=== PATIENT | female | born 1935 | race Caucasian/White ===

== ENCOUNTER 2019-03-25 10:42 | Inpatient (IN) | payer MEDICARE, SELFPAY ==
[2019-03-25] VITALS (10 sets, daily range): BP systolic 81–114; BP diastolic 44–63; PULSE 49–79; RESP 16–19; TEMP 36.4–36.8; O2SAT 96–99; BMI 31.6
--- NOTE | ~2019-03-25 | XR_ITS ---
EXAMINATION: XR chest 2V DATE: 03/25/2019 12:58 INDICATION: Weakness TECHNIQUE: AP and lateral views of the chest are obtained. COMPARISON: 01/12/2019 FINDINGS: There are lucencies of the upper lung zones, right greater than left. The lungs are free of acute opacities. There is no pleural effusion or pneumothorax. Median sternotomy wires and mediastin al surgical clips are seen, likely from prior coronary artery bypass grafting. A moderate-sized slidi ng hiatal hernia is noted. There is mild thoracic spondylosis. IMPRESSION: 1. No acute cardiopulmonary abnormality. Reviewed, dictated and finalized at location A. RV[employer]OR [employer]
--- NOTE | ~2019-03-25 | US_ITS ---
EXAMINATION: US renal BI EXAM DATE: 03/27/2019 11:06 INDICATION: Chronic kidney disease, acute kidney insufficiency. TECHNIQUE: Multiple grayscale and Doppler images of the kidneys were obtained (by a technologist who performed the scan) and subsequently reviewed. There is no prior study for comparison. FINDINGS: There is right greater than left renal cortical thinning. Right kidney: There is normal contour and echogenicity. It measures 8.6 x 4.8 x 4.8 centimeters. Th ere are no focal renal lesions identified. There is no hydronephrosis. Left kidney: There is normal contour and echogenicity. It measures 9.7 x 4.4 x 4.8 centimeters. Jasmine ral small cysts measuring up to 1.3 cm. There is no hydronephrosis. Bladder unremarkable. IMPRESSION: 1. Renal cortical thinning. 2. No hydronephrosis. Reviewed, dictated and finalized at location A. [employer]
--- NOTE | 2019-03-25 12:07 | ED.WEAKNESS ---
HPI - Weakness General Chief complaint: Weakness Stated complaint: dizzy Time Seen by Provider: 03/25/19 12:01 Source: patient and family Mode of arrival: ambulatory Limitations: no limitations History of Present Illness HPI Narrative: The pt is an 83 y/o female who presents to the ED c/o generalized weakness onset two weeks ago. Pt states that she usually experiences this weakness whenever she has a UTI, and notes that she does not have burning urination or frequency with these episodes or currently. She notes that she usually presents to this ED when she has a UTI, and was inpatient for approximately five days around [facility] of last year due to this. Pt's family states that the pt went to her PCP, Maria G Casiano NP, on 03/10/19. Pt states that she was prescribed an antibiotic, but is unsure as to when she finished this treatment. Pt reports nausea, chronic back pain, and chronic ABD pain. Pt states that she last experienced this ABD pain this morning, but is resolved at this time. She denies vomiting, diarrhea, CP, and SOB. Pt notes that she takes Aspirin once per day and diabetes medication. She states that her sugars were high today at around 330. Pt notes that she lives with her daughter. Complaint: generalized weakness Onset (ago): week(s) (2) Duration: constant Location: generalized Severity: similar to previous episodes Context: recent illness (Diagnosed with UTI) Associated symptoms: other (Nausea, back pain (Chronic), ABD pain (Chronic, last experienced this this morning and is currently resolved)) Related Data Home Medications Medication Instructions Recorded Confirmed Spiriva with HandiHaler 1 cap INHALATION DAILY 01/12/19 03/25/19 Tresiba FlexTouch U-200 42 unit SUBCUT HS 01/12/19 03/25/19 aspirin [Aspir-81] 81 mg PO DAILY 01/12/19 03/25/19 furosemide 20 mg PO DAILY 01/12/19 03/25/19 isosorbide mononitrate 90 mg PO DAILY 01/12/19 03/25/19 levothyroxine 75 mcg PO DAILY 01/12/19 03/25/19 lisinopril 5 mg PO DAILY 01/12/19 03/25/19 metoprolol succinate [Toprol XL] 100 mg PO DAILY 01/12/19 03/25/19 nitroglycerin [Nitrostat] 0.4 mg SUBLINGUAL Q5MIN PRN 01/12/19 03/25/19 rosuvastatin 20 mg PO DAILY 01/12/19 03/25/19 Allergies Allergy/AdvReac Type Severity Reaction Status Date / Time No Known Allergies Allergy Verified 03/25/19 11:25 Review of Systems Review of Systems: All systems reviewed & are unremarkable except as noted in HPI and below Cardiovascular: Cardiovascular: Denies chest pain Respiratory: Respiratory: Denies dyspnea Gastrointestinal: Gastrointestinal: Reports abdominal pain (Chronic, last experienced this morning and is currently resolved), Denies diarrhea, Reports nausea and Denies vomiting Genitourinary: Genitourinary: Denies nocturia and Denies other (Burning urination) Musculoskeletal: Musculoskeletal: Reports back pain (Chronic ) Neurologic: Reports weakness (Generalized) [facility] Past Medical History Medical History (Updated 03/26/19 @ 00:40 by Kristi Cook MD) Acute on chronic renal failure Acute PN (pyelonephritis) Anemia Anemia due to stage 4 chronic kidney disease Bronchitis CAD (coronary artery disease) Cataracts, bilateral Chronic back pain Complicated UTI (urinary tract infection) COPD (chronic obstructive pulmonary disease) DVT (deep venous thrombosis) Femur fracture, right GERD (gastroesophageal reflux disease) GI bleed Heart attack History of angina History of blood transfusion HTN (hypertension) Hyperlipidemia Hypothyroid Meniere disease Osteopenia Peripheral neuropathy Peripheral vascular disease of lower extremity Pneumonia Rectal polyp Renal disease Seizures During [place] Type II diabetes mellitus UTI (urinary tract infection) Surgical History Surgical History (Updated 03/25/19 @ 16:39 by Michael Mcpherson MD) History of appendectomy History of cardiac catheterization History of cataract removal with insertion of prosthetic lens History of c
--- NOTE | 2019-03-25 12:24 | ECG_ITS ---
Measurements Intervals [place] Rate: 71 P: 26 RI: 163 QRS: 15 QRSD: 93 T: 54 QT: 376 QTc: 411 Interpretive Statements SINUS RHYTHM WITH MARKED SINUS ARRHYTHMIA EARLY PRECORDIAL R/S TRANSITION INFERIOR INFARCT, AGE INDETERMINATE BORDERLINE ST ABNORMALITY- LATERAL LEADS ABNORMAL ECG Electronically Signed On 03-25-2019 13:56:11 NOZZLE TENDER by Sathya Cohen D.O.
--- NOTE | 2019-03-25 12:52 | PC.NURSE ---
per Paola Haile unsuccessfully attempte lab draw x2 RN notified
[2019-03-25 13:01] LABS: Add Urine Microscopic? YES; Amorphous Sediment Urine Few; Appearance Urine Cloudy (Clear); Bacteria Urine Trace /hpf; Bilirubin Urine Negative (Negative); Blood Urine 1+ (Negative); Color Urine Yellow (Yellow); Glucose Urine UA 1+ mg/dL (Negative); Ketones Urine Negative (Negative); Leukocyte Esterase Ur 3+ LEU/UL (Negative); Mucus Urine Few /lpf; Nitrate Urine Negative (Negative); Protein Urine 2+ mg/dL (Negative); RBC Urine 21-50 /hpf (0-2); Specific Grav Ur 1.016 (1.001-1.035); Squamous Epithelial Cell Urine Many /hpf (Few); Transitional Epi Cells Urine Occasional /hpf (None Seen); WBC Clumps Urine Present /HPF; WBC Urine >75 /hpf
[2019-03-25] MEDS: LACTATED RINGERS 1,000 ML 999 ML IV CONT ×2 (13:34→15:55)
--- NOTE | 2019-03-25 13:55 | PC.NURSE ---
pt has been stuck multiple times labs where sent down and were un-received. lab was called and they are coming to draw labs on the pt.
[2019-03-25 14:23] LABS: Basophils Absolute Auto 0.1 K/mm3 (0.0-0.1); Basophils Percent Auto 0.4 % (0.2-1.2); Eosinophils Absolute Auto 0.1 K/mm3 (0-0.3); Eosinophils Percent Auto 0.5 % (0-4.4); Hematocrit 37.6 % (37.0-47.0); Immature Granulocyte Absolute 0.09 K/mm3 (0.00-0.031); Immature Granulocyte Percent A 0.6 % (0-0.5); Lymphocytes Absolute Auto 2.37 K/mm3 (0.9-3.2); Mean Corpuscular HGB Conc 31.9 g/dl (32-36); Mean Corpuscular Hemoglobin 30.5 pg (26-34); Mean Corpuscular Volume 95.7 fl (80-100); Mean Platelet Volume 11.1 fl (7.4-10.4); Monocytes Absolute Auto 0.7 K/mm3 (0.1-0.6); Monocytes Percent Auto 5.3 % (2.6-8.5); Neutrophils Absolute Auto 10.7 K/mm3 (1.3-6.7); Neutrophils Percent Auto 76.2 % (45.5-73.1); Platelet Count Result 270 k/mm3 (150-375); Red Blood Count 3.93 M/mm3 (4.2-5.4); Red Cell Distribution Width 12.8 % (11.5-14.5)
--- NOTE | 2019-03-25 14:24 | PC.NURSE ---
VASCULAR NURSE CAME TO ED TO DRAW LABS. NOTIFIED LAB ABOUT LABS CANCELLED THEM TO COME UP AND DRAW LABS.
[2019-03-25 14:49] LABS: Alanine Aminotransferase 14 U/L (4-35); Albumin Level 3.4 g/dL (3.5-5.1); Alkaline Phosphatase 75 U/L (38-126); Aspartate Amino Transferase 18 U/L (14-36); Bilirubin,Total 0.5 mg/dL (0.2-1.3); Blood Urea Nitrogen 57 mg/dL (7-17); Calcium 8.8 mg/dL (8.4-10.2); Carbon Dioxide 27 mmol/L (22-30); Chloride 93 mmol/L (98-107); Estimated CRCL calculation 14 ml/min; Estimated Glomerular Filt Rate 17; Glucose 263 mg/dL (65-105); Potassium 4.5 mmol/L (3.4-5.0); Sodium 132 mmol/L (137-145)
[2019-03-25 14:55] LABS: Glucose Point of Care 226 (65-105)
--- NOTE | 2019-03-25 15:49 | PM.IMHP ---
H&P: HPI History of Present Illness Chief complaint: Acute renal failure/UTI Narrative: Anuradha Spaulding is a 83 year old female until about 2 months ago. At that time she was admitted for possible urinary tract infection. Culture grew group B strep. She was hospitalized and treated with ceftriaxone followed by amoxicillin as an outpatient. However she continued to feel weak and dizzy. Which she would get up from walks to feel very lightheaded since she is going to pass. She never completely passed out. She was always able to sit down on the floor or get back to a chair or her bed. Her dizziness was associated with nausea. She vomited a couple of times. She has chronic urinary frequency without change. No dysuria hematuria. No change in her chronic low back. No bleeding. No fevers or chills. Some night sweats per. Chronic. No focal weakness numbness or change in special senses. No diplopia. No dysarthria. She occasionally has slight difficulty with swallowing but no choking. Although she has a history of coronary artery disease and coronary artery bypass grafting she has not had any recent dyspnea on exertion palpitations chest pain or pressure. Her feet do turn purple after she has been up for a while. Her big toes tend to swell after she has been up for a while. No other issues with edema. She has not experienced hypoglycemia. Only new addition to her medication was Trulicity about 1 month ago. Appetite has been fairly good and weight fairly stable. Review of Systems Review of Systems: All systems reviewed & are unremarkable except as noted in HPI and below PMFSH Past Medical History Medical History (Updated 03/25/19 @ 16:59 by Michael Mcpherson MD) Acute on chronic renal failure Acute PN (pyelonephritis) Anemia Anemia due to stage 4 chronic kidney disease Bronchitis CAD (coronary artery disease) Cataracts, bilateral Chronic back pain Complicated UTI (urinary tract infection) COPD (chronic obstructive pulmonary disease) DVT (deep venous thrombosis) Femur fracture, right GERD (gastroesophageal reflux disease) GI bleed Heart attack History of angina History of blood transfusion HTN (hypertension) Hyperlipidemia Hypothyroid Meniere disease Osteopenia Peripheral neuropathy Peripheral vascular disease of lower extremity Pneumonia Rectal polyp Renal disease Seizures During [place] Type II diabetes mellitus UTI (urinary tract infection) Surgical History Surgical History (Updated 03/25/19 @ 16:39 by Michael Mcpherson MD) History of appendectomy History of cardiac catheterization History of cataract removal with insertion of prosthetic lens History of cholecystectomy History of hysterectomy History of total right hip arthroplasty Hx of blepharoplasty Hx of CABG Family History Family History Father Hypertension Pneumonia Smoking Mother Diabetes mellitus Family history of glaucoma Cancer Hypotension Cerebrovascular accident Sibling Diabetes mellitus Heart disease Sibling Diabetes mellitus Heart disease Sibling Diabetes mellitus Heart disease Sibling Diabetes mellitus Heart disease Sibling Suicide and self-inflicted injury Sibling Accidental , public place Social History Social History Smoking status: Never smoker Second hand tobacco smoke exposure: Yes Alcohol intake: never Substance use: never Gender identity (if verbalized by the patient): Female Spiritual care concerns: No Agree to blood products: Yes Meds Home Medications and Allergies Home Medications Medication Instructions Recorded Confirmed Type Spiriva with HandiHaler 1 cap INHALATION DAILY 01/12/19 01/12/19 History Tresiba FlexTouch U-200 42 unit SUBCUT HS 01/12/19 01/12/19 History aspirin [Aspir-81] 81 mg PO DAILY 01/12/19 01/12/19 History furosemide 40 mg PO DAILY
[2019-03-25] MEDS: LACTATED RINGERS 1,000 ML 125 ML IV CONT (16:45)
--- NOTE | 2019-03-25 17:00 | PC.NURSE ---
pt arrived to floor at 1645. pt oriented to room, reviewed packet.
[2019-03-25 17:40] LABS: Glucose Point of Care 263 (65-105)
[2019-03-25 21:27] LABS: Creatinine Urine 17.1 mg/dL
[2019-03-25 21:39] LABS: Sodium Urine Random 96 meq/L
[2019-03-25 22:02] LABS: Glucose Point of Care 349 (65-105)
[2019-03-25] MEDS: INSULIN ASPART (*BKC) 100 UNITS/ML SUB-Q (23:38)
[2019-03-26 02:39] LABS: Glucose Point of Care 281 (65-105)
[2019-03-26] MEDS: LACTATED RINGERS 1,000 ML 125 ML IV CONT ×2 (04:26→17:08)
[2019-03-26] MEDS: LEVOTHYROXINE SODIUM 75 MCG TABLET PO (05:54)
[2019-03-26 06:00] VITALS: BP 142/52; PULSE 72; RESP 18; TEMP 36.2; O2SAT 99
[2019-03-26 06:26] LABS: Basophils Absolute Auto 0.1 K/mm3 (0.0-0.1); Basophils Percent Auto 0.5 % (0.2-1.2); Eosinophils Absolute Auto 0.2 K/mm3 (0-0.3); Eosinophils Percent Auto 1.8 % (0-4.4); Hematocrit 36.6 % (37.0-47.0); Hemoglobin 11.7 g/dL (12.0-15.0); Immature Granulocyte Absolute 0.03 K/mm3 (0.00-0.031); Immature Granulocyte Percent A 0.3 % (0-0.5); Lymphocytes Absolute Auto 3.51 K/mm3 (0.9-3.2); Lymphocytes Percent Auto 37.2 % (18.3-44.2); Mean Corpuscular Hemoglobin 30.5 pg (26-34); Mean Corpuscular Volume 95.3 fl (80-100); Mean Platelet Volume 10.9 fl (7.4-10.4); Monocytes Absolute Auto 0.7 K/mm3 (0.1-0.6); Monocytes Percent Auto 7.8 % (2.6-8.5); Neutrophils Absolute Auto 4.9 K/mm3 (1.3-6.7); Neutrophils Percent Auto 52.4 % (45.5-73.1); Platelet Count Result 236 k/mm3 (150-375); Red Blood Count 3.84 M/mm3 (4.2-5.4); White Blood Count 9.4 K/mm3 (4.5-10.0)
[2019-03-26 06:43] LABS: Alanine Aminotransferase 13 U/L (4-35); Albumin Level 3.5 g/dL (3.5-5.1); Alkaline Phosphatase 79 U/L (38-126); Aspartate Amino Transferase 19 U/L (14-36); Bilirubin,Total 0.5 mg/dL (0.2-1.3); Blood Urea Nitrogen 49 mg/dL (7-17); Calcium 8.7 mg/dL (8.4-10.2); Carbon Dioxide 25 mmol/L (22-30); Chloride 94 mmol/L (98-107); Estimated CRCL calculation 16 ml/min; Estimated Glomerular Filt Rate 18; Glucose 331 mg/dL (65-105); Magnesium 1.9 mg/dL (1.6-2.3); Phosphorus 4.4 mg/dL (2.5-4.5); Potassium 4.6 mmol/L (3.4-5.0); Sodium 133 mmol/L (137-145)
[2019-03-26] MEDS: INSULIN ASPART (*BKC) 100 UNITS/ML SUB-Q ×3 (06:55→17:10)
[2019-03-26 07:03] LABS: Glucose Point of Care 295 (65-105)
[2019-03-26 07:32] LABS: Hemoglobin A1C 12.3 % (<5.7)
[2019-03-26] MEDS: ASPIRIN 81 MG ENTERIC TABLET PO (08:59)
[2019-03-26 09:55] VITALS: PULSE 64
[2019-03-26] MEDS: METOPROLOL SUCCINATE EXT REL 50 MG TABCR PO (09:55)
[2019-03-26] MEDS: FAMOTIDINE 20 MG TABLET PO ×2 (09:55→20:50)
[2019-03-26 11:31] LABS: Glucose Point of Care 395 (65-105)
--- NOTE | 2019-03-26 14:01 | PM.CNCAR ---
Assessment and Plan Assessment and plan (1) Orthostatic hypotension: Code(s): I95.1 - Orthostatic hypotension Status: Acute Assessment and Plan: Worsened by her underlying urinary tract infection. She also has peripheral neuropathy and likely autonomic dysfunction also which will obviously contribute to her orthostasis. At this point, I recommend discontinuing her furosemide completely. She has a normal ejection fraction and is presenting with acute on chronic renal failure as well as orthostasis. Would also hold her lisinopril for now given her acute on chronic renal failure. Agree with IV fluids but I am going to reduce that down to 100 cc an hour. Support stockings to lower extremities and treatment of her urinary tract infection. If she continues to have issues with orthostasis despite these measures, could initiate midodrine. Given her significant coronary disease however I believes she should stay on isosorbide and metoprolol.. Therefore will restart isosorbide mononitrate but at a lower dose at 60 mg p.o. daily (2) Dizziness: Code(s): R42 - Dizziness and giddiness Status: Acute Assessment and Plan: Related to 1. Above (3) Acute on chronic renal failure: Qualifiers: Acute renal failure type: unspecified Chronic kidney disease stage: unspecified stage Qualified Code(s): N17.9 - Acute kidney failure, unspecified; N18.9 - Chronic kidney disease, unspecified Code(s): N17.9 - Acute kidney failure, unspecified; N18.9 - Chronic kidney disease, unspecified Status: Acute Assessment and Plan: Holding furosemide and lisinopril. Receiving IV fluids (4) CAD (coronary artery disease): Qualifiers: Coronary Disease-Associated Artery/Lesion type: bypass graft [place] vs. transplanted heart: [place] heart Associated angina: without angina Qualified Code(s): I25.810 - Atherosclerosis of coronary artery bypass graft(s) without angina pectoris Code(s): I25.10 - Atherosclerotic heart disease of [place] coronary artery without angina pectoris Status: Acute Assessment and Plan: As detailed above. Continue aspirin, isosorbide, statin and metoprolol. (5) Recurrent UTI: Code(s): N39.0 - Urinary tract infection, site not specified Status: Acute Assessment and Plan: On antibiotics (6) Aortic stenosis: Code(s): I35.0 - Nonrheumatic aortic (valve) stenosis Status: Acute Assessment and Plan: Moderate with a valve area 1.1 centimeters squared about a year ago Will repeat 2D echocardiogram with Doppler now. Certainly her dizziness upon standing and orthostasis is going to be symptomatically worsened by aortic stenosis History of Present Illness History of Present Illness Consult date/time: 03/26/19 14:01 Requesting physician: Michael Mcpherson MD Consult reason: Other (Dizziness, orthostatic hypotension) Reason For Visit: Acute renal failure/UTI Narrative: Date of service 03/26/2019: History: Patient is an 83-year-old female patient of Dr. Boo with history of left main coronary disease and underwent bypass grafting in 2002. Patient had inferolateral defect any catheterization was performed in 2015. At that time she had diffuse small multivessel coronary disease with a long LAD stenosis severe ostial and mid circumflex stenosis not amenable to PCI. December 2016 angiography was also performed showing that the circumflex had completely occluded. Attempts were made unsuccessfully to open the vessel. She also has moderate aortic stenosis. She did have a Lexiscan in April 2018 at [facility] with ischemia and infarction noted correlated to her known anatomy. She saw Dr. Boo December of 2018 at that point no specific changes were made to her cardiac regimen. She has been dealing with frequent UTIs recently. Consultation was requested for market orthostasis. She was admitted because of severe weakness irma
[2019-03-26 14:33] VITALS: BP 101/52; PULSE 61; RESP 20; TEMP 36.4; O2SAT 99
[2019-03-26 16:00] VITALS: BP 124/71
--- NOTE | 2019-03-26 16:04 | P.PNIM_ITS ---
Progress Note: A&P Assessment and Plan (1) Dizziness: Code(s): R42 - Dizziness and giddiness Status: Acute Assessment and Plan: * Orthostatic hypotension confirmed * 03/26/19 Medication adjusted with reduced dose of metoprolol and isosorbide and discontinuing lisinopril and furosemide * Elevate HOB * Trial of support stockings * Add low-dose midodrine if symptoms persist (2) Recurrent UTI: Code(s): N39.0 - Urinary tract infection, site not specified Status: Acute Assessment and Plan: * Abnormal urinalysis * Ceftriaxone empirically pending culture (3) Type II diabetes mellitus: Qualifiers: Diabetes mellitus ferry terminal supervisor insulin use: with ferry terminal supervisor use Diabetes mellitus complication status: with neurologic complications Diabetes mellitus complication detail: with polyneuropathy Qualified Code(s): E11.42 - Type 2 diabetes mellitus with diabetic polyneuropathy; Z79.4 - custodial (current) use of insulin Code(s): E11.9 - Type 2 diabetes mellitus without complications Status: Chronic Assessment and Plan: * A1c 12.3% * Continue basal insulin with sliding scale as needed * 03/26 added premeal insulin * 03/26 waffle boots and silvagel for left heel fissure (4) GERD (gastroesophageal reflux disease): Qualifiers: Esophagitis presence: esophagitis presence not specified Qualified Code(s): K21.9 - Gastro-esophageal reflux disease without esophagitis Code(s): K21.9 - Gastro-esophageal reflux disease without esophagitis Status: Chronic Assessment and Plan: * Acid suppression (5) Anemia due to stage 4 chronic kidney disease: Code(s): N18.4 - Chronic kidney disease, stage 4 (severe); D63.1 - Anemia in chronic kidney disease Status: Acute Assessment and Plan: * Relatively stable * Monitor (6) Hypothyroidism: Qualifiers: Hypothyroidism type: other Qualified Code(s): E03.8 - Other specified hypothyroidism Code(s): E03.9 - Hypothyroidism, unspecified Status: Chronic Assessment and Plan: * Continue home regimen (7) Acute on chronic renal failure: Qualifiers: Acute renal failure type: unspecified Chronic kidney disease stage: unspecified stage Qualified Code(s): N17.9 - Acute kidney failure, unspecified; N18.9 - Chronic kidney disease, unspecified Code(s): N17.9 - Acute kidney failure, unspecified; N18.9 - Chronic kidney disease, unspecified Status: Acute Assessment and Plan: * Possibly combination of medications including diuretic and MICHAEL-inhibitor plus volume depletion * Monitor renal parameters with judicious hydration (8) HTN (hypertension): Qualifiers: Hypertension type: essential hypertension Qualified Code(s): I10 - Essential (primary) hypertension Code(s): I10 - Essential (primary) hypertension Status: Chronic Assessment and Plan: * 03/26 held lisinopril and reduced metoprolol * Monitor pressure including orthostatics (9) Peripheral vascular disease of lower extremity: Code(s): I73.9 - Peripheral vascular disease, unspecified Status: Acute Assessment and Plan: * No history of claudication * High risk for diabetic foot infection. Advised patient and daughter at bedside. (10) Peripheral neuropathy: Qualifiers: Peripheral neuropathy type: polyneuropathy, unspecified Qualified Code(s): G62.9 - Polyneuropathy, unspecified Code(s): G62.9 - Polyneuropathy, unspecified
--- NOTE | 2019-03-26 16:04 | PM.IMPN ---
Progress Note: A&P Assessment and Plan (1) Dizziness: Code(s): R42 - Dizziness and giddiness Status: Acute Assessment and Plan: Orthostatic hypotension confirmed 03/26/19 Medication adjusted with reduced dose of metoprolol and isosorbide and discontinuing lisinopril and furosemide Elevate HOB Trial of support stockings Add low-dose midodrine if symptoms persist (2) Recurrent UTI: Code(s): N39.0 - Urinary tract infection, site not specified Status: Acute Assessment and Plan: Abnormal urinalysis Ceftriaxone empirically pending culture (3) Type II diabetes mellitus: Qualifiers: Diabetes mellitus tank terminal gauger insulin use: with tank terminal gauger use Diabetes mellitus complication status: with neurologic complications Diabetes mellitus complication detail: with polyneuropathy Qualified Code(s): E11.42 - Type 2 diabetes mellitus with diabetic polyneuropathy; Z79.4 - residential (current) use of insulin Code(s): E11.9 - Type 2 diabetes mellitus without complications Status: Chronic Assessment and Plan: A1c 12.3% Continue basal insulin with sliding scale as needed 03/26 added premeal insulin 03/26 waffle boots and silvagel for left heel fissure (4) GERD (gastroesophageal reflux disease): Qualifiers: Esophagitis presence: esophagitis presence not specified Qualified Code(s): K21.9 - Gastro-esophageal reflux disease without esophagitis Code(s): K21.9 - Gastro-esophageal reflux disease without esophagitis Status: Chronic Assessment and Plan: Acid suppression (5) Anemia due to stage 4 chronic kidney disease: Code(s): N18.4 - Chronic kidney disease, stage 4 (severe); D63.1 - Anemia in chronic kidney disease Status: Acute Assessment and Plan: Relatively stable Monitor (6) Hypothyroidism: Qualifiers: Hypothyroidism type: other Qualified Code(s): E03.8 - Other specified hypothyroidism Code(s): E03.9 - Hypothyroidism, unspecified Status: Chronic Assessment and Plan: Continue home regimen (7) Acute on chronic renal failure: Qualifiers: Acute renal failure type: unspecified Chronic kidney disease stage: unspecified stage Qualified Code(s): N17.9 - Acute kidney failure, unspecified; N18.9 - Chronic kidney disease, unspecified Code(s): N17.9 - Acute kidney failure, unspecified; N18.9 - Chronic kidney disease, unspecified Status: Acute Assessment and Plan: Possibly combination of medications including diuretic and MICHAEL-inhibitor plus volume depletion Monitor renal parameters with judicious hydration (8) HTN (hypertension): Qualifiers: Hypertension type: essential hypertension Qualified Code(s): I10 - Essential (primary) hypertension Code(s): I10 - Essential (primary) hypertension Status: Chronic Assessment and Plan: 03/26 held lisinopril and reduced metoprolol Monitor pressure including orthostatics (9) Peripheral vascular disease of lower extremity: Code(s): I73.9 - Peripheral vascular disease, unspecified Status: Acute Assessment and Plan: No history of claudication High risk for diabetic foot infection. Advised patient and daughter at bedside. (10) Peripheral neuropathy: Qualifiers: Peripheral neuropathy type: polyneuropathy, unspecified Qualified Code(s): G62.9 - Polyneuropathy, unspecified Code(s): G62.9 - Polyneuropathy, unspecified Status: Acute Assessment and Plan: Likely due to her diabetes May be contributing to orthostatic hypotension (11) CAD (coronary artery disease): Qualifiers: Coronary Disease-Associated Artery/Lesion type: bypass graft [place] vs. transplanted heart: [place] heart Associated angina: without angina Qualified Code(s): I25.810 - Atherosclerosis of coronary artery bypass graft(s) without angina pectoris
[2019-03-26 16:56] LABS: Glucose Point of Care 335 (65-105)
[2019-03-26 17:00] VITALS: BP 146/64; BP 99/51
[2019-03-26] MEDS: INSULIN ASPART (*BKC) 100 UNITS/ML 8 UNITS SUB-Q (17:09)
[2019-03-26] MEDS: SILVERGEL (ELTA) 45 ML 1 APPLIC TOPICAL (17:19)
[2019-03-26] MEDS: INSULIN GLARGINE (*BKC) 100 UNITS/ML 42 UNITS SUB-Q (20:50)
[2019-03-26 20:58] LABS: Glucose Point of Care 263 (65-105)
[2019-03-26 22:00] VITALS: BP 159/52; PULSE 57; RESP 20; TEMP 36.9; O2SAT 99
[2019-03-27] VITALS (8 sets, daily range): BP systolic 105–173; BP diastolic 55–69; PULSE 61–72; RESP 18–20; TEMP 36.7–37.2; O2SAT 96–97
--- NOTE | 2019-03-27 | ECHO_ITS ---
Patient Info Name: Anuradha Spaulding Age: 83 years : 1935 Gender: Female Ht: 63 in Wt: 177 lbs BSA: 1.92 m2 HR: 79 bpm BP: 156 / 69 mmHg Heart Rhythm: Sinus Rhythm Exam Date: 03/27/2019 8:06 AM Exam Location: [facility] Patient Status: Inpatient Admit Date: 03/25/2019 Staff Ordering Physician: Luis Gonzalez MD Blocking Machine Operator Second: Vanda Nam RDCS Attending Provider: Yolanda Pickett MD Referring Physician: Lisa CHILDRESS; Exam Type: CA echo dop color flow w con Study Info Complete two-dimensional, color flow and Doppler transthoracic echocardiogram is performed with contrast to opacify the left ventrical and to improve the deliniation of the left ventrical endocarial boarders. Contrast/Agitated Saline Contrast/Ag. Saline: Definity Amount: --- ml Summary 1. Left ventricular chamber dimension is normal. 2. Left ventricular systolic function is hyperdynamic, estimated at >70%. 3. There is moderately increased left ventricular wall thickness. 4. Left ventricular septal wall motion is normal. 5. The left ventricular diastolic function is grade I diastolic dysfunction. 6. Left atrial chamber dimension is moderately enlarged. 7. There is mild aortic valve stenosis with a peak velocity of 295.36 cm/s, mean gradient of 15 mmHg, and aortic valve area of 2.04 cm2. 8. There is moderate aortic valve calcification. 9. There is mild mitral valve regurgitation. 10. There is mild tricuspid valve regurgitation. 11. Mild pulmonary hypertension, estimated pulmonary arterial systolic pressure is 39 mmHg. 12. There is mild pulmonic regurgitation. Left Ventricle Left ventricular chamber dimension is normal. Left ventricular systolic function is hyperdynamic, estimated at >70%. There is moderately increased left ventricular wall thickness. Left ventricular septal wall motion is normal. The left ventricular diastolic function is grade I diastolic dysfunction. Right Ventricle Right ventricular chamber dimension is normal. Right ventricular systolic function is normal. Left Atria Left atrial chamber dimension is moderately enlarged. Right Atria Right atrial chamber dimension is normal. Atrial Septum Intact interatrial septum visualized by Doppler imaging. Aortic Valve The aortic valve is trileaflet. There is mild aortic valve stenosis with a peak velocity of 295.36 cm/s, mean gradient of 15 mmHg, and aortic valve area of 2.04 cm2. There is trace aortic valve regurgitation. There is moderate aortic valve calcification. Pulmonic Valve The pulmonic valve is normal. There is no pulmonic valve stenosis. There is mild pulmonic regurgitation. Mitral Valve The mitral valve has thickened leaflets and calcified annulus. There is no mitral valve stenosis. There is mild mitral valve regurgitation. Tricuspid Valve The tricuspid valve leaflets are normal. There is no significant tricuspid valve stenosis. There is mild tricuspid valve regurgitation. Mild pulmonary hypertension, estimated pulmonary arterial systolic pressure is 39 mmHg. Pericardium/Pleural The pericardium appears normal. There is no pericardial effusion. Aorta The aortic root size at the sinus of Valsalva is normal. Left Ventricular Outflow Tract Name Value Normal
[2019-03-27] MEDS: LACTATED RINGERS 1,000 ML 125 ML IV CONT (05:55)
[2019-03-27] MEDS: LEVOTHYROXINE SODIUM 75 MCG TABLET PO (05:55)
[2019-03-27 06:15] LABS: Hemoglobin 11.3 g/dL (12.0-15.0); Mean Corpuscular HGB Conc 32.3 g/dl (32-36); Mean Corpuscular Hemoglobin 30.5 pg (26-34); Mean Corpuscular Volume 94.3 fl (80-100); Mean Platelet Volume 10.9 fl (7.4-10.4); Platelet Count Result 222 k/mm3 (150-375); Red Blood Count 3.71 M/mm3 (4.2-5.4); Red Cell Distribution Width 12.5 % (11.5-14.5); White Blood Count 9.1 K/mm3 (4.5-10.0)
[2019-03-27 06:41] LABS: Blood Urea Nitrogen 41 mg/dL (7-17); Calcium 8.6 mg/dL (8.4-10.2); Carbon Dioxide 25 mmol/L (22-30); Chloride 99 mmol/L (98-107); Estimated CRCL calculation 18 ml/min; Estimated Glomerular Filt Rate 21; Glucose 325 mg/dL (65-105); Potassium 4.2 mmol/L (3.4-5.0); Sodium 133 mmol/L (137-145)
[2019-03-27 06:57] LABS: Glucose Point of Care 317 (65-105)
[2019-03-27] MEDS: INSULIN ASPART (*BKC) 100 UNITS/ML 8 UNITS SUB-Q (06:59)
[2019-03-27] MEDS: INSULIN ASPART (*BKC) 100 UNITS/ML SUB-Q ×2 (07:00→11:43)
[2019-03-27] MEDS: PERFLUTREN LIPID MICROSPHERES 1.5 ML VIAL DILUTED TO 10 ML TOTAL VOLUME (09:20)
[2019-03-27] MEDS: ASPIRIN 81 MG ENTERIC TABLET PO (10:09)
[2019-03-27] MEDS: METOPROLOL SUCCINATE EXT REL 50 MG TABCR PO (10:09)
[2019-03-27] MEDS: FAMOTIDINE 20 MG TABLET PO ×2 (10:10→21:25)
[2019-03-27] MEDS: ISOSORBIDE MONONITRATE 60 MG TAB.ER.24H PO (10:10)
--- NOTE | 2019-03-27 10:29 | PC.NURSE ---
Pt ate breakfast prior to 0700 and was given her sliding scale. The scheduled dose was not given with meal. Morning meds were late because pt was getting a renal ultrasound and unavailable. When I passed morning meds to her, she stated lunch would be there in less than an hour. Held the 0800 dose of scheduled insulin to be with meals.
[2019-03-27 11:29] LABS: Glucose Point of Care 219 (65-105)
[2019-03-27] MEDS: INSULIN ASPART (*BKC) 100 UNITS/ML 10 UNITS SUB-Q (11:44)
--- NOTE | 2019-03-27 11:55 | PM.PNCARD ---
Progress Note: A&P Assessment and Plan (1) Orthostatic hypotension: Code(s): I95.1 - Orthostatic hypotension Status: Acute Assessment and Plan: Worsened by her underlying urinary tract infection. She also has peripheral neuropathy and likely autonomic dysfunction also which will obviously contribute to her orthostasis. At this point, I recommend discontinuing her furosemide completely. She has a normal ejection fraction and is presenting with acute on chronic renal failure as well as orthostasis. Support stockings to lower extremities and treatment of her urinary tract infection. If she continues to have issues with orthostasis despite these measures, could initiate midodrine. I am going to stop her IV fluids at this point. I do not want to pressure into iatrogenic volume overload. Symptomatically she is much better and will likely need to allow some permissive hypertension at baseline to prevent her from having significant orthostatic hypotension upon standing. Will review echo (2) Dizziness: Code(s): R42 - Dizziness and giddiness Status: Acute Assessment and Plan: Related to 1. Above (3) Acute on chronic renal failure: Qualifiers: Acute renal failure type: unspecified Chronic kidney disease stage: unspecified stage Qualified Code(s): N17.9 - Acute kidney failure, unspecified; N18.9 - Chronic kidney disease, unspecified Code(s): N17.9 - Acute kidney failure, unspecified; N18.9 - Chronic kidney disease, unspecified Status: Acute Assessment and Plan: Holding furosemide and lisinopril. (4) CAD (coronary artery disease): Qualifiers: Coronary Disease-Associated Artery/Lesion type: bypass graft [place] vs. transplanted heart: [place] heart Associated angina: without angina Qualified Code(s): I25.810 - Atherosclerosis of coronary artery bypass graft(s) without angina pectoris Code(s): I25.10 - Atherosclerotic heart disease of [place] coronary artery without angina pectoris Status: Acute Assessment and Plan: As detailed above. Continue aspirin, isosorbide, statin and metoprolol. (5) Recurrent UTI: Code(s): N39.0 - Urinary tract infection, site not specified Status: Acute Assessment and Plan: On antibiotics (6) Aortic stenosis: Code(s): I35.0 - Nonrheumatic aortic (valve) stenosis Status: Acute Assessment and Plan: Moderate with a valve area 1.1 centimeters squared about a year ago Certainly her dizziness upon standing and orthostasis is going to be symptomatically worsened by aortic stenosis Subjective Date/time seen: 03/27/19 11:56 Interval history: Chief complaint: Dizziness, orthostasis Date of service 03/27/2019: She feels better today. No chest pain or shortness of breath. Dizziness has improved. Review of Systems Review of Systems: All systems reviewed & are unremarkable except as noted in HPI and below Constitutional: Constitutional: Denies headache(s) and Reports weakness Eyes: Eyes: Denies blurry vision ENT: Denies headache(s), Denies lip swelling, Denies epistaxis and Denies neck pain Cardiovascular: Cardiovascular: Denies chest pain and Reports dyspnea on exertion Respiratory: Respiratory: Denies hemoptysis, Reports dyspnea on exertion and Denies wheezing Gastrointestinal: Gastrointestinal: Denies abdominal pain Genitourinary: Genitourinary: Denies hematuria and Denies flank pain Musculoskeletal: Musculoskeletal: Denies back pain and Denies neck pain Integumentary/Breasts: Skin/Breast: Denies rash Neurologic: Denies confusion, Denies headache(s) and Reports weakness Psychiatric: Psychiatric: Denies anxiety and Denies confusion Endocrine: Endocrine: Denies flushing Hematologic/Lymphatic: Hematologic/Lymphatic: Denies easy bruising Allergic/Immunologic: Allergic/Immunologic: Denies lip swelling and Denies wheezing Exam Narrative: Exam Narrative
--- NOTE | 2019-03-27 12:35 | P.PNIM_ITS ---
Progress Note: A&P Assessment and Plan (1) Dizziness: Code(s): R42 - Dizziness and giddiness Status: Acute Assessment and Plan: * Orthostatic hypotension confirmed * 03/26/19 Medication adjusted with reduced dose of metoprolol and isosorbide and discontinuing lisinopril and furosemide * Elevate HOB * Trial of support stockings * 03/27 orthostatic bp improved 105/55 (2) Recurrent UTI: Code(s): N39.0 - Urinary tract infection, site not specified Status: Acute Assessment and Plan: * Abnormal urinalysis * Ceftriaxone day 3 for e coli UTI * Likely home 03/28 (3) Type II diabetes mellitus: Qualifiers: Diabetes mellitus exterminator termite insulin use: with intermediate use Diabetes mellitus complication status: with neurologic complications Diabetes mellitus complication detail: with polyneuropathy Qualified Code(s): E11.42 - Type 2 diabetes mellitus with diabetic polyneuropathy; Z79.4 - vermin exterminator (current) use of insulin Code(s): E11.9 - Type 2 diabetes mellitus without complications Status: Chronic Assessment and Plan: * A1c 12.3% * Continue basal insulin with sliding scale as needed * 03/26 added premeal insulin * 03/26 waffle boots and silvagel for left heel fissure * 03/27 Added premeal insulin (4) GERD (gastroesophageal reflux disease): Qualifiers: Esophagitis presence: esophagitis presence not specified Qualified Code(s): K21.9 - Gastro-esophageal reflux disease without esophagitis Code(s): K21.9 - Gastro-esophageal reflux disease without esophagitis Status: Chronic Assessment and Plan: * Acid suppression (5) Anemia due to stage 4 chronic kidney disease: Code(s): N18.4 - Chronic kidney disease, stage 4 (severe); D63.1 - Anemia in chronic kidney disease Status: Acute Assessment and Plan: * Relatively stable * Monitor (6) Hypothyroidism: Qualifiers: Hypothyroidism type: other Qualified Code(s): E03.8 - Other specified hypothyroidism Code(s): E03.9 - Hypothyroidism, unspecified Status: Chronic Assessment and Plan: * Continue home regimen (7) Acute on chronic renal failure: Qualifiers: Acute renal failure type: unspecified Chronic kidney disease stage: unspecified stage Qualified Code(s): N17.9 - Acute kidney failure, unspecified; N18.9 - Chronic kidney disease, unspecified Code(s): N17.9 - Acute kidney failure, unspecified; N18.9 - Chronic kidney disease, un specified Status: Acute Assessment and Plan: * Possibly combination of medications including diuretic and MICHAEL-inhibitor plus volume depletion * Monitor renal parameters with judicious hydration (8) HTN (hypertension): Qualifiers: Hypertension type: essential hypertension Qualified Code(s): I10 - Essential (primary) hypertension Code(s): I10 - Essential (primary) hypertension Status: Chronic Assessment and Plan: * 03/26 held lisinopril and reduced metoprolol * Monitor pressure including orthostatics (9) Peripheral vascular disease of lower extremity: Code(s): I73.9 - Peripheral vascular disease, unspecified Status: Acute Assessment and Plan: * No history of claudication * High risk for diabetic foot infection. Advised patient and daughter at bedside. (10) Peripheral neuropathy: Qualifiers: Peripheral neuropathy type: polyneuropathy, unspecified Qualified Code(s): G62.9 - Polyneuropathy, unspecified Code(s):
--- NOTE | 2019-03-27 12:35 | PM.IMPN ---
Progress Note: A&P Assessment and Plan (1) Dizziness: Code(s): R42 - Dizziness and giddiness Status: Acute Assessment and Plan: Orthostatic hypotension confirmed 03/26/19 Medication adjusted with reduced dose of metoprolol and isosorbide and discontinuing lisinopril and furosemide Elevate HOB Trial of support stockings 03/27 orthostatic bp improved 105/55 (2) Recurrent UTI: Code(s): N39.0 - Urinary tract infection, site not specified Status: Acute Assessment and Plan: Abnormal urinalysis Ceftriaxone day 3 for e coli UTI Likely home 03/28 (3) Type II diabetes mellitus: Qualifiers: Diabetes mellitus terminal computer operator insulin use: with chcf use Diabetes mellitus complication status: with neurologic complications Diabetes mellitus complication detail: with polyneuropathy Qualified Code(s): E11.42 - Type 2 diabetes mellitus with diabetic polyneuropathy; Z79.4 - detention (current) use of insulin Code(s): E11.9 - Type 2 diabetes mellitus without complications Status: Chronic Assessment and Plan: A1c 12.3% Continue basal insulin with sliding scale as needed 03/26 added premeal insulin 03/26 waffle boots and silvagel for left heel fissure 03/27 Added premeal insulin (4) GERD (gastroesophageal reflux disease): Qualifiers: Esophagitis presence: esophagitis presence not specified Qualified Code(s): K21.9 - Gastro-esophageal reflux disease without esophagitis Code(s): K21.9 - Gastro-esophageal reflux disease without esophagitis Status: Chronic Assessment and Plan: Acid suppression (5) Anemia due to stage 4 chronic kidney disease: Code(s): N18.4 - Chronic kidney disease, stage 4 (severe); D63.1 - Anemia in chronic kidney disease Status: Acute Assessment and Plan: Relatively stable Monitor (6) Hypothyroidism: Qualifiers: Hypothyroidism type: other Qualified Code(s): E03.8 - Other specified hypothyroidism Code(s): E03.9 - Hypothyroidism, unspecified Status: Chronic Assessment and Plan: Continue home regimen (7) Acute on chronic renal failure: Qualifiers: Acute renal failure type: unspecified Chronic kidney disease stage: unspecified stage Qualified Code(s): N17.9 - Acute kidney failure, unspecified; N18.9 - Chronic kidney disease, unspecified Code(s): N17.9 - Acute kidney failure, unspecified; N18.9 - Chronic kidney disease, unspecified Status: Acute Assessment and Plan: Possibly combination of medications including diuretic and MICHAEL-inhibitor plus volume depletion Monitor renal parameters with judicious hydration (8) HTN (hypertension): Qualifiers: Hypertension type: essential hypertension Qualified Code(s): I10 - Essential (primary) hypertension Code(s): I10 - Essential (primary) hypertension Status: Chronic Assessment and Plan: 03/26 held lisinopril and reduced metoprolol Monitor pressure including orthostatics (9) Peripheral vascular disease of lower extremity: Code(s): I73.9 - Peripheral vascular disease, unspecified Status: Acute Assessment and Plan: No history of claudication High risk for diabetic foot infection. Advised patient and daughter at bedside. (10) Peripheral neuropathy: Qualifiers: Peripheral neuropathy type: polyneuropathy, unspecified Qualified Code(s): G62.9 - Polyneuropathy, unspecified Code(s): G62.9 - Polyneuropathy, unspecified Status: Acute Assessment and Plan: Likely due to her diabetes May be contributing to orthostatic hypotension (11) CAD (coronary artery disease): Qualifiers: Coronary Disease-Associated Artery/Lesion type: bypass graft [place] vs. transplanted heart: [place] heart Associated angina: without angina Qualified Code(s): I25.810 - Atherosclerosis of coronary artery bypass gr
[2019-03-27 17:09] LABS: Glucose Point of Care 117 (65-105)
[2019-03-27] MEDS: INSULIN GLARGINE (*BKC) 100 UNITS/ML 30 UNITS SUB-Q (22:11)
[2019-03-27 22:17] LABS: Glucose Point of Care 257 (65-105)
[2019-03-28 06:00] VITALS: BP 146/56; PULSE 57; RESP 18; TEMP 37; O2SAT 100
[2019-03-28 06:22] LABS: Hemoglobin 11.3 g/dL (12.0-15.0); Mean Corpuscular HGB Conc 32.3 g/dl (32-36); Mean Corpuscular Hemoglobin 30.6 pg (26-34); Mean Corpuscular Volume 94.9 fl (80-100); Mean Platelet Volume 10.7 fl (7.4-10.4); Platelet Count Result 246 k/mm3 (150-375); Red Blood Count 3.69 M/mm3 (4.2-5.4); Red Cell Distribution Width 12.8 % (11.5-14.5); White Blood Count 8.5 K/mm3 (4.5-10.0)
[2019-03-28 06:43] LABS: Blood Urea Nitrogen 35 mg/dL (7-17); Calcium 8.4 mg/dL (8.4-10.2); Carbon Dioxide 27 mmol/L (22-30); Chloride 98 mmol/L (98-107); Estimated CRCL calculation 20 ml/min; Estimated Glomerular Filt Rate 24; Glucose 286 mg/dL (65-105); Potassium 4.2 mmol/L (3.4-5.0); Sodium 134 mmol/L (137-145)
[2019-03-28] MEDS: LEVOTHYROXINE SODIUM 75 MCG TABLET PO (07:07)
[2019-03-28] MEDS: INSULIN ASPART (*BKC) 100 UNITS/ML SUB-Q (07:27)
[2019-03-28 07:38] LABS: Glucose Point of Care 258 (65-105)
[2019-03-28 08:30] VITALS: BP 134/57; PULSE 66; RESP 18; TEMP 36.6
[2019-03-28 08:33] VITALS: BP 136/62; PULSE 71; RESP 20; O2SAT 98
[2019-03-28 08:35] VITALS: BP 128/55; PULSE 69; RESP 18; O2SAT 98
[2019-03-28 09:05] VITALS: BP 136/52; PULSE 65; RESP 16; O2SAT 99
[2019-03-28] MEDS: FAMOTIDINE 20 MG TABLET PO (09:06)
[2019-03-28] MEDS: METOPROLOL SUCCINATE EXT REL 50 MG TABCR PO (09:06)
[2019-03-28] MEDS: ASPIRIN 81 MG ENTERIC TABLET PO (09:06)
[2019-03-28] MEDS: ISOSORBIDE MONONITRATE 60 MG TAB.ER.24H PO (09:06)
--- NOTE | 2019-03-28 10:13 | P.DS_ITS ---
DS: Diagnosis Admitting Diagnosis Admitting Diagnosis: Dizziness and giddiness Discharge Diagnosis (1) Dizziness: Code(s): R42 - Dizziness and giddiness Status: Acute Assessment and Plan: * Orthostatic hypotension confirmed * 03/26/19 Medication adjusted with reduced dose of metoprolol and isosorbide and discontinuing lisinopril and furosemide * Elevate HOB * Trial of support stockings * 03/27 orthostatic bp improved 105/55 (2) Recurrent UTI: Code(s): N39.0 - Urinary tract infection, site not specified Status: Acute Assessment and Plan: * Abnormal urinalysis * Ceftriaxone day 3 for e coli UTI * Likely home 03/28 (3) Type II diabetes mellitus: Qualifiers: Diabetes mellitus termite helper insulin use: with longterm use Diabetes mellitus complication status: with neurologic complications Diabetes mellitus complication detail: with polyneuropathy Qualified Code(s): E11.42 - Type 2 diabetes mellitus with diabetic polyneuropathy; Z79.4 - intermodal owner operator truck driver (current) use of insulin Code(s): E11.9 - Type 2 diabetes mellitus without complications Status: Chronic Assessment and Plan: * A1c 12.3% * Continue basal insulin with sliding scale as needed * 03/26 added premeal insulin * 03/26 waffle boots and silvagel for left heel fissure * 03/27 Added premeal insulin * 03/27 PM insulin reduced due to BS in 100s. * 03/28 FBS 258, resume home regimen with closer attention to diet upon discharge (4) GERD (gastroesophageal reflux disease): Qualifiers: Esophagitis presence: esophagitis presence not specified Qualified Code(s): K21.9 - Gastro-esophageal reflux disease without esophagitis Code(s): K21.9 - Gastro-esophageal reflux disease without esophagitis Status: Chronic Assessment and Plan: * Acid suppression (5) Anemia due to stage 4 chronic kidney disease: Code(s): N18.4 - Chronic kidney disease, stage 4 (severe); D63.1 - Anemia in chronic kidney disease Status: Acute Assessment and Plan: * Relatively stable * Monitor (6) Hypothyroidism: Qualifiers: Hypothyroidism type: other Qualified Code(s): E03.8 - Other specified hypothyroidism Code(s): E03.9 - Hypothyroidism, unspecified Status: Chronic Assessment and Plan: * Continue home regimen (7) Acute on chronic renal failure: Qualifiers: Acute renal failure type: unspecified Chronic kidney disease stage: unspecified stage Qualified Code(s): N17.9 - Acute kidney failure, unspecified; N18.9 - Chronic kidney disease, unspecified Code(s): N17.9 - Acute kidney failure, unspecified; N18.9 - Chronic kidney disease, unspecified Status: Acute Assessment and Plan: * Possibly combination of medications including diuretic and MICHAEL-inhibitor plus volume depletion * Creatinine improved from 2.7 to 2.0 during her stay (8) HTN (hypertension): Qualifiers: Hypertension type: essential hypertension Qualified Code(s): I10 - Essential (primary) hypertension Code(s): I10 - Essential (primary) hypertension Status: Chronic Assessment and Plan: * 03/26 held lisinopril and reduced metoprolol * 03/28 standing bp 120s systolic (9) Peripheral vascular disease of lower extremity: Code(s): I73.9 - Peripheral vascular disease, unspecified Status: Acute Assessment and Plan: * No history of claudication * High risk for diabetic foot infection. * Advised patient and daughter at bedside
--- NOTE | 2019-03-28 10:13 | PM.DS ---
DS: Diagnosis Admitting Diagnosis Admitting Diagnosis: Dizziness and giddiness Discharge Diagnosis (1) Dizziness: Code(s): R42 - Dizziness and giddiness Status: Acute Assessment and Plan: Orthostatic hypotension confirmed 03/26/19 Medication adjusted with reduced dose of metoprolol and isosorbide and discontinuing lisinopril and furosemide Elevate HOB Trial of support stockings 03/27 orthostatic bp improved 105/55 (2) Recurrent UTI: Code(s): N39.0 - Urinary tract infection, site not specified Status: Acute Assessment and Plan: Abnormal urinalysis Ceftriaxone day 3 for e coli UTI Likely home 03/28 (3) Type II diabetes mellitus: Qualifiers: Diabetes mellitus intermediate insulin use: with intermediate use Diabetes mellitus complication status: with neurologic complications Diabetes mellitus complication detail: with polyneuropathy Qualified Code(s): E11.42 - Type 2 diabetes mellitus with diabetic polyneuropathy; Z79.4 - [facility] (current) use of insulin Code(s): E11.9 - Type 2 diabetes mellitus without complications Status: Chronic Assessment and Plan: A1c 12.3% Continue basal insulin with sliding scale as needed 03/26 added premeal insulin 03/26 waffle boots and silvagel for left heel fissure 03/27 Added premeal insulin 03/27 PM insulin reduced due to BS in 100s. 03/28 FBS 258, resume home regimen with closer attention to diet upon discharge (4) GERD (gastroesophageal reflux disease): Qualifiers: Esophagitis presence: esophagitis presence not specified Qualified Code(s): K21.9 - Gastro-esophageal reflux disease without esophagitis Code(s): K21.9 - Gastro-esophageal reflux disease without esophagitis Status: Chronic Assessment and Plan: Acid suppression (5) Anemia due to stage 4 chronic kidney disease: Code(s): N18.4 - Chronic kidney disease, stage 4 (severe); D63.1 - Anemia in chronic kidney disease Status: Acute Assessment and Plan: Relatively stable Monitor (6) Hypothyroidism: Qualifiers: Hypothyroidism type: other Qualified Code(s): E03.8 - Other specified hypothyroidism Code(s): E03.9 - Hypothyroidism, unspecified Status: Chronic Assessment and Plan: Continue home regimen (7) Acute on chronic renal failure: Qualifiers: Acute renal failure type: unspecified Chronic kidney disease stage: unspecified stage Qualified Code(s): N17.9 - Acute kidney failure, unspecified; N18.9 - Chronic kidney disease, unspecified Code(s): N17.9 - Acute kidney failure, unspecified; N18.9 - Chronic kidney disease, unspecified Status: Acute Assessment and Plan: Possibly combination of medications including diuretic and MICHAEL-inhibitor plus volume depletion Creatinine improved from 2.7 to 2.0 during her stay (8) HTN (hypertension): Qualifiers: Hypertension type: essential hypertension Qualified Code(s): I10 - Essential (primary) hypertension Code(s): I10 - Essential (primary) hypertension Status: Chronic Assessment and Plan: 03/26 held lisinopril and reduced metoprolol 03/28 standing bp 120s systolic (9) Peripheral vascular disease of lower extremity: Code(s): I73.9 - Peripheral vascular disease, unspecified Status: Acute Assessment and Plan: No history of claudication High risk for diabetic foot infection. Advised patient and daughter at bedside on day of admission. (10) Peripheral neuropathy: Qualifiers: Peripheral neuropathy type: polyneuropathy, unspecified Qualified Code(s): G62.9 - Polyneuropathy, unspecified Code(s): G62.9 - Polyneuropathy, unspecified Status: Acute Assessment and Plan: Likely due to her diabetes May be contributing to orthostatic hypotension (11) CAD (coronary artery disease): Qualifiers: Coronary
--- NOTE | 2019-03-28 11:08 | PCOTNOTE ---
Attempted to see patient, patient stated she is ready to leave and discharge. Patient not seen for OT.
--- NOTE | 2019-03-28 11:33 | PM.PNCARD ---
Progress Note: A&P Assessment and Plan (1) Orthostatic hypotension: Code(s): I95.1 - Orthostatic hypotension Status: Acute Assessment and Plan: Worsened by her underlying urinary tract infection. She also has peripheral neuropathy and likely autonomic dysfunction also which will obviously contribute to her orthostasis. Furosemide and lisinopril of been stopped. Metoprolol succinate has been decreased to 50 mg daily. Isosorbide mononitrate has been decreased to 60 mg daily. Blood pressure is much better. No dizziness today . (2) Dizziness: Code(s): R42 - Dizziness and giddiness Status: Acute Assessment and Plan: Denies Med changes as above (3) Acute on chronic renal failure: Qualifiers: Acute renal failure type: unspecified Chronic kidney disease stage: unspecified stage Qualified Code(s): N17.9 - Acute kidney failure, unspecified; N18.9 - Chronic kidney disease, unspecified Code(s): N17.9 - Acute kidney failure, unspecified; N18.9 - Chronic kidney disease, unspecified Status: Acute Assessment and Plan: Med changes as above. Improved (4) CAD (coronary artery disease): Qualifiers: Associated angina: without angina Coronary Disease-Associated Artery/Lesion type: bypass graft [place] vs. transplanted heart: [place] heart Qualified Code(s): I25.810 - Atherosclerosis of coronary artery bypass graft(s) without angina pectoris Code(s): I25.10 - Atherosclerotic heart disease of [place] coronary artery without angina pectoris Status: Acute Assessment and Plan: Denies chest discomfort. Continue aspirin and medications as above . (5) Recurrent UTI: Code(s): N39.0 - Urinary tract infection, site not specified Status: Acute Assessment and Plan: Antibiotics per hospitalist (6) Aortic stenosis: Code(s): I35.0 - Nonrheumatic aortic (valve) stenosis Status: Acute Assessment and Plan: Moderate with a valve area 1.1 centimeters squared about a year ago Echo 03/27/2019: Left ventricular chamber dimension is normal. Left ventricular systolic function is hyperdynamic, estimated at >70%. Moderately increased left ventricular wall thickness. Left ventricular septal wall motion is normal. Left ventricular diastolic function is grade I diastolic dysfunction. Left atrial chamber dimension is moderately enlarged. Mild aortic valve stenosis with a peak velocity of 295.36 cm/s, mean gradient of 15 mmHg, and aortic valve area of 2.04 cm2. Moderate aortic valve calcification. Mild mitral valve regurgitation. Mild tricuspid valve regurgitation. Mild pulmonary hypertension, estimated pulmonary arterial systolic pressure is 39 mmHg. Mild pulmonic regurgitation. Certainly her dizziness upon standing and orthostasis is going to be symptomatically worsened by aortic stenosis Additional Plan OK to discharge from cardiac standpoint See discharge instructions for follow-up Plan discussed with Dr. Boo 1145 03/28/2019 Time Spent With Patient Time with patient: less than 15 minutes Subjective Date/time seen: 03/28/19 11:33 Interval history: Follow-up for: Dizziness, orthostasis Date of service: 03/28/2019 Subjective: No chest discomfort. Shortness of breath with exertional activities at baseline. No lightheadedness or dizziness. No palpitations. Review of Systems Constitutional: Constitutional: Denies headache(s) and Reports weakness (Improved) Eyes: Eyes: Denies blurry vision ENT: Denies headache(s), Denies lip swelling, Denies epistaxis and Denies neck pain Cardiovascular: Cardiovascular: Denies chest pain and Reports dyspnea on exertion (At baseline) Respiratory: Respiratory: Denies hemoptysis, Reports dyspnea on exertion (At ba
== END 2019-03-28 12:10 | disposition home or self-care (01) | DRG 683 ==
LOC: ANHED 12:01 → ANH3MEDSUR 17:52
PROVIDERS: Family Medicine; Admitting Provider Internal Medicine; Emergency Provider General Practice; PCP Nurse Practitioner Adult Health; Visit Provider Internal Medicine
DX: N17.9 Acute kidney failure, unspecified (principal); N39.0 Urinary tract infection, site not specified; Z23 Encounter for immunization; I95.1 Orthostatic hypotension; R35.0 Frequency of micturition; I25.10 Atherosclerotic heart disease of native coronary artery without angina pectoris; Z95.1 Presence of aortocoronary bypass graft; N18.4 Chronic kidney disease, stage 4 (severe); D63.1 Anemia in chronic kidney disease; Z98.49 Cataract extraction status, unspecified eye; Z96.1 Presence of intraocular lens; E11.22 Type 2 diabetes mellitus with diabetic chronic kidney disease; I12.9 Hypertensive chronic kidney disease with stage 1 through stage 4 chronic kidney disease, or unspecified chronic kidney disease; G89.29 Other chronic pain; M54.9 Dorsalgia, unspecified; Z86.718 Personal history of other venous thrombosis and embolism; H81.09 Meniere's disease, unspecified ear; K21.9 Gastro-esophageal reflux disease without esophagitis; Z87.440 Personal history of urinary (tract) infections; I25.2 Old myocardial infarction; E11.51 Type 2 diabetes mellitus with diabetic peripheral angiopathy without gangrene; E11.43 Type 2 diabetes mellitus with diabetic autonomic (poly)neuropathy; M85.80 Other specified disorders of bone density and structure, unspecified site; I73.9 Peripheral vascular disease, unspecified; Z87.19 Personal history of other diseases of the digestive system; Z90.49 Acquired absence of other specified parts of digestive tract; Z96.641 Presence of right artificial hip joint; Z96.698 Presence of other orthopedic joint implants; Z79.82 Long term (current) use of aspirin; I35.0 Nonrheumatic aortic (valve) stenosis; E03.9 Hypothyroidism, unspecified; Z79.4 Long term (current) use of insulin; B96.20 Unspecified Escherichia coli [E. coli] as the cause of diseases classified elsewhere; Z91.11 Patient's noncompliance with dietary regimen
CPT/HCPCS: 36415; 71046; 76775; 80048; 80053; 81001; 82570; 83036; 83735; 84100; 84300; 84443; 85025; 85027; 87077; 87086; 87088; 87186; 93005; 94640; 96361; 96365; 97116; 97161; 97165; 97535; 99291; A9270; C8929; J0696; J1815; J7120; Q9957

== ENCOUNTER 2019-06-23 10:56 | Outpatient (CLI) | payer MEDICARE, SELFPAY ==
--- NOTE | ~2019-06-23 | MM_ITS ---
EXAMINATION: MM screening darby BI w mario HISTORY: Screening mammogram, family history of breast cancer in her daughter. TECHNIQUE: Craniocaudal and mediolateral oblique 3-D tomosynthesis images were obtained and synthetic 2-D images were generated. CAD analysis was submitted and interpreted. COMPARISON: 10/23/2017, 10/20/2016, 10/15/2015 BREAST PARENCHYMAL COMPOSITION: There are scattered areas of fibroglandular density. FINDINGS: Scattered benign-appearing calcifications are present. There is no evidence of suspicious m ass, calcification, or architectural distortion to suggest malignancy in either breast. There has bee n no suspicious interval change. IMPRESSION: 1. No mammographic evidence of malignancy. 2. Recommend routine screening mammography while the patient remains in good health. BI-RADS Category 2: Benign finding(s). Reviewed, dictated and finalized at location A. IMPRESSION: 1. No mammographic evidence of malignancy. 2. Recommend routine screening mammography while the patient remains in good he alth. BI-RADS Category 2: Benign finding(s).
== END 2019-06-23 10:57 | disposition home or self-care (01) ==
LOC: ANHIMG 11:07
PROVIDERS: PCP Nurse Practitioner Adult Health; Visit Provider Nurse Practitioner Adult Health
DX: Z12.31 Encounter for screening mammogram for malignant neoplasm of breast (principal)
CPT/HCPCS: 77063; 77067

== ENCOUNTER 2019-07-06 12:11 | Emergency (ER) | payer MEDICARE, SELFPAY ==
--- NOTE | ~2019-07-06 | CT_ITS ---
EXAMINATION: CT brain wo con DATE: 07/06/2019 13:15 INDICATION: Left-sided headache and blurry vision TECHNIQUE: Computed tomography (CT) of the head was performed without intravenous contrast. The dose- length product was 605.33 mGy-cm. The mA was adjusted according to patient size. Iterative reconstruc tion technique was employed. COMPARISON: CT dated 01/12/2019 FINDINGS: No acute intracranial hemorrhage, infarction, mass or mass effect. Brain parenchymal volume is normal for age. No ventriculomegaly or midline shift. Paranasal sinuses and mastoids are pneumati zed. No depressed skull fractures. IMPRESSION: 1. No acute intracranial abnormality. Reviewed, dictated and finalized at location A.
[2019-07-06 12:18] VITALS: BP 174/80; PULSE 71; RESP 18; TEMP 36.2; O2SAT 100
--- NOTE | 2019-07-06 12:25 | ECG_ITS ---
Measurements Intervals [place] Rate: 63 P: 44 NE: 163 QRS: 31 QRSD: 93 T: 52 QT: 408 QTc: 418 Interpretive Statements SINUS RHYTHM MINIMAL Q WAVES- INFERIOR LEADS BORDERLINE ST ABNORMALITY- HIGH LATERAL LEADS BASELINE ARTIFACT- V1 BORDERLINE ECG Electronically Signed On 07-07-2019 13:32:46 CDT by Sathya Cohen D.O.
[2019-07-06 13:00] VITALS: BP 135/57; PULSE 62; RESP 20; O2SAT 98
[2019-07-06 13:00] LABS: Glucose Point of Care 316 (65-105)
[2019-07-06 13:10] LABS: Basophils Absolute Auto 0.1 K/mm3 (0.0-0.1); Basophils Percent Auto 0.5 % (0.2-1.2); Eosinophils Absolute Auto 0.1 K/mm3 (0-0.3); Eosinophils Percent Auto 1.1 % (0-4.4); Hematocrit 43.9 % (37.0-47.0); Hemoglobin 13.9 g/dL (12.0-15.0); Immature Granulocyte Absolute 0.04 K/mm3 (0.00-0.031); Immature Granulocyte Percent A 0.4 % (0-0.5); Mean Corpuscular HGB Conc 31.7 g/dl (32-36); Mean Corpuscular Volume 94.8 fl (80-100); Mean Platelet Volume 10.6 fl (7.4-10.4); Monocytes Absolute Auto 0.8 K/mm3 (0.1-0.6); Monocytes Percent Auto 8.3 % (2.6-8.5); Neutrophils Absolute Auto 5.9 K/mm3 (1.3-6.7); Neutrophils Percent Auto 63.7 % (45.5-73.1); Platelet Count Result 311 k/mm3 (150-375); Red Blood Count 4.63 M/mm3 (4.2-5.4); Red Cell Distribution Width 12.7 % (11.5-14.5); White Blood Count 9.2 K/mm3 (4.5-10.0)
[2019-07-06 13:17] LABS: Prothrombin Time 12.9 Seconds (11.1-14.7)
[2019-07-06 13:18] LABS: Partial Thromboplastin Time 23.9 SECONDS (22.3-36.8)
[2019-07-06 13:21] LABS: Blood Urea Nitrogen 29 mg/dL (7-17); Calcium 9.5 mg/dL (8.4-10.2); Carbon Dioxide 29 mmol/L (22-30); Chloride 96 mmol/L (98-107); Estimated CRCL calculation 27 ml/min; Estimated Glomerular Filt Rate 33; Glucose 336 mg/dL (65-105); Potassium 4.2 mmol/L (3.4-5.0); Sodium 133 mmol/L (137-145)
[2019-07-06 13:32] LABS: Troponin I < 0.012 ng/mL (0.000-0.034)
--- NOTE | 2019-07-06 13:35 | ED.GENADULT ---
HPI - General Adult General Chief complaint: Neuro Symptoms/Deficit Stated complaint: funny feeling in head/shaky Time Seen by Provider: 07/06/19 12:29 Source: patient Mode of arrival: ambulatory Limitations: no limitations History of Present Illness HPI narrative: Patient presents with chief complaint of feeling shaky while at home at approximately 9 AM. Patient states she checked her blood sugar and it was 326 so she wondered if that was the cause. Patient states she feels a sensation to the left side of her head and went around to the back so she felt that she should be evaluated for stroke just to make sure. Patient states she did not have changes to her vision, headache, changes to her hearing hearing, decreased range of motion, difficulty with speech, gait, memory or any other neurological deficits. Patient states that she is currently on antibiotics for urinary tract infection and she has no recurrent urinary tract infections on and off since March. Patient states that her primary care is Maria G Casiano. She reports her blood sugars have been elevated more often recently due to her UTIs. She states she has also had some issues with taking some of her diabetic medications because of cost so she was told to let her PCP know as they have samples in office. Patient denies having any symptoms at this time. Patient reports having a heart attack a year ago. Patient denies having prior stroke. Related Data Home Medications Medication Instructions Recorded Confirmed Spiriva with HandiHaler 1 cap INHALATION DAILY 01/12/19 03/25/19 Tresiba FlexTouch U-200 42 unit SUBCUT HS 01/12/19 03/25/19 aspirin [Aspir-81] 81 mg PO DAILY 01/12/19 03/25/19 levothyroxine 75 mcg PO DAILY 01/12/19 03/25/19 rosuvastatin 20 mg PO DAILY 01/12/19 03/25/19 furosemide 40 mg PO DAILY PRN 07/06/19 insulin lispro [Humalog KwikPen unit SUBCUT TIDWM 07/06/19 Insulin] nitroglycerin 0.4 mg SUBLINGUAL Q5-10M PRN 07/06/19 Allergies Allergy/AdvReac Type Severity Reaction Status Date / Time No Known Allergies Allergy Verified 07/06/19 12:24 Review of Systems Review of Systems: Narrative: CONSTITUTIONAL: Denies fever, chills, or sweats. EYES: Denies visual changes, redness, or discharge. ENT: Denies rhinorrhea, congestion, sore throat, or otalgia. CARDIOVASCULAR: Denies chest pain, palpitations, or edema. RESPIRATORY: Denies cough or dyspnea. GASTROINTESTINAL: Denies abdominal pain, nausea, vomiting, or diarrhea. GENITOURINARY: Denies dysuria or hematuria. SKIN: Denies rash or itching. MUSCULOSKELETAL: Denies back pain, joint pain, or myalgia. NEUROLOGIC: Reports felt shaky denies headache, numbness, dizziness, or weakness. PSYCHIATRIC: Denies anxiety or depression. [facility] Past Medical History Medical History (Updated 07/06/19 @ 15:22 by Elaina Kaiser PA-C) Acute on chronic renal failure Acute PN (pyelonephritis) Anemia Anemia due to stage 4 chronic kidney disease Aortic stenosis Bronchitis CAD (coronary artery disease) Cataracts, bilateral Chronic back pain Complicated UTI (urinary tract infection) COPD (chronic obstructive pulmonary disease) DVT (deep venous thrombosis) Femur fracture, right GERD (gastroesophageal reflux disease) GI bleed Heart attack History of angina History of blood transfusion HTN (hypertension) Hyperlipidemia Hypothyroid Meniere disease Osteopenia Peripheral neuropathy Peripheral vascular disease of lower extremity Pneumonia Rectal polyp Renal disease Seizures During [place] Type II diabetes mellitus UTI (urinary tract infection) Surgical History Surgical History History of appendectomy History of cardiac catheterization History of cataract removal with insertion of prosthetic lens History of cholecystectomy History of hysterectomy History of total right hip arthroplasty Hx of blepharoplasty Hx of CABG Social History Social History (Reviewed 03/26/19
[2019-07-06] MEDS: INSULIN HUMAN REGULAR (*BKC) 100 UNITS/ML IV PUSH (13:58)
[2019-07-06 14:00] VITALS: BP 141/63; PULSE 62; RESP 20; O2SAT 100
[2019-07-06 14:44] LABS: Add Urine Microscopic? YES; Appearance Urine Cloudy (Clear); Bacteria Urine Trace /hpf; Bilirubin Urine Negative (Negative); Blood Urine Negative (Negative); Color Urine Yellow (Yellow); Glucose Urine UA 2+ mg/dL (Negative); Ketones Urine Negative (Negative); Leukocyte Esterase Ur 3+ LEU/UL (Negative); Mucus Urine Rare /lpf; Nitrate Urine Negative (Negative); Protein Urine 2+ mg/dL (Negative); Specific Grav Ur 1.015 (1.001-1.035); Squamous Epithelial Cell Urine Moderate /hpf (Few); WBC Urine 31-50 /hpf
[2019-07-06 15:00] VITALS: BP 122/60; PULSE 61; RESP 20; O2SAT 98
[2019-07-06 15:10] LABS: Glucose Point of Care 189 (65-105)
[2019-07-06 15:26] LABS: Glucose 164 mg/dL (65-105)
[2019-07-06] MEDS: WATER, STERILE FOR INJECTION 10 ML VIAL XX (15:51)
[2019-07-06] MEDS: cefTRIAXone 1 GM VIAL 0.5 GM IM (15:51)
== END 2019-07-06 15:55 | disposition home or self-care (01) ==
PROVIDERS: Physician Assistant; Emergency Provider Emergency Medicine; PCP Nurse Practitioner Adult Health
DX: N39.0 Urinary tract infection, site not specified (principal); E11.42 Type 2 diabetes mellitus with diabetic polyneuropathy; E11.51 Type 2 diabetes mellitus with diabetic peripheral angiopathy without gangrene; E11.22 Type 2 diabetes mellitus with diabetic chronic kidney disease; N18.4 Chronic kidney disease, stage 4 (severe); D63.1 Anemia in chronic kidney disease; I25.10 Atherosclerotic heart disease of native coronary artery without angina pectoris; J44.9 Chronic obstructive pulmonary disease, unspecified; K21.9 Gastro-esophageal reflux disease without esophagitis; E78.5 Hyperlipidemia, unspecified; I12.9 Hypertensive chronic kidney disease with stage 1 through stage 4 chronic kidney disease, or unspecified chronic kidney disease; I25.2 Old myocardial infarction; E03.9 Hypothyroidism, unspecified; M85.80 Other specified disorders of bone density and structure, unspecified site; Z86.718 Personal history of other venous thrombosis and embolism; Z79.4 Long term (current) use of insulin; Z79.82 Long term (current) use of aspirin
CPT/HCPCS: 36415; 70450; 80048; 81001; 82947; 82948; 84484; 85025; 85610; 85730; 87086; 87088; 93005; 96372; 96374; 99284; J0696; J1815

== ENCOUNTER 2019-12-26 09:37 | Emergency (ER) | payer MEDICARE, SELFPAY ==
[2019-12-26] VITALS (9 sets, daily range): BP systolic 144–186; BP diastolic 75–138; PULSE 67–77; RESP 12–19; TEMP 36.7; O2SAT 96–100
--- NOTE | ~2019-12-26 | CT_ITS ---
. EXAMINATION: CT shoulder RT wo con DATE: 12/26/2019 11:33 INDICATION: Right shoulder pain. TECHNIQUE: Computed tomography (CT) of the right shoulder was performed without intravenous contrast. Automated exposure control and iterative reconstruction technique were employed. The dose-length pro duct was 491.80 mGy-cm. COMPARISON: Right shoulder radiographs 12/26/2019 FINDINGS: There is a comminuted fracture of proximal right humerus including a nondisplaced fracture of the greater tuberosity. At the surgical neck, the distal fracture fragment demonstrates 1.9 cm imp action and 17 degrees varus angulation. There is mild osteoarthritis of glenohumeral joint and severe osteoarthritis of acromioclavicular joint. There is a moderate-sized glenohumeral joint effusion wit h loose bodies measuring up to 4 mm. There is mild fatty atrophy of supraspinatus muscle belly. IMPRESSION: 1. Comminuted two-part fracture of proximal right humerus. 2. Polyarticular osteoarthritis. 3. Moderate-sized glenohumeral joint effusion with loose bodies. Reviewed, dictated and finalized at location A.
--- NOTE | ~2019-12-26 | XR_ITS ---
XR shoulder RT min 2V DATE: 12/26/2019 10:49 INDICATION: Fall. Right shoulder pain, limited range of motion TECHNIQUE: 5 views COMPARISON: None FINDINGS: There is minimally displaced fracture of the greater tuberosity of the humerus and suspecte d nondisplaced surgical neck fracture. Consider CT evaluation for more definitive evaluation. There is normal alignment at the acromioclavicular and glenohumeral joints. Diffuse osteopenia. IMPRESSION: Greater tuberosity and possible cysts nondisplaced surgical neck fracture of humerus. Con deputy sheriff generalist CT for more definitive evaluation Reviewed, dictated and finalized at location A. IMPRESSION: Greater tuberosity and possible cysts nondisplaced surgical neck fr acture of humerus. Consider CT for more definitive evaluation
--- NOTE | 2019-12-26 09:47 | ECG_ITS ---
Measurements Intervals [place] Rate: 75 P: 46 [place]: 154 QRS: 35 QRSD: 95 T: 53 QT: 408 QTc: 456 Interpretive Statements SINUS RHYTHM WITH SINUS ARRHYTHMIA VENTRICULAR PREMATURE COMPLEX BORDERLINE ST ABNORMALITY- ANT/HIGH LAT LEADS BORDERLINE ECG Electronically Signed On 12-26-2019 9:54:32 CDT by Sathya Cohen D.O.
[2019-12-26 10:29] LABS: Basophils Percent Auto 0.3 % (0.2-1.2); Eosinophils Absolute Auto 0.1 K/mm3 (0-0.3); Eosinophils Percent Auto 0.8 % (0-4.4); Hematocrit 40.1 % (37.0-47.0); Immature Granulocyte Absolute 0.03 K/mm3 (0.00-0.031); Immature Granulocyte Percent A 0.3 % (0-0.5); Lymphocytes Absolute Auto 1.96 K/mm3 (0.9-3.2); Lymphocytes Percent Auto 18.4 % (18.3-44.2); Mean Corpuscular HGB Conc 32.4 g/dl (32-36); Mean Corpuscular Hemoglobin 31.4 pg (26-34); Mean Corpuscular Volume 96.9 fl (80-100); Mean Platelet Volume 10.1 fl (7.4-10.4); Monocytes Absolute Auto 0.7 K/mm3 (0.1-0.6); Monocytes Percent Auto 6.2 % (2.6-8.5); Neutrophils Absolute Auto 7.9 K/mm3 (1.3-6.7); Platelet Count Result 253 k/mm3 (150-375); Red Blood Count 4.14 M/mm3 (4.2-5.4); Red Cell Distribution Width 12.8 % (11.5-14.5); White Blood Count 10.6 K/mm3 (4.5-10.0)
[2019-12-26] MEDS: MORPHINE SULFATE (*CRX) 2 MG/ML INJ 1 MG IV PUSH (10:29)
[2019-12-26 10:41] LABS: Alanine Aminotransferase 15 U/L (4-35); Albumin Level 3.6 g/dL (3.5-5.1); Alkaline Phosphatase 90 U/L (38-126); Anion Gap 7 mmol/L (8-16); Aspartate Amino Transferase 20 U/L (14-36); Bilirubin,Total 0.4 mg/dL (0.2-1.3); Blood Urea Nitrogen 21 mg/dL (7-17); Calcium 8.7 mg/dL (8.4-10.2); Carbon Dioxide 31 mmol/L (22-30); Chloride 102 mmol/L (98-107); Estimated CRCL calculation 24 ml/min; Estimated Glomerular Filt Rate 31; Glucose 252 mg/dL (65-105); Potassium 4.2 mmol/L (3.4-5.0); Sodium 140 mmol/L (137-145)
[2019-12-26 10:52] LABS: Troponin I < 0.012 ng/mL (0.000-0.034)
[2019-12-26 11:09] LABS: Add Urine Microscopic? YES; Appearance Urine Cloudy (Clear); Bacteria Urine Trace /hpf; Bilirubin Urine Negative (Negative); Blood Urine Negative (Negative); Color Urine Yellow (Yellow); Glucose Urine UA 1+ mg/dL (Negative); Hyaline Casts Urine 20-29 /lpf; Ketones Urine Negative (Negative); Leukocyte Esterase Ur 2+ LEU/UL (Negative); Mucus Urine Rare /lpf; Nitrate Urine Negative (Negative); Protein Urine 1+ mg/dL (Negative); RBC Urine 0-2 /hpf (0-2); Specific Grav Ur 1.015 (1.001-1.035); Squamous Epithelial Cell Urine Occasional /hpf (Few); WBC Urine 31-50 /hpf
--- NOTE | 2019-12-26 11:35 | ED.GENADULT ---
HPI - General Adult General Chief complaint: Extremity Injury, Upper Stated complaint: fall with shoulder injury Time Seen by Provider: 12/26/19 09:41 Source: patient and family Mode of arrival: ambulatory Limitations: no limitations History of Present Illness HPI narrative: Patient presents with chief complaint of pain to her right shoulder that began today at approximately 8 AM after being dizzy and losing her footing falling and putting on her right arm to catch herself. Patient states that she has occasional dizziness that presents when she has a urinary tract infection. Patient states that her primary care Maria Gely Casiano put her on cefdinir daily to try to prevent her recurrent UTIs. She denies symptoms of UTI but states that normally dizziness is her only symptom. Patient reports pain to the right shoulder and reports that she is unable to abduct it due to discomfort. Patient denies prior shoulder fractures. She has seen Dr. Good renewal specialist for hip replacement. Patient denies any head impact, loss of consciousness, change in vision or hearing, headache, nausea, vomiting, diarrhea, changes in vision or hearing. Related Data Home Medications Medication Instructions Recorded Confirmed Spiriva with HandiHaler 1 cap INHALATION DAILY 01/12/19 03/25/19 Tresiba FlexTouch U-200 42 unit SUBCUT HS 01/12/19 03/25/19 aspirin [Aspir-81] 81 mg PO DAILY 01/12/19 03/25/19 levothyroxine 75 mcg PO DAILY 01/12/19 03/25/19 rosuvastatin 20 mg PO DAILY 01/12/19 03/25/19 furosemide 40 mg PO DAILY PRN 07/06/19 insulin lispro [Humalog KwikPen unit SUBCUT TIDWM 07/06/19 Insulin] nitroglycerin 0.4 mg SUBLINGUAL Q5-10M PRN 07/06/19 Allergies Allergy/AdvReac Type Severity Reaction Status Date / Time No Known Allergies Allergy Verified 07/06/19 12:24 Review of Systems Review of Systems: Narrative: CONSTITUTIONAL: Denies fever, chills, or sweats. EYES: Denies visual changes, redness, or discharge. ENT: Denies rhinorrhea, congestion, sore throat, or otalgia. CARDIOVASCULAR: Denies chest pain, palpitations, or edema. RESPIRATORY: Denies cough or dyspnea. GASTROINTESTINAL: Denies abdominal pain, nausea, vomiting, or diarrhea. GENITOURINARY: Denies dysuria or hematuria. SKIN: Denies rash or itching. MUSCULOSKELETAL: Reports dysuria with the right shoulder denies back pain, myalgia NEUROLOGIC: Reports episode of dizziness denies headache, numbness, or weakness. PSYCHIATRIC: Denies anxiety or depression. [facility] Past Medical History Medical History (Updated 12/26/19 @ 14:10 by Elaina Kaiser PA-C) Acute on chronic renal failure Acute PN (pyelonephritis) Anemia Anemia due to stage 4 chronic kidney disease Aortic stenosis Bronchitis CAD (coronary artery disease) Cataracts, bilateral Chronic back pain Complicated UTI (urinary tract infection) COPD (chronic obstructive pulmonary disease) DVT (deep venous thrombosis) Femur fracture, right GERD (gastroesophageal reflux disease) GI bleed Heart attack History of angina History of blood transfusion HTN (hypertension) Hyperlipidemia Hypothyroid Meniere disease Osteopenia Peripheral neuropathy Peripheral vascular disease of lower extremity Pneumonia Rectal polyp Renal disease Seizures During [place] Type II diabetes mellitus UTI (urinary tract infection) Surgical History Surgical History History of appendectomy History of cardiac catheterization History of cataract removal with insertion of prosthetic lens History of cholecystectomy History of hysterectomy History of total right hip arthroplasty Hx of blepharoplasty Hx of CABG Family History Family History Father Hypertension Pneumonia Smoking Mother Diabetes mellitus Family history of glaucoma Cancer Hypotension Cerebrovascular accident Sibling Diabetes mellitus Heart disease Sibling Diab
[2019-12-26] MEDS: MORPHINE SULFATE (*CRX) 2 MG/ML INJ (12:17)
[2019-12-26] MEDS: HYDROcodone/acetaminophen (*CRX) 5-325 MG TABLET 1 TAB PO (13:21)
== END 2019-12-26 15:36 | disposition home or self-care (01) ==
PROVIDERS: Physician Assistant; Emergency Provider Emergency Medicine; PCP Nurse Practitioner Adult Health
DX: S42.224A 2-part nondisplaced fracture of surgical neck of right humerus, initial encounter for closed fracture (principal); N39.0 Urinary tract infection, site not specified; E11.22 Type 2 diabetes mellitus with diabetic chronic kidney disease; I12.9 Hypertensive chronic kidney disease with stage 1 through stage 4 chronic kidney disease, or unspecified chronic kidney disease; N18.4 Chronic kidney disease, stage 4 (severe); D63.1 Anemia in chronic kidney disease; E11.51 Type 2 diabetes mellitus with diabetic peripheral angiopathy without gangrene; E11.42 Type 2 diabetes mellitus with diabetic polyneuropathy; I25.10 Atherosclerotic heart disease of native coronary artery without angina pectoris; J44.9 Chronic obstructive pulmonary disease, unspecified; M19.011 Primary osteoarthritis, right shoulder; Z79.4 Long term (current) use of insulin; Z98.42 Cataract extraction status, left eye; Z98.41 Cataract extraction status, right eye; Z96.1 Presence of intraocular lens; Z96.641 Presence of right artificial hip joint; Z95.1 Presence of aortocoronary bypass graft; Z86.718 Personal history of other venous thrombosis and embolism; K21.9 Gastro-esophageal reflux disease without esophagitis; E78.5 Hyperlipidemia, unspecified; E03.9 Hypothyroidism, unspecified; M85.80 Other specified disorders of bone density and structure, unspecified site; Z87.19 Personal history of other diseases of the digestive system; I49.3 Ventricular premature depolarization; R94.31 Abnormal electrocardiogram [ECG] [EKG]; W01.0XXA Fall on same level from slipping, tripping and stumbling without subsequent striking against object, initial encounter
CPT/HCPCS: 36415; 51701; 73030; 73200; 80053; 81001; 84484; 85025; 87086; 93005; 96374; 96376; 99284; A9270; J2270

== ENCOUNTER 2020-03-04 21:15 | Inpatient (IN) | payer MEDICARE, SELFPAY ==
--- NOTE | ~2020-03-04 | XR_ITS ---
EXAMINATION: XR abdomen NG/feed tube insert DATE: 03/05/2020 10:17 INDICATION: Nasogastric tube placement. TECHNIQUE: An upright view of the abdomen was obtained. COMPARISON: Abdomen single view at 12:38 AM, CT abdomen and pelvis 03/04/2020. FINDINGS: The lower abdomen is excluded. There is a moderate-sized hiatal hernia The nasogastric tube tip is in the stomach below the diaphragm. There are dilated loops of small bowel. The colon is deco mpressed. Surgical clips in the right upper quadrant are likely from cholecystectomy. Median sternot tresa wires and mediastinal surgical clips are seen, likely from prior coronary artery bypass grafting. IMPRESSION: 1. Nasogastric tube tip in the stomach below the diaphragm. 2. Moderate-sized hiatal hernia. 3. Small bowel obstruction. Reviewed, dictated and finalized at location A. INE LEAD BURNER
--- NOTE | ~2020-03-04 | XR_ITS ---
XR abdomen NG/feed tube insert 03/05/2020 00:44 Indication: NG tube insertion Procedure: Limited KUB Comparison: No prior studies for comparison. Findings: There is a moderate size hiatal hernia. NG tube in the distal esophagus above the diaphragm . Status post median sternotomy for CABG. There is a coronary artery stent. Visualized bowel gas is n onobstructive. Impression: 1: NG tube tip in the distal esophagus above the diaphragm. Moderate hiatal hernia. Reviewed, dictated and finalized at location A. OPERATIONS SUPERVISOR Impression: 1: NG tube tip in the distal esophagus above the diaphragm. Moderate hiatal her jaime.
--- NOTE | ~2020-03-04 | XR_ITS ---
XR abdomen obstructive series 03/06/2020 08:04 Indication: Small bowel obstruction Procedure: Supine and upright views of abdomen Comparison: 03/05/2020 Findings: Mildly dilated small bowel with relatively decompressed colon. Moderate colonic fecal loadi ng. NG tube in the stomach. There is a hiatal hernia. There are cholecystectomy clips. Impression: 1: Dilated small bowel, consistent with obstruction. Reviewed, dictated and finalized at location A. TANK MISSILEMAN Impression: 1: Dilated small bowel, consistent with obstruction.
--- NOTE | ~2020-03-04 | CT_ITS ---
EXAMINATION: CT abdomen pelvis w con DATE: 03/04/2020 22:32 INDICATION: Nausea and vomiting TECHNIQUE: Computed tomography (CT) of the abdomen and pelvis was performed with 100 cc Omnipaque 350 intravenous contrast. The dose-length product was 1066.79 mGy-cm. Automated exposure control and ite rative reconstruction technique were employed. COMPARISON: None. FINDINGS: Lung bases are unremarkable. No significant pleural or pericardial effusion. Moderate-large hiatal hernia. No possible mild distal esophageal thickening partially visualized. Heart size normal . Status post cholecystectomy with expected prominence of the bile ducts. Renal atrophy with multiple b ilateral renal cysts. The spleen, pancreas, adrenal glands are unremarkable. There is atherosclerosis without evidence for aneurysm. There are small bowel obstruction with transition point in the lower abdomen at the midline, series 3 image 108-120. Cannot exclude closed loop obstruction. No free air. There is a small amount of intra loop fluid in the left mid abdomen. No free air. No evidence for pneumatosis. IMPRESSION: 1. Small bowel obstruction with transition point lower midline. Cannot exclude closed loop obstructio n. No evidence for perforation or pneumatosis. 2: Moderate-large hiatal hernia with possible distal esophageal thickening. [facility] radiologist verbally discussed this case with clinician as per documentation in their report, which was faxed and scanned into PACS with this exam. Reviewed, dictated and finalized at location A. [employer] SUPERVISOR IMPRESSION: 1. Small bowel obstruction with transition point lower midline. Cannot exclude closed loop obstruction. No evidence for perforation or pneumatosis. 2: Moderate-large hiatal hernia with possible distal esophageal thickening. [facility] radiologist verbally discussed this case with clinician as per document ation in their report, which was faxed and scanned into PACS with this exam.
--- NOTE | 2020-03-04 21:40 | ECG_ITS ---
Measurements Intervals [place] Rate: 87 P: 104 [place]: 185 QRS: 38 QRSD: 95 T: 62 QT: 354 QTc: 427 Interpretive Statements SINUS RHYTHM WITH SINUS ARRHYTHMIA BORDERLINE ST ABNORMALITY- ANT/HIGH LAT LEADS BASELINE ARTIFACT- I, III, AVL, V2, V6 BORDERLINE ECG Electronically Signed On 03-05-2020 7:10:20 [employer] by Sathya Cohen D.O.
--- NOTE | 2020-03-04 21:40 | ED.GENADULT ---
HPI - General Adult General Chief complaint: Abdominal Pain Stated complaint: Abdominal pain, n/v Time Seen by Provider: 03/04/20 21:40 Source: patient and family Mode of arrival: ambulatory Limitations: no limitations History of Present Illness HPI narrative: 84 years old white female presents with diffuse abdominal pain and vomiting. Started 3 hours prior to arrival to the emergency room. Patient denies any fever, chills, chest pain, shortness of breath, sore throat, headache, exposure to anybody known having COVID-19. History of cholecystectomy, hysterectomy and appendectomy. Related Data Home Medications Medication Instructions Recorded Confirmed Spiriva with HandiHaler 1 cap INHALATION DAILY 01/12/19 03/25/19 Tresiba FlexTouch U-200 42 unit SUBCUT HS 01/12/19 03/25/19 aspirin [Aspir-81] 81 mg PO DAILY 01/12/19 03/25/19 levothyroxine 75 mcg PO DAILY 01/12/19 03/25/19 rosuvastatin 20 mg PO DAILY 01/12/19 03/25/19 furosemide 40 mg PO DAILY PRN 07/06/19 insulin lispro [Humalog KwikPen unit SUBCUT TIDWM 07/06/19 Insulin] nitroglycerin 0.4 mg SUBLINGUAL Q5-10M PRN 07/06/19 Allergies Allergy/AdvReac Type Severity Reaction Status Date / Time No Known Allergies Allergy Verified 03/04/20 21:54 Review of Systems Review of Systems: Narrative: CONSTITUTIONAL: Denies fever, chills, or sweats. EYES: Denies visual changes, redness, or discharge. ENT: Denies rhinorrhea, congestion, sore throat, or otalgia. CARDIOVASCULAR: Denies chest pain, palpitations, or edema. RESPIRATORY: Denies cough or dyspnea. GASTROINTESTINAL: Abdominal pain, nausea and vomiting GENITOURINARY: Denies dysuria or hematuria. SKIN: Denies rash or itching. MUSCULOSKELETAL: Denies back pain, joint pain, or myalgia. NEUROLOGIC: Denies headache, numbness, or weakness. PSYCHIATRIC: Denies anxiety or depression. [facility] Past Medical History Medical History Acute on chronic renal failure Acute PN (pyelonephritis) Anemia Anemia due to stage 4 chronic kidney disease Aortic stenosis Bronchitis CAD (coronary artery disease) Cataracts, bilateral Chronic back pain Complicated UTI (urinary tract infection) COPD (chronic obstructive pulmonary disease) DVT (deep venous thrombosis) Femur fracture, right GERD (gastroesophageal reflux disease) GI bleed Heart attack History of angina History of blood transfusion HTN (hypertension) Hyperlipidemia Hypothyroid Meniere disease Osteopenia Peripheral neuropathy Peripheral vascular disease of lower extremity Pneumonia Rectal polyp Renal disease Seizures During [place] Type II diabetes mellitus UTI (urinary tract infection) Surgical History Surgical History History of appendectomy History of cardiac catheterization History of cataract removal with insertion of prosthetic lens History of cholecystectomy History of hysterectomy History of total right hip arthroplasty Hx of blepharoplasty Hx of CABG Family History Family History Father Hypertension Pneumonia Smoking Mother Diabetes mellitus Family history of glaucoma Cancer Hypotension Cerebrovascular accident Sibling Diabetes mellitus Heart disease Sibling Diabetes mellitus Heart disease Sibling Diabetes mellitus Heart disease Sibling Diabetes mellitus Heart disease Sibling Suicide and self-inflicted injury Sibling Accidental , public place Social History Social History Smoking status: Never smoker Second hand tobacco smoke exposure: Yes Alcohol intake: former Substance use: never Gender identity (if verbalized by the patient): Female Spiritual care concerns: No Agree to blood products: Yes Exam Narrative: Exam Narrative: General appearance: Well-developed, well-nourished Skin: Normal color Head
[2020-03-04] MEDS: ONDANSETRON INJ 4 MG/2 ML VIAL IV PUSH (21:47)
[2020-03-04] MEDS: SODIUM CHLORIDE 0.9% IV 1,000 ML 999 ML IV CONT (21:48)
[2020-03-04 21:49] VITALS: BP 235/111; PULSE 74; RESP 16; TEMP 36.4; O2SAT 96; O2SAT 97
[2020-03-04 21:52] VITALS: BP 235/111; O2SAT 99
[2020-03-04 21:55] LABS: Basophils Percent Auto 0.3 % (0.2-1.2); Eosinophils Percent Auto 0.4 % (0-4.4); Hematocrit 42.4 % (37.0-47.0); Hemoglobin 13.7 g/dL (12.0-15.0); Immature Granulocyte Absolute 0.08 K/mm3 (0.00-0.031); Immature Granulocyte Percent A 0.7 % (0-0.5); Lymphocytes Absolute Auto 1.57 K/mm3 (0.9-3.2); Lymphocytes Percent Auto 13.8 % (18.3-44.2); Mean Corpuscular HGB Conc 32.3 g/dl (32-36); Mean Corpuscular Hemoglobin 31.5 pg (26-34); Mean Corpuscular Volume 97.5 fl (80-100); Mean Platelet Volume 9.8 fl (7.4-10.4); Monocytes Absolute Auto 0.6 K/mm3 (0.1-0.6); Monocytes Percent Auto 5.3 % (2.6-8.5); Neutrophils Absolute Auto 9.1 K/mm3 (1.3-6.7); Neutrophils Percent Auto 79.5 % (45.5-73.1); Platelet Count Result 345 k/mm3 (150-375); Red Blood Count 4.35 M/mm3 (4.2-5.4); Red Cell Distribution Width 12.7 % (11.5-14.5); White Blood Count 11.4 K/mm3 (4.5-10.0)
[2020-03-04 22:06] LABS: Lactic Acid Reflex 2.1 mmol/L (0.7-2.1)
[2020-03-04] MEDS: MORPHINE SULFATE (*CRX) 4 MG/ML INJ IV PUSH (22:07)
[2020-03-04 22:10] LABS: Anion Gap 8 mmol/L (8-16); Blood Urea Nitrogen 28 mg/dL (7-17); Carbon Dioxide 27 mmol/L (22-30); Chloride 100 mmol/L (98-107); Potassium 4.7 mmol/L (3.4-5.0); Sodium 135 mmol/L (137-145)
[2020-03-04 22:11] LABS: Alanine Aminotransferase 12 U/L (4-35); Albumin Level 3.9 g/dL (3.5-5.1); Alkaline Phosphatase 101 U/L (38-126); Aspartate Amino Transferase 16 U/L (14-36); Bilirubin,Total 0.4 mg/dL (0.2-1.3); Calcium 8.9 mg/dL (8.4-10.2); Estimated CRCL calculation 25 ml/min; Estimated Glomerular Filt Rate 33; Glucose 527 mg/dL (65-105); Lipase 145 U/L (23-300)
[2020-03-04 23:06] LABS: Alveolar/Arterial O2 Gradient 24.2 mmHg; Base Excess ABG -4.5 mEq/l (+/-2.0); Fractional Inspired Oxygen 21 %; HCO3 ABG 21.2 mEq/l (22.0-26.0); Oxygen Content ABG 17.1 %vol (16.0-22.0); Oxygen Saturation ABG 94.3 % (95.0-100.0); Oxyhemoglobin 93.3 % THb (90.0-100.0); PCO2 ABG 41.4 mmHg (35.0-45.0); PO2 FiO2 Ratio Arterial Blood 3.62 %; Site Drawn LEFT RADIAL; pH ABG 7.328 (7.350-7.450)
[2020-03-04 23:07] LABS: Device ROOM AIR; Modified Allen's Test Pass
[2020-03-04 23:19] LABS: Magnesium 1.7 mg/dL (1.6-2.3); Phosphorus 4.2 mg/dL (2.5-4.5)
[2020-03-04 23:44] LABS: Add Urine Microscopic? YES; Appearance Urine Clear (Clear); Bilirubin Urine Negative (Negative); Blood Urine Negative (Negative); Color Urine Straw (Yellow); Glucose Urine UA 3+ mg/dL (Negative); Ketones Urine Negative (Negative); Leukocyte Esterase Ur 1+ LEU/UL (Negative); Mucus Urine Rare /lpf; Nitrate Urine Negative (Negative); Protein Urine Negative (Negative); RBC Urine 0-2 /hpf (0-2); Specific Grav Ur 1.021 (1.001-1.035); Squamous Epithelial Cell Urine Rare /hpf (Few); Urobilinogen Urine Negative mg/dL (<2.0); WBC Urine 16-20 /hpf
[2020-03-04] MEDS: INSULIN HUMAN REGULAR (*BKC) 100 UNITS/ML 7 UNITS IV PUSH (23:46)
[2020-03-04] MEDS: SODIUM CHLORIDE 0.9% IV 1,000 ML 150 ML IV CONT (23:46)
[2020-03-04 23:49] LABS: Glucose Point of Care 437 (65-105)
[2020-03-04] MEDS: INSULIN HUMAN REGULAR (*BKC) 100 UNITS in SODIUM CHLORIDE 0.9% IV 99 ML 7.54 UNITS IV CONT (23:49)
[2020-03-04] MEDS: LIDOCAINE HCL 2% VISC SOLN 15 ML UDC (23:50)
[2020-03-04 23:51] LABS: Hemoglobin A1C 10.1 % (<5.7)
[2020-03-04 23:55] LABS: Beta-Hydroxybutyrate/Acetoacetate 0.12 mmol/L (0.02-0.27)
--- NOTE | 2020-03-04 23:55 | PC.NURSE ---
multiple attempts made at placing NG tube. 2nd nurse attempted with no success.
[2020-03-05] VITALS (21 sets, daily range): BP systolic 154–214; BP diastolic 65–86; PULSE 80–92; RESP 16–22; TEMP 35.8–37; O2SAT 95–98; BMI 30.9
[2020-03-05 00:52] LABS: Reflex Lactic Acid Yes or No Add Lactic
[2020-03-05 00:57] LABS: Glucose Point of Care 316 (65-105)
--- NOTE | 2020-03-05 02:14 | PC.NURSE ---
insulin drip stopped.
[2020-03-05 02:24] LABS: Glucose Point of Care 228 (65-105)
[2020-03-05] MEDS: SODIUM CHLORIDE 0.9% IV 1,000 ML 125 ML IV CONT (02:30)
[2020-03-05 02:51] LABS: Glucose Point of Care 211 (65-105)
--- NOTE | 2020-03-05 02:52 | PM.IMHP ---
H&P: HPI History of Present Illness Date/Time: 03/05/20 02:52 Chief Complaint: abd pain Narrative: This is an 84 year old Diabetic female who presented to the hospital with severe diffuse abdominal pain and 3 episodes of nonbloody green emesis. The patient's last bowel movement was 3 days ago. She started to have diffuse abdominal pain two days ago and her last meal was yesterday evening. She denies any fever, chills, chest pain, shortness of breath, headache, dysuria, hematuria, or rectal bleeding. She has no previous history of bowel obstructions. She denies any history of colonoscopy. She is known to have had cholecystectomy, hysterectomy, and appendectomy. The patient initially had hyperglycemia in the ER and was started on an insulin IV drip although she was not in acute DKA and has been downgraded to SSI coverage. ER provider has consulted general surgery. NO other complaints. Review of Systems Review of Systems: All systems reviewed & are unremarkable except as noted in HPI and below PMFSH Past Medical History Medical History Acute on chronic renal failure Acute PN (pyelonephritis) Anemia Anemia due to stage 4 chronic kidney disease Aortic stenosis Bronchitis CAD (coronary artery disease) Cataracts, bilateral Chronic back pain Complicated UTI (urinary tract infection) COPD (chronic obstructive pulmonary disease) DVT (deep venous thrombosis) Femur fracture, right GERD (gastroesophageal reflux disease) GI bleed Heart attack History of angina History of blood transfusion HTN (hypertension) Hyperlipidemia Hypothyroid Meniere disease Osteopenia Peripheral neuropathy Peripheral vascular disease of lower extremity RLE stent placement Pneumonia Rectal polyp Renal disease Seizures During ME Type II diabetes mellitus UTI (urinary tract infection) Surgical History Surgical History History of appendectomy during hysterectomy History of cardiac catheterization History of cataract removal with insertion of prosthetic lens History of cholecystectomy during hysterectomy History of hysterectomy Open JALYN-BSO with cholecystectomy and appendectomy History of total right hip arthroplasty Hx of blepharoplasty Hx of CABG Family History Family History Father Hypertension Pneumonia Smoking Mother Diabetes mellitus Family history of glaucoma Cancer Hypotension Cerebrovascular accident Sibling Diabetes mellitus Heart disease Sibling Diabetes mellitus Heart disease Sibling Diabetes mellitus Heart disease Sibling Diabetes mellitus Heart disease Sibling Suicide and self-inflicted injury Sibling Accidental , public place Social History Social History Social History: Lives at home with her daughter Shyla, who is also her healthcare power of photo cartographer. Smoking status: Never smoker Second hand tobacco smoke exposure: Yes Alcohol intake: former Substance use: never Living arrangements: with family Occupation/Education: retired Gender identity (if verbalized by the patient): Female Spiritual care concerns: No Agree to blood products: Yes Meds Home Medications and Allergies Home Medications Medication Instructions Recorded Confirmed Type Spiriva with HandiHaler 1 cap INHALATION DAILY 01/12/19 03/05/20 History Tresiba FlexTouch U-200 36 unit SUBCUT HS 01/12/19 03/05/20 History aspirin [Aspir-81] 81 mg PO DAILY 01/12/19 03/05/20 History levothyroxine 75 mcg PO DAILY 01/12/19 03/05/20 History furosemide 40 mg PO DAILY PRN 07/06/19 03/05/20 History insulin lispro [Humalog KwikPen 2 unit SUBCUT QACBREAK 07/06/19 03/05/20 History Insulin] nitroglycerin 0.4 mg SUBLINGUAL Q5-10M PRN 07/06/19 03/05/20 History insulin lispro [Humalog
[2020-03-05] MEDS: MORPHINE SULFATE (*CRX) 4 MG/ML INJ IV PUSH (03:04)
[2020-03-05] MEDS: ONDANSETRON INJ 4 MG/2 ML VIAL IV PUSH ×2 (03:04→08:13)
--- NOTE | 2020-03-05 03:13 | ADMGEN ---
AT 0230 This patient, Anuradha Spaulding, was admitted to [address] [place] [address] Room 332-02. Patient/family oriented to hospital policies and general routines including ID bracelet, bed and alarms, visiting hours, pain management, procedures, bathroom and other care routines, personal items, smoking policy, room service/diet, and visiting hours. Information on how to activate the Rapid Response Team has been discussed. Patient/Family are encouraged to report perceived risks to care and to ask questions if they do not understand what they are told or what they should do.
--- NOTE | 2020-03-05 03:13 | PC.NURSE ---
UNABLE TO VERIFY HOME MEDICATIONS WITH PT. SHE STATES SHE LEFT HER LIST AT HOME AND IS UNABLE TO RECALL THE NAMES AND DOSES. STATES WE CAN CALL HER DAUGHTER NOÉ IN THE MORNING TO GET HER MEDICATION LIST.
--- NOTE | 2020-03-05 03:15 | PC.NURSE ---
3780 DR ACUNA IN TO SEE PATIENT.
--- NOTE | 2020-03-05 03:15 | PC.NURSE ---
0255 FINGER STICK BLOOD SUGAR 211 MG/DL. DR ACUNA CALLED AND MADE AWARE OF BLOOD SUGAR RESULTS. NO NEW ORDERS RECEIVED.
[2020-03-05] MEDS: PROMETHAZINE HCL 25 MG/ML AMPUL IM (05:14)
[2020-03-05 06:22] LABS: Lactic Acid 1.8 mmol/L (0.7-2.1)
[2020-03-05] MEDS: SODIUM CHLORIDE 0.9% IV 1,000 ML 75 ML IV CONT ×2 (08:11→23:15)
[2020-03-05 08:15] LABS: Basophils Percent Auto 0.2 % (0.2-1.2); Hematocrit 45.3 % (37.0-47.0); Hemoglobin 14.5 g/dL (12.0-15.0); Immature Granulocyte Absolute 0.16 K/mm3 (0.00-0.031); Immature Granulocyte Percent A 0.8 % (0-0.5); Lymphocytes Absolute Auto 1.37 K/mm3 (0.9-3.2); Lymphocytes Percent Auto 7.3 % (18.3-44.2); Mean Corpuscular Hemoglobin 30.6 pg (26-34); Mean Corpuscular Volume 95.6 fl (80-100); Mean Platelet Volume 9.5 fl (7.4-10.4); Monocytes Absolute Auto 0.6 K/mm3 (0.1-0.6); Monocytes Percent Auto 3.2 % (2.6-8.5); Neutrophils Absolute Auto 16.7 K/mm3 (1.3-6.7); Neutrophils Percent Auto 88.5 % (45.5-73.1); Platelet Count Result 343 k/mm3 (150-375); Red Blood Count 4.74 M/mm3 (4.2-5.4); Red Cell Distribution Width 12.6 % (11.5-14.5); White Blood Count 18.9 K/mm3 (4.5-10.0)
[2020-03-05] MEDS: METOPROLOL TARTRATE INJ 5 MG/5 ML VIAL IV PUSH ×4 (08:16→23:16)
[2020-03-05 08:33] LABS: Alanine Aminotransferase 12 U/L (4-35); Albumin Level 3.8 g/dL (3.5-5.1); Alkaline Phosphatase 107 U/L (38-126); Anion Gap 9 mmol/L (8-16); Aspartate Amino Transferase 20 U/L (14-36); Bilirubin,Total 0.5 mg/dL (0.2-1.3); Blood Urea Nitrogen 25 mg/dL (7-17); Calcium 8.7 mg/dL (8.4-10.2); Carbon Dioxide 24 mmol/L (22-30); Chloride 106 mmol/L (98-107); Estimated CRCL calculation 32 ml/min; Estimated Glomerular Filt Rate 43; Glucose 265 mg/dL (65-105); Magnesium 1.5 mg/dL (1.6-2.3); Potassium 4.8 mmol/L (3.4-5.0); Sodium 139 mmol/L (137-145)
[2020-03-05 08:54] LABS: Glucose Point of Care 278 (65-105)
[2020-03-05] MEDS: PANTOPRAZOLE SODIUM IV 40 MG VIAL IV PUSH (08:57)
[2020-03-05] MEDS: LEVOTHYROXINE SODIUM INJ 100 MCG/5 ML VIAL 37.5 MCG IV PUSH (08:57)
--- NOTE | 2020-03-05 09:20 | PM.CNGS ---
Assessment and Plan Assessment and plan (1) Small bowel obstruction: Code(s): K56.609 - Unspecified intestinal obstruction, unspecified as to partial versus complete obstruction Status: Acute Assessment and Plan: CT scan reviewed and discussed with the patient in detail. There is evidence of a small bowel obstruction. Imaging does mention possibility of closed loop obstruction and patient continues to be very tender on exam. The patient is without an NG tube at this time, I have asked the nurse to attempt placing an NG this morning and to notify our service if they have difficulty again with placement. Will initially try to treat this conservatively with NG tube decompression, bowel rest, IV fluids, analgesics, and antiemetics. Although, if this is a closed loop obstruction, then she may require surgery. To note, the patient is a hgih risk surgical candidate due to multiple co-morbidities increasing her risks for surgery. Will await evaluation by Dr. Villatoro today. Thank you for allowing us to see the patient in consultation and we will continue to follow along with you. (2) Diabetes mellitus with hyperglycemia: Code(s): E11.65 - Type 2 diabetes mellitus with hyperglycemia Status: Acute Assessment and Plan: Glucose 527 on admission, was given insulin and is now down to 265 on this morning's labs. Hgb A1C 10.1. Management per Hospitalist. (3) CAD (coronary artery disease): Qualifiers: Associated angina: without angina Coronary Disease-Associated Artery/Lesion type: bypass graft [place] vs. transplanted heart: [place] heart Qualified Code(s): I25.810 - Atherosclerosis of coronary artery bypass graft(s) without angina pectoris Code(s): I25.10 - Atherosclerotic heart disease of [place] coronary artery without angina pectoris Status: Acute (4) Aortic stenosis: Code(s): I35.0 - Nonrheumatic aortic (valve) stenosis Status: Acute Assessment and Plan: Last echocardiogram noted is 03/27/19 showing mild aortic valve stenosis. EF > 70% with grade I diastolic dysfunction and mild pulmonary hypertension. Increases risks for surgery. (5) Chronic renal failure: Code(s): N18.9 - Chronic kidney disease, unspecified Status: Acute Assessment and Plan: Creatinine 1.5 on admission, which looks to be similar to her baseline creatinine from past labs (1.5-1.7). (6) COPD (chronic obstructive pulmonary disease): Qualifiers: COPD type: unspecified COPD Qualified Code(s): J44.9 - Chronic obstructive pulmonary disease, unspecified Code(s): J44.9 - Chronic obstructive pulmonary disease, unspecified Status: Chronic (7) HTN (hypertension): Qualifiers: Hypertension type: essential hypertension Qualified Code(s): I10 - Essential (primary) hypertension Code(s): I10 - Essential (primary) hypertension Status: Chronic (8) GERD (gastroesophageal reflux disease): Qualifiers: Esophagitis presence: esophagitis presence not specified Qualified Code(s): K21.9 - Gastro-esophageal reflux disease without esophagitis Code(s): K21.9 - Gastro-esophageal reflux disease without esophagitis Status: Chronic (9) Peripheral neuropathy: Qualifiers: Peripheral neuropathy type: polyneuropathy, unspecified Qualified Code(s): G62.9 - Polyneuropathy, unspecified Code(s): G62.9 - Polyneuropathy, unspecified Status: Acute Additional Plan I discussed the patient's case and plan of care with Dr. Villatoro. History of Present Illness Consult details Consult date: 03/05/20 Reason for consult: other (Small bowel obstruction) Requesting physician: Katy Mcginnis MD Narrative: This is an 84-year-old female with a history of multiple comorbidities not limited to diabetes mellitus type 2, coronary artery disease, hypertension, COPD, and aortic stenosis, who presented to the emergency department last
--- NOTE | 2020-03-05 11:30 | PC.NURSE ---
Spoke to daughter Shyla on phone, update given, informed we needed medication list for mother, states will call after work or have sister call.
[2020-03-05 12:36] LABS: Glucose Point of Care 254 (65-105)
--- NOTE | 2020-03-05 12:45 | PM.IMPN ---
Progress Note: A&P Assessment and Plan (1) Bowel obstruction: Qualifiers: Intestinal obstruction extent: unspecified extent Intestinal obstruction type: unspecified Qualified Code(s): K56.609 - Unspecified intestinal obstruction, unspecified as to partial versus complete obstruction Code(s): K56.609 - Unspecified intestinal obstruction, unspecified as to partial versus complete obstruction Status: Deleted Assessment and Plan: CT abd/pelvis demonstrates small bowel obstruction with transition point in the lower abdomen, midline, with inability to exclude closed loop obstruction. She has significant tenderness on exam. Lactic acid is normal. WBC is elevated today, likely reactive in the setting of SBO. General surgery is consulted and managing NG tube is in place, continue bowel rest Continue gentle IV fluids She is a high-risk surgical candidate given multiple comorbidities (2) Diabetes mellitus with hyperglycemia: Code(s): E11.65 - Type 2 diabetes mellitus with hyperglycemia Status: Acute Assessment and Plan: Poorly controlled with HbA1c 10.3 03/04/20. Blood sugar was markedly elevated on arrival at [facility] and she was started on insulin gtt in the ED. She was not in acute DKA so this was transitioned to SSI insulin coverage. Her daughter will be calling the RN with updated med list for dose of tresiba. Blood sugars have improved with most recent blood sugar 265. She did not receive her long-acting insulin overnight. Continue Q6H glucose monitoring while NPO, sliding scale insulin, and hypoglycemia protocol Will reduce tresiba since she is NPO Adjust treatment as needed (3) Hypothyroidism: Qualifiers: Hypothyroidism type: other Qualified Code(s): E03.8 - Other specified hypothyroidism Code(s): E03.9 - Hypothyroidism, unspecified Status: Chronic Assessment and Plan: Chronic. TSH is 1.6 03/26/19. Will repeat. Repeat TSH Continue levothyroxine IV in place of PO for now as she is NPO. Resume PO levothyroxine when clinically appropriate. (4) COPD (chronic obstructive pulmonary disease): Qualifiers: COPD type: unspecified COPD Qualified Code(s): J44.9 - Chronic obstructive pulmonary disease, unspecified Code(s): J44.9 - Chronic obstructive pulmonary disease, unspecified Status: Chronic Assessment and Plan: Chronic. Not in acute exacerbation. Will have bronchodilators available as needed Continue tiotropium (5) GERD (gastroesophageal reflux disease): Qualifiers: Esophagitis presence: esophagitis presence not specified Qualified Code(s): K21.9 - Gastro-esophageal reflux disease without esophagitis Code(s): K21.9 - Gastro-esophageal reflux disease without esophagitis Status: Chronic Assessment and Plan: Chronic. No acute issues. Will give pantoprazole while inpatient (6) HTN (hypertension): Qualifiers: Hypertension type: essential hypertension Qualified Code(s): I10 - Essential (primary) hypertension Code(s): I10 - Essential (primary) hypertension Status: Chronic Assessment and Plan: Chronic. BP elevated on arrival, likely secondary to pain. BP has improved. She is on PO metoprolol and furosemide prior which are held given NPO status in setting of SBO. Will schedule metoprolol IV Hydralazine will be available as needed Continue to monitor and adjust treatment as needed (7) Hiatal hernia: Code(s): K44.9 - Diaphragmatic hernia without obstruction or gangrene Status: Acute Assessment and Plan: Moderate to large, possible distal esophageal thickening. Initiate pantoprazole Continue PPI at discharge She will need to follow-up with GI outpatient for additional evaluation Continue anti-reflux measures (8) Aortic stenosis: Code(s): I35.0 - Nonrheumatic aortic (valve
[2020-03-05] MEDS: INSULIN ASPART (*BKC) 100 UNITS/ML SUB-Q (12:57)
[2020-03-05] MEDS: MAGNESIUM SULF 2 GM/WATER 50ML 2 GM/50 ML BAG IVPB (14:09)
[2020-03-05 17:49] LABS: Glucose Point of Care 195 (65-105)
[2020-03-05] MEDS: INSULIN GLARGINE (*BKC) 100 UNITS/ML 20 UNITS SUB-Q (20:57)
[2020-03-05 21:43] LABS: Glucose Point of Care 169 (65-105)
[2020-03-05 23:59] LABS: Glucose Point of Care 161 (65-105)
[2020-03-06] VITALS (18 sets, daily range): BP systolic 100–161; BP diastolic 51–63; PULSE 76–97; RESP 14–22; TEMP 36.6–37.7; O2SAT 90–100
[2020-03-06 04:11] LABS: Glucose Point of Care 141 (65-105)
[2020-03-06] MEDS: LEVOTHYROXINE SODIUM INJ 100 MCG/5 ML VIAL 37.5 MCG IV PUSH (06:37)
[2020-03-06] MEDS: METOPROLOL TARTRATE INJ 5 MG/5 ML VIAL IV PUSH ×4 (06:37→23:44)
[2020-03-06] MEDS: ONDANSETRON INJ 4 MG/2 ML VIAL IV PUSH (06:41)
[2020-03-06 06:46] LABS: Glucose Point of Care 102 (65-105)
[2020-03-06 07:06] LABS: Basophils Absolute Auto 0.1 K/mm3 (0.0-0.1); Basophils Percent Auto 0.3 % (0.2-1.2); Hematocrit 39.2 % (37.0-47.0); Hemoglobin 12.8 g/dL (12.0-15.0); Immature Granulocyte Absolute 0.15 K/mm3 (0.00-0.031); Immature Granulocyte Percent A 0.6 % (0-0.5); Lymphocytes Percent Auto 6.8 % (18.3-44.2); Mean Corpuscular HGB Conc 32.7 g/dl (32-36); Mean Corpuscular Hemoglobin 31.1 pg (26-34); Mean Corpuscular Volume 95.4 fl (80-100); Mean Platelet Volume 10.2 fl (7.4-10.4); Monocytes Absolute Auto 2.1 K/mm3 (0.1-0.6); Monocytes Percent Auto 8.5 % (2.6-8.5); Neutrophils Absolute Auto 20.9 K/mm3 (1.3-6.7); Neutrophils Percent Auto 83.8 % (45.5-73.1); Platelet Count Result 324 k/mm3 (150-375); Red Blood Count 4.11 M/mm3 (4.2-5.4); Red Cell Distribution Width 13.1 % (11.5-14.5); White Blood Count 24.9 K/mm3 (4.5-10.0)
[2020-03-06 07:18] LABS: Alanine Aminotransferase 17 U/L (4-35); Albumin Level 3.3 g/dL (3.5-5.1); Alkaline Phosphatase 78 U/L (38-126); Anion Gap 6 mmol/L (8-16); Aspartate Amino Transferase 23 U/L (14-36); Bilirubin,Total 1.1 mg/dL (0.2-1.3); Blood Urea Nitrogen 30 mg/dL (7-17); Calcium 8.9 mg/dL (8.4-10.2); Carbon Dioxide 27 mmol/L (22-30); Chloride 109 mmol/L (98-107); Estimated CRCL calculation 25 ml/min; Estimated Glomerular Filt Rate 33; Glucose 112 mg/dL (65-105); Magnesium 1.9 mg/dL (1.6-2.3); Sodium 142 mmol/L (137-145)
[2020-03-06 08:39] LABS: Glucose Point of Care 88 (65-105)
--- NOTE | 2020-03-06 09:36 | PM.PNGS ---
Progress Note: A&P Assessment and Plan (1) Small bowel obstruction: Code(s): K56.609 - Unspecified intestinal obstruction, unspecified as to partial versus complete obstruction Status: Acute Assessment and Plan: CT concerning for closed loop obstruction. X-ray this morning still shows dilated small bowel. On exam, patient is still very tender with peritoneal signs. WBC up to 24,000 and she has a low-grade fever this morning. I discussed again this morning with the patient that she is showing signs of bowel ischemia and we would recommend emergent surgery. The patient is a high risk surgical candidate due to her multiple co-morbidities and age, but without the surgery she could deteriorate quickly and ultimately from this. I discussed again the risks of surgery and the risks of not proceeding with surgery. The patient would like to speak with both of her daughters before making a final decision, even knowing that the longer we wait on surgery she takes the risk of deteriorating. I have tried calling all three emergency contacts (two daughters and a granddaughter), with the patient's permission, this morning with no answer and have left messages. The nurse has also called and left a message. Ultimately, this is the patient's decision and we will continue to wait to hear back. In the meantime, I verified code status with the patient, who still wishes to be a full code. I will also start broad-spectrum IV antibiotics and increase her IV fluids. Continue to monitor closely. 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 glucose this morning is 112. (3) CAD (coronary artery disease): Qualifiers: Coronary Disease-Associated Artery/Lesion type: bypass graft [place] vs. transplanted heart: [place] heart Associated angina: without angina Qualified Code(s): I25.810 - Atherosclerosis of coronary artery bypass graft(s) without angina pectoris Code(s): I25.10 - Atherosclerotic heart disease of [place] coronary artery without angina pectoris Status: Acute Assessment and Plan: Increases risks for surgery. (4) Aortic stenosis: Code(s): I35.0 - Nonrheumatic aortic (valve) stenosis Status: Acute Assessment and Plan: Last echocardiogram noted is 03/27/19 showing mild aortic valve stenosis. EF > 70% with grade I diastolic dysfunction and mild pulmonary hypertension. Increases risks for surgery. (5) Chronic renal failure: Code(s): N18.9 - Chronic kidney disease, unspecified Status: Acute (6) COPD (chronic obstructive pulmonary disease): Qualifiers: COPD type: unspecified COPD Qualified Code(s): J44.9 - Chronic obstructive pulmonary disease, unspecified Code(s): J44.9 - Chronic obstructive pulmonary disease, unspecified Status: Chronic Assessment and Plan: Increases risk for surgery. (7) HTN (hypertension): Qualifiers: Hypertension type: essential hypertension Qualified Code(s): I10 - Essential (primary) hypertension Code(s): I10 - Essential (primary) hypertension Status: Chronic Additional Plan I discussed the patient's case and plan of care with Dr. Villatoro. Subjective Subjective Date/Time Seen: 03/06/20 08:55 Patient reports: no flatus and no bowel movement Interval history: Patient seen this morning and reports only mild abdominal pain overnight. Reports nausea this morning. No other complaints at this time. She states she talked with her daughter Shyla last night who did not want her to have surger
[2020-03-06 12:40] LABS: Glucose Point of Care 78 (65-105)
[2020-03-06] MEDS: PANTOPRAZOLE SODIUM IV 40 MG VIAL IV PUSH (13:16)
--- NOTE | 2020-03-06 13:43 | WPDANESEPPF ---
Anes - Initial Pre Proc Eval Procedure: Operation Date: 03/06/20 14:00 Proposed Procedures p Exploratory Laparotomy, Possible Bowel Resection - Alessandro Villatoro DO Date/Time: 03/06/20 13:43 Surgeon: Carol Barbosa PA-C Pre Op Diagnosis: SBO, HYPERGLYCEMIA Patient Data Age: 84 Gender: F Height: 1.6 m Weight: 79 kg Last Vital Signs Temp 37.7 C H 03/06/20 08:00 Pulse 90 03/06/20 08:00 Resp 18 03/06/20 08:00 BP 156/60 H 03/06/20 08:00 Pulse Ox 94 03/06/20 08:49 Allergies Allergy/AdvReac Type Severity Reaction Status Date / Time No Known Allergies Allergy Verified 03/05/20 03:18 Home Medications Medication Instructions Recorded Confirmed Type Spiriva with HandiHaler 1 cap INHALATION DAILY 01/12/19 03/05/20 History Tresiba FlexTouch U-200 36 unit SUBCUT HS 01/12/19 03/05/20 History aspirin [Aspir-81] 81 mg PO DAILY 01/12/19 03/05/20 History levothyroxine 75 mcg PO DAILY 01/12/19 03/05/20 History furosemide 40 mg PO DAILY PRN 07/06/19 03/05/20 History insulin lispro [Humalog KwikPen 2 unit SUBCUT QACBREAK 07/06/19 03/05/20 History Insulin] nitroglycerin 0.4 mg SUBLINGUAL Q5-10M PRN 07/06/19 03/05/20 History insulin lispro [Humalog KwikPen 4 unit SUBCUT DAILY 03/05/20 03/05/20 History Insulin] insulin lispro [Humalog KwikPen 6 unit SUBCUT DAILY 03/05/20 03/05/20 History Insulin] metoprolol succinate [Toprol XL] 100 mg PO DAILY 03/05/20 03/05/20 History Laboratory Tests 03/05/20 03/05/20 03/05/20 17:30 20:56 23:56 WBC RBC Hgb Hct MCV MCH MCHC RDW Plt Count MPV Immature Gran % (Auto) Neut % (Auto) Lymph % (Auto) [place] % (Auto) Eos % (Auto) Baso % (Auto) Lymph # (Auto) [place] # (Auto) Eos # (Auto) Baso # (Auto) Abs Immat Gran (auto) Absolute Neuts (auto) Absolute Nucleated RBC Nucleated RBC % Sodium Potassium Chloride Carbon Dioxide Anion Gap BUN Creatinine Estim Creat Clear Calc Estimated GFR Glucose POC Capillary Glucose 195 mg/dl H mg/dl 169 mg/dl H mg/dl 161 mg/dl H mg/dl (65-105) (65-105) (65-105) Calcium Magnesium Total Bilirubin AST ALT Alkaline Phosphatase Total Protein Albumin 03/06/20 03/06/20 03/06/20 04:08 06:27 06:27 WBC 24.9 K/mm3 H K/mm3 (4.5-10.0) RBC 4.11 M/mm3 L M/mm3 (4.2-5.4) Hgb 12.8 g/dL g/dL (12.0-15.0) Hct 39.2 % % (37.0-47.0) MCV 95.4 fl fl (80-100) MCH 31.1 pg pg (26-34) MCHC 32.7 g/dl g/dl (32-36) RDW 13.1 % % (11.5-14.5) Plt Count 324 k/mm3 k/mm3 (150-375) MPV 10.2 fl fl (7.4-10.4) Immature Gran % (Auto) 0.6 % H % (0-0.5) Neut % (Auto) 83.8 % H % (45.5-73.1) Lymph % (Auto) 6.8 % L % (18.3-44.2) [place] % (Auto) 8.5 % % (2.6-8.5) Eos % (Auto) 0.0 % % (0-4.4) Baso % (Auto) 0.3 % % (0.2-1.2) Lymph # (Auto) 1.70 K/mm3 K/mm3 (0.9-3.2) [place] # (Auto) 2.1 K/mm3 H K/mm3 (0.1-0.6) Eos # (Auto) 0.0 K/mm3 K/mm3 (0-0.3) Baso # (Auto) 0.1 K/mm3 K/mm3 (0.0-0.1) Abs Immat Gran (auto) 0.15 K/mm3 H K/mm3 (0.00-0.031) Absolute Neuts (auto) 20.9 K/mm3 H K/mm3 (1.3-6.7) Absolute Nucleated RBC 0.0 K/mm3 K/mm3 (0.0-0.012) Nucleated RBC % 0.0 % % (0.0-0.2) Sodium 142 mmol/L mmol/L (137-145) Potassium 5.0 mmol/L mmol/L (3.4-5.0) Chloride
[2020-03-06] MEDS: LACTATED RINGERS 1,000 ML 30 ML IV CONT ×2 (13:53→18:40)
--- NOTE | 2020-03-06 14:05 | PM.IMPN ---
Progress Note: A&P Assessment and Plan (1) Small bowel obstruction: Code(s): K56.609 - Unspecified intestinal obstruction, unspecified as to partial versus complete obstruction Status: Acute Assessment and Plan: CT abd/pelvis demonstrated small bowel obstruction with transition point in the lower abdomen, midline, with inability to exclude closed loop obstruction. She has increased leukocytosis today up to 24,000 and development of low grade fever. She does not meet SIRS criteria for sepsis but she is at risk of becoming septic and therefore surgical intervention will not be delayed. General surgery is consulted and managing. Surgery this afternoon. NG tube is in place, continue bowel rest Continue IV fluids Begin IV Zosyn Monitor vital signs closely. 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 Blood sugar was markedly elevated on arrival at 527 and she was started on insulin gtt in the ED. She was not in acute DKA so this was transitioned to SSI insulin coverage. Blood sugars have improved Today and she did have an episode of hypoglycemia at 56. Continue Q6H glucose monitoring while NPO, sliding scale insulin, and hypoglycemia protocol Tresiba is non formulary so she has been transitioned to Lantus at reduced dose. Will decrease Lantus further as she remains NPO and did have an episode of hypoglycemia Adjust treatment as needed (3) HTN (hypertension): Qualifiers: Hypertension type: essential hypertension Qualified Code(s): I10 - Essential (primary) hypertension Code(s): I10 - Essential (primary) hypertension Status: Chronic Assessment and Plan: Chronic. BP elevated on arrival, likely secondary to pain. BP has improved. She is on PO metoprolol and furosemide prior which are held given NPO status in setting of SBO. BP evaluated today in stable at 156/60. continue scheduled metoprolol IV 5 mg q.6 Hydralazine available as needed Continue to monitor and adjust treatment as needed (4) Hypothyroidism: Qualifiers: Hypothyroidism type: other Qualified Code(s): E03.8 - Other specified hypothyroidism Code(s): E03.9 - Hypothyroidism, unspecified Status: Chronic Assessment and Plan: Chronic. TSH is 1.6 03/26/19. Will repeat. Continue levothyroxine IV while NPO. Resume PO levothyroxine when clinically appropriate. Will check TSH (5) Hypomagnesemia: Code(s): E83.42 - Hypomagnesemia Status: Acute Assessment and Plan: Magnesium 1.5 on 03/05/2019. Magnesium was replaced and is stable at 1.9 today. Monitor electrolytes and replace as needed (6) CAD (coronary artery disease): Qualifiers: Coronary Disease-Associated Artery/Lesion type: bypass graft [place] vs. transplanted heart: [place] heart Associated angina: without angina Qualified Code(s): I25.810 - Atherosclerosis of coronary artery bypass graft(s) without angina pectoris Code(s): I25.10 - Atherosclerotic heart disease of [place] coronary artery without angina pectoris Status: Acute Assessment and Plan: She has a hx of CABG 2002. She follows with Dr. Boo. She has known multivessel disease with lexiscan 04/2018 demonstrating ischemia and infarct correlated to her known anatomy. She is high surgical risk given multiple comorbidities including CAD. Continue IV metoprolol Resume nitroglycerin and imdur when no longer NPO Resume rosuvastatin when no longer NPO Continue aspirin; discussed with generaly surgery team (7) COPD (ch
[2020-03-06 14:06] LABS: Glucose Point of Care 59 (65-105)
[2020-03-06] MEDS: DEXTROSE 50% 25 GM/50 ML SYRINGE IV PUSH (14:17)
[2020-03-06 15:01] LABS: Glucose Point of Care 97 (65-105)
--- NOTE | 2020-03-06 17:04 | WPDHPUPDATE1 ---
History and Physical Update Update Date/Time: 03/06/20 17:04 History and Physical has been reviewed, including an updated exam of the patient. There are NO changes in the patient's condition. Risks, benefits, and alternatives have been discussed and questions answered. Patient agrees to proceed with procedure.
[2020-03-06] MEDS: ceFAZolin SODIUM 1 GM VIAL 2 GM IV PUSH (17:37)
[2020-03-06] MEDS: metroNIDAZOLE 500 MG/ISO 100ML 500 MG/100 ML BAG 100 MG IVPB (17:53)
--- NOTE | 2020-03-06 18:43 | PM.PROC ---
Procedure Note - Detailed Date of procedure: 03/06/20 Pre-op diagnosis: Small bowel obstruction Post-op diagnosis: same Procedure performed: 1. Exploratory laparotomy 2. Ileal resection with [id number] ileal anastomosis 3. Release of small-bowel obstruction Description of procedure: Procedure as well as risks, benefits, and alternatives were discussed with the patient. Written consent was obtained and placed in chart prior to procedure. Patient was brought back to surgical suite. She was placed supine on operating table. Time-out was done to confirm patient and procedure. She was then intubated by the Anesthesia Department. Her abdomen was prepped and draped in sterile fashion using chlorhexidine prep. A 20 cm vertical midline incision was made using a 10 blade scalpel. Electrocautery was used for hemostasis and for dissection down through Gena's fascia. The linea alba was then incised using electrocautery. The fascia was lifted using 2 Anoop clamps and the peritoneum was entered using electrocautery. The abdominal cavity was entered and the abdomen was carefully inspected. There did not appear to be any adhesions up to the prior midline scar. The fascial incision was extended throughout the length of the skin incision using electrocautery. An Navjot wound protector was placed at the incision. I then carefully explored the abdominal cavity. In the lower abdomen, I identified necrotic appearing bowel that was within a closed loop obstruction. There was an adhesive band of an epiploic appendage from the sigmoid going down to the right pelvic region. This appeared to be causing the obstruction. I carefully reduced the bowel back through this adhesive band so that it was no longer under tension. I then took down the adhesive band using electrocautery to free up the internal hernia. I then inspected the small bowel and identified that the bowel appeared viable proximal and distal to a 2 ft segment of ileum that was necrotic. A window was created in the mesentery both proximal and distal to the necrotic segment and NAE 75 mm blue load staplers were advanced across the bowel and clamped at each site. Staplers were fired to transect the bowel at the proximal and distal margin. The mesentery was then taken down using LigaSure bipolar cautery. The specimen was freed up completely and it was sent to the lab for pathology. The 2 limbs of the bowel were then inspected and appeared healthy and viable. Enterotomies were made on the anti mesenteric end of each limb of the bowel and then the bowel was clamped together in a [id number] fashion using another NAE 75 mm blue load stapler. The stapler was fired to create our anastomosis. The enterotomy was then closed using the TLC 60 mm stapler. The apex of the staple line was then reinforced using 3 0 silk seromuscular imbricating sutures. The mesenteric rent was then closed using 3 0 chromic running suture. The small bowel was then released back down into the abdominal cavity. I then carefully inspected the remainder of the bowel. There appeared to be about 40 cm have health the distal ileum from the anastomosis to the ileocecal valve. There was then at least 6-7 feet of healthy proximal small bowel all the way to the ligament of Treitz. The abdominal cavity was then irrigated with about 3 L of sterile saline. Hemostasis appeared adequate no other abnormalities were noted. The NG tube was verified in proper position in the body of the stomach. The Navjot wound protector was then removed. The fascia of the midline incision was then reapproximated using a 0 PDS running suture starting from each end and meeting in the middle. The skin was then reapproximated using a skin stapler. 4 x 4 gauze and Medipore tape were applied. The patient was then awakened from anesthesia, extubated, and transferred to recovery. Anesthesia: GETA Surgeon: Alessandro Villatoro DO Estimated blood loss (mL): 50 Pathology: yes (S
[2020-03-06 18:54] LABS: Glucose Point of Care 80 (65-105)
[2020-03-06] MEDS: fentaNYL CITRATE INJ (*CRX) 100 MCG/2 ML VIAL 25 MCG IV PUSH ×3 (19:15→19:45)
--- NOTE | 2020-03-06 19:19 | SUR.PHASEI ---
1919- Report given to Adela Good RN.
--- NOTE | 2020-03-06 19:27 | SUR.PHASEI ---
1919; CARE ASSUMED OF PT. PT AWAKE, GROGGY. SOME MOANING. STATES YES TO PAIN. FENTANYL GIVEN PRN.
--- NOTE | 2020-03-06 19:42 | SUR.PHASEI ---
192; PT SLEEPING. RESP EVEN UNLABORED. HOB AT 30 DEGREES.
--- NOTE | 2020-03-06 19:48 | SUR.PHASEI ---
1944; PT AWAKE. STATES I'LL BE ALRIGHT .
--- NOTE | 2020-03-06 20:20 | PC.NURSE ---
Returned from OR per stretcher.
[2020-03-06] MEDS: POTASSIUM CHLORIDE INJ 10 MEQ in DEXTROSE 5%/0.45% SOD CHL 1,000 ML 100 MEQ IV CONT (21:00)
[2020-03-06 21:56] LABS: Glucose Point of Care 93 (65-105)
[2020-03-07] VITALS (9 sets, daily range): BP systolic 106–133; BP diastolic 47–55; PULSE 69–82; RESP 16–20; TEMP 36.3–37.2; O2SAT 92–98
[2020-03-07 00:20] LABS: Glucose Point of Care 124 (65-105)
[2020-03-07] MEDS: METOPROLOL TARTRATE INJ 5 MG/5 ML VIAL IV PUSH ×3 (05:18→17:21)
[2020-03-07] MEDS: LEVOTHYROXINE SODIUM INJ 100 MCG/5 ML VIAL 37.5 MCG IV PUSH (05:35)
[2020-03-07 06:19] LABS: Glucose Point of Care 226 (65-105)
[2020-03-07 07:09] LABS: Alanine Aminotransferase 11 U/L (4-35); Albumin Level 2.5 g/dL (3.5-5.1); Alkaline Phosphatase 57 U/L (38-126); Anion Gap 7 mmol/L (8-16); Aspartate Amino Transferase 21 U/L (14-36); Bilirubin,Total 0.9 mg/dL (0.2-1.3); Blood Urea Nitrogen 47 mg/dL (7-17); Calcium 7.8 mg/dL (8.4-10.2); Carbon Dioxide 21 mmol/L (22-30); Chloride 109 mmol/L (98-107); Estimated CRCL calculation 22 ml/min; Estimated Glomerular Filt Rate 27; Glucose 221 mg/dL (65-105); Potassium 4.6 mmol/L (3.4-5.0); Sodium 137 mmol/L (137-145)
[2020-03-07 07:13] LABS: Hematocrit 31.6 % (37.0-47.0); Hemoglobin 10.2 g/dL (12.0-15.0); Mean Corpuscular HGB Conc 32.3 g/dl (32-36); Mean Corpuscular Hemoglobin 31.4 pg (26-34); Mean Corpuscular Volume 97.2 fl (80-100); Mean Platelet Volume 10.5 fl (7.4-10.4); Platelet Count Result 254 k/mm3 (150-375); Red Blood Count 3.25 M/mm3 (4.2-5.4); Red Cell Distribution Width 13.3 % (11.5-14.5); White Blood Count 16.6 K/mm3 (4.5-10.0)
[2020-03-07] MEDS: INSULIN ASPART (*BKC) 100 UNITS/ML SUB-Q ×3 (08:21→17:17)
[2020-03-07] MEDS: ASPIRIN 81 MG CHEWABLE TABLET PO (08:27)
[2020-03-07] MEDS: PANTOPRAZOLE SODIUM IV 40 MG VIAL IV PUSH (08:28)
[2020-03-07 08:33] LABS: Glucose Point of Care 261 (65-105)
[2020-03-07] MEDS: ENOXAPARIN 40 MG/0.4 ML SYRINGE SUB-Q (08:33)
[2020-03-07 08:56] LABS: Thyroid Stimulating Hormone Reflex 0.292 uIU/mL (0.465-4.68)
--- NOTE | 2020-03-07 08:59 | WPDANESPN ---
Anes - Prog Note Post-Op Date/Time: 03/07/20 08:59 Cardiovascular status: normal Respiratory status: normal Airway patency: baseline Mental status: baseline Post-Op hydration status: normal Vital Signs: Last Vital Signs Temp 36.3 C L 03/07/20 08:00 Pulse 73 03/07/20 08:00 Resp 16 03/07/20 08:00 BP 121/47 L 03/07/20 08:00 Pulse Ox 96 03/07/20 08:00 Pain Score (VAS): 03/11 I/O: Intake & Output 03/06/20 03/07/20 03/07/20 23:59 07:59 15:59 Intake Total 350 150 Output Total 1200 500 Balance -850 -350 Laboratory Tests 03/07/20 06:17 03/07/20 06:17 03/06/20 03/06/20 03/06/20 12:29 14:04 15:00 WBC RBC Hgb Hct MCV MCH MCHC RDW Plt Count MPV Sodium Potassium Chloride Carbon Dioxide Anion Gap BUN Creatinine Estim Creat Clear Calc Estimated GFR Glucose POC Capillary Glucose 78 59 L* 97 Calcium Total Bilirubin AST ALT Alkaline Phosphatase Total Protein Albumin TSH (Reflex) Free T4 03/06/20 03/06/20 03/07/20 18:51 21:09 00:17 WBC RBC Hgb Hct MCV MCH MCHC RDW Plt Count MPV Sodium Potassium Chloride Carbon Dioxide Anion Gap BUN Creatinine Estim Creat Clear Calc Estimated GFR Glucose POC Capillary Glucose 80 93 124 H Calcium Total Bilirubin AST ALT Alkaline Phosphatase Total Protein Albumin TSH (Reflex) Free T4 03/07/20 03/07/20 03/07/20 05:46 06:17 06:17 WBC 16.6 H RBC 3.25 L Hgb 10.2 L Hct 31.6 L MCV 97.2 MCH 31.4 MCHC 32.3 RDW 13.3 Plt Count 254 MPV 10.5 H Sodium 137 Potassium 4.6 Chloride 109 H Carbon Dioxide 21 L Anion Gap 7 L BUN 47 H D Creatinine 1.80 H Estim Creat Clear Calc 22 Estimated GFR 27 L Glucose 221 H POC Capillary Glucose 226 H Calcium 7.8 L Total Bilirubin 0.9 AST 21 ALT 11 Alkaline Phosphatase 57 Total Protein 5.0 L Albumin 2.5 L TSH (Reflex) Free T4 03/07/20 03/07/20 03/07/20 06:17 06:17 08:20 WBC RBC Hgb Hct MCV MCH MCHC RDW Plt Count MPV Sodium Potassium Chloride Carbon Dioxide Anion Gap BUN Creatinine Estim Creat Clear Calc Estimated GFR Glucose POC Capillary Glucose 261 H Calcium Total Bilirubin AST ALT Alkaline Phosphatase Total Protein Albumin TSH (Reflex) 0.292 L Free T4 Pending Microbiology 03/04/20 23:34 Urine Clean Catch Urine Culture - Final Patient Feedback: Patient satisfied with anesthetic care.
[2020-03-07] MEDS: POTASSIUM CHLORIDE INJ 10 MEQ in DEXTROSE 5%/0.45% SOD CHL 1,000 ML 100 MEQ IV CONT ×2 (10:05→22:36)
--- NOTE | 2020-03-07 11:56 | PM.PNGS ---
Progress Note: A&P Assessment and Plan (1) Small bowel obstruction: Code(s): K56.609 - Unspecified intestinal obstruction, unspecified as to partial versus complete obstruction Status: Acute Assessment and Plan: Doing well on POD#1 Keep NG in today, but will hopefully remove tomorrow Increase activity Await return of bowel function Subjective Subjective Date/Time Seen: 03/07/20 11:56 Post Op day: 1 Interval history: Pain well controlled and already getting up with PT. No flatus or BM yet. Says she's hungry. Exam GI: Inspection: incision (dressing dry) GI Palp: Yes Soft to palpation and No Tenderness to palpation present (GI) Objective Data Vital Signs Vital Signs: Vital Signs - 24 hr 03/06/20 14:00 03/06/20 18:40 03/06/20 18:55 Temperature 37.5 C 37.3 C Pulse Rate 94 94 94 Respiratory Rate 14 15 18 Blood Pressure 142/57 H 140/63 123/51 L Pulse Oximetry 95 100 03/06/20 19:06 03/06/20 19:20 03/06/20 19:35 Temperature Pulse Rate 86 95 90 Respiratory Rate 20 20 22 H Blood Pressure 133/55 L 128/55 L 115/55 L Pulse Oximetry 100 94 93 03/06/20 19:50 03/06/20 20:05 03/06/20 20:20 Temperature 36.9 C Pulse Rate 95 92 96 Respiratory Rate 22 H 22 H 20 Blood Pressure 127/53 L 124/55 L 114/54 L Pulse Oximetry 93 93 90 03/06/20 20:35 03/06/20 21:03 03/06/20 21:05 Temperature 36.9 C 36.7 C Pulse Rate 93 91 85 Respiratory Rate 20 20 Blood Pressure 119/55 L 112/52 L Pulse Oximetry 90 91 03/06/20 22:05 03/06/20 23:44 03/07/20 00:00 Temperature 36.6 C 37.2 C Pulse Rate 76 91 78 Respiratory Rate 20 20 Blood Pressure 100/52 L 106/48 L Pulse Oximetry 93 94 03/07/20 04:00 03/07/20 05:18 03/07/20 08:00 Temperature 36.7 C 36.3 C L Pulse Rate 79 79 73 Respiratory Rate 20 16 Blood Pressure 109/50 L 121/47 L Pulse Oximetry 93 96 Intake/Output Intake/Output: Intake & Output 03/04/20 03/05/20 03/06/20 03/07/20 23:59 23:59 23:59 23:59 Intake Total 1100 3150 350 1150 Output Total 750 2000 500 Balance 1100 2400 -1650 650 Meds/Results Medications: Active Medications Generic Name Dose Route Start Last Admin Trade Name Freq PRN Reason Stop Dose Admin Albuterol 2.5 mg 03/05/20 13:07 Albuterol Sulfate Neb 2.5 Mg/0.5 Ml Inh INHALATION Q6HRT PRN Shortness Of Breath Aspirin 81 mg 03/06/20 08:00 03/07/20 08:27 Aspirin 81 Mg Chewable Tablet PO 81 mg DAILY@0800 CARLINE Administration Dextrose 12.5 gm 03/05/20 07:17 Dextrose 50% 25 Gm/50 Ml Syringe IV PUSH PRN PRN Hypoglycemia Protocol Enoxaparin Sodium 40 mg 03/07/20 09:00 03/07/20 08:33 Enoxaparin 40 Mg/0.4 Ml Syringe SUB-Q 40 mg DAILY CARLINE Administration Glucagon 1 mg 03/05/20 07:17 Glucagon For Inj 1 Mg Vial IM PRN PRN Hypoglycemia Protocol Glucose 15 gm 03/05/20 07:17 Glucose Oral Gel 15 Gm Of Glucse In 37.5 Gm Tube PO PRN PRN Hypoglycemia Protocol Hydralazine HCl 10 mg 03/05/20 07:11 Hydralazine Hcl 20 Mg/Ml Vial IV PUSH Q8H PRN SBP >180, DBP >100 Hydromorphone HCl 0.5 mg 03/06/20 20:15 Hydromorphone Hcl Inj (*Crx) 1 Mg/Ml Syr IV PUSH Q2H PRN Pain Rated 4-6 Hydromorphone HCl 1 mg 03/06/20 20:15 Hydromorphone Hcl Inj (*Crx) 1 Mg/Ml Syr IV PUSH Q2H PRN Pain Rated 7-10 Dextrose 1,000 mls @ 100 mls/hr 03/05/20 07:17 Dextrose 5% 1,000 Ml IVPB PRN PRN Hypoglycemia Protocol Piperacillin Sod/Tazobactam Sod 2.25 gm in 50 mls @ 100 mls/hr 03/06/20 17:00 03/07/20 11:18 Zosyn 2.25 Gm/D5w 50 Ml IVPB 100 mls/hr Q6H CARLINE Administration Acetaminophen 1,000 mg in 100 mls @ 400 mls/hr 03/07/20 00:00 03/07/20 05:32 Ofirmev 1,000 Mg Ivpb IVPB 03/07/20 23:01 400 mls/hr Q6HR CARLINE Administration Potassium Chloride 10 meq/ 1,000 mls @ 100 mls/hr 03/06/20 20:15 03/07/20 10:05 Dextrose/Sodium Chloride IV CONT 100 mls/hr .
[2020-03-07 12:28] LABS: Glucose Point of Care 222 (65-105)
--- NOTE | 2020-03-07 16:25 | P.PNIM_ITS ---
Progress Note: A&P Assessment and Plan (1) Small bowel obstruction: Code(s): K56.609 - Unspecified intestinal obstruction, unspecified as to partial versus complete obstruction Status: Acute Assessment and Plan: CT abd/pelvis demonstrated small bowel obstruction with transition point in the lower abdomen, midline, with inability to exclude closed loop obstruction. She underwent ileal anastamosis and release of small-bowel obstruction on 03/06/[address] Villatoro. She tolerated the procedure well. Leukocytosis has improved today and she has remained afebrile. * General surgery is consulted and recommendations are appreciated * NG tube is in place, continue bowel rest * Continue IV fluids while NPO * Continue IV Zosyn started on 03/06/2020 * Monitor vital signs closely. 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 Blood sugar was markedly elevated on arrival at [facility] and she was started on insulin gtt in the ED. She was not in acute DKA so this was transitioned to SSI insulin coverage. Blood sugars have improved still remain elevated. She had an episode of hypoglycemia on 03/06/2020, therefore Lantus was reduced. * Continue Q6H glucose monitoring while NPO, sliding scale insulin, and hypoglycemia protocol * Tresiba is non formulary so she has been transitioned to Lantus at reduced dose. Will increase just slightly as blood sugars have been higher today. * Adjust treatment as needed. (3) HTN (hypertension): Qualifiers: Hypertension type: essential hypertension Qualified Code(s): I10 - Essential (primary) hypertension Code(s): I10 - Essential (primary) hypertension Status: Chronic Assessment and Plan: Chronic. BP elevated on arrival, likely secondary to pain. BP has improved. She is on PO metoprolol and furosemide prior which are held given NPO status in setting of SBO. BP evaluated today and stable at 121/47. * continue scheduled metoprolol IV 5 mg q.6 * Hydralazine available as needed * Continue to monitor and adjust treatment as needed (4) Hypothyroidism: Qualifiers: Hypothyroidism type: other Qualified Code(s): E03.8 - Other specified hypothyroidism Code(s): E03.9 - Hypothyroidism, unspecified Status: Chronic Assessment and Plan: TSH is mildly low and free T4 is within normal limits. T3 is pending. * Continue levothyroxine IV while NPO. Resume PO levothyroxine when clinically appropriate. * She will benefit from repeat reflex TSH in 4-6 weeks as an outpatient (5) Hypomagnesemia: Code(s): E83.42 - Hypomagnesemia Status: Acute Assessment and Plan: Magnesium 1.5 on 03/05/2019. Magnesium was replaced and is now stable * Monitor electrolytes and replace as needed (6) CAD (coronary artery disease): Qualifiers: Associated angina: without angina Coronary Disease-Associated Artery/Lesion type: bypass graft [place] vs. transplanted heart: [place] heart Qualified Code(s): I25.810 - Atherosclerosis of coronary artery bypass graft(s) without angina pectoris Code(s): I25.10 - Atherosclerotic heart disease of [place] coronary artery without angina pectoris
--- NOTE | 2020-03-07 16:25 | PM.IMPN ---
Progress Note: A&P Assessment and Plan (1) Small bowel obstruction: Code(s): K56.609 - Unspecified intestinal obstruction, unspecified as to partial versus complete obstruction Status: Acute Assessment and Plan: CT abd/pelvis demonstrated small bowel obstruction with transition point in the lower abdomen, midline, with inability to exclude closed loop obstruction. She underwent ileal anastamosis and release of small-bowel obstruction on 03/06/[address] Villatoro. She tolerated the procedure well. Leukocytosis has improved today and she has remained afebrile. General surgery is consulted and recommendations are appreciated NG tube is in place, continue bowel rest Continue IV fluids while NPO Continue IV Zosyn started on 03/06/2020 Monitor vital signs closely. 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 Blood sugar was markedly elevated on arrival at [facility] and she was started on insulin gtt in the ED. She was not in acute DKA so this was transitioned to SSI insulin coverage. Blood sugars have improved still remain elevated. She had an episode of hypoglycemia on 03/06/2020, therefore Lantus was reduced. Continue Q6H glucose monitoring while NPO, sliding scale insulin, and hypoglycemia protocol Tresiba is non formulary so she has been transitioned to Lantus at reduced dose. Will increase just slightly as blood sugars have been higher today. Adjust treatment as needed. (3) HTN (hypertension): Qualifiers: Hypertension type: essential hypertension Qualified Code(s): I10 - Essential (primary) hypertension Code(s): I10 - Essential (primary) hypertension Status: Chronic Assessment and Plan: Chronic. BP elevated on arrival, likely secondary to pain. BP has improved. She is on PO metoprolol and furosemide prior which are held given NPO status in setting of SBO. BP evaluated today and stable at 121/47. continue scheduled metoprolol IV 5 mg q.6 Hydralazine available as needed Continue to monitor and adjust treatment as needed (4) Hypothyroidism: Qualifiers: Hypothyroidism type: other Qualified Code(s): E03.8 - Other specified hypothyroidism Code(s): E03.9 - Hypothyroidism, unspecified Status: Chronic Assessment and Plan: TSH is mildly low and free T4 is within normal limits. T3 is pending. Continue levothyroxine IV while NPO. Resume PO levothyroxine when clinically appropriate. She will benefit from repeat reflex TSH in 4-6 weeks as an outpatient (5) Hypomagnesemia: Code(s): E83.42 - Hypomagnesemia Status: Acute Assessment and Plan: Magnesium 1.5 on 03/05/2019. Magnesium was replaced and is now stable Monitor electrolytes and replace as needed (6) CAD (coronary artery disease): Qualifiers: Associated angina: without angina Coronary Disease-Associated Artery/Lesion type: bypass graft [place] vs. transplanted heart: [place] heart Qualified Code(s): I25.810 - Atherosclerosis of coronary artery bypass graft(s) without angina pectoris Code(s): I25.10 - Atherosclerotic heart disease of [place] coronary artery without angina pectoris Status: Acute Assessment and Plan: She has a hx of CABG 2002. She follows with Dr. Boo. She has known multivessel disease with lexiscan 04/2018 demonstrating ischemia and infarct correlated to her known anatomy. She is high surgical risk given multiple comorbidities including CAD. Continue IV metoprolol Resume nitroglycerin and imdur when no longer NPO Resume
[2020-03-07 17:00] LABS: Total Triiodothyronine (T3) 0.52 NG/ML (0.97-1.69)
[2020-03-07 17:28] LABS: Glucose Point of Care 232 (65-105)
[2020-03-07] MEDS: INSULIN GLARGINE (*BKC) 100 UNITS/ML 15 UNITS SUB-Q (20:55)
[2020-03-07 22:43] LABS: Glucose Point of Care 233 (65-105)
[2020-03-08 00:27] VITALS: PULSE 60
[2020-03-08] MEDS: METOPROLOL TARTRATE INJ 5 MG/5 ML VIAL IV PUSH ×2 (00:27→06:31)
[2020-03-08] MEDS: INSULIN ASPART (*BKC) 100 UNITS/ML SUB-Q ×3 (00:30→12:30)
[2020-03-08 00:51] LABS: Glucose Point of Care 241 (65-105)
[2020-03-08 06:00] VITALS: BP 122/55; PULSE 60; RESP 20; TEMP 36.6; O2SAT 93
[2020-03-08 06:22] LABS: Glucose Point of Care 233 (65-105)
[2020-03-08 06:31] VITALS: PULSE 72
[2020-03-08] MEDS: LEVOTHYROXINE SODIUM INJ 100 MCG/5 ML VIAL 37.5 MCG IV PUSH (06:32)
[2020-03-08 06:53] LABS: Mean Corpuscular HGB Conc 32.3 g/dl (32-36); Mean Corpuscular Hemoglobin 31.4 pg (26-34); Mean Corpuscular Volume 97.5 fl (80-100); Mean Platelet Volume 10.6 fl (7.4-10.4); Platelet Count Result 267 k/mm3 (150-375); Red Blood Count 3.18 M/mm3 (4.2-5.4); Red Cell Distribution Width 13.2 % (11.5-14.5); White Blood Count 15.5 K/mm3 (4.5-10.0)
[2020-03-08 07:09] LABS: Anion Gap 3 mmol/L (8-16); Blood Urea Nitrogen 46 mg/dL (7-17); Calcium 7.5 mg/dL (8.4-10.2); Carbon Dioxide 26 mmol/L (22-30); Chloride 108 mmol/L (98-107); Estimated CRCL calculation 22 ml/min; Estimated Glomerular Filt Rate 27; Glucose 228 mg/dL (65-105); Sodium 137 mmol/L (137-145)
[2020-03-08] MEDS: POTASSIUM CHLORIDE INJ 10 MEQ in DEXTROSE 5%/0.45% SOD CHL 1,000 ML 100 MEQ IV CONT (09:32)
[2020-03-08] MEDS: PANTOPRAZOLE SODIUM IV 40 MG VIAL IV PUSH (09:33)
[2020-03-08] MEDS: ASPIRIN 81 MG CHEWABLE TABLET PO (09:34)
[2020-03-08] MEDS: ENOXAPARIN 40 MG/0.4 ML SYRINGE SUB-Q (09:34)
--- NOTE | 2020-03-08 09:39 | PM.PNGS ---
Progress Note: A&P Assessment and Plan (1) Small bowel obstruction: Code(s): K56.609 - Unspecified intestinal obstruction, unspecified as to partial versus complete obstruction Status: Acute Assessment and Plan: Continues to improve on POD#2. Now passing flatus. Will remove NG tube and start clear liquids. Continue to await further return of bowel function. Encouraged increase activity and IS use. Additional Plan Discussed the patient's case with Dr. Villatoro. Subjective Subjective Date/Time Seen: 03/08/20 09:15 Post Op day: 2 (Ex lap with ileal resection with release SBO) Patient reports: no new complaints, feels better, flatus and no bowel movement Interval history: Patient feeling well this morning. She was a little confused and thought she had moved rooms, but was still oriented x3. Reports flatus. Has been up been up with PT yesterday and in the chair multiple times. WBC continues to trend down, afebrile. Review of Systems Review of Systems: All systems reviewed & are unremarkable except as noted in HPI and below Constitutional: Constitutional: Reports as per HPI, Reports no additional constitutional complaints, Denies chills and Denies fever(s) Cardiovascular: Cardiovascular: Reports no additional cardiovascular complaints, Denies chest pain, Denies leg edema and Denies dyspnea Respiratory: Respiratory: Reports no additional respiratory complaints, Denies cough and Denies dyspnea Gastrointestinal: Gastrointestinal: Reports as per HPI and Reports no additional gastrointestinal complaints Neurologic: Reports system reviewed and no additional complaints, except as documented, Denies Abnormal speech present and Denies focal weakness Exam Const: General: no acute distress, alert and awake Orientation/consciousness: patient oriented x3 Resp: Effort & Inspection: able to speak in complete sentences and no respiratory distress Auscultation: clear to auscultation bilaterally Cardio: Rate: regular rate Rhythm: regular rhythm Heart sounds: Murmur heart sound present systolic GI: Inspection: non-distended and incision (denise intact, no s/s of infection, minimal serosang. drainage on drsg) GI Palp: Yes Soft to palpation and Yes Tenderness to palpation present (GI) (incisional) Auscultation: Hypoactive bowel sounds present Skin: General skin exam: normal color Neuro: General: moves all extremities and no focal motor deficits Psych: Mental Status: mental status grossly normal Insight: Good insight present (Psych) Judgement: Good judgement present (Psych) Objective Data Vital Signs Vital Signs: Vital Signs - 24 hr 03/07/20 12:00 03/07/20 12:30 03/07/20 16:00 Temperature 98.5 F 97.8 F Pulse Rate 81 80 72 Respiratory Rate 18 16 Blood Pressure 133/55 L 111/52 L Pulse Oximetry 98 98 03/07/20 17:21 03/07/20 22:00 03/08/20 00:27 Temperature 98 F Pulse Rate 82 69 60 Respiratory Rate 16 Blood Pressure 120/54 L Pulse Oximetry 92 03/08/20 06:00 03/08/20 06:31 Temperature 97.8 F Pulse Rate 60 72 Respiratory Rate 20 Blood Pressure 122/55 L Pulse Oximetry 93 Intake/Output Intake/Output: Intake & Output 03/05/20 03/06/20 03/07/20 03/08/20 23:59 23:59 23:59 23:59 Intake Total 3150 350 2790 50 Output Total 750 2000 950 750 Balance 2400 -1650 1840 -700 Meds/Results Medications: Active Medications Generic Name Dose Route Start Last Admin Trade Name Freq PRN Reason Stop Dose Admin Albuterol 2.5 mg 03/05/20 13:07 Albuterol Sulfate Neb 2.5 Mg/0.5 Ml Inh INHALATION Q6HRT PRN Shortness Of Breath Aspirin 81 mg 03/06/20 08:00 03/07/20 08:27 Aspirin 81 Mg Chewable Tablet PO 81 mg DAILY@0800 CARLINE Administration Dextrose 12.5 gm 03/05/20 07:17 Dextrose 50% 25 Gm/50 Ml Syringe IV PUSH PRN PRN Hypoglycemia Protocol Enoxaparin Sodium 40 mg 03/07/20 09:00 03/07/20 08:33 Enoxaparin 40 Mg/0.4 Ml Syringe SUB-Q
--- NOTE | 2020-03-08 11:12 | P.PNIM_ITS ---
Progress Note: A&P Assessment and Plan (1) Small bowel obstruction: Code(s): K56.609 - Unspecified intestinal obstruction, unspecified as to partial versus complete obstruction Status: Acute Assessment and Plan: CT abd/pelvis demonstrated small bowel obstruction with transition point in the lower abdomen, midline, with inability to exclude closed loop obstruction. She underwent ileal anastamosis and release of small-bowel obstruction on 03/06/[address] Villatoro. She tolerated the procedure well. Leukocytosis has improved and she has remained afebrile. * General surgery is consulted and recommendations are appreciated * NG tube discontinued today and will begin clear liquids * Continue gentle IV fluids while starting diet * Continue IV Zosyn started on 03/06/2020 * Monitor vital signs closely. 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 Blood sugar was markedly elevated on arrival at [facility] and she was started on insulin gtt in the ED. She was not in acute DKA so this was transitioned to SSI insulin coverage. Blood sugars have improved but still remain elevated. She had an episode of hypoglycemia on 03/06/2020 while NPO. * Continue glucose monitoring ACHS, sliding scale insulin, and hypoglycemia protocol * Tresiba is non formulary so she has been transitioned to Lantus at reduced dose. Will increase to 20 units Lantus while no longer NPO and add 6 units scheduled novolog with meals in addition to sliding scale coverage. Adjust treatment as needed. * Diabetic diet (3) HTN (hypertension): Qualifiers: Hypertension type: essential hypertension Qualified Code(s): I10 - Essential (primary) hypertension Code(s): I10 - Essential (primary) hypertension Status: Chronic Assessment and Plan: Chronic. BP elevated on arrival, likely secondary to pain. BP has improved. BP evaluated today and stable at 122/55. * Resume PO metoprolol as she is no longer NPO. Lasix still being held. * Hydralazine available as needed * Continue to monitor and adjust treatment as needed (4) Hypothyroidism: Qualifiers: Hypothyroidism type: other Qualified Code(s): E03.8 - Other specified hypothyroidism Code(s): E03.9 - Hypothyroidism, unspecified Status: Chronic Assessment and Plan: TSH is mildly low and free T4 is within normal limits. T3 is pending. * Resume PO levothyroxine since no longer NPO. * She will benefit from repeat reflex TSH in 4-6 weeks as an outpatient (5) Hypomagnesemia: Code(s): E83.42 - Hypomagnesemia Status: Acute Assessment and Plan: Magnesium 1.5 on 03/05/2019. Magnesium was replaced and is now stable at 2.0 * Monitor electrolytes and replace as needed (6) CAD (coronary artery disease): Qualifiers: Associated angina: without angina Coronary Disease-Associated Artery/Lesion type: bypass graft [place] vs. transplanted heart: [place] heart Qualified Code(s): I25.810 - Atherosclerosis of coronary artery bypass graft(s) without angina pectoris Code(s): I25.10 - Atherosclerotic heart disease of [place] coronary artery without angina pectoris Status: Acute
--- NOTE | 2020-03-08 11:12 | PM.IMPN ---
Progress Note: A&P Assessment and Plan (1) Small bowel obstruction: Code(s): K56.609 - Unspecified intestinal obstruction, unspecified as to partial versus complete obstruction Status: Acute Assessment and Plan: CT abd/pelvis demonstrated small bowel obstruction with transition point in the lower abdomen, midline, with inability to exclude closed loop obstruction. She underwent ileal anastamosis and release of small-bowel obstruction on 03/06/[address] Villatoro. She tolerated the procedure well. Leukocytosis has improved and she has remained afebrile. General surgery is consulted and recommendations are appreciated NG tube discontinued today and will begin clear liquids Continue gentle IV fluids while starting diet Continue IV Zosyn started on 03/06/2020 Monitor vital signs closely. (2) Diabetes mellitus with hyperglycemia: Qualifiers: Diabetes mellitus medical terminologist insulin use: with medical terminologist use Diabetes mellitus type: type 2 Qualified Code(s): E11.65 - Type 2 diabetes mellitus with hyperglycemia; Z79.4 - rodent exterminator (current) use of insulin Code(s): E11.65 - Type 2 diabetes mellitus with hyperglycemia Status: Chronic Assessment and Plan: Poorly controlled with HbA1c 10.3 03/04/20. Blood sugar was markedly elevated on arrival at [facility] and she was started on insulin gtt in the ED. She was not in acute DKA so this was transitioned to SSI insulin coverage. Blood sugars have improved but still remain elevated. She had an episode of hypoglycemia on 03/06/2020 while NPO. Continue glucose monitoring ACHS, sliding scale insulin, and hypoglycemia protocol Tresiba is non formulary so she has been transitioned to Lantus at reduced dose. Will increase to 20 units Lantus while no longer NPO and add 6 units scheduled novolog with meals in addition to sliding scale coverage. Adjust treatment as needed. Diabetic diet (3) HTN (hypertension): Qualifiers: Hypertension type: essential hypertension Qualified Code(s): I10 - Essential (primary) hypertension Code(s): I10 - Essential (primary) hypertension Status: Chronic Assessment and Plan: Chronic. BP elevated on arrival, likely secondary to pain. BP has improved. BP evaluated today and stable at 122/55. Resume PO metoprolol as she is no longer NPO. Lasix still being held. Hydralazine available as needed Continue to monitor and adjust treatment as needed (4) Hypothyroidism: Qualifiers: Hypothyroidism type: other Qualified Code(s): E03.8 - Other specified hypothyroidism Code(s): E03.9 - Hypothyroidism, unspecified Status: Chronic Assessment and Plan: TSH is mildly low and free T4 is within normal limits. T3 is pending. Resume PO levothyroxine since no longer NPO. She will benefit from repeat reflex TSH in 4-6 weeks as an outpatient (5) Hypomagnesemia: Code(s): E83.42 - Hypomagnesemia Status: Acute Assessment and Plan: Magnesium 1.5 on 03/05/2019. Magnesium was replaced and is now stable at 2.0 Monitor electrolytes and replace as needed (6) CAD (coronary artery disease): Qualifiers: Associated angina: without angina Coronary Disease-Associated Artery/Lesion type: bypass graft [place] vs. transplanted heart: [place] heart Qualified Code(s): I25.810 - Atherosclerosis of coronary artery bypass graft(s) without angina pectoris Code(s): I25.10 - Atherosclerotic heart disease of [place] coronary artery without angina pectoris Status: Acute Assessment and Plan: She has a hx of CABG 2002. She follows with Dr. Boo. She has known multivessel disease with lexiscan 04/2018 demonstrating ischemia and infarct correlated to her known anatomy. She is high surgical risk given multiple comorbidities including CAD. Continue PO metoprolol Resume nitroglycerin and imdur if patient is tolerating diet Continue aspiri
[2020-03-08] MEDS: LACTATED RINGERS 1,000 ML 75 ML IV CONT (11:44)
[2020-03-08 12:17] LABS: Glucose Point of Care 236 (65-105)
[2020-03-08] MEDS: INSULIN ASPART (*BKC) 100 UNITS/ML 6 UNITS SUB-Q ×2 (12:29→18:07)
[2020-03-08 14:00] VITALS: BP 132/52; PULSE 68; RESP 16; TEMP 36.3; O2SAT 100
[2020-03-08 17:25] LABS: Glucose Point of Care 80 (65-105)
[2020-03-08] MEDS: INSULIN GLARGINE (*BKC) 100 UNITS/ML 20 UNITS SUB-Q (20:27)
[2020-03-08 21:26] LABS: Glucose Point of Care 158 (65-105)
[2020-03-09] MEDS: LACTATED RINGERS 1,000 ML 75 ML IV CONT (01:12)
[2020-03-09] MEDS: LEVOTHYROXINE SODIUM 75 MCG TABLET PO (05:32)
[2020-03-09 05:41] VITALS: BP 147/61; PULSE 63; RESP 18; TEMP 36.3; O2SAT 97
[2020-03-09 05:48] LABS: Hematocrit 35.9 % (37.0-47.0); Hemoglobin 11.3 g/dL (12.0-15.0); Mean Corpuscular HGB Conc 31.5 g/dl (32-36); Mean Corpuscular Hemoglobin 31.5 pg (26-34); Mean Platelet Volume 10.3 fl (7.4-10.4); Platelet Count Result 264 k/mm3 (150-375); Red Blood Count 3.59 M/mm3 (4.2-5.4); Red Cell Distribution Width 13.1 % (11.5-14.5); White Blood Count 10.4 K/mm3 (4.5-10.0)
[2020-03-09 06:06] LABS: Anion Gap 4 mmol/L (8-16); Blood Urea Nitrogen 36 mg/dL (7-17); Calcium 7.7 mg/dL (8.4-10.2); Carbon Dioxide 25 mmol/L (22-30); Chloride 108 mmol/L (98-107); Estimated CRCL calculation 26 ml/min; Estimated Glomerular Filt Rate 33; Glucose 127 mg/dL (65-105); Potassium 4.2 mmol/L (3.4-5.0); Sodium 137 mmol/L (137-145)
--- NOTE | 2020-03-09 07:57 | PM.PNGS ---
Progress Note: A&P Assessment and Plan (1) Small bowel obstruction: Code(s): K56.609 - Unspecified intestinal obstruction, unspecified as to partial versus complete obstruction Status: Acute Assessment and Plan: Advance to full liquids Increase activity Subjective Subjective Date/Time Seen: 03/09/20 07:57 Tolerating clears. Bowels moving. Pain controlled. Post Op day: 3 Exam GI: Inspection: non-distended and incision (dry, intact with denise) GI Palp: Yes Tenderness to palpation present (GI) (mild incisional) Auscultation: normal bowel sounds Objective Data Vital Signs Vital Signs: Vital Signs - 24 hr 03/08/20 14:00 03/09/20 05:41 Temperature 36.3 C L 36.3 C L Pulse Rate 68 63 Respiratory Rate 16 18 Blood Pressure 132/52 L 147/61 H Pulse Oximetry 100 97 Intake/Output Intake/Output: Intake & Output 03/06/20 03/07/20 03/08/20 03/09/20 23:59 23:59 23:59 23:59 Intake Total 350 2790 2600 1225 Output Total 2000 950 1875 200 Balance -1650 6973 148 9445 Meds/Results Medications: Active Medications Generic Name Dose Route Start Last Admin Trade Name Freq PRN Reason Stop Dose Admin Acetaminophen 650 mg 03/09/20 07:40 Acetaminophen 325 Mg Tablet PO Q4H PRN Mild Pain (1-3) or Fever Hydrocodone Bitart/Acetaminophen 1 tab 03/09/20 07:40 Hydrocodone/Acetaminophen (*Crx) 10-325 Mg Tablet PO Q4H PRN Pain Rated 7-10 Hydrocodone Bitart/Acetaminophen 1 tab 03/09/20 07:40 Hydrocodone/Acetaminophen (*Crx) 5-325 Mg Tablet PO Q4H PRN Pain Rated 4-6 Albuterol 2.5 mg 03/05/20 13:07 Albuterol Sulfate Neb 2.5 Mg/0.5 Ml Inh INHALATION Q6HRT PRN Shortness Of Breath Aspirin 81 mg 03/06/20 08:00 03/08/20 09:34 Aspirin 81 Mg Chewable Tablet PO 81 mg DAILY@0800 CARLINE Administration Dextrose 12.5 gm 03/05/20 07:17 Dextrose 50% 25 Gm/50 Ml Syringe IV PUSH PRN PRN Hypoglycemia Protocol Enoxaparin Sodium 40 mg 03/07/20 09:00 03/08/20 09:34 Enoxaparin 40 Mg/0.4 Ml Syringe SUB-Q 40 mg DAILY CARLINE Administration Glucagon 1 mg 03/05/20 07:17 Glucagon For Inj 1 Mg Vial IM PRN PRN Hypoglycemia Protocol Glucose 15 gm 03/05/20 07:17 Glucose Oral Gel 15 Gm Of Glucse In 37.5 Gm Tube PO PRN PRN Hypoglycemia Protocol Hydralazine HCl 10 mg 03/05/20 07:11 Hydralazine Hcl 20 Mg/Ml Vial IV PUSH Q8H PRN SBP >180, DBP >100 Hydromorphone HCl 0.5 mg 03/06/20 20:15 Hydromorphone Hcl Inj (*Crx) 1 Mg/Ml Syr IV PUSH Q2H PRN Pain Rated 4-6 Hydromorphone HCl 1 mg 03/06/20 20:15 Hydromorphone Hcl Inj (*Crx) 1 Mg/Ml Syr IV PUSH Q2H PRN Pain Rated 7-10 Dextrose 1,000 mls @ 100 mls/hr 03/05/20 07:17 Dextrose 5% 1,000 Ml IVPB PRN PRN Hypoglycemia Protocol Piperacillin Sod/Tazobactam Sod 2.25 gm in 50 mls @ 100 mls/hr 03/06/20 17:00 03/09/20 06:05 Zosyn 2.25 Gm/D5w 50 Ml IVPB Infused Q6H CARLINE Infusion Insulin Aspart 3 - 6 units 03/08/20 12:00 03/08/20 17:29 Insulin Aspart (*Bkc) 100 Units/Ml SUB-Q Not Given TIDWM [facility] Protocol Insulin Aspart 6 units 03/08/20 12:00 03/08/20 18:07 Insulin Aspart (*Bkc) 100 Units/Ml 0.067 units/kg (6 units) 6 units SUB-Q Administration TIDWM [facility] Insulin Glargine 20 units 03/08/20 21:00 03/08/20 20:27 Insulin Glargine (*Bkc) 100 Units/Ml SUB-Q 20 units HS CARLINE Administration Levothyroxine Sodium 75 mcg 03/09/20 06:30 03/09/20 05:32 Levothyroxine Sodium 75 Mcg Tablet PO 75 mcg DAILY@0630 [facility] Administration Metoprolol Succinate 100 mg 03/09/20 09:00 Metoprolol Succinate Ext Rel 100 Mg Tabcr PO DAILY CARLINE Ondansetron HCl 4 mg 03/05/20 00:40 03/06/20 06:41 Ondansetron Inj 4 Mg/2 Ml Vial IV PUSH 4 mg Q4H PRN Administration Nausea Pantoprazole Sodium 40 mg 03/05/20 09:00 03/08/20 09:33 Pantopraz
[2020-03-09 08:00] VITALS: PULSE 63; RESP 18; O2SAT 97
[2020-03-09 08:33] LABS: Glucose Point of Care 150 (65-105)
[2020-03-09] MEDS: ENOXAPARIN 40 MG/0.4 ML SYRINGE SUB-Q (09:03)
[2020-03-09] MEDS: ASPIRIN 81 MG CHEWABLE TABLET PO (09:03)
[2020-03-09] MEDS: PANTOPRAZOLE SODIUM IV 40 MG VIAL IV PUSH (09:04)
[2020-03-09] MEDS: METOPROLOL SUCCINATE EXT REL 100 MG TABCR PO (09:04)
[2020-03-09] MEDS: INSULIN ASPART (*BKC) 100 UNITS/ML 6 UNITS SUB-Q ×2 (09:06→12:35)
--- NOTE | 2020-03-09 11:57 | PM.IMPN ---
Progress Note: A&P Assessment and Plan (1) Small bowel obstruction: Code(s): K56.609 - Unspecified intestinal obstruction, unspecified as to partial versus complete obstruction Status: Acute Assessment and Plan: CT abd/pelvis demonstrated small bowel obstruction with transition point in the lower abdomen, midline, with inability to exclude closed loop obstruction. She underwent ileal anastamosis and release of small-bowel obstruction on 03/06/[address] Villatoro. She tolerated the procedure well. Leukocytosis has improved and she has remained afebrile. General surgery is consulted and recommendations are appreciated Advanced to full liquid diet IV fluids discontinued Continue IV Zosyn started on 03/06/2020 Monitor vital signs closely. 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 Blood sugar was markedly elevated on arrival at [facility] and she was started on insulin gtt in the ED. She was not in acute DKA so this was transitioned to SSI insulin coverage. She had an episode of hypoglycemia on 03/06/2020 while NPO. Blood sugars better controlled today. Continue glucose monitoring ACHS, sliding scale insulin, and hypoglycemia protocol Tresiba is non formulary so she has been transitioned to Lantus at reduced dose. Continue with regimen of 20 units Lantus q.h.s. and 6 units scheduled novolog with meals in addition to sliding scale coverage. Adjust treatment as needed. Diabetic diet (3) HTN (hypertension): Qualifiers: Hypertension type: essential hypertension Qualified Code(s): I10 - Essential (primary) hypertension Code(s): I10 - Essential (primary) hypertension Status: Chronic Assessment and Plan: Chronic. BP elevated on arrival, likely secondary to pain. BP has improved. BP evaluated today and stable at 147/61. Continue PO metoprolol Hydralazine available as needed Continue to monitor and adjust treatment as needed (4) Diastolic CHF: Code(s): I50.30 - Unspecified diastolic (congestive) heart failure Status: Acute Assessment and Plan: Last echo March 2019 showed grade 1 diastolic dysfunction. She has a bit of peripheral edema in her hands and feet, she has been on IV fluids for a while as she was NPO. Continue with cautious IV fluids, monitoring volume status closely Will administer a dose of her prn Lasix today 40 mg PO Monitor volume status very closely with strict intake and output, daily weights heart healthy diet when advanced from liquids (5) Chronic kidney disease: Qualifiers: Chronic kidney disease stage: stage 3 (moderate) Chronic kidney disease stage 3 subtype: stage 3a (GFR 45-59) Qualified Code(s): N18.31 - Chronic kidney disease, stage 3a Code(s): N18.9 - Chronic kidney disease, unspecified Status: Chronic Assessment and Plan: Baseline creatinine appears to be about 2.2-2.3. creatinine at presentation was 1.5, improved from baseline. Creatinine remains stable. Monitor renal function closely and avoid nephrotoxins (6) Hypomagnesemia: Code(s): E83.42 - Hypomagnesemia Status: Acute Assessment and Plan: Magnesium 1.5 on 03/05/2019. Magnesium was replaced and is now stable at 2.0 Monitor electrolytes and replace as needed (7) CAD (coronary artery disease): Qualifiers: Coronary Disease-Associated Artery/Lesion type: bypass graft [place] vs. transplanted heart: [place] heart Associated angina: without angina Qualified Code(s): I25.810 - Atherosclerosis of cor
[2020-03-09 12:20] LABS: Glucose Point of Care 101 (65-105)
[2020-03-09] MEDS: FUROSEMIDE 40 MG TABLET PO (12:35)
[2020-03-09 14:00] VITALS: BP 133/50; PULSE 64; RESP 18; TEMP 36.6; O2SAT 100
[2020-03-09 17:10] LABS: Glucose Point of Care 66 (65-105)
[2020-03-09 18:20] LABS: Glucose Point of Care 112 (65-105)
[2020-03-09] MEDS: INSULIN GLARGINE (*BKC) 100 UNITS/ML 10 UNITS SUB-Q (20:15)
[2020-03-09 20:19] LABS: Glucose Point of Care 232 (65-105)
[2020-03-09 21:39] VITALS: BP 167/54; PULSE 68; RESP 16; TEMP 36.6; O2SAT 99
[2020-03-10] MEDS: LEVOTHYROXINE SODIUM 75 MCG TABLET PO (05:30)
[2020-03-10 05:51] VITALS: BP 158/59; PULSE 61; RESP 16; TEMP 36.3; O2SAT 98
[2020-03-10 06:39] LABS: Hematocrit 33.6 % (37.0-47.0); Hemoglobin 10.9 g/dL (12.0-15.0); Mean Corpuscular HGB Conc 32.4 g/dl (32-36); Mean Corpuscular Hemoglobin 31.7 pg (26-34); Mean Corpuscular Volume 97.7 fl (80-100); Mean Platelet Volume 10.1 fl (7.4-10.4); Platelet Count Result 306 k/mm3 (150-375); Red Blood Count 3.44 M/mm3 (4.2-5.4); Red Cell Distribution Width 12.9 % (11.5-14.5); White Blood Count 9.1 K/mm3 (4.5-10.0)
[2020-03-10 07:15] LABS: Anion Gap 5 mmol/L (8-16); Blood Urea Nitrogen 23 mg/dL (7-17); Calcium 7.6 mg/dL (8.4-10.2); Carbon Dioxide 26 mmol/L (22-30); Chloride 106 mmol/L (98-107); Estimated CRCL calculation 30 ml/min; Estimated Glomerular Filt Rate 39; Glucose 177 mg/dL (65-105); Potassium 3.7 mmol/L (3.4-5.0); Sodium 137 mmol/L (137-145)
[2020-03-10 08:00] VITALS: PULSE 61; RESP 16; O2SAT 98
[2020-03-10 08:38] LABS: Glucose Point of Care 154 (65-105)
[2020-03-10] MEDS: ENOXAPARIN 40 MG/0.4 ML SYRINGE SUB-Q (09:26)
[2020-03-10] MEDS: METOPROLOL SUCCINATE EXT REL 100 MG TABCR PO (09:26)
[2020-03-10] MEDS: ASPIRIN 81 MG CHEWABLE TABLET PO (09:26)
[2020-03-10] MEDS: PANTOPRAZOLE SODIUM IV 40 MG VIAL IV PUSH (09:28)
--- NOTE | 2020-03-10 12:25 | PM.PNGS ---
Progress Note: A&P Assessment and Plan (1) Small bowel obstruction: Code(s): K56.609 - Unspecified intestinal obstruction, unspecified as to partial versus complete obstruction Status: Acute Assessment and Plan: doing well, soft diet, encourage OOB/IS Subjective Subjective Date/Time Seen: 03/10/20 12:25 feels ok, still c/o some incisional soreness, would like to try more solid foods Review of Systems Review of Systems: All systems reviewed & are unremarkable except as noted in HPI and below Exam Const: General: cooperative, comfortable and no acute distress Orientation/consciousness: patient oriented x3 Resp: Effort & Inspection: normal respiratory effort Auscultation: clear to auscultation bilaterally Cardio: Rate: regular rate Rhythm: regular rhythm GI: Inspection: normal to inspection, distended and incision GI Palp: Yes Soft to palpation, Yes Tenderness to palpation present (GI) and No Guarding due to palpation present (GI) Other: soft, sl dist, erinn TTP, incision C/D/I Objective Data Vital Signs Vital Signs: Vital Signs - 24 hr 03/09/20 14:00 03/09/20 21:39 03/10/20 05:51 Temperature 36.6 C 36.6 C 36.3 C L Pulse Rate 64 68 61 Respiratory Rate 18 16 16 Blood Pressure 133/50 L 167/54 H 158/59 H Pulse Oximetry 100 99 98 03/10/20 08:00 Temperature Pulse Rate 61 Respiratory Rate 16 Blood Pressure Pulse Oximetry 98 Intake/Output Intake/Output: Intake & Output 03/07/20 03/08/20 03/09/20 03/10/20 23:59 23:59 23:59 23:59 Intake Total 2790 2600 3195 650 Output Total 950 1875 1700 Balance 1200 680 1968 650 Meds/Results Medications: Active Medications Generic Name Dose Route Start Last Admin Trade Name Freq PRN Reason Stop Dose Admin Acetaminophen 650 mg 03/09/20 07:40 Acetaminophen 325 Mg Tablet PO Q4H PRN Mild Pain (1-3) or Fever Hydrocodone Bitart/Acetaminophen 1 tab 03/09/20 07:40 Hydrocodone/Acetaminophen (*Crx) 10-325 Mg Tablet PO Q4H PRN Pain Rated 7-10 Hydrocodone Bitart/Acetaminophen 1 tab 03/09/20 07:40 Hydrocodone/Acetaminophen (*Crx) 5-325 Mg Tablet PO Q4H PRN Pain Rated 4-6 Albuterol 2.5 mg 03/05/20 13:07 Albuterol Sulfate Neb 2.5 Mg/0.5 Ml Inh INHALATION Q6HRT PRN Shortness Of Breath Aspirin 81 mg 03/06/20 08:00 03/10/20 09:26 Aspirin 81 Mg Chewable Tablet PO 81 mg DAILY@0800 CARLINE Administration Dextrose 12.5 gm 03/05/20 07:17 Dextrose 50% 25 Gm/50 Ml Syringe IV PUSH PRN PRN Hypoglycemia Protocol Enoxaparin Sodium 40 mg 03/07/20 09:00 03/10/20 09:26 Enoxaparin 40 Mg/0.4 Ml Syringe SUB-Q 40 mg DAILY CARLINE Administration Glucagon 1 mg 03/05/20 07:17 Glucagon For Inj 1 Mg Vial IM PRN PRN Hypoglycemia Protocol Glucose 15 gm 03/05/20 07:17 Glucose Oral Gel 15 Gm Of Glucse In 37.5 Gm Tube PO PRN PRN Hypoglycemia Protocol Hydralazine HCl 10 mg 03/05/20 07:11 Hydralazine Hcl 20 Mg/Ml Vial IV PUSH Q8H PRN SBP >180, DBP >100 Hydromorphone HCl 0.5 mg 03/06/20 20:15 Hydromorphone Hcl Inj (*Crx) 1 Mg/Ml Syr IV PUSH Q2H PRN Pain Rated 4-6 Hydromorphone HCl 1 mg 03/06/20 20:15 Hydromorphone Hcl Inj (*Crx) 1 Mg/Ml Syr IV PUSH Q2H PRN Pain Rated 7-10 Dextrose 1,000 mls @ 100 mls/hr 03/05/20 07:17 Dextrose 5% 1,000 Ml IVPB PRN PRN Hypoglycemia Protocol Piperacillin Sod/Tazobactam Sod 2.25 gm in 50 mls @ 100 mls/hr 03/06/20 17:00 03/10/20 12:14 Zosyn 2.25 Gm/D5w 50 Ml IVPB 100 mls/hr Q6H CARLINE Administration Insulin Aspart 3 - 6 units 03/08/20 12:00 03/10/20 09:16 Insulin Aspart (*Bkc) 100 Units/Ml SUB-Q Not Given [facility] Protocol Insulin Glargine 10 units 03/09/20 21:00 03/09/20 20:15 Insulin Glargine (*Bkc) 100 Units/Ml SUB-Q 10 units HS CARLINE Administration Levothyroxine Sodium 75 mcg 03/09/20 06:30
[2020-03-10] MEDS: INSULIN ASPART (*BKC) 100 UNITS/ML SUB-Q ×2 (12:47→17:35)
[2020-03-10 12:51] LABS: Glucose Point of Care 274 (65-105)
[2020-03-10 14:00] VITALS: BP 146/95; PULSE 59; RESP 18; TEMP 36.4; O2SAT 100
--- NOTE | 2020-03-10 15:34 | PM.IMPN ---
Progress Note: A&P Assessment and Plan (1) Small bowel obstruction: Code(s): K56.609 - Unspecified intestinal obstruction, unspecified as to partial versus complete obstruction Status: Acute Assessment and Plan: CT abd/pelvis demonstrated small bowel obstruction with transition point in the lower abdomen, midline, with inability to exclude closed loop obstruction. She underwent ileal anastamosis and release of small-bowel obstruction on 03/06/[address] Villatoro. She tolerated the procedure well. Leukocytosis has resolved and she has remained afebrile. General surgery is consulted and recommendations are appreciated Advanced to soft in bite size diet. Tolerating well. Continue IV Zosyn started on 03/06/2020 Monitor vital signs closely. (2) Diabetes mellitus with hyperglycemia: Qualifiers: Diabetes mellitus type: type 2 Diabetes mellitus penitentiary insulin use: with lobsterman use Qualified Code(s): E11.65 - Type 2 diabetes mellitus with hyperglycemia; Z79.4 - nursing home (current) use of insulin Code(s): E11.65 - Type 2 diabetes mellitus with hyperglycemia Status: Chronic Assessment and Plan: Poorly controlled with HbA1c 10.3 03/04/20. Blood sugar was markedly elevated on arrival at [facility] and she was started on insulin gtt in the ED. She was not in acute DKA so this was transitioned to SSI insulin coverage. She had an episode of hypoglycemia on 03/06/2020 while NPO. Blood sugars have been fluctuant. Continue glucose monitoring ACHS, sliding scale insulin, and hypoglycemia protocol Tresiba is non formulary so she has been transitioned to Lantus at reduced dose. Continue with regimen of 20 units Lantus q.h.s. and high dose sliding scale coverage. Adjust treatment as needed. Diabetic diet (3) HTN (hypertension): Qualifiers: Hypertension type: essential hypertension Qualified Code(s): I10 - Essential (primary) hypertension Code(s): I10 - Essential (primary) hypertension Status: Chronic Assessment and Plan: Chronic. BP elevated on arrival, likely secondary to pain. BP has improved. BP evaluated today and stable at 146/95. Continue PO metoprolol Hydralazine available as needed Continue to monitor and adjust treatment as needed (4) Diastolic CHF: Code(s): I50.30 - Unspecified diastolic (congestive) heart failure Status: Acute Assessment and Plan: Last echo March 2019 showed grade 1 diastolic dysfunction. She has a bit of peripheral edema in her hands and feet, she has been on IV fluids for a while as she was NPO. Will administer another dose of her prn Lasix today 40 mg PO Monitor volume status very closely with strict intake and output, daily weights (5) Chronic kidney disease: Qualifiers: Chronic kidney disease stage: stage 3 (moderate) Chronic kidney disease stage 3 subtype: stage 3a (GFR 45-59) Qualified Code(s): N18.31 - Chronic kidney disease, stage 3a Code(s): N18.9 - Chronic kidney disease, unspecified Status: Chronic Assessment and Plan: Baseline creatinine appears to be about 2.2-2.3. creatinine at presentation was 1.5, improved from baseline. Creatinine remains stable. Monitor renal function closely and avoid nephrotoxins (6) Hypomagnesemia: Code(s): E83.42 - Hypomagnesemia Status: Acute Assessment and Plan: Magnesium 1.5 on 03/05/2019. Magnesium was replaced and is now stable at 2.0 Monitor electrolytes and replace as needed (7) CAD (coronary artery disease): Qualifiers: Coronary Disease-Associated Artery/Lesion type: bypass graft [place] vs. transplanted heart: [place] heart Associated angina: without angina Qualified Code(s): I25.810 - Atherosclerosis of coronary artery bypass graft(s) without angina pectoris Code(s): I25.10 - Atherosclerotic heart disease of [place] coronary artery without angina pector
[2020-03-10] MEDS: FUROSEMIDE 40 MG TABLET PO (17:26)
[2020-03-10 17:35] LABS: Glucose Point of Care 240 (65-105)
[2020-03-10] MEDS: INSULIN GLARGINE (*BKC) 100 UNITS/ML 20 UNITS SUB-Q (20:27)
[2020-03-10 20:41] LABS: Glucose Point of Care 228 (65-105)
[2020-03-10 22:00] VITALS: BP 136/53; PULSE 61; RESP 16; TEMP 36.7; O2SAT 98
[2020-03-11 06:00] VITALS: BP 159/61; PULSE 61; RESP 18; TEMP 36.7; O2SAT 99
[2020-03-11] MEDS: LEVOTHYROXINE SODIUM 75 MCG TABLET PO (06:01)
[2020-03-11 06:42] LABS: Hematocrit 34.1 % (37.0-47.0); Hemoglobin 10.8 g/dL (12.0-15.0); Mean Corpuscular HGB Conc 31.7 g/dl (32-36); Mean Corpuscular Hemoglobin 30.1 pg (26-34); Mean Platelet Volume 9.6 fl (7.4-10.4); Platelet Count Result 378 k/mm3 (150-375); Red Blood Count 3.59 M/mm3 (4.2-5.4); Red Cell Distribution Width 12.4 % (11.5-14.5); White Blood Count 11.2 K/mm3 (4.5-10.0)
[2020-03-11 07:14] LABS: Anion Gap 4 mmol/L (8-16); Blood Urea Nitrogen 17 mg/dL (7-17); Calcium 7.7 mg/dL (8.4-10.2); Carbon Dioxide 32 mmol/L (22-30); Chloride 101 mmol/L (98-107); Estimated CRCL calculation 26 ml/min; Estimated Glomerular Filt Rate 33; Glucose 203 mg/dL (65-105); Potassium 3.5 mmol/L (3.4-5.0); Sodium 137 mmol/L (137-145)
[2020-03-11 08:28] LABS: Glucose Point of Care 198 (65-105)
[2020-03-11] MEDS: ONDANSETRON INJ 4 MG/2 ML VIAL IV PUSH (09:01)
[2020-03-11 09:02] VITALS: PULSE 60
[2020-03-11] MEDS: METOPROLOL SUCCINATE EXT REL 100 MG TABCR PO (09:02)
[2020-03-11] MEDS: ENOXAPARIN 40 MG/0.4 ML SYRINGE SUB-Q (09:02)
[2020-03-11] MEDS: ASPIRIN 81 MG CHEWABLE TABLET PO (09:02)
[2020-03-11] MEDS: PANTOPRAZOLE SODIUM IV 40 MG VIAL IV PUSH (09:03)
--- NOTE | 2020-03-11 11:36 | WPDPN ---
Progress Note: A&P Assessment and Plan (1) Small bowel obstruction: Code(s): K56.609 - Unspecified intestinal obstruction, unspecified as to partial versus complete obstruction Status: Acute Assessment and Plan: pt very hesitant on discharge today, jaden diet and having loose stools, exam benign, cont to encourage OOB/IS, anticipate home tomorrow Review of Systems Constitutional: Constitutional: Denies chills, Reports fatigue, Denies fever(s), Denies malaise and Reports weakness Cardiovascular: Cardiovascular: Reports no additional cardiovascular complaints Respiratory: Respiratory: Reports no additional respiratory complaints Gastrointestinal: Gastrointestinal: Reports abdominal pain, Reports diarrhea, Reports loose stools, Reports nausea and Denies vomiting Exam Const: General: cooperative, comfortable and no acute distress Resp: Effort & Inspection: normal respiratory effort Auscultation: clear to auscultation bilaterally Cardio: Rate: regular rate Rhythm: regular rhythm GI: Inspection: normal to inspection, distended and incision GI Palp: Yes Soft to palpation, Yes Tenderness to palpation present (GI) and No Guarding due to palpation present (GI) Other: soft, sl dist, erinn TTP, incision C/D/I Objective Data Vital Signs Vital Signs: Vital Signs - 24 hr 03/10/20 14:00 03/10/20 22:00 03/11/20 06:00 Temperature 36.4 C L 36.7 C 36.7 C Pulse Rate 59 L 61 61 Respiratory Rate 18 16 18 Blood Pressure 146/95 H 136/53 L 159/61 H Pulse Oximetry 100 98 99 03/11/20 09:02 Temperature Pulse Rate 60 Respiratory Rate Blood Pressure Pulse Oximetry Intake/Output Intake/Output: Intake & Output 03/08/20 03/09/20 03/10/20 03/11/20 23:59 23:59 23:59 23:59 Intake Total 2600 3195 1350 720 Output Total 1875 1700 200 Balance 725 1495 1350 520 Meds/Results Medications: Active Medications Generic Name Dose Route Start Last Admin Trade Name Freq PRN Reason Stop Dose Admin Acetaminophen 650 mg 03/09/20 07:40 Acetaminophen 325 Mg Tablet PO Q4H PRN Mild Pain (1-3) or Fever Hydrocodone Bitart/Acetaminophen 1 tab 03/09/20 07:40 Hydrocodone/Acetaminophen (*Crx) 10-325 Mg Tablet PO Q4H PRN Pain Rated 7-10 Hydrocodone Bitart/Acetaminophen 1 tab 03/09/20 07:40 Hydrocodone/Acetaminophen (*Crx) 5-325 Mg Tablet PO Q4H PRN Pain Rated 4-6 Albuterol 2.5 mg 03/05/20 13:07 Albuterol Sulfate Neb 2.5 Mg/0.5 Ml Inh INHALATION Q6HRT PRN Shortness Of Breath Aspirin 81 mg 03/06/20 08:00 03/11/20 09:02 Aspirin 81 Mg Chewable Tablet PO 81 mg DAILY@0800 CARLINE Administration Dextrose 12.5 gm 03/05/20 07:17 Dextrose 50% 25 Gm/50 Ml Syringe IV PUSH PRN PRN Hypoglycemia Protocol Enoxaparin Sodium 40 mg 03/07/20 09:00 03/11/20 09:02 Enoxaparin 40 Mg/0.4 Ml Syringe SUB-Q 40 mg DAILY CARLINE Administration Glucagon 1 mg 03/05/20 07:17 Glucagon For Inj 1 Mg Vial IM PRN PRN Hypoglycemia Protocol Glucose 15 gm 03/05/20 07:17 Glucose Oral Gel 15 Gm Of Glucse In 37.5 Gm Tube PO PRN PRN Hypoglycemia Protocol Hydralazine HCl 10 mg 03/05/20 07:11 Hydralazine Hcl 20 Mg/Ml Vial IV PUSH Q8H PRN SBP >180, DBP >100 Hydromorphone HCl 0.5 mg 03/06/20 20:15 Hydromorphone Hcl Inj (*Crx) 1 Mg/Ml Syr IV PUSH Q2H PRN Pain Rated 4-6 Hydromorphone HCl 1 mg 03/06/20 20:15 Hydromorphone Hcl Inj (*Crx) 1 Mg/Ml Syr IV PUSH Q2H PRN Pain Rated 7-10 Dextrose 1,000 mls @ 100 mls/hr 03/05/20 07:17 Dextrose 5% 1,000 Ml IVPB PRN PRN Hypoglycemia Protocol Piperacillin Sod/Tazobactam Sod 2.25 gm in 50 mls @ 100 mls/hr 03/06/20 17:00 03/11/20 06:31 Zosyn 2.25 Gm/D5w 50 Ml IVPB Infused Q6H CARLINE Infusion Insulin Aspart 4 - 8 units 03/10/20 17:00 03/11/20 08:59 Insulin Aspart (*Bkc) 100 Units/Ml SUB-Q Not Given TIDWM S
[2020-03-11] MEDS: INSULIN ASPART (*BKC) 100 UNITS/ML SUB-Q ×3 (11:37→17:12)
[2020-03-11 12:17] LABS: Glucose Point of Care 286 (65-105)
[2020-03-11 12:21] LABS: Glucose Point of Care 279 (65-105)
--- NOTE | 2020-03-11 12:39 | PM.IMPN ---
Progress Note: A&P Assessment and Plan (1) Small bowel obstruction: Code(s): K56.609 - Unspecified intestinal obstruction, unspecified as to partial versus complete obstruction Status: Acute Assessment and Plan: CT abd/pelvis demonstrated small bowel obstruction with transition point in the lower abdomen, midline, with inability to exclude closed loop obstruction. She underwent ileal anastamosis and release of small-bowel obstruction on 03/06/[address] Villatoro. She tolerated the procedure well. Leukocytosis has resolved and she has remained afebrile. Randolph a little nauseous this morning. General surgery is consulted and recommendations are appreciated Continue soft and bite size diet. Continue IV Zosyn started on 03/06/2020. Monitor vital signs closely. Hopeful discharge tomorrow if continued improvement. (2) Diabetes mellitus with hyperglycemia: Qualifiers: Diabetes mellitus type: type 2 Diabetes mellitus manager terminal insulin use: with manager terminal use Qualified Code(s): E11.65 - Type 2 diabetes mellitus with hyperglycemia; Z79.4 - exterminator termite (current) use of insulin Code(s): E11.65 - Type 2 diabetes mellitus with hyperglycemia Status: Chronic Assessment and Plan: Poorly controlled with HbA1c 10.3 03/04/20. Blood sugar was markedly elevated on arrival at [facility] and she was started on insulin gtt in the ED. She was not in acute DKA so this was transitioned to SSI insulin coverage. She had an episode of hypoglycemia on 03/06/2020 while NPO. Blood sugars have been fluctuant. Continue glucose monitoring ACHS, sliding scale insulin, and hypoglycemia protocol Parishsiba is non formulary so she has been transitioned to Lantus at reduced dose. Continue with regimen of 20 units Lantus q.h.s. and high dose sliding scale coverage. Add 5 units novolog scheduled with meals. Adjust treatment as needed. Diabetic diet (3) HTN (hypertension): Qualifiers: Hypertension type: essential hypertension Qualified Code(s): I10 - Essential (primary) hypertension Code(s): I10 - Essential (primary) hypertension Status: Chronic Assessment and Plan: Chronic. BP elevated on arrival, likely secondary to pain. BP has improved. BP evaluated today and stable at 159/61 prior to receiving medication. Continue PO metoprolol Hydralazine available as needed Continue to monitor and adjust treatment as needed (4) Diastolic CHF: Code(s): I50.30 - Unspecified diastolic (congestive) heart failure Status: Acute Assessment and Plan: Last echo March 2019 showed grade 1 diastolic dysfunction. She appears euvolemic today after receiving Lasix yesterday. Monitor volume status very closely with strict intake and output, daily weights Lasix p.r.n. (5) Chronic kidney disease: Qualifiers: Chronic kidney disease stage: stage 3 (moderate) Chronic kidney disease stage 3 subtype: stage 3a (GFR 45-59) Qualified Code(s): N18.31 - Chronic kidney disease, stage 3a Code(s): N18.9 - Chronic kidney disease, unspecified Status: Chronic Assessment and Plan: Baseline creatinine appears to be about 2.2-2.3. creatinine at presentation was 1.5, improved from baseline. Creatinine remains stable. Monitor renal function closely and avoid nephrotoxins (6) Hypomagnesemia: Code(s): E83.42 - Hypomagnesemia Status: Acute Assessment and Plan: Magnesium 1.5 on 03/05/2019. Magnesium was replaced and is now stable at 2.0 Monitor electrolytes and replace as needed (7) CAD (coronary artery disease): Qualifiers: Coronary Disease-Associated Artery/Lesion type: bypass graft [place] vs. transplanted heart: [place] heart Associated angina: without angina Qualified Code(s): I25.810 - Atherosclerosis of coronary artery bypass graft(s) without angina pectoris Code(s): I25.10 - Atherosclerotic heart diseas
[2020-03-11 14:00] VITALS: BP 138/62; PULSE 61; RESP 18; TEMP 36.4; O2SAT 98
[2020-03-11 17:14] LABS: Glucose Point of Care 287 (65-105)
[2020-03-11 21:59] LABS: Glucose Point of Care 87 (65-105)
[2020-03-11 22:00] VITALS: BP 132/50; PULSE 60; RESP 18; TEMP 36.9; O2SAT 99
[2020-03-12 01:13] LABS: Glucose Point of Care 128 (65-105)
[2020-03-12 06:00] VITALS: BP 145/53; PULSE 60; RESP 20; TEMP 36.6; O2SAT 98
[2020-03-12] MEDS: LEVOTHYROXINE SODIUM 75 MCG TABLET PO (06:35)
[2020-03-12 06:46] LABS: Hematocrit 31.2 % (37.0-47.0); Mean Corpuscular HGB Conc 32.1 g/dl (32-36); Mean Corpuscular Volume 96.6 fl (80-100); Mean Platelet Volume 9.6 fl (7.4-10.4); Platelet Count Result 375 k/mm3 (150-375); Red Blood Count 3.23 M/mm3 (4.2-5.4); Red Cell Distribution Width 12.6 % (11.5-14.5); White Blood Count 11.9 K/mm3 (4.5-10.0)
[2020-03-12 07:19] LABS: Anion Gap 4 mmol/L (8-16); Blood Urea Nitrogen 16 mg/dL (7-17); Calcium 7.5 mg/dL (8.4-10.2); Carbon Dioxide 26 mmol/L (22-30); Chloride 105 mmol/L (98-107); Estimated CRCL calculation 24 ml/min; Estimated Glomerular Filt Rate 31; Glucose 156 mg/dL (65-105); Potassium 4.1 mmol/L (3.4-5.0); Sodium 135 mmol/L (137-145)
[2020-03-12 08:52] LABS: Glucose Point of Care 176 (65-105)
[2020-03-12 09:08] VITALS: PULSE 60
[2020-03-12] MEDS: METOPROLOL SUCCINATE EXT REL 100 MG TABCR PO (09:08)
[2020-03-12] MEDS: ASPIRIN 81 MG CHEWABLE TABLET PO (09:08)
[2020-03-12] MEDS: ENOXAPARIN 40 MG/0.4 ML SYRINGE SUB-Q (09:08)
[2020-03-12] MEDS: PANTOPRAZOLE SODIUM IV 40 MG VIAL IV PUSH (09:09)
[2020-03-12] MEDS: INSULIN ASPART (*BKC) 100 UNITS/ML SUB-Q ×3 (09:11→12:47)
[2020-03-12 12:34] LABS: Glucose Point of Care 274 (65-105)
--- NOTE | 2020-03-12 13:57 | PM.PNGS ---
Progress Note: A&P Assessment and Plan (1) Small bowel obstruction: Code(s): K56.609 - Unspecified intestinal obstruction, unspecified as to partial versus complete obstruction Status: Acute Assessment and Plan: Patient doing well today and okay with discharge from a surgical standpoint. Follow-up as scheduled with Dr. Villatoro at the end of this week. Will plan to remove denise at f/u appt. I discussed d/c instructions with patient and answered all questions. Additional Plan Discussed the patient's case with Dr. Villatoro. Subjective Subjective Date/Time Seen: 03/12/20 13:57 Post Op day: 6 Patient reports: no new complaints, tolerating a regular diet, flatus, bowel movement (today) and diarrhea Interval history: Patient seen today. Reports feeling much better today. Had some mild nausea this morning prior to breakfast that subsided. Tolerating her diet without nausea or vomiting. Pain well controlled. No other complaints. Review of Systems Review of Systems: All systems reviewed & are unremarkable except as noted in HPI and below Exam Const: General: comfortable, no acute distress, alert and awake; No confusion Orientation/consciousness: patient oriented x3 and No confusion Resp: Effort & Inspection: normal respiratory effort Auscultation: clear to auscultation bilaterally Cardio: Rate: regular rate Rhythm: regular rhythm GI: Inspection: non-distended and incision (Incision clean and dry, denise intact, no signs of infection) GI Palp: Yes Soft to palpation and Yes Tenderness to palpation present (GI) (incisional) Auscultation: normal bowel sounds Skin: General skin exam: normal color Rashes: no rashes Neuro: General: patient oriented x3, moves all extremities, no focal motor deficits and No confusion Cranial nerves: Yes CN's II-XII intact bilaterally Speech: normal speech and No Abnormal speech present Extrem: General: normal to inspection, no clubbing, cyanosis or edema and no calf tenderness Psych: Mental Status: mental status grossly normal Attitude: cooperative Thought process: Normal thought process present Thought content: Yes Normal thought content present Insight: Good insight present (Psych) Judgement: Good judgement present (Psych) Objective Data Vital Signs Vital Signs: Vital Signs - 24 hr 03/11/20 14:00 03/11/20 22:00 03/12/20 06:00 Temperature 97.6 F 98.4 F 97.9 F Pulse Rate 61 60 60 Respiratory Rate 18 18 20 Blood Pressure 138/62 132/50 L 145/53 H Pulse Oximetry 98 99 98 03/12/20 09:08 Temperature Pulse Rate 60 Respiratory Rate Blood Pressure Pulse Oximetry Intake/Output Intake/Output: Intake & Output 03/09/20 03/10/20 03/11/20 03/12/20 23:59 23:59 23:59 23:59 Intake Total 3195 1350 1470 930 Output Total 1700 200 Balance 1495 1350 1270 930 Meds/Results Medications: Active Medications Generic Name Dose Route Start Last Admin Trade Name Freq PRN Reason Stop Dose Admin Acetaminophen 650 mg 03/09/20 07:40 Acetaminophen 325 Mg Tablet PO Q4H PRN Mild Pain (1-3) or Fever Hydrocodone Bitart/Acetaminophen 1 tab 03/09/20 07:40 Hydrocodone/Acetaminophen (*Crx) 10-325 Mg Tablet PO Q4H PRN Pain Rated 7-10 Hydrocodone Bitart/Acetaminophen 1 tab 03/09/20 07:40 Hydrocodone/Acetaminophen (*Crx) 5-325 Mg Tablet PO Q4H PRN Pain Rated 4-6 Albuterol 2.5 mg 03/05/20 13:07 Albuterol Sulfate Neb 2.5 Mg/0.5 Ml Inh INHALATION Q6HRT PRN Shortness Of Breath Aspirin 81 mg 03/06/20 08:00 03/12/20 09:08 Aspirin 81 Mg Chewable Tablet PO 81 mg DAILY@0800 CARLINE Administration Dextrose 12.5 gm 03/05/20 07:17 Dextrose 50% 25 Gm/50 Ml Syringe IV PUSH PRN PRN Hypoglycemia Protocol Enoxaparin Sodium 40 mg 03/07/20 09:00 03/12/20 09:08 Enoxaparin 40 Mg/0.4 Ml Syringe SUB-Q 40 mg DAILY CARLINE Administration Glucagon 1 mg 03/05/20 07:17 Glucagon For Inj 1 Mg Vial
[2020-03-12 14:00] VITALS: BP 127/51; PULSE 66; RESP 20; TEMP 36.8; O2SAT 98
--- NOTE | 2020-03-12 14:35 | PM.DS ---
DS: Admitting Diagnosis Admitting Diagnosis Admitting Diagnosis: Abdominal pain DS: Discharge Diagnosis Discharge Diagnosis (1) Small bowel obstruction: Code(s): K56.609 - Unspecified intestinal obstruction, unspecified as to partial versus complete obstruction Status: Acute Assessment and Plan: CT abd/pelvis demonstrated small bowel obstruction with transition point in the lower abdomen, midline, with inability to exclude closed loop obstruction. She underwent ileal anastamosis and release of small-bowel obstruction on 03/06/[address] Villatoro. She tolerated the procedure well. She received 7 days of IV Zosyn. Leukocytosis resolved and she remained afebrile. Tolerated regular diet. She will follow-up with Dr. Villatoro on 03/16/20. 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 Blood sugar was markedly elevated on arrival at [facility] and she was started on insulin gtt in the ED. She was not in acute DKA so this was transitioned to SSI insulin coverage. She had an episode of hypoglycemia on 03/06/2020 while NPO. Blood sugars were fluctuant. Her home Tresiba is non formulary so she was transitioned to Lantus at reduced dose as well as scheduled novolog with meals. She will continue her typical home regimen. She should monitor her blood sugars at home and record a list to bring to her PCP. (3) HTN (hypertension): Qualifiers: Hypertension type: essential hypertension Qualified Code(s): I10 - Essential (primary) hypertension Code(s): I10 - Essential (primary) hypertension Status: Chronic Assessment and Plan: Chronic. BP elevated on arrival, likely secondary to pain. BP has improved and remained generally well controlled. Continue PO metoprolol (4) Diastolic CHF: Code(s): I50.30 - Unspecified diastolic (congestive) heart failure Status: Acute Assessment and Plan: Last echo March 2019 showed grade 1 diastolic dysfunction. She received IV fluids while NPO and did develop peripheral edema. She received 40 mg PO Lasix prn, consistent with her home regimen. She was euvolemic following. Continue home regimen. (5) Chronic kidney disease: Qualifiers: Chronic kidney disease stage: stage 3 (moderate) Chronic kidney disease stage 3 subtype: stage 3a (GFR 45-59) Qualified Code(s): N18.31 - Chronic kidney disease, stage 3a Code(s): N18.9 - Chronic kidney disease, unspecified Status: Chronic Assessment and Plan: Baseline creatinine appears to be about 2.2-2.3. Creatinine at presentation was 1.5, improved from baseline. Creatinine remained stable. (6) Hypomagnesemia: Code(s): E83.42 - Hypomagnesemia Status: Acute Assessment and Plan: Magnesium 1.5 on 03/05/2019. Magnesium was replaced and stabilized. (7) CAD (coronary artery disease): Qualifiers: Coronary Disease-Associated Artery/Lesion type: bypass graft [place] vs. transplanted heart: [place] heart Associated angina: without angina Qualified Code(s): I25.810 - Atherosclerosis of coronary artery bypass graft(s) without angina pectoris Code(s): I25.10 - Atherosclerotic heart disease of [place] coronary artery without angina pectoris Status: Acute Assessment and Plan: She has a hx of CABG 2002. She follows with Dr. Boo. She has known multivessel disease with lexiscan 04/2018 demonstrating ischemia and infarct correlated to her known anatomy. Continue PO metoprolol. Nitroglycerin prn. Continue aspirin (8) Hypothyroidism: Qualifiers:
== END 2020-03-12 15:59 | disposition home or self-care (01) | DRG 330 ==
LOC: ANHED 03-05 00:46 → ANH3MEDSUR 03-05 03:08 → ANHICU 03-05 03:08
PROVIDERS: Physician Assistant; Surgery; Admitting Provider Family Medicine; Emergency Provider Emergency Medicine; PCP Nurse Practitioner Adult Health; Visit Provider Physician Assistant
PROC: 0DBB0ZZ Excision of Ileum, Open Approach (ICD-10-PCS; CPT 49000; principal; 2020-03-06 16:00)
DX: K56.50 Intestinal adhesions [bands], unspecified as to partial versus complete obstruction (principal); I25.810 Atherosclerosis of coronary artery bypass graft(s) without angina pectoris; I13.0 Hypertensive heart and chronic kidney disease with heart failure and stage 1 through stage 4 chronic kidney disease, or unspecified chronic kidney disease; N18.4 Chronic kidney disease, stage 4 (severe); I50.30 Unspecified diastolic (congestive) heart failure; E11.22 Type 2 diabetes mellitus with diabetic chronic kidney disease; D63.1 Anemia in chronic kidney disease; I27.20 Pulmonary hypertension, unspecified; E11.65 Type 2 diabetes mellitus with hyperglycemia; E11.42 Type 2 diabetes mellitus with diabetic polyneuropathy; E11.51 Type 2 diabetes mellitus with diabetic peripheral angiopathy without gangrene; J44.9 Chronic obstructive pulmonary disease, unspecified; K21.9 Gastro-esophageal reflux disease without esophagitis; K44.9 Diaphragmatic hernia without obstruction or gangrene; I35.0 Nonrheumatic aortic (valve) stenosis; E03.8 Other specified hypothyroidism; I25.2 Old myocardial infarction; Z79.4 Long term (current) use of insulin; Z90.49 Acquired absence of other specified parts of digestive tract; Z86.718 Personal history of other venous thrombosis and embolism; Z90.710 Acquired absence of both cervix and uterus; Z90.722 Acquired absence of ovaries, bilateral; Z90.79 Acquired absence of other genital organ(s); Z95.828 Presence of other vascular implants and grafts; Z98.49 Cataract extraction status, unspecified eye; Z96.1 Presence of intraocular lens
CPT/HCPCS: 36415; 36600; 74019; 74177; 80048; 80053; 81001; 82010; 82805; 82948; 83036; 83605; 83690; 83735; 84100; 84439; 84443; 84480; 85025; 85027; 87086; 87088; 88307; 93005; 94640; 96361; 96365; 96372; 96375; 96376; 97110; 97116; 97161; 97165; 97530; 97535; 99285; A9270; C9113; G0378; J0131; J0330; J0690; J1100; J1650; J1815; J2270; J2405; J2543; J2550; J2704; J2710; J3010; J3475; J3480; J7030; J7120; Q9967

== ENCOUNTER 2020-05-11 02:34 | Inpatient (IN) | payer MEDICARE, SELFPAY ==
[2020-05-11] VITALS (17 sets, daily range): BP systolic 120–204; BP diastolic 41–101; PULSE 53–74; RESP 12–24; TEMP 36.2–36.6; O2SAT 97–100; BMI 29.6
--- NOTE | 2020-05-11 | ECHO_ITS ---
Patient Info Name: Anuradha Spaulding Age: 84 years : 1935 Gender: Female Ht: 63 in Wt: 167 lbs BSA: 1.86 m2 HR: 72 bpm BP: 192 / 82 mmHg Heart Rhythm: Sinus Rhythm Technical Quality: Fair Exam Date: 05/11/2020 2:23 PM Exam Location: [facility] Exam Room: 210 Patient Status: Inpatient Admit Date: 05/11/2020 Staff Ordering Physician: Luis Gonzalez MD Automobile Lights Assembler: Linda Molina RDCS Attending Provider: Brody Singh MD Referring Physician: Lisa CHILDRESS; Exam Type: CA echo doppler color flow Study Info Indications - /NSTEMI Complete two-dimensional, color flow and Doppler transthoracic echocardiogram is performed. Summary 1. Complete two-dimensional, color flow and Doppler transthoracic echocardiogram is performed. 2. Left ventricular chamber dimension is normal. 3. Left ventricular systolic function is normal, estimated at 65-70%. 4. There is mildly increased left ventricular wall thickness. 5. The left ventricular diastolic function is grade I diastolic dysfunction. 6. Left atrial chamber dimension is moderately enlarged. 7. There is moderate aortic valve stenosis with a peak velocity of 305 cm/s, mean gradient of 23 mmHg, and aortic valve area of 1.3 cm2. 8. There is severe aortic valve calcification. 9. The mitral valve has thickened leaflets, calcified leaflets and calcified annulus. 10. There is mild mitral valve regurgitation. 11. There is mild tricuspid valve regurgitation. 12. Mild pulmonary hypertension, estimated pulmonary arterial systolic pressure is 41 mmHg. Left Ventricle Left ventricular chamber dimension is normal. Left ventricular systolic function is normal, estimated at 65-70%. There is mildly increased left ventricular wall thickness. The left ventricular diastolic function is grade I diastolic dysfunction. Right Ventricle Right ventricular chamber dimension is normal. Right ventricular systolic function is normal. Left Atria Left atrial chamber dimension is moderately enlarged. Right Atria Right atrial chamber dimension is normal. Atrial Septum Intact interatrial septum visualized by color flow imaging. Aortic Valve The aortic valve is trileaflet. There is moderate aortic valve stenosis with a peak velocity of 305 cm/s, mean gradient of 23 mmHg, and aortic valve area of 1.3 cm2. There is trace aortic valve regurgitation. There is severe aortic valve calcification. Pulmonic Valve The pulmonic valve is normal. There is no pulmonic valve stenosis. There is trace pulmonic regurgitation. Mitral Valve The mitral valve has thickened leaflets, calcified leaflets and calcified annulus. There is no mitral valve stenosis. There is mild mitral valve regurgitation. Tricuspid Valve The tricuspid valve leaflets are normal. There is no significant tricuspid valve stenosis. There is mild tricuspid valve regurgitation. Mild pulmonary hypertension, estimated pulmonary arterial systolic pressure is 41 mmHg. Pericardium/Pleural The pericardium appears normal. There is no pericardial effusion. Inferior Vena Cava Normal inferior vena cava with >50% collapse upon inspiration consistent with normal right atrial pressure, 10 mmHg. Aorta The aortic root size at the sinus of Valsalva is normal. There is mild aortic atherosclerosis. Left Ventricular Outflow Tract Name Value N
--- NOTE | ~2020-05-11 | US_ITS ---
EXAMINATION: US carotid duplex BI DATE: 05/11/2020 13:56 INDICATION: Speech deficit. TECHNIQUE: Grayscale, color Doppler, and pulsed Doppler images of the cervical carotid arteries were obtained. The degree of vessel stenosis is placed in one of the following categories: normal, <50%, 5 0-69%, >=70% but less than near-occlusion, near-occlusion, or total occlusion. Note that percent sten osis relative to normal distal artery lumen diameter is indirectly measured from velocity measurement s as described by Delfin, et al. Radiology 2003; 229:340-346. COMPARISON: Ultrasound 08/08/2015 FINDINGS: RIGHT: The right common carotid artery (CCA) peak systolic velocity (PSV) is 63 cm/s. The right internal car otid artery (ICA) PSV is 120 cm/s. The right ICA end-diastolic velocity (EDV) is 18 cm/s. The right I CA/CCA PSV ratio is 1.9. Grayscale and color Doppler images yield an estimate of <50% diameter reduct ion from plaque in the ICA. There is antegrade flow in the right vertebral artery. LEFT: The left CCA PSV is 72 cm/s. The left ICA PSV is 102 cm/s. The left ICA EDV is 16 cm/s. The left ICA/ CCA PSV ratio is 1.4. Grayscale and color Doppler images yield an estimate of <50% diameter reduction from plaque in the ICA. There is antegrade flow in the left vertebral artery. IMPRESSION: 1. <50% stenosis in the right internal carotid artery. 2. <50% stenosis in the left internal carotid artery. Reviewed, dictated and finalized at location A. ERS SUPERVISOR
--- NOTE | ~2020-05-11 | XR_ITS ---
EXAMINATION: XR chest 1V INDICATION: Change in mental status, history of COPD and coronary artery disease TECHNIQUE: AP view of the chest is obtained. COMPARISON: 03/25/2019 FINDINGS: The lungs are free of acute opacities. There is no pleural effusion or pneumothorax. The he art size is normal. Median sternotomy wires and mediastinal surgical clips are seen, likely from prio r coronary artery bypass grafting. The hiatal hernia is again noted. IMPRESSION: 1. No acute cardiopulmonary abnormality. Reviewed, dictated and finalized at location A. H FEEDER
--- NOTE | ~2020-05-11 | CT_ITS ---
EXAMINATION: CT brain wo con INDICATION: Altered mental status COMPARISON: 07/06/2019 TECHNIQUE: Standard unenhanced head CT. The dose-length product (DLP) was 605.33 mGy-cm. The mA was a djusted according to patient size. Iterative reconstruction technique was employed. FINDINGS: There is no acute intraparenchymal hemorrhage. No evidence of mass lesion. No evidence of a cute infarction. There is mild periventricular and subcortical hypodensity probably related to small vessel ischemic disease. There is mild prominence of the sulci and ventricles related to cerebral atr ophy. Intracranial calcified cerebral atherosclerosis is noted. There are no extra-axial collections. There is no mass effect or midline shift. Changes in the globes are likely from ocular lens surgery. There is mild mucosal thickening of the paranasal sinuses. IMPRESSION: 1. No acute intracranial abnormality. 2. Age related findings. Reviewed, dictated and finalized at location A. ATIONAL SPECIALIST
--- NOTE | 2020-05-11 02:47 | ECG_ITS ---
Measurements Intervals [place] Rate: 65 P: 27 [place]: 144 QRS: 22 QRSD: 98 T: 27 QT: 438 QTc: 455 Interpretive Statements SINUS RHYTHM WITH SINUS ARRHYTHMIA ATRIAL PREMATURE COMPLEXES BASELINE ARTIFACT- I, III BORDERLINE ECG Electronically Signed On 05-11-2020 7:13:20 [employer] TEST[employer] by Sathya Cohen D.O.
[2020-05-11 03:00] LABS: Glucose Point of Care 83 (65-105)
[2020-05-11 03:03] LABS: Basophils Absolute Auto 0.1 K/mm3 (0.0-0.1); Basophils Percent Auto 0.5 % (0.2-1.2); Eosinophils Absolute Auto 0.1 K/mm3 (0-0.3); Eosinophils Percent Auto 0.5 % (0-4.4); Hematocrit 39.3 % (37.0-47.0); Hemoglobin 12.6 g/dL (12.0-15.0); Immature Granulocyte Absolute 0.07 K/mm3 (0.00-0.031); Immature Granulocyte Percent A 0.5 % (0-0.5); Lymphocytes Absolute Auto 2.23 K/mm3 (0.9-3.2); Lymphocytes Percent Auto 17.5 % (18.3-44.2); Mean Corpuscular HGB Conc 32.1 g/dl (32-36); Mean Corpuscular Hemoglobin 30.1 pg (26-34); Monocytes Absolute Auto 0.9 K/mm3 (0.1-0.6); Monocytes Percent Auto 6.9 % (2.6-8.5); Neutrophils Absolute Auto 9.5 K/mm3 (1.3-6.7); Neutrophils Percent Auto 74.1 % (45.5-73.1); Platelet Count Result 417 k/mm3 (150-375); Red Blood Count 4.18 M/mm3 (4.2-5.4); White Blood Count 12.8 K/mm3 (4.5-10.0)
[2020-05-11 03:15] LABS: Lactic Acid Reflex 1.5 mmol/L (0.7-2.1)
[2020-05-11 03:16] LABS: Alanine Aminotransferase 11 U/L (4-35); Albumin Level 3.8 g/dL (3.5-5.1); Alkaline Phosphatase 91 U/L (38-126); Anion Gap 4 mmol/L (8-16); Aspartate Amino Transferase 23 U/L (14-36); Bilirubin,Total 0.2 mg/dL (0.2-1.3); Blood Urea Nitrogen 29 mg/dL (7-17); Carbon Dioxide 30 mmol/L (22-30); Chloride 104 mmol/L (98-107); Estimated CRCL calculation 27 ml/min; Estimated Glomerular Filt Rate 36; Glucose 81 mg/dL (65-105); Sodium 138 mmol/L (137-145)
[2020-05-11 04:31] LABS: Troponin I 0.211 ng/mL (0.000-0.034)
--- NOTE | 2020-05-11 05:05 | ED.GENADULT ---
HPI - General Adult General Chief complaint: Altered Mental Status Stated complaint: POSS CVA Time Seen by Provider: 05/11/20 02:37 History of Present Illness HPI narrative: Patient is a 84-year-old female who presents the emergency department with chief complaint of altered mental status. Patient today had an episode where she became extremely weak and could not stand on her own power. EMS reported patient had weakness in her right arm although this is resolved by the time the patient arrived to the emergency department. Patient reports that she does have history of cardiac disease and has some significant blockages. Patient states that she has had no chest pain reports that she felt generally globally weak when the episode occurred. The patient was given aspirin by EMS prior to arrival in the emergency department. The patient was found to have a blood sugar of 70 by EMS and as the patient's blood sugar is approached in the 80s the patient is back to normal at this time. Related Data Home Medications Medication Instructions Recorded Confirmed Spiriva with HandiHaler 1 cap INHALATION DAILY 01/12/19 04/13/20 Tresiba FlexTouch U-200 36 unit SUBCUT HS 01/12/19 04/13/20 aspirin [Aspir-81] 81 mg PO DAILY 01/12/19 04/13/20 levothyroxine 75 mcg PO DAILY 01/12/19 04/13/20 furosemide 40 mg PO DAILY PRN 07/06/19 04/13/20 insulin lispro [Humalog KwikPen 2 unit SUBCUT QACBREAK 07/06/19 04/13/20 Insulin] nitroglycerin 0.4 mg SUBLINGUAL Q5-10M PRN 07/06/19 04/13/20 insulin lispro [Humalog KwikPen 4 unit SUBCUT DAILY 03/05/20 04/13/20 Insulin] insulin lispro [Humalog KwikPen 6 unit SUBCUT DAILY 03/05/20 04/13/20 Insulin] metoprolol succinate [Toprol XL] 100 mg PO DAILY 03/05/20 04/13/20 Allergies Allergy/AdvReac Type Severity Reaction Status Date / Time No Known Allergies Allergy Verified 04/12/20 14:13 Review of Systems Review of Systems: Narrative: A 10 system review of systems was completed on the patient and is negative except for what is stated in the HPI. Nursing and ancillary documentation was reviewed. [facility] Past Medical History Medical History Acute PN (pyelonephritis) Anemia Anemia due to stage 4 chronic kidney disease Aortic stenosis Bronchitis CAD (coronary artery disease) Cataracts, bilateral Chronic back pain Complicated UTI (urinary tract infection) COPD (chronic obstructive pulmonary disease) DVT (deep venous thrombosis) Femur fracture, right GERD (gastroesophageal reflux disease) GI bleed Heart attack History of angina History of blood transfusion HTN (hypertension) Hyperlipidemia Hypothyroid Meniere disease Osteopenia Peripheral neuropathy Peripheral vascular disease of lower extremity RLE stent placement Pneumonia Rectal polyp Renal disease Seizures During [place] Type II diabetes mellitus UTI (urinary tract infection) Surgical History Surgical History H/O exploratory laparotomy 03/06/20 Exploratory laparotomy 2. Ileal resection with [id number] ileal anastomosis 3. Release of small-bowel obstruction History of appendectomy during hysterectomy History of cardiac catheterization History of cataract removal with insertion of prosthetic lens History of cholecystectomy during hysterectomy History of hysterectomy Open JALYN-BSO with cholecystectomy and appendectomy History of total right hip arthroplasty Hx of blepharoplasty Hx of CABG Family History Family History Father Hypertension Pneumonia Smoking Mother Diabetes mellitus Family history of glaucoma Cancer Hypotension Cerebrovascular accident Sibling Diabetes mellitus Heart disease Sibling Diabetes mellitus Heart disease Sibling Diabetes mellitus Heart disease Sibling Diabetes mellitus Heart disease Sibling Suicide
[2020-05-11 05:26] LABS: Add Urine Microscopic? YES; Appearance Urine Clear (Clear); Bacteria Urine Trace /hpf; Bilirubin Urine Negative (Negative); Blood Urine Negative (Negative); Color Urine Yellow (Yellow); Glucose Urine UA 1+ mg/dL (Negative); Ketones Urine Negative (Negative); Leukocyte Esterase Ur 2+ LEU/UL (Negative); Mucus Urine Rare /lpf; Nitrate Urine Negative (Negative); Protein Urine 1+ mg/dL (Negative); RBC Urine 0-2 /hpf (0-2); Specific Grav Ur 1.013 (1.001-1.035); Squamous Epithelial Cell Urine Occasional /hpf (Few); Urobilinogen Urine Negative mg/dL (<2.0); WBC Urine 21-30 /hpf
--- NOTE | 2020-05-11 06:44 | ADMGEN ---
This patient, Anuradha Spaulding, was admitted to IMU Room 210-01 on 05/11/20 at 0627. Patient/family oriented to hospital policies and general routines including ID bracelet, bed and alarms, visiting hours, pain management, procedures, bathroom and other care routines, personal items, smoking policy, room service/diet, and visiting hours. Information on how to activate the Rapid Response Team has been discussed. Patient/Family are encouraged to report perceived risks to care and to ask questions if they do not understand what they are told or what they should do.
[2020-05-11 07:48] LABS: Glucose Point of Care 226 (65-105)
[2020-05-11] MEDS: ASPIRIN 81 MG CHEWABLE TABLET PO (09:29)
[2020-05-11 09:36] LABS: Glucose Point of Care 330 (65-105)
[2020-05-11 12:19] LABS: Glucose Point of Care 380 (65-105)
--- NOTE | 2020-05-11 12:43 | PM.CNCAR ---
Assessment and Plan Assessment and plan (1) Non-ST elevation myocardial infarction (NSTEMI): Code(s): I21.4 - Non-ST elevation (NSTEMI) myocardial infarction Status: Acute Assessment and Plan: Continue aspirin. Restarted her metoprolol succinate 100 mg p.o. daily. I am not certain why she is not on a statin any longer. I am going to start her on rosuvastatin 20 mg daily. P.r.n. nitroglycerin be ordered. Will also start her on some isosorbide mononitrate 30 mg daily. A 2D echocardiogram with Doppler will be ordered. Obviously given her aortic stenosis the nitrate will need to be used with caution. Will repeat EKG now. Once her blood pressure comes down, will initiate enoxaparin if okay with Neurology. (2) CAD (coronary artery disease): Qualifiers: Coronary Disease-Associated Artery/Lesion type: bypass graft [place] vs. transplanted heart: [place] heart Associated angina: without angina Qualified Code(s): I25.810 - Atherosclerosis of coronary artery bypass graft(s) without angina pectoris Code(s): I25.10 - Atherosclerotic heart disease of [place] coronary artery without angina pectoris Status: Acute Assessment and Plan: As detailed above (3) Slurred speech: Code(s): R47.81 - Slurred speech Status: Acute Assessment and Plan: Bilateral carotid artery ultrasound will be ordered. I will also consult Neurology (4) Aortic stenosis: Code(s): I35.0 - Nonrheumatic aortic (valve) stenosis Status: Acute Assessment and Plan: Recheck 2D echocardiogram Doppler (5) Orthostatic hypotension: Code(s): I95.1 - Orthostatic hypotension Status: Acute Assessment and Plan: Daily orthostatic blood pressures History of Present Illness History of Present Illness Consult date/time: 05/11/20 12:43 Requesting physician: Brody Singh MD Consult reason: Other (Elevated troponin, slurred speech, weakness) Reason For Visit: near syncope, weakness, elevated troponin Narrative: Date of service 05/11/2020 History: The patient is an 84-year-old female patient Dr. Boo is who presented to the hospital because of altered mental status. Patient states that she became extremely weak couple of days ago. She had some difficulty standing on her own. She also had some right arm weakness but this is not new and she fell on her right arm a couple of months ago and this is not getting significantly better. She also has been having some slurring of her words and some speech felt ?backwards ?. She does have some intermittent anterior chest discomfort which she describes as sharp. Will last for a few seconds and she will take nitroglycerin her symptoms will go away. She had an episode as recently as a couple of days ago but she is not having any chest discomfort or tightness at this point. She denies any syncope, edema, palpitations. She does have some paroxysmal nocturnal dyspnea at times. No palpitations. She was admitted to the hospital following some initial lab work showing an elevated troponin level. Troponins have gradually risen to a level 2.[address] scan head did not show any significant or acute bleed or infarct. She has a history of significant coronary artery disease and underwent bypass grafting in 2002. In April 2018 a Lexiscan was ordered which was abnormal. She had mixed ischemia and infarction which correlated to known disease. Two thousand seventeen she had an angiography and the circumflex was occluded. Multiple attempts were made to reopen the vessel but it was not successful. She also has significant LAD disease which is also felt to be not amenable to PCI. I saw her last year and at that time she was have an orthostasis. Adjustments were made to her medications and the last time she has had contact with Dr. Boo was last summer she states. Review of Systems Review of Systems: All systems reviewed & are unrema
--- NOTE | 2020-05-11 12:56 | ECG_ITS ---
Measurements Intervals [place] Rate: 66 P: 37 [place]: 160 QRS: 27 QRSD: 85 T: 52 QT: 389 QTc: 410 Interpretive Statements SINUS RHYTHM BORDERLINE ST ABNORMALITY- HIGH LATERAL LEADS BASELINE ARTIFACT- I, III, AVL, V5 BORDERLINE ECG Electronically Signed On 05-11-2020 15:10:27 DIALYSIS RN by Sathya Cohen D.O.
[2020-05-11] MEDS: INSULIN ASPART (*BKC) 100 UNITS/ML SUB-Q ×3 (13:29→16:44)
[2020-05-11] MEDS: METOPROLOL SUCCINATE EXT REL 100 MG TABCR PO (13:29)
[2020-05-11] MEDS: PANTOPRAZOLE 40 MG TABLET PO (13:29)
[2020-05-11] MEDS: LEVOTHYROXINE SODIUM 75 MCG TABLET PO (13:29)
--- NOTE | 2020-05-11 16:13 | WPDNEURCNPN ---
Assessment and Plan Assessment and plan (1) Episode of generalized weakness: Code(s): R53.1 - Weakness Status: Acute (2) Type II diabetes mellitus: Qualifiers: Diabetes mellitus chcf insulin use: with chcf use Diabetes mellitus complication status: with neurologic complications Diabetes mellitus complication detail: with polyneuropathy Qualified Code(s): E11.42 - Type 2 diabetes mellitus with diabetic polyneuropathy; Z79.4 - group home (current) use of insulin Code(s): E11.9 - Type 2 diabetes mellitus without complications Status: Chronic Additional Plan Generalized weakness with multiple medical problems as noted the CT scan of head is negative with no evidence of gross abnormalities I will re-evaluate her tomorrow to see if any further neurological deficit is discovered otherwise she will benefit from the rehab the generalized weakness considering that she has underlying diabetes mellitus and neuropathy she will benefit from that and if necessary will obtain the MRI of the brain Consult date: 05/11/20 Time Seen: 16:00 HPI: Anuradha Spaulding is a 84 year old female admitted to the hospital for the complaints of change in the mental status along with the generalized weakness and inability to sit or stand on her own she had right upper extremity weakness prior to coming to the ER which was completely resolved patient does have a history of cardiac disease initial blood sugar was 70, she has history of significant multiple medical problems including the aortic stenosis, full neuropathy, pertinent investigations included normal CT scan of the head, normal Doppler study of the carotids echocardiogram with enlarged left atrium and aortic valve stenosis in addition to severe aortic calcification and valvular regurgitation Review of Systems Review of Systems: All systems reviewed & are unremarkable except as noted in HPI and below PMFSH Past Medical History Medical History Acute PN (pyelonephritis) Anemia Anemia due to stage 4 chronic kidney disease Aortic stenosis Bronchitis CAD (coronary artery disease) Cataracts, bilateral Chronic back pain Complicated UTI (urinary tract infection) COPD (chronic obstructive pulmonary disease) DVT (deep venous thrombosis) Femur fracture, right GERD (gastroesophageal reflux disease) GI bleed Heart attack History of angina History of blood transfusion HTN (hypertension) Hyperlipidemia Hypothyroid Meniere disease Osteopenia Peripheral neuropathy Peripheral vascular disease of lower extremity RLE stent placement Pneumonia Rectal polyp Renal disease Seizures During [place] Type II diabetes mellitus UTI (urinary tract infection) Surgical History Surgical History H/O exploratory laparotomy 03/06/20 Exploratory laparotomy 2. Ileal resection with [id number] ileal anastomosis 3. Release of small-bowel obstruction History of appendectomy during hysterectomy History of cardiac catheterization History of cataract removal with insertion of prosthetic lens History of cholecystectomy during hysterectomy History of hysterectomy Open JALYN-BSO with cholecystectomy and appendectomy History of total right hip arthroplasty Hx of blepharoplasty Hx of CABG Family History Family History Father Hypertension Pneumonia Smoking Mother Diabetes mellitus Family history of glaucoma Cancer Hypotension Cerebrovascular accident Sibling Diabetes mellitus Heart disease Sibling Diabetes mellitus Heart disease Sibling Diabetes mellitus Heart disease Sibling Diabetes mellitus Heart disease Sibling Suicide and self-inflicted injury Sibling Accidental , public place Daughter Breast cancer Social History Social History Social History: Lives at
[2020-05-11] MEDS: INSULIN ASPART (*BKC) 100 UNITS/ML 6 UNITS SUB-Q (16:44)
--- NOTE | 2020-05-11 17:13 | PM.IMHP ---
H&P: HPI History of Present Illness Date/Time: 05/11/20 17:13 84 year old Diabetic female admitted with a seizure like episode/ and altered mental state, noticed her Bp was high at the time. Pt has history of DM, CKD, aortic disease, coronary artery disease and underwent bypass grafting in 2002. Pt was found to have low blood sugars also and elevated troponin. CT head showed age related illness. Seen by cardiology for NSTEMI. Continue to monitor in IMU. Pt denies SOB or chest pain Chief Complaint: Altered mental status Review of Systems Review of Systems: All systems reviewed & are unremarkable except as noted in HPI and below PMFSH Past Medical History Medical History Acute PN (pyelonephritis) Anemia Anemia due to stage 4 chronic kidney disease Aortic stenosis Bronchitis CAD (coronary artery disease) Cataracts, bilateral Chronic back pain Complicated UTI (urinary tract infection) COPD (chronic obstructive pulmonary disease) DVT (deep venous thrombosis) Femur fracture, right GERD (gastroesophageal reflux disease) GI bleed Heart attack History of angina History of blood transfusion HTN (hypertension) Hyperlipidemia Hypothyroid Meniere disease Osteopenia Peripheral neuropathy Peripheral vascular disease of lower extremity RLE stent placement Pneumonia Rectal polyp Renal disease Seizures During [place] Type II diabetes mellitus UTI (urinary tract infection) Surgical History Surgical History H/O exploratory laparotomy 03/06/20 Exploratory laparotomy 2. Ileal resection with wzqi-zw-[id number] ileal anastomosis 3. Release of small-bowel obstruction History of appendectomy during hysterectomy History of cardiac catheterization History of cataract removal with insertion of prosthetic lens History of cholecystectomy during hysterectomy History of hysterectomy Open JALYN-BSO with cholecystectomy and appendectomy History of total right hip arthroplasty Hx of blepharoplasty Hx of CABG Family History Family History Father Hypertension Pneumonia Smoking Mother Diabetes mellitus Family history of glaucoma Cancer Hypotension Cerebrovascular accident Sibling Diabetes mellitus Heart disease Sibling Diabetes mellitus Heart disease Sibling Diabetes mellitus Heart disease Sibling Diabetes mellitus Heart disease Sibling Suicide and self-inflicted injury Sibling Accidental , public place Daughter Breast cancer Social History Social History Social History: Lives at home with her daughter Shyla, who is also her healthcare power of title attorney. Smoking status: Never smoker Second hand tobacco smoke exposure: Yes Alcohol intake: never Substance use: never Substance use type: does not use Gender identity (if verbalized by the patient): Female Spiritual care concerns: No Agree to blood products: Yes Meds Home Medications and Allergies Home Medications Medication Instructions Recorded Confirmed Type Spiriva with HandiHaler 1 cap INHALATION DAILY 01/12/19 05/11/20 History Tresiba FlexTouch U-200 36 unit SUBCUT HS 01/12/19 05/11/20 History aspirin [Aspir-81] 81 mg PO DAILY 01/12/19 05/11/20 History levothyroxine 75 mcg PO DAILY 01/12/19 05/11/20 History furosemide 40 mg PO DAILY PRN 07/06/19 05/11/20 History insulin lispro [Humalog KwikPen 2 unit SUBCUT QACBREAK 07/06/19 05/11/20 History Insulin] nitroglycerin 0.4 mg SUBLINGUAL Q5-10M PRN 07/06/19 05/11/20 History insulin lispro [Humalog KwikPen 4 unit SUBCUT DAILY 03/05/20 05/11/20 History Insulin] insulin lispro [Humalog KwikPen 6 unit SUBCUT DAILY 03/05/20 05/11/20 History Insulin] metoprolol succinate [Toprol XL] 100 mg PO DAILY 03/05/20 05/11/20 History pantoprazole [Protonix]
[2020-05-11 18:12] LABS: Glucose Point of Care 287 (65-105)
[2020-05-11 20:43] LABS: Glucose Point of Care 129 (65-105)
[2020-05-11] MEDS: ENOXAPARIN 80 MG/0.8 ML SYRINGE 75 MG SUB-Q (21:55)
[2020-05-12] VITALS (17 sets, daily range): BP systolic 108–148; BP diastolic 45–78; PULSE 54–69; RESP 16–18; TEMP 36.1–36.9; O2SAT 95–100
[2020-05-12 00:16] LABS: Glucose Point of Care 240 (65-105)
[2020-05-12] MEDS: LEVOTHYROXINE SODIUM 75 MCG TABLET PO (07:19)
[2020-05-12 07:50] LABS: Glucose Point of Care 217 (65-105)
[2020-05-12] MEDS: INSULIN ASPART (*BKC) 100 UNITS/ML SUB-Q ×4 (08:00→17:30)
[2020-05-12] MEDS: ASPIRIN 81 MG ENTERIC TABLET PO (08:02)
[2020-05-12] MEDS: ENOXAPARIN 80 MG/0.8 ML SYRINGE 75 MG SUB-Q ×2 (08:02→20:24)
[2020-05-12] MEDS: METOPROLOL SUCCINATE EXT REL 100 MG TABCR PO (08:03)
[2020-05-12] MEDS: ROSUVASTATIN 10 MG TABLET 20 MG PO (08:03)
[2020-05-12] MEDS: PANTOPRAZOLE 40 MG TABLET PO (08:03)
[2020-05-12] MEDS: ISOSORBIDE MONONITRATE 30 MG TAB.ER.24H PO (08:03)
[2020-05-12 11:45] LABS: Glucose Point of Care 340 (65-105)
--- NOTE | 2020-05-12 14:04 | PM.IMPN ---
Progress Note: A&P Assessment and Plan (1) Non-ST elevation myocardial infarction (NSTEMI): Code(s): I21.4 - Non-ST elevation (NSTEMI) myocardial infarction Status: Acute Assessment and Plan: STATIN, ISMN, lovenox, Pt known to cardiology service. (2) Episode of generalized weakness: Code(s): R53.1 - Weakness Status: Acute Assessment and Plan: Likely cardiac related, pt feels better now. (3) Elevated troponin: Code(s): R77.8 - Other specified abnormalities of plasma proteins Status: Acute Assessment and Plan: Seen by cardiology, serial troponin are elevated, telemetry, cxr nad (4) Chronic kidney disease: Qualifiers: Chronic kidney disease stage: stage 3 (moderate) Chronic kidney disease stage 3 subtype: stage 3a (GFR 45-59) Qualified Code(s): N18.31 - Chronic kidney disease, stage 3a Code(s): N18.9 - Chronic kidney disease, unspecified Status: Chronic Assessment and Plan: Continue to monitor kidney function, creat is 1.4 (5) Type II diabetes mellitus: Qualifiers: Diabetes mellitus senior care insulin use: with terminal makeup operator use Diabetes mellitus complication status: with neurologic complications Diabetes mellitus complication detail: with polyneuropathy Qualified Code(s): E11.42 - Type 2 diabetes mellitus with diabetic polyneuropathy; Z79.4 - snf (current) use of insulin Code(s): E11.9 - Type 2 diabetes mellitus without complications Status: Chronic Assessment and Plan: SSI, Accuchecks, continue home insulin. order hbaic (6) Aortic stenosis: Code(s): I35.0 - Nonrheumatic aortic (valve) stenosis Status: Acute Assessment and Plan: History of Aortic stenosis (7) Vision disturbance: Code(s): H53.9 - Unspecified visual disturbance Status: Acute Assessment and Plan: Awaiting MRI brain to rule out stroke. Subjective Date/time seen: 05/12/20 14:04 Interval history: Diabetic female admitted with a seizure like episode/ and altered mental state, noticed her Bp was high at the time. Pt has history of DM, CKD, aortic disease, coronary artery disease and underwent bypass grafting in 2002. Pt was found to have low blood sugars also and elevated troponin yesterday. Pt currently here for NSTEMI, but continues to complain about, vision disturbance. awaiting MRI brain. Pt appears more alert today, no hypoglycemia today. Review of Systems Review of Systems: All systems reviewed & are unremarkable except as noted in HPI and below Exam Const: General: well developed Nutritional Appearance: well nourished HENMT: Head: normocephalic Eyes: General: appearance normal, both eyes and all related structures Pupils: Equal, round and reactive pupils present Neck: Neck: supple Chest: Chest palpation & inspection: normal inspection of the chest Resp: Effort & Inspection: normal respiratory effort Auscultation: clear to auscultation bilaterally Cardio: Jugular venous distension: no JVD Rhythm: regular rhythm Heart sounds: Other heart sounds present (Systolic murmur loud) GI: Inspection: normal to inspection Auscultation: normal bowel sounds Skin: General skin exam: normal color and dry skin Neuro: Cranial nerves: Yes CN's II-XII intact bilaterally and Yes Equal, round and reactive pupils present Cognition (Neuro): normal cognition Speech: normal speech Motor exam (neuro): 5/5 motor strength present throughout Extrem: General: abnormal to inspection (shoulder stiffness in right arm ) Psych: Appearance: grossly normal Mental Status: mental status grossly normal Objective Data Vital Signs Vital Signs: Vital Signs - 24 hr 05/11/20 15:00 05/11/20 16:00 05/11/20 18:00 Temperature Pulse Rate 57 L 53 L Respiratory Rate Blood Pressure 149/79 H Pulse Oximetry 05/11/20 20:00 05/11/20 22:00 05/12/20 00:00 Temperature 36.2 C L 36.1 C
--- NOTE | 2020-05-12 16:20 | PM.PNCARD ---
Progress Note: A&P Assessment and Plan (1) Non-ST elevation myocardial infarction (NSTEMI): Code(s): I21.4 - Non-ST elevation (NSTEMI) myocardial infarction Status: Acute Assessment and Plan: Continue aspirin. Tolerating metoprolol succinate 100 mg p.o. daily and rosuvastatin 20 mg daily. Continue isosorbide mononitrate 30 mg daily chest pain improved. Echo personally reviewed preserved LV systolic function. Moderate aortic stenosis. Continue conservative medical therapy. Patient is not a candidate for further interventional consideration to diffuse severe small-vessel disease and unsuccessful prior interventional attempts. Patient and daughter verbalized understanding. -remains on enoxaparin 1 milligram/kilogram subcutaneous q.12 hours. Discontinue tomorrow. Add clopidogrel 75 mg daily. -check BMP. -PT OT. (2) CAD (coronary artery disease): Qualifiers: Coronary Disease-Associated Artery/Lesion type: bypass graft [place] vs. transplanted heart: [place] heart Associated angina: without angina Qualified Code(s): I25.810 - Atherosclerosis of coronary artery bypass graft(s) without angina pectoris Code(s): I25.10 - Atherosclerotic heart disease of [place] coronary artery without angina pectoris Status: Acute Assessment and Plan: As detailed above (3) Slurred speech: Code(s): R47.81 - Slurred speech Status: Acute Assessment and Plan: Symptoms resolved. Awaiting MRI. Neurology appreciated. (4) Aortic stenosis: Code(s): I35.0 - Nonrheumatic aortic (valve) stenosis Status: Acute Assessment and Plan: Moderate stenosis valve area 1.3 centimeters squared. Not an acute issue. (5) Orthostatic hypotension: Code(s): I95.1 - Orthostatic hypotension Status: Acute Assessment and Plan: Daily orthostatic blood pressures Subjective Date/time seen: Date of service: 05/12/20 16:21 Follow-up for confusion, elevated troponin, non ST-elevation [place], CAD. Very minimal brief atypical chest pain. Improved overall. Denies shortness of breath. States he has shooting flashes across her vision and a roaring sound in her head, no pain. Feels much better overall, much more alert. Awaiting MRI. Review of Systems Review of Systems: All systems reviewed & are unremarkable except as noted in HPI and below Constitutional: Constitutional: Reports fatigue, Denies headache(s) and Reports weakness Eyes: Eyes: Denies blurry vision ENT: Reports Normal hearing present, Denies headache(s) and Denies neck pain Cardiovascular: Cardiovascular: Reports chest pain and Denies dyspnea Respiratory: Respiratory: Denies dyspnea Gastrointestinal: Gastrointestinal: Denies abdominal pain Genitourinary: Genitourinary: Denies flank pain Musculoskeletal: Musculoskeletal: Denies back pain, Reports arthralgias and Denies neck pain Integumentary/Breasts: Skin/Breast: Denies dry skin Neurologic: Reports Normal hearing present, Reports Abnormal speech present, Denies confusion, Denies headache(s) and Reports weakness Psychiatric: Psychiatric: Denies anxiety and Denies confusion Endocrine: Endocrine: Reports fatigue Hematologic/Lymphatic: Hematologic/Lymphatic: Denies easy bleeding Allergic/Immunologic: Allergic/Immunologic: Denies GI upset with certain foods Exam Narrative: Exam Narrative: She is awake alert oriented appears to be in no acute distress. Pleasant and appropriate and appears stated age Const: General: comfortable and no acute distress; No confusion Orientation/consciousness: No confusion HENMT: General nose exam: Normal nares present Eyes: Sclera: sclerae normal Neck: Neck: supple and no JVD Chest: Other: No reproducible chest wall pain to palpation Resp: Auscultation: clear to auscultation bilaterally Cardio: Rate: regular rate Heart sounds: Murmur heart sound present (3/6 systolic ejection murmur) systolic Skin: Genera
--- NOTE | 2020-05-12 16:22 | PHAR ---
HOME MED VERIFIED = TRESIBA 100 UNITS/ML 3ML PREFILLED SYRINGES X4NO PHARMACY LABEL WITH HOMEMEDS
--- NOTE | 2020-05-12 16:28 | PHAR ---
HOME TRESIBA SAID U-200 STRENGTH. VERIFIED MED IS U-100 STRENGTH
[2020-05-12 16:41] LABS: Glucose Point of Care 227 (65-105)
[2020-05-12] MEDS: INSULIN ASPART (*BKC) 100 UNITS/ML 6 UNITS SUB-Q (17:30)
[2020-05-12 20:10] LABS: Glucose Point of Care 248 (65-105)
[2020-05-13] VITALS (16 sets, daily range): BP systolic 118–151; BP diastolic 46–76; PULSE 54–69; RESP 16–18; TEMP 36–36.6; O2SAT 98–100
--- NOTE | 2020-05-13 03:37 | PC.NURSE ---
Daylight Savings Time For Daylight Savings Time Ending in the Fall - Clocks are moved back. For Daylight Savings Time Beginning in the Spring - Clocks are moved ahead. For [facility], the time of change occurs at 0200 hrs. Time is taken from the fruit farmworker. This entry on the patient's chart recognizes the change in time reflected during documentation. Example: 2 entries for vital signs may be charted for 0200 hrs.
[2020-05-13 04:58] LABS: Hematocrit 31.5 % (37.0-47.0); Mean Corpuscular HGB Conc 31.7 g/dl (32-36); Mean Corpuscular Hemoglobin 29.6 pg (26-34); Mean Corpuscular Volume 93.2 fl (80-100); Mean Platelet Volume 10.2 fl (7.4-10.4); Platelet Count Result 306 k/mm3 (150-375); Red Blood Count 3.38 M/mm3 (4.2-5.4); Red Cell Distribution Width 12.8 % (11.5-14.5); White Blood Count 8.7 K/mm3 (4.5-10.0)
[2020-05-13] MEDS: LEVOTHYROXINE SODIUM 75 MCG TABLET PO (06:29)
[2020-05-13 06:50] LABS: Anion Gap 1 mmol/L (8-16); Blood Urea Nitrogen 28 mg/dL (7-17); Calcium 8.1 mg/dL (8.4-10.2); Carbon Dioxide 28 mmol/L (22-30); Chloride 108 mmol/L (98-107); Estimated CRCL calculation 27 ml/min; Estimated Glomerular Filt Rate 36; Glucose 134 mg/dL (65-105); Potassium 4.2 mmol/L (3.4-5.0); Sodium 137 mmol/L (137-145)
[2020-05-13 07:12] LABS: Glucose Point of Care 104 (65-105)
--- NOTE | 2020-05-13 09:31 | PM.IMPN ---
Progress Note: A&P Assessment and Plan (1) Non-ST elevation myocardial infarction (NSTEMI): Code(s): I21.4 - Non-ST elevation (NSTEMI) myocardial infarction Status: Acute Assessment and Plan: STATIN, ISMN, lovenox, Pt known to cardiology service. (2) Episode of generalized weakness: Code(s): R53.1 - Weakness Status: Acute Assessment and Plan: Likely cardiac related, pt feels better now. (3) Elevated troponin: Code(s): R77.8 - Other specified abnormalities of plasma proteins Status: Acute Assessment and Plan: Seen by cardiology, serial troponin are elevated, telemetry, cxr nad (4) Chronic kidney disease: Qualifiers: Chronic kidney disease stage: stage 3 (moderate) Chronic kidney disease stage 3 subtype: stage 3a (GFR 45-59) Qualified Code(s): N18.31 - Chronic kidney disease, stage 3a Code(s): N18.9 - Chronic kidney disease, unspecified Status: Chronic Assessment and Plan: Continue to monitor kidney function, creat is 1.4 (5) Type II diabetes mellitus: Qualifiers: Diabetes mellitus parts counterman insulin use: with fpc use Diabetes mellitus complication status: with neurologic complications Diabetes mellitus complication detail: with polyneuropathy Qualified Code(s): E11.42 - Type 2 diabetes mellitus with diabetic polyneuropathy; 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 order hbaic (6) Aortic stenosis: Qualifiers: Cardiac valve disease etiology: etiology unspecified Qualified Code(s): I35.0 - Nonrheumatic aortic (valve) stenosis Code(s): I35.0 - Nonrheumatic aortic (valve) stenosis Status: Acute Assessment and Plan: History of Aortic stenosis (7) Vision disturbance: Code(s): H53.9 - Unspecified visual disturbance Status: Acute Assessment and Plan: Awaiting MRI brain to rule out stroke. Subjective Date/time seen: 05/13/20 09:31 Interval history: 05/13: C/o fatigue. C/o black streaks in visual field when turning head to left. Resolve with moving head back to midline. C/o right music agent weakness, chronic since right shoulder injury. Review of Systems Review of Systems: All systems reviewed & are unremarkable except as noted in HPI and below Exam Narrative: Exam Narrative: HEENT: EOMI, PERRL, sclerae nonicteric, pharyngeal mucosa pink and intact NECK: No JVD CHEST: Clear to auscultation. Normal effort. HEART: NL S1/S2, regular, 3/6 sytolic ejection murmur RUSB ABDOMEN: BS+, soft, nontender, no mass, no bruits EXTREMITIES: No cyanosis, edema, or clubbing NEUROLOGIC: CN intact and symmetric to inspection. MUSCULOSKELETAL: Tone and strength symmetric, except 4/5 music agent right hand PSYCH: Alert. Oriented to person, place, and time. Objective Data Vital Signs Vital Signs: Vital Signs - 24 hr 05/12/20 08:33 05/12/20 08:41 05/12/20 10:00 Temperature 98 F Pulse Rate 66 61 Respiratory Rate 16 Blood Pressure 123/49 L Pulse Oximetry 95 95 05/12/20 11:47 05/12/20 12:00 05/12/20 14:00 Temperature 98.1 F Pulse Rate 54 L 54 L 58 L Respiratory Rate 16 16 Blood Pressure 125/45 L Pulse Oximetry 98 98 05/12/20 16:00 05/12/20 18:00 05/12/20 20:00 Temperature 98 F 97.4 F L Pulse Rate 62 59 L 58 L Respiratory Rate 16 16 Blood Pressure 148/51 H 140/62 Pulse Oximetry 98 100 05/12/20 22:00 05/12/20 23:40 05/13/20 00:00 Temperature 97.1 F L Pulse Rate 64 62 61 Respiratory Rate 16 Blood Pressure 133/57 L Pulse Oximetry 98 98 05/13/20 03:00 05/13/20 04:00 05/13/20 06:00 Temperature 96.9 F L Pulse Rate 59 L 59 L 64 Respiratory Rate 18 Blood Pressure 143/74 H Pulse Oximetry 99 05/13/20 07:43 05/13/20 07:56 05/13/20 07:57 Temperature 96.8 F L 98 F 97.
[2020-05-13] MEDS: ENOXAPARIN 80 MG/0.8 ML SYRINGE 75 MG SUB-Q ×2 (09:45→21:06)
[2020-05-13] MEDS: PANTOPRAZOLE 40 MG TABLET PO (09:45)
[2020-05-13] MEDS: ASPIRIN 81 MG ENTERIC TABLET PO (09:46)
[2020-05-13] MEDS: ROSUVASTATIN 10 MG TABLET 20 MG PO (09:46)
[2020-05-13] MEDS: METOPROLOL SUCCINATE EXT REL 100 MG TABCR PO (09:46)
[2020-05-13] MEDS: CLOPIDOGREL BISULFATE 75 MG TABLET PO (09:47)
[2020-05-13] MEDS: ISOSORBIDE MONONITRATE 30 MG TAB.ER.24H PO (09:47)
[2020-05-13 11:45] LABS: Glucose Point of Care 231 (65-105)
[2020-05-13] MEDS: INSULIN ASPART (*BKC) 100 UNITS/ML SUB-Q ×3 (11:50→17:10)
--- NOTE | 2020-05-13 13:15 | PM.PNCARD ---
Progress Note: A&P Assessment and Plan (1) Non-ST elevation myocardial infarction (NSTEMI): Code(s): I21.4 - Non-ST elevation (NSTEMI) myocardial infarction Status: Acute Assessment and Plan: Continue aspirin, Metoprolol succinate 100 mg, and Rosuvastatin 20 mg daily. Continue isosorbide mononitrate 30 mg daily, chest pain resolved. -Echo with [reserved LV systolic function, moderate aortic stenosis. Continue conservative medical therapy. Patient is not a candidate for further interventional consideration to diffuse severe small-vessel disease and unsuccessful prior interventional attempts. Patient and daughter verbalized understanding. -Discontinue enoxaparin 1 milligram/kilogram subcutaneous q.12 hours, change to DVT prophylaxis. -Clopidogrel 75 mg daily added. -PT OT. (2) CAD (coronary artery disease): Qualifiers: Coronary Disease-Associated Artery/Lesion type: bypass graft [place] vs. transplanted heart: [place] heart Associated angina: without angina Qualified Code(s): I25.810 - Atherosclerosis of coronary artery bypass graft(s) without angina pectoris Code(s): I25.10 - Atherosclerotic heart disease of [place] coronary artery without angina pectoris Status: Acute Assessment and Plan: As detailed above (3) Slurred speech: Code(s): R47.81 - Slurred speech Status: Acute Assessment and Plan: Symptoms resolved. Visual disturbances further workup per primary service.. (4) Aortic stenosis: Code(s): I35.0 - Nonrheumatic aortic (valve) stenosis Status: Acute Assessment and Plan: Moderate stenosis valve area 1.3 centimeters squared. Not an acute issue. (5) Orthostatic hypotension: Code(s): I95.1 - Orthostatic hypotension Status: Acute Assessment and Plan: Daily orthostatic blood pressures Subjective Date/time seen: Date of service: 05/13/20 13:15 Follow-up for NSTEMI, CAD, confusion no new complaints overnight. Afebrile. Still complains of dark streaks across her eyes look into the left. No headache denies shortness of breath or chest pain. No palpitations. Review of Systems Review of Systems: All systems reviewed & are unremarkable except as noted in HPI and below Constitutional: Constitutional: Reports fatigue, Denies headache(s) and Reports weakness Eyes: Eyes: Denies blurry vision ENT: Reports Normal hearing present, Denies headache(s) and Denies neck pain Cardiovascular: Cardiovascular: Reports chest pain and Denies dyspnea Respiratory: Respiratory: Denies dyspnea Gastrointestinal: Gastrointestinal: Denies abdominal pain Genitourinary: Genitourinary: Denies flank pain Musculoskeletal: Musculoskeletal: Denies back pain, Reports arthralgias and Denies neck pain Integumentary/Breasts: Skin/Breast: Denies dry skin Neurologic: Reports Normal hearing present, Reports Abnormal speech present, Denies confusion, Denies headache(s) and Reports weakness Psychiatric: Psychiatric: Denies anxiety and Denies confusion Endocrine: Endocrine: Reports fatigue Hematologic/Lymphatic: Hematologic/Lymphatic: Denies easy bleeding Allergic/Immunologic: Allergic/Immunologic: Denies GI upset with certain foods Exam Narrative: Exam Narrative: She is awake alert oriented appears to be in no acute distress. Pleasant and appropriate and appears stated age Const: General: comfortable and no acute distress; No confusion Orientation/consciousness: No confusion HENMT: General nose exam: Normal nares present Eyes: Sclera: sclerae normal Neck: Neck: supple and no JVD Chest: Other: No reproducible chest wall pain to palpation Resp: Auscultation: clear to auscultation bilaterally Cardio: Rate: regular rate Heart sounds: Murmur heart sound present (3/6 systolic ejection murmur) systolic Skin: General skin exam: normal color Neuro: General: No confusion Cranial nerves: Yes Normal hearing present Co
[2020-05-13 16:11] LABS: Glucose Point of Care 210 (65-105)
[2020-05-13] MEDS: INSULIN ASPART (*BKC) 100 UNITS/ML 6 UNITS SUB-Q (17:10)
[2020-05-13 20:58] LABS: Glucose Point of Care 92 (65-105)
[2020-05-14] VITALS (7 sets, daily range): BP systolic 138–176; BP diastolic 46–83; PULSE 57–76; RESP 14–18; TEMP 36.2–36.9; O2SAT 97–100
[2020-05-14 07:07] LABS: Glucose Point of Care 136 (65-105)
[2020-05-14] MEDS: LEVOTHYROXINE SODIUM 75 MCG TABLET PO (07:22)
[2020-05-14] MEDS: ROSUVASTATIN 10 MG TABLET 20 MG PO (08:44)
[2020-05-14] MEDS: CLOPIDOGREL BISULFATE 75 MG TABLET PO (08:44)
[2020-05-14] MEDS: ASPIRIN 81 MG ENTERIC TABLET PO (08:44)
[2020-05-14] MEDS: ENOXAPARIN 80 MG/0.8 ML SYRINGE 75 MG SUB-Q ×2 (08:44→20:15)
[2020-05-14] MEDS: PANTOPRAZOLE 40 MG TABLET PO (08:45)
[2020-05-14] MEDS: METOPROLOL SUCCINATE EXT REL 100 MG TABCR PO (08:45)
[2020-05-14] MEDS: ISOSORBIDE MONONITRATE 30 MG TAB.ER.24H PO (08:45)
[2020-05-14] MEDS: INSULIN ASPART (*BKC) 100 UNITS/ML SUB-Q ×2 (11:43)
[2020-05-14 13:31] LABS: Glucose Point of Care 343 (65-105)
--- NOTE | 2020-05-14 14:58 | PM.PNCARD ---
Progress Note: A&P Additional Plan 84-year-old lady with multivessel coronary disease small vessel disease not amenable to further revascularization as detailed in the consultation note. She also has mild/moderate aortic valve stenosis with which she has been asymptomatic. She did have a modest troponin rise on admission but no obvious ischemic symptoms. The chest pain symptoms she had were brief and sharp in nature and fleeting. Her current medical regimen will not be adjusted any further if she remains free of symptoms and from my perspective discharge any time is fine. It is not necessary cardiac cali to keep her in the hospital to perform MRI exam of her shoulder as it pertains to a previous injury/fall. This could certainly be done as an outpatient as well. Arron Boo MD [facility] Subjective Date/time seen: Date of service: 05/14/20 14:58 Interval history: Follow-up visit in this 84-year-old woman with: Severe multivessel coronary disease with known disease not amenable to further revascularization. Admitted with symptoms of generalized weakness and inability is stand up. Some alterations in mental status were of concern which seemed to have returned to baseline. She had a mild/moderate troponin rise compatible with a non ST elevation [place]. As per the consult notes this is being treated medically. Patient also has some mild/moderate aortic stenosis which is currently asymptomatic. Patient offers no cardiovascular symptoms today. She was asking me if I have seen records from [facility] as it pertains to a stent in her lower extremity that might affect her ability to have an MRI exam of her shoulder. I told her that I do not have any specific information about any of this but I will ask her nurse. Exam Const: General: comfortable and no acute distress HENMT: Mouth: Yes moist mucous membranes Eyes: Sclera: sclerae normal Pupils: Equal, round and reactive pupils present Neck: Neck: supple and no JVD Thyroid: thyroid normal Resp: Effort & Inspection: normal respiratory effort Auscultation: clear to auscultation bilaterally Cardio: Rate: regular rate Rhythm: regular rhythm Other: Grade 2/6 murmur of aortic valve stenosis audible at the left sternal border and at the base. No diastolic murmur GI: GI Palp: Yes Soft to palpation Auscultation: normal bowel sounds Skin: General skin exam: normal color Neuro: Cognition (Neuro): normal cognition Other: Mental status seems intact from what I can tell Extrem: General: normal to inspection Objective Data Vital Signs Vital Signs: Vital Signs - 24 hr 05/13/20 16:00 05/13/20 20:00 05/13/20 23:42 Temperature 36.3 C L 36.5 C 36.4 C Pulse Rate 54 L 64 64 Respiratory Rate 16 16 16 Blood Pressure 118/57 L 129/49 L 151/53 H Pulse Oximetry 99 99 100 05/14/20 04:00 05/14/20 08:00 05/14/20 08:45 Temperature 36.3 C L 36.2 C L Pulse Rate 62 67 76 Respiratory Rate 16 18 Blood Pressure 143/53 H 143/64 H Pulse Oximetry 99 97 05/14/20 12:00 Temperature 36.4 C L Pulse Rate 58 L Respiratory Rate 16 Blood Pressure 159/65 H Pulse Oximetry 100 Intake/Output Intake/Output: Intake & Output 05/11/20 05/12/20 05/13/20 05/14/20 22:59 22:59 23:59 23:59 Intake Total Output Total Balance Meds/Results Medications: Active Medications Generic Name Dose Route Start Last Admin Trade Name Freq PRN Reason Stop Dose Admin Aspirin 81 mg 05/11/20 12:55 05/14/20 08:44 Aspirin 81 Mg Enteric Tablet PO 81 mg DAILY CARLINE Administration Clopidogrel Bisulfate 75 mg 05/13/20 09:00 05/14/20 08:44 Clopidogrel Bisulfate 75 Mg Tablet PO 75 mg QAM CARLINE Administration Dextrose 12.5 gm 05/11/20 12:55 Dextrose 50% 25 Gm/50 Ml Syringe IV PUSH PRN PRN Hypoglycemia Protocol Enoxaparin Sodium 75 mg 05/11/20 21:00 05/14/20 08:44 Enoxaparin 80 Mg/0.8 Ml Syringe SUB-Q 75 mg Q12HR CARLINE Administration Glucagon
--- NOTE | 2020-05-14 15:16 | PM.IMPN ---
Progress Note: A&P Assessment and Plan (1) Non-ST elevation myocardial infarction (NSTEMI): Code(s): I21.4 - Non-ST elevation (NSTEMI) myocardial infarction Status: Acute Assessment and Plan: STATIN, ISMN, lovenox, Pt known to cardiology service, see recommendations. ASA and plavix. (2) Episode of generalized weakness: Code(s): R53.1 - Weakness Status: Acute Assessment and Plan: No weakness but ongoing visual floaters, awaiting MRI. (3) Elevated troponin: Code(s): R77.8 - Other specified abnormalities of plasma proteins Status: Acute Assessment and Plan: Seen by cardiology, see recommendations (4) Chronic kidney disease: Qualifiers: Chronic kidney disease stage: stage 3 (moderate) Chronic kidney disease stage 3 subtype: stage 3a (GFR 45-59) Qualified Code(s): N18.31 - Chronic kidney disease, stage 3a Code(s): N18.9 - Chronic kidney disease, unspecified Status: Chronic Assessment and Plan: Continue to monitor kidney function, creat is 1.4 (5) Type II diabetes mellitus: Qualifiers: Diabetes mellitus fpc insulin use: with fpc use Diabetes mellitus complication status: with neurologic complications Diabetes mellitus complication detail: with polyneuropathy Qualified Code(s): E11.42 - Type 2 diabetes mellitus with diabetic polyneuropathy; 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 hb aic is 10, poor control of dm. Pt states her sugars vary alot (6) Aortic stenosis: Qualifiers: Cardiac valve disease etiology: etiology unspecified Qualified Code(s): I35.0 - Nonrheumatic aortic (valve) stenosis Code(s): I35.0 - Nonrheumatic aortic (valve) stenosis Status: Acute Assessment and Plan: History of Aortic stenosis (7) Vision disturbance: Code(s): H53.9 - Unspecified visual disturbance Status: Acute Assessment and Plan: Awaiting MRI brain to rule out stroke. Subjective Date/time seen: 05/14/20 15:16 Interval history: Diabetic female admitted with a seizure like episode/ and altered mental state, noticed her Bp was high at the time. Pt has history of DM, CKD, aortic disease, coronary artery disease and underwent bypass grafting in 2002. Pt currently here for NSTEMI, but continues to complain about, vision disturbance. awaiting MRI brain. Pt appears more alert today, no chest pain today. ongoing visual floaters, awaiting old notes for mri Review of Systems Review of Systems: All systems reviewed & are unremarkable except as noted in HPI and below Exam Const: General: well developed Nutritional Appearance: well nourished HENMT: Head: normocephalic Eyes: General: appearance normal, both eyes and all related structures Pupils: Equal, round and reactive pupils present Neck: Neck: supple Chest: Chest palpation & inspection: normal inspection of the chest Resp: Effort & Inspection: normal respiratory effort Auscultation: clear to auscultation bilaterally Cardio: Jugular venous distension: no JVD Rhythm: regular rhythm Heart sounds: Other heart sounds present (Systolic murmur loud) GI: Inspection: normal to inspection Auscultation: normal bowel sounds Skin: General skin exam: normal color and dry skin Neuro: Cranial nerves: Yes CN's II-XII intact bilaterally and Yes Equal, round and reactive pupils present Cognition (Neuro): normal cognition Speech: normal speech Motor exam (neuro): 5/5 motor strength present throughout Extrem: General: abnormal to inspection (shoulder stiffness in right arm ) Psych: Appearance: grossly normal Mental Status: mental status grossly normal Objective Data Vital Signs Vital Signs: Vital Signs - 24 hr 05/13/20 16:00 05/13/20 20:00 05/13/20 23:
[2020-05-14] MEDS: INSULIN ASPART (*BKC) 100 UNITS/ML 6 UNITS SUB-Q (16:55)
[2020-05-14 16:56] LABS: Glucose Point of Care 190 (65-105)
--- NOTE | 2020-05-14 17:53 | PC.NURSE ---
Pt med/surg overflow in IMU- room obtained on medical- report given to Shira JAIMES - pt transferred to room 344 via w/c accompanied by family member- personal belongings/ medications/ chart with pt . condition stable
[2020-05-14 23:27] LABS: Glucose Point of Care 203 (65-105)
[2020-05-15 04:35] VITALS: BP 144/56; PULSE 62; RESP 17; TEMP 36.8; O2SAT 97
[2020-05-15] MEDS: LEVOTHYROXINE SODIUM 75 MCG TABLET PO (05:43)
[2020-05-15 07:52] LABS: Glucose Point of Care 65 (65-105)
[2020-05-15 08:46] LABS: Glucose Point of Care 164 (65-105)
[2020-05-15] MEDS: ISOSORBIDE MONONITRATE 30 MG TAB.ER.24H PO (10:32)
[2020-05-15] MEDS: ROSUVASTATIN 10 MG TABLET 20 MG PO (10:32)
[2020-05-15] MEDS: ASPIRIN 81 MG ENTERIC TABLET PO (10:32)
[2020-05-15] MEDS: CLOPIDOGREL BISULFATE 75 MG TABLET PO (10:32)
[2020-05-15] MEDS: PANTOPRAZOLE 40 MG TABLET PO (10:32)
[2020-05-15 10:33] VITALS: PULSE 66
[2020-05-15] MEDS: ENOXAPARIN 80 MG/0.8 ML SYRINGE 75 MG SUB-Q (10:33)
[2020-05-15] MEDS: METOPROLOL SUCCINATE EXT REL 100 MG TABCR PO (10:33)
[2020-05-15 11:25] LABS: Glucose Point of Care 158 (65-105)
[2020-05-15] MEDS: INSULIN ASPART (*BKC) 100 UNITS/ML SUB-Q (12:38)
--- NOTE | 2020-05-15 14:53 | PM.DS ---
DS: Admitting Diagnosis Admitting Diagnosis Admitting Diagnosis: Altered mental status DS: Discharge Diagnosis Discharge Diagnosis (1) Non-ST elevation myocardial infarction (NSTEMI): Code(s): I21.4 - Non-ST elevation (NSTEMI) myocardial infarction Status: Acute (2) Episode of generalized weakness: Code(s): R53.1 - Weakness Status: Acute (3) Chronic kidney disease: Qualifiers: Chronic kidney disease stage: stage 3 (moderate) Chronic kidney disease stage 3 subtype: stage 3a (GFR 45-59) Qualified Code(s): N18.31 - Chronic kidney disease, stage 3a Code(s): N18.9 - Chronic kidney disease, unspecified Status: Chronic (4) Type II diabetes mellitus: Qualifiers: Diabetes mellitus watcher automat long goods insulin use: with watcher automat long [employer] use Diabetes mellitus complication status: with neurologic complications Diabetes mellitus complication detail: with polyneuropathy Qualified Code(s): E11.42 - Type 2 diabetes mellitus with diabetic polyneuropathy; Z79.4 - [facility] (current) use of insulin Code(s): E11.9 - Type 2 diabetes mellitus without complications Status: Chronic (5) Aortic stenosis: Qualifiers: Cardiac valve disease etiology: etiology unspecified Qualified Code(s): I35.0 - Nonrheumatic aortic (valve) stenosis Code(s): I35.0 - Nonrheumatic aortic (valve) stenosis Status: Acute (6) Vision disturbance: Code(s): H53.9 - Unspecified visual disturbance Status: Acute DS: Summary Hospital Course Reason for hospitalization: 84yo female with known CAD here for seizure like episode and altered mental state. Please see H&P for details. Hospital Course: Patient had a brain CT which showed no acute findings. Carotid ultrasound showed less than 50% stenosis in the bilateral internal carotid arteries. White count is up slightly but repeat normalized. Echocardiogram showing EF of 65-70% with grade 1 diastolic dysfunction and moderate aortic stenosis. Cardiology and Neurology were consulted. Urine culture was negative. Chest x-ray was clear. Creatinine was 1.4 and stable. This is her baseline. EKG showed borderline ST abnormalities in the high lateral leads. Troponin climbed to 2.26. Cardiology did feel further evaluation required at this time; medications adjustment. MRI unable to be performed since we did not know if her stents were MRI-compatible. Patient worked with PT/OT and did well with walking in hallway. She was able to be discharged home today. Status at Discharge Cognitive/behavioral status at discharge: stable Time Spent with Patient Time attestation: Total time spent providing and/or coordinating discharge services:40 minutes Time spent: Greater than 30 minutes Specific discharge activities: Discussed with dtr with patient permission Exam Narrative: Exam Narrative: AF 98.3 144/56 66 17 97% ra Gen - NARD Chest - CTA bilaterally, nml RR CV - RRR S1/S2 with 2/6 systolic murmur RUSB Abd - Soft, NT/ND, Positive BS Ext - pitting and nonpitting pedal edema Psych - Nml mood and affect Skin - Warm and dry DS: Data Data Completed and Pending Labs on day of discharge: Labs from last 24 hours 05/15/20 05/15/20 05/15/20 11:23 08:44 07:49 POC Capillary Glucose 158 H 164 H 65 05/14/20 05/14/20 20:11 16:42 POC Capillary Glucose 203 H 190 H Discharge Plan Discharge Attending physician on discharge: Efren Reed Consulting providers: Luis Gonzalez ; Morgan Haley Discharging Clinician: Efren Reed Anticipated Discharge Date/Time: 05/15/20 15:06 Patient Disposition: Home, Self-Care Activity: as tolerated Diet: diabetic Discharge Instructions: Please avoid large gathering, wear face coverings in public and practice social distance. Please check glucose before meals and before bed. Record and bring into your doctor for review. Check blood pressure 1 to 2 times a
== END 2020-05-15 16:55 | disposition home or self-care (01) | DRG 282 ==
LOC: ANHED 03:22 → ANHIMU 05:54 → ANH3MED 05-14 20:59 → ANHIMU 05-16 13:04
PROVIDERS: Internal Medicine; Admitting Provider Family Medicine; Emergency Provider Emergency Medicine; PCP Nurse Practitioner Adult Health; Visit Provider Family Medicine
DX: I21.4 Non-ST elevation (NSTEMI) myocardial infarction (principal); N18.31 Chronic kidney disease, stage 3a; I35.0 Nonrheumatic aortic (valve) stenosis; E11.42 Type 2 diabetes mellitus with diabetic polyneuropathy; E11.29 Type 2 diabetes mellitus with other diabetic kidney complication; I25.10 Atherosclerotic heart disease of native coronary artery without angina pectoris; D63.1 Anemia in chronic kidney disease; E03.9 Hypothyroidism, unspecified; K21.9 Gastro-esophageal reflux disease without esophagitis; E78.5 Hyperlipidemia, unspecified; I95.1 Orthostatic hypotension; M85.80 Other specified disorders of bone density and structure, unspecified site; J44.9 Chronic obstructive pulmonary disease, unspecified; R47.81 Slurred speech; H53.9 Unspecified visual disturbance; Z96.641 Presence of right artificial hip joint; Z86.718 Personal history of other venous thrombosis and embolism; Z79.4 Long term (current) use of insulin; Z95.820 Peripheral vascular angioplasty status with implants and grafts; I25.2 Old myocardial infarction; Z90.49 Acquired absence of other specified parts of digestive tract; Z90.710 Acquired absence of both cervix and uterus; Z95.1 Presence of aortocoronary bypass graft
CPT/HCPCS: 36415; 70450; 71045; 80048; 80053; 81001; 82948; 83605; 84484; 85025; 85027; 87086; 87088; 93005; 93306; 93880; 94640; 97161; 97165; 99285; A9270; G0378; J1650; J1815

== ENCOUNTER 2020-08-19 10:12 | Emergency (ER) | payer MEDICARE, SELFPAY ==
--- NOTE | ~2020-08-19 | XR_ITS ---
EXAMINATION: XR chest 2V DATE: 08/19/2020 10:46 INDICATION: Chest pain TECHNIQUE: AP and lateral views of the chest are obtained. COMPARISON: 05/11/2020 FINDINGS: The lungs are free of acute opacities. There is no pleural effusion or pneumothorax. There is a moderate-sized hiatal hernia. Median sternotomy wires and mediastinal surgical clips are seen, l ikely from prior coronary artery bypass grafting. The heart size is normal. There is moderate thoraci c spondylosis. IMPRESSION: 1. No acute cardiopulmonary abnormality. Reviewed, dictated and finalized at location A.
[2020-08-19 10:16] VITALS: BP 177/76; PULSE 58; RESP 16; TEMP 36.8; O2SAT 98
--- NOTE | 2020-08-19 10:16 | ECG_ITS ---
Measurements Intervals [place] Rate: 54 P: 35 GA: 155 QRS: 31 QRSD: 102 T: 33 QT: 443 QTc: 422 Interpretive Statements SINUS BRADYCARDIA BASELINE ARTIFACT- II, III, AVR, AVF, V1-V6 BORDERLINE ECG Electronically Signed On 08-19-2020 12:25:37 CDT by Sathya Cohen D.O.
[2020-08-19 10:20] VITALS: PULSE 56
[2020-08-19 10:49] LABS: Basophils Percent Auto 0.4 % (0.2-1.2); Eosinophils Absolute Auto 0.1 K/mm3 (0-0.3); Hematocrit 42.6 % (37.0-47.0); Hemoglobin 13.1 g/dL (12.0-15.0); Immature Granulocyte Absolute 0.05 K/mm3 (0.00-0.031); Immature Granulocyte Percent A 0.5 % (0-0.5); Lymphocytes Absolute Auto 2.39 K/mm3 (0.9-3.2); Lymphocytes Percent Auto 25.7 % (18.3-44.2); Mean Corpuscular HGB Conc 30.8 g/dl (32-36); Mean Corpuscular Hemoglobin 28.9 pg (26-34); Monocytes Absolute Auto 0.7 K/mm3 (0.1-0.6); Monocytes Percent Auto 7.2 % (2.6-8.5); Neutrophils Absolute Auto 6.1 K/mm3 (1.3-6.7); Neutrophils Percent Auto 65.2 % (45.5-73.1); Platelet Count Result 358 k/mm3 (150-375); Red Blood Count 4.53 M/mm3 (4.2-5.4); White Blood Count 9.3 K/mm3 (4.5-10.0)
[2020-08-19 10:59] LABS: INR 0.9
[2020-08-19 11:00] LABS: Partial Thromboplastin Time 24.9 SECONDS (22.3-36.8)
[2020-08-19 11:02] LABS: Anion Gap 8 mmol/L (8-16); Blood Urea Nitrogen 29 mg/dL (7-17); Calcium 9.2 mg/dL (8.4-10.2); Carbon Dioxide 29 mmol/L (22-30); Chloride 101 mmol/L (98-107); Estimated CRCL calculation 25 ml/min; Estimated Glomerular Filt Rate 33; Glucose 177 mg/dL (65-105); Potassium 4.4 mmol/L (3.4-5.0); Sodium 138 mmol/L (137-145)
[2020-08-19 11:12] LABS: Troponin I < 0.012 ng/mL (0.000-0.034)
[2020-08-19] MEDS: ASPIRIN 81 MG CHEWABLE TABLET 324 MG PO (11:49)
--- NOTE | 2020-08-19 13:50 | ED.CHESTPAIN ---
HPI - Chest Pain General Chief Complaint: Chest Pain Stated Complaint: chest pain Time Seen by Provider: 08/19/20 12:13 Source: patient Limitations: no limitations History of Present Illness HPI narrative: 85-year-old female Patient states that she woke up this morning around 8:00 and coughed several times Cough is nonproductive she did not have a fever and she was not short of breath, but after coughing she had anterior chest discomfort Cough and discomfort are both markedly better now There is no diaphoresis, nausea, palpitations, leg pain, edema Related Data Home Medications Medication Instructions Recorded Confirmed Spiriva with HandiHaler 1 cap INHALATION DAILY 01/12/19 05/11/20 Tresiba FlexTouch U-200 36 unit SUBCUT HS 01/12/19 05/11/20 aspirin [Aspir-81] 81 mg PO DAILY 01/12/19 05/11/20 levothyroxine 75 mcg PO DAILY 01/12/19 05/11/20 furosemide 40 mg PO DAILY PRN 07/06/19 05/11/20 insulin lispro [Humalog KwikPen 2 unit SUBCUT QACBREAK 07/06/19 05/11/20 Insulin] nitroglycerin 0.4 mg SUBLINGUAL Q5-10M PRN 07/06/19 05/11/20 insulin lispro [Humalog KwikPen 4 unit SUBCUT DAILY 03/05/20 05/11/20 Insulin] insulin lispro [Humalog KwikPen 6 unit SUBCUT DAILY 03/05/20 05/11/20 Insulin] metoprolol succinate [Toprol XL] 100 mg PO DAILY 03/05/20 05/11/20 Allergies Allergy/AdvReac Type Severity Reaction Status Date / Time No Known Allergies Allergy Verified 08/19/20 10:21 Review of Systems Review of Systems: All systems reviewed & are unremarkable except as noted in HPI and below Constitutional: Constitutional: Reports no additional constitutional complaints, Denies chills, Denies fever(s) and Denies headache(s) Eyes: Eyes: Reports no additional eye complaints and Denies change in vision ENT: Denies headache(s) and Denies sore throat Cardiovascular: Cardiovascular: Reports chest pain, Denies rapid heart rate, Denies radiating jaw, neck or arm pain and Denies dyspnea Respiratory: Respiratory: Reports cough and Denies dyspnea Gastrointestinal: Gastrointestinal: Denies abdominal pain, Denies diarrhea and Denies vomiting Genitourinary: Genitourinary: Denies urinary frequency and Denies dysuria Musculoskeletal: Musculoskeletal: Denies deformity, Denies arthralgias, Denies joint swelling and Denies numbness Integumentary/Breasts: Skin/Breast: Denies rash and Denies wounds Neurologic: Denies headache(s), Denies focal weakness and Denies numbness Psychiatric: Psychiatric: Reports no additional psychiatric complaints Endocrine: Endocrine: Reports no additional endocrine complaints Hematologic/Lymphatic: Hematologic/Lymphatic: Reports no additional hematologic/lymphatic complaints Allergic/Immunologic: Allergic/Immunologic: Reports no additional allergic/immunologic complaints [facility] Past Medical History Medical History Acute PN (pyelonephritis) Anemia Anemia due to stage 4 chronic kidney disease Aortic stenosis Bronchitis CAD (coronary artery disease) Cataracts, bilateral Chronic back pain Complicated UTI (urinary tract infection) COPD (chronic obstructive pulmonary disease) DVT (deep venous thrombosis) Femur fracture, right GERD (gastroesophageal reflux disease) GI bleed Heart attack History of angina History of blood transfusion HTN (hypertension) Hyperlipidemia Hypothyroid Meniere disease Osteopenia Peripheral neuropathy Peripheral vascular disease of lower extremity RLE stent placement Pneumonia Rectal polyp Renal disease Seizures During [place] Type II diabetes mellitus UTI (urinary tract infection) Surgical History Surgical History H/O exploratory laparotomy 03/06/20 Exploratory laparotomy 2. Ileal resection with [id number] ileal anastomosis 3. Release of small-bowel obstruction History of appendectomy during hysterectomy History of cardiac catheterization History
[2020-08-19 14:44] LABS: Troponin I < 0.012 ng/mL (0.000-0.034)
[2020-08-19 15:25] VITALS: BP 148/57; PULSE 50; RESP 16; O2SAT 98
== END 2020-08-19 15:25 | disposition home or self-care (01) ==
PROVIDERS: Emergency Medicine; Emergency Provider Emergency Medicine; PCP Nurse Practitioner Adult Health
DX: R07.9 Chest pain, unspecified (principal); H10.409 Unspecified chronic conjunctivitis, unspecified eye; E11.51 Type 2 diabetes mellitus with diabetic peripheral angiopathy without gangrene; E11.42 Type 2 diabetes mellitus with diabetic polyneuropathy; E11.22 Type 2 diabetes mellitus with diabetic chronic kidney disease; I12.9 Hypertensive chronic kidney disease with stage 1 through stage 4 chronic kidney disease, or unspecified chronic kidney disease; N18.4 Chronic kidney disease, stage 4 (severe); D63.1 Anemia in chronic kidney disease; I35.0 Nonrheumatic aortic (valve) stenosis; I25.10 Atherosclerotic heart disease of native coronary artery without angina pectoris; K21.9 Gastro-esophageal reflux disease without esophagitis; I25.2 Old myocardial infarction; E78.5 Hyperlipidemia, unspecified; E03.9 Hypothyroidism, unspecified; H81.09 Meniere's disease, unspecified ear; M85.80 Other specified disorders of bone density and structure, unspecified site; Z86.718 Personal history of other venous thrombosis and embolism; Z79.4 Long term (current) use of insulin; Z87.19 Personal history of other diseases of the digestive system; Z87.440 Personal history of urinary (tract) infections; Z98.49 Cataract extraction status, unspecified eye; Z96.1 Presence of intraocular lens; Z95.1 Presence of aortocoronary bypass graft; Z96.641 Presence of right artificial hip joint; R00.1 Bradycardia, unspecified
CPT/HCPCS: 36415; 71046; 80048; 84484; 85025; 85610; 85730; 93005; 99284; A9270

== ENCOUNTER 2021-01-29 08:03 | Inpatient (IN) | payer MEDICARE, SELFPAY ==
[2021-01-29] VITALS (26 sets, daily range): BP systolic 124–182; BP diastolic 45–83; PULSE 65–92; RESP 15–24; TEMP 36.2; O2SAT 97–100
--- NOTE | ~2021-01-29 | XR_ITS ---
EXAMINATION: XR chest 1V EXAM DATE: 01/29/2021 08:50 INDICATION: Elevated blood sugar. TECHNIQUE: Portable AP frontal chest x-ray was obtained. Comparison is made to prior examination from 08/19/2020. FINDINGS: Sternotomy wires are present without findings to suggest sternal dehiscence. The lungs are clear. There are no pleural effusions. Cardiomediastinal silhouette is normal. There is no pneumot horax suspected. The bones and soft tissues are unremarkable. IMPRESSION: No acute cardiopulmonary findings. . Reviewed, dictated and finalized at location A. [employer]
--- NOTE | ~2021-01-29 | CT_ITS ---
EXAMINATION: CT brain wo con DATE: 01/29/2021 08:45 INDICATION: Altered mental status TECHNIQUE: Computed tomography (CT) of the head was performed without intravenous contrast. Sagittal and coronal reconstructions were performed. The mA was adjusted according to patient size. Iterative reconstruction technique was employed. The dose-length product was 605.33 mGy-cm. COMPARISON: head CT dated 05/11/2020 FINDINGS: No acute intracranial hemorrhage, acute infarction or abnormal extra axial fluid collection. There is mild scattered white matter hypoattenuation consistent with chronic small vessel ischemic disease. S ymmetric prominence of the sulci consistent with mild age-appropriate diffuse cerebral volume loss. V entricles are normal and symmetric. No mass/mass effect. Changes of bilateral intraocular lens replac ement. The orbits and mastoid air cells are normal. Mild mucosal thickening the left maxillary sinus. Intracranial calcified cerebral atherosclerosis is noted. IMPRESSION: 1. No acute intracranial process. 2. Age-related changes including mild diffuse volume loss and mild scattered white matter hypoattenua tion consistent with chronic small vessel ischemic disease. Reviewed, dictated and finalized at location A. R BISQUE KILN IMPRESSION: 1. No acute intracranial process. 2. Age-related changes including mild diffuse volume loss and mild scattered wh ite matter hypoattenuation consistent with chronic small vessel ischemic diseas e.
[2021-01-29 08:28] LABS: Glucose Point of Care 108 mg/dl (65-105)
[2021-01-29 08:40] LABS: Basophils Absolute Auto 0.1 K/mm3 (0.0-0.1); Basophils Percent Auto 0.3 % (0.2-1.2); Eosinophils Absolute Auto 0.1 K/mm3 (0-0.3); Eosinophils Percent Auto 0.8 % (0-4.4); Hematocrit 44.5 % (37.0-47.0); Hemoglobin 14.1 g/dL (12.0-15.0); Immature Granulocyte Absolute 0.11 K/mm3 (0.00-0.031); Immature Granulocyte Percent A 0.7 % (0-0.5); Lymphocytes Absolute Auto 2.57 K/mm3 (0.9-3.2); Lymphocytes Percent Auto 16.6 % (18.3-44.2); Mean Corpuscular HGB Conc 31.7 g/dl (32-36); Mean Corpuscular Hemoglobin 30.7 pg (26-34); Mean Corpuscular Volume 96.9 fl (80-100); Monocytes Absolute Auto 1.1 K/mm3 (0.1-0.6); Neutrophils Absolute Auto 11.5 K/mm3 (1.3-6.7); Neutrophils Percent Auto 74.6 % (45.5-73.1); Platelet Count Result 326 k/mm3 (150-375); Red Blood Count 4.59 M/mm3 (4.2-5.4); Red Cell Distribution Width 13.6 % (11.5-14.5); White Blood Count 15.5 K/mm3 (4.5-10.0)
[2021-01-29 08:50] LABS: Alanine Aminotransferase 29 U/L (4-35); Albumin Level 4.1 g/dL (3.5-5.1); Alkaline Phosphatase 99 U/L (38-126); Anion Gap 15 mmol/L (8-16); Aspartate Amino Transferase 35 U/L (14-36); Bilirubin,Total 0.4 mg/dL (0.2-1.3); Blood Urea Nitrogen 38 mg/dL (7-17); Calcium 9.5 mg/dL (8.4-10.2); Carbon Dioxide 24 mmol/L (22-30); Chloride 101 mmol/L (98-107); Estimated CRCL calculation 19 ml/min; Estimated Glomerular Filt Rate 24; Glucose 136 mg/dL (65-110); Potassium 4.1 mmol/L (3.4-5.0); Sodium 140 mmol/L (137-145)
--- NOTE | 2021-01-29 08:59 | ED.GENADULT ---
HPI - General Adult General Chief complaint: Recheck/Abnormal Lab/Rx <Lizzeth Cristina MD - Last Filed: 02/03/21 12:14> Stated complaint: Elevated Blood Sugar <Lizzeth Cristina MD - Last Filed: 02/03/21 12:14> Time Seen by Provider: 01/29/21 08:21 <Lizzeth Cristina MD - Last Filed: 02/03/21 12:14> Source: patient and family <Lizzeth Cristina MD - Last Filed: 02/03/21 12:14> History of Present Illness HPI narrative: Patient is an 85 y/o female brought in by family for altered mental status. Daughter states that patient was eating yogurt with her finger this morning even though a spoon is right in front of her. They tried to check her blood sugar, but the meter was not work. She reports that her blood sugar was in 400s last night. She has no headache, focal weakness or numbness. <Lizzeth Cristina MD - Last Filed: 02/03/21 12:14> Related Data Home medications: Home Medications Medication Instructions Recorded Confirmed Spiriva with HandiHaler 1 cap INHALATION DAILY 01/12/19 01/30/21 Tresiba FlexTouch U-200 36 unit SUBCUT HS 01/12/19 01/30/21 aspirin [Aspir-81] 81 mg PO DAILY 01/12/19 01/30/21 furosemide 40 mg PO DAILY PRN 07/06/19 01/30/21 nitroglycerin 0.4 mg SUBLINGUAL Q5-10M PRN 07/06/19 01/30/21 insulin lispro [Humalog KwikPen See Rx Instructions .ROUTE .COMPLEX 03/05/20 01/30/21 Insulin] metoprolol succinate [Toprol XL] 100 mg PO DAILY 03/05/20 01/30/21 albuterol sulfate 2 puff INHALATION Q6H PRN 01/30/21 01/30/21 levothyroxine 75 mcg PO DAILY 01/30/21 01/30/21 <Lizzeth Cristina MD - Last Filed: 02/03/21 12:14> Allergies/adverse reactions: Allergies Allergy/AdvReac Type Severity Reaction Status Date / Time No Known Allergies Allergy Verified 01/30/21 22:24 <Lizzeth Cristina MD - Last Filed: 02/03/21 12:14> Review of Systems Constitutional: Constitutional: Denies chills, Denies fever(s), Denies headache(s) and Denies weakness <Lizzeth Cristina MD - Last Filed: 02/03/21 12:14> Eyes: Eyes: Denies blurry vision <Lizzeth Cristina MD - Last Filed: 02/03/21 12:14> ENT: Denies headache(s) and Denies neck pain <Lizzeth Cristina MD - Last Filed: 02/03/21 12:14> Cardiovascular: Cardiovascular: Reports chest pain and Denies dyspnea <Lizzeth Cristina MD - Last Filed: 02/03/21 12:14> Respiratory: Respiratory: Denies cough and Denies dyspnea <Lizzeth Cristina MD - Last Filed: 02/03/21 12:14> Gastrointestinal: Gastrointestinal: Denies abdominal pain, Denies diarrhea, Denies nausea and Denies vomiting <Lizzeth Cristina MD - Last Filed: 02/03/21 12:14> Genitourinary: Genitourinary: Denies hematuria and Denies dysuria <Lizzeth Cristina MD - Last Filed: 02/03/21 12:14> Musculoskeletal: Musculoskeletal: Denies back pain and Denies neck pain <Lizzeth Cristina MD - Last Filed: 02/03/21 12:14> Neurologic: Reports confusion, Denies headache(s) and Denies weakness <Lizzeth Cristina MD - Last Filed: 02/03/21 12:14> [facility] Past Medical History Medical History: Medical History Acute PN (pyelonephritis) Anemia Anemia due to stage 4 chronic kidney disease Aortic stenosis Bronchitis CAD (coronary artery disease) Cataracts, bilateral Chronic back pain Complicated UTI (urinary tract infection) COPD (chronic obstructive pulmonary disease) DVT (deep venous thrombosis) Femur fracture, right GERD (gastroesophageal reflux disease) GI bleed Heart attack History of angina History of blood transfusion HTN (hypertension) Hyperlipidemia Hypothyroid Meniere disease Osteopenia Peripheral neuropathy Peripheral vascular disease of lower extremity RLE stent placement Pneumonia Rectal polyp Renal disease Seizures During [place] Type II diabetes mellitus UTI (urinary tract infection) <Lizzeth Cristina MD - Last Filed: 02/03/21 12:14> Surgical History Surgical History: Surgical History H/O exploratory la
[2021-01-29 10:40] LABS: Add Urine Microscopic? YES; Appearance Urine Cloudy (Clear); Bacteria Urine 2+ /hpf; Bilirubin Urine Negative (Negative); Blood Urine 1+ (Negative); Color Urine Yellow (Yellow); Glucose Urine UA Negative (Negative); Ketones Urine Negative (Negative); Leukocyte Esterase Ur 3+ LEU/UL (Negative); Mucus Urine Rare /lpf; Nitrate Urine Negative (Negative); Protein Urine 2+ mg/dL (Negative); Specific Grav Ur 1.015 (1.001-1.035); Squamous Epithelial Cell Urine Many /hpf (Few); WBC Clumps Urine Present /HPF; WBC Urine >75 /hpf
[2021-01-29 13:43] LABS: Troponin I 0.019 ng/mL (0.000-0.034)
--- NOTE | 2021-01-29 15:47 | PC.NURSE ---
Unable to get sufficient quanity for 3 hour trop. called and left message with phlebotomy to attempt draw
[2021-01-29 17:35] LABS: Troponin I 0.025 ng/mL (0.000-0.034)
[2021-01-29] MEDS: LACTATED RINGERS 1,000 ML 200 ML IV CONT (17:39)
--- NOTE | 2021-01-29 17:42 | ECG_ITS ---
Measurements Intervals [place] Rate: 76 P: 33 [place]: 171 QRS: 23 QRSD: 88 T: 49 QT: 389 QTc: 440 Interpretive Statements SINUS RHYTHM BASELINE ARTIFACT- I, II, III, AVL, AVF, V1-V6 BORDERLINE ECG Electronically Signed On 01-30-2021 6:26:44 [employer] by Sathya Cohen D.O.
--- NOTE | 2021-01-29 19:28 | PM.IMHP ---
H&P: HPI History of Present Illness Date/Time: 01/29/21 19:28 Chief Complaint: Altered mental status Narrative: Patient is an 85 y/o female brought in by family for altered mental status. Daughter states that patient was eating yogurt with her finger this morning even though a spoon is right in front of her. They tried to check her blood sugar, but the meter was not work. She reports that her blood sugar was in 400s last night. She has no headache, focal weakness or numbness. She was noted to have DAMIEN and urinary tract infection. By the time she was in the ER she was back to her baseline. She is admitted for further evaluation and management. She also reports that she had a little chest discomfort earlier in the ER/about 45 minutes. She does have coronary artery disease and gets chest pain on and chronically. She also thinks she might have not on those chest pain related to her shortness of breath coming from her COPD Review of Systems Review of Systems: - CONSTITUTIONAL: Denies weight loss, fever and chills. - HEENT: Denies changes in vision and hearing - RESPIRATORY: Denies SOB and cough. - CV: Denies palpitations and reports CP. - GI: Denies abdominal pain, nausea, vomiting and diarrhea. - : Reports dysuria and urinary frequency since past few days. - MSK: Denies myalgia and joint pain. - SKIN: Denies rash and pruritus. - NEUROLOGICAL: Denies headache and syncope. - PSYCHIATRIC: Denies recent changes in mood. Denies anxiety and depression. All systems reviewed & are unremarkable except as noted in HPI and below Constitutional: Constitutional: Reports fatigue and Reports weakness Neurologic: Reports weakness Endocrine: Endocrine: Reports fatigue [facility] Past Medical History Medical History Acute PN (pyelonephritis) Anemia Anemia due to stage 4 chronic kidney disease Aortic stenosis Bronchitis CAD (coronary artery disease) Cataracts, bilateral Chronic back pain Complicated UTI (urinary tract infection) COPD (chronic obstructive pulmonary disease) DVT (deep venous thrombosis) Femur fracture, right GERD (gastroesophageal reflux disease) GI bleed Heart attack History of angina History of blood transfusion HTN (hypertension) Hyperlipidemia Hypothyroid Meniere disease Osteopenia Peripheral neuropathy Peripheral vascular disease of lower extremity RLE stent placement Pneumonia Rectal polyp Renal disease Seizures During [place] Type II diabetes mellitus UTI (urinary tract infection) Surgical History Surgical History H/O exploratory laparotomy 03/06/20 Exploratory laparotomy 2. Ileal resection with [id number] ileal anastomosis 3. Release of small-bowel obstruction History of appendectomy during hysterectomy History of cardiac catheterization History of cataract removal with insertion of prosthetic lens History of cholecystectomy during hysterectomy History of hysterectomy Open JALYN-BSO with cholecystectomy and appendectomy History of total right hip arthroplasty Hx of blepharoplasty Hx of CABG Family History Family History Father Hypertension Pneumonia Smoking Mother Diabetes mellitus Family history of glaucoma Cancer Hypotension Cerebrovascular accident Sibling Diabetes mellitus Heart disease Sibling Diabetes mellitus Heart disease Sibling Diabetes mellitus Heart disease Sibling Diabetes mellitus Heart disease Sibling Suicide and self-inflicted injury Sibling Accidental , public place Daughter Breast cancer Social History Social History Social History: Lives at home with her daughter Shyla, who is also her healthcare power of tap puller. Smoking status: Never smoker Second hand tobacco smoke exposure: Yes Alcohol intake: never Substance
[2021-01-29 21:03] LABS: Troponin I 0.028 ng/mL (0.000-0.034)
[2021-01-29 22:55] LABS: Glucose Point of Care 315 mg/dl (65-105)
[2021-01-30] VITALS (12 sets, daily range): BP systolic 121–188; BP diastolic 43–73; PULSE 60–83; RESP 16–22; TEMP 36.1–37.2; O2SAT 97–100
[2021-01-30] MEDS: SODIUM CHLORIDE 0.9% IV 1,000 ML 100 ML IV CONT ×2 (04:12→17:55)
[2021-01-30 10:51] LABS: Glucose Point of Care 253 mg/dl (65-105)
--- NOTE | 2021-01-30 11:13 | PM.IMPN ---
Progress Note: A&P Assessment and Plan (1) Altered mental status: Qualifiers: Altered mental status type: disorientation Qualified Code(s): R41.0 - Disorientation, unspecified Code(s): R41.82 - Altered mental status, unspecified Status: Acute Assessment and Plan: most likely related to acute metabolic encephalopathy most likely related to GI patient is alert oriented x3 (2) Urinary tract infection: Qualifiers: Hematuria presence: with hematuria Urinary tract infection type: acute cystitis Qualified Code(s): N30.01 - Acute cystitis with hematuria Code(s): N39.0 - Urinary tract infection, site not specified Status: Acute Assessment and Plan: pending culture continue Rocephin (3) Chest pain at rest: Code(s): R07.9 - Chest pain, unspecified Status: Acute Assessment and Plan: probably related to stable angina patient has history of severe coronary artery disease not amenable to procedure continue to monitor continue medical management (4) Diabetes mellitus with hyperglycemia: Qualifiers: Diabetes mellitus type: type 2 Diabetes mellitus residential insulin use: with terminal computer operator use Qualified Code(s): E11.65 - Type 2 diabetes mellitus with hyperglycemia; 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 Code(s): E11.65 - Type 2 diabetes mellitus with hyperglycemia Status: Chronic Assessment and Plan: insulin sliding scale resume home medication (5) DAMIEN (acute kidney injury): Code(s): N17.9 - Acute kidney failure, unspecified Status: Acute Assessment and Plan: most likely related to dehydration continue IV fluid Subjective Date/time seen: 01/30/21 11:13 Interval history: Patient seen and examined Patient feels better today she is complaining of back pain patient was found to have UTI currently on antibiotics Patient denies fever headache chest pain shortness of breath I am seeing the patient for UTI Exam Narrative: Alert oriented x3 Chest no wheeze crackles Abdomen nontender nondistended CVS S1 + S2 Lower extremity edema Objective Data Vital Signs Vital Signs: Vital Signs - 24 hr 01/29/21 11:31 01/29/21 12:01 01/29/21 13:01 Pulse Rate 68 65 65 Respiratory Rate 21 H 17 15 Blood Pressure 152/68 H 152/69 H 165/78 H Pulse Oximetry 98 97 100 01/29/21 14:16 01/29/21 15:31 01/29/21 15:32 Pulse Rate 70 66 67 Respiratory Rate 19 21 H 19 Blood Pressure 133/69 144/83 H Pulse Oximetry 100 100 100 01/29/21 17:01 01/29/21 17:38 01/29/21 17:39 Pulse Rate 67 71 74 Respiratory Rate 20 19 24 H Blood Pressure 158/45 H 135/74 135/54 L Pulse Oximetry 100 99 100 01/29/21 19:02 01/29/21 19:15 01/29/21 19:16 Pulse Rate 82 81 79 Respiratory Rate 22 H 18 18 Blood Pressure 182/56 H Pulse Oximetry 100 01/29/21 19:30 01/29/21 19:31 01/29/21 19:51 Pulse Rate 78 80 83 Respiratory Rate 18 20 16 Blood Pressure 144/57 H Pulse Oximetry 98 99 01/29/21 20:01 01/29/21 20:15 01/29/21 20:32 Pulse Rate 92 82 80 Respiratory Rate 20 18 20 Blood Pressure Pulse Oximetry 01/29/21 20:54 01/29/21 21:00 01/29/21 21:17 Pulse Rate 78 76 74 Respiratory Rate 20 18 16 Blood Pressure Pulse Oximetry 01/29/21 21:30 01/29/21 22:51 01/30/21 03:01 Pulse Rate 72 79 67 Respiratory Rate 16 18 18 Blood Pressure 176/76 H 154/61 H Pulse Oximetry 99 01/30/21 04:13 01/30/21 07:17 Pulse Rate 60 67 Respiratory Rate 16 22 H Blood Pressure 121/43 L 163/70 H Pulse Oximetry 99 Intake/Output Intake/Output: Intake & Output 01/27/21 01/28/21 01/29/21 01/30/21 23:59 23:59 23:59 23:59 Intake Total 1050 Balance 1050 Meds/Results Medications: Active Medications Generic Name Dose Route Start Last Admin Trade Name Freq PRN Reason Stop Dose Admin Ceftriaxone Sodium/Dextrose 1 gm in 50 mls @ 100 mls/hr 01/30/21 18:00 Rocephin 1 Gm/D5w 50 Ml IVPB
--- NOTE | 2021-01-30 11:41 | PC.NURSE ---
ordered lunch tray for patient
[2021-01-30 18:05] LABS: Glucose Point of Care 397 mg/dl (65-105)
[2021-01-30] MEDS: INSULIN ASPART (*BKC) 100 UNITS/ML SUB-Q (18:07)
--- NOTE | 2021-01-30 18:20 | ADMGEN ---
This patient, Anuradha Spaulding, was admitted to Medical Room 243-01. Patient/family oriented to hospital policies and general routines including ID bracelet, bed and alarms, visiting hours, pain management, procedures, bathroom and other care routines, personal items, smoking policy, room service/diet, and visiting hours. Information on how to activate the Rapid Response Team has been discussed. Patient/Family are encouraged to report perceived risks to care and to ask questions if they do not understand what they are told or what they should do.
[2021-01-30] MEDS: INSULIN ASPART (*BKC) 100 UNITS/ML 6 UNITS SUB-Q (18:38)
[2021-01-30] MEDS: METOPROLOL SUCCINATE EXT REL 100 MG TABCR PO (18:39)
[2021-01-30] MEDS: INSULIN GLARGINE (LANTUS) 1,000 UNITS/10 ML VIAL 28 UNITS SUB-Q (21:31)
[2021-01-30 21:39] LABS: Glucose Point of Care 267 mg/dl (65-105)
[2021-01-31] VITALS (8 sets, daily range): BP systolic 118–155; BP diastolic 46–65; PULSE 49–67; RESP 16–21; TEMP 36.3–36.9; O2SAT 97–100
[2021-01-31] MEDS: SODIUM CHLORIDE 0.9% IV 1,000 ML 100 ML IV CONT (04:23)
[2021-01-31 06:17] LABS: Basophils Percent Auto 0.5 % (0.2-1.2); Eosinophils Absolute Auto 0.2 K/mm3 (0-0.3); Eosinophils Percent Auto 1.7 % (0-4.4); Hematocrit 34.8 % (37.0-47.0); Immature Granulocyte Absolute 0.05 K/mm3 (0.00-0.031); Immature Granulocyte Percent A 0.6 % (0-0.5); Lymphocytes Absolute Auto 2.85 K/mm3 (0.9-3.2); Lymphocytes Percent Auto 32.7 % (18.3-44.2); Mean Corpuscular HGB Conc 31.6 g/dl (32-36); Mean Corpuscular Hemoglobin 31.3 pg (26-34); Mean Corpuscular Volume 98.9 fl (80-100); Mean Platelet Volume 10.5 fl (7.4-10.4); Monocytes Absolute Auto 0.8 K/mm3 (0.1-0.6); Monocytes Percent Auto 8.6 % (2.6-8.5); Neutrophils Absolute Auto 4.9 K/mm3 (1.3-6.7); Neutrophils Percent Auto 55.9 % (45.5-73.1); Platelet Count Result 255 k/mm3 (150-375); Red Blood Count 3.52 M/mm3 (4.2-5.4); Red Cell Distribution Width 13.8 % (11.5-14.5); White Blood Count 8.7 K/mm3 (4.5-10.0)
[2021-01-31] MEDS: LEVOTHYROXINE SODIUM 75 MCG TABLET PO (06:25)
[2021-01-31 06:40] LABS: Alanine Aminotransferase 18 U/L (4-35); Albumin Level 3.1 g/dL (3.5-5.1); Alkaline Phosphatase 70 U/L (38-126); Anion Gap 6 mmol/L (8-16); Aspartate Amino Transferase 21 U/L (14-36); Bilirubin,Total 0.3 mg/dL (0.2-1.3); Blood Urea Nitrogen 27 mg/dL (7-17); Calcium 8.1 mg/dL (8.4-10.2); Carbon Dioxide 23 mmol/L (22-30); Chloride 104 mmol/L (98-107); Estimated CRCL calculation 23 ml/min; Estimated Glomerular Filt Rate 29; Glucose 284 mg/dL (65-110); Potassium 4.4 mmol/L (3.4-5.0); Sodium 133 mmol/L (137-145)
[2021-01-31 07:52] LABS: Glucose Point of Care 244 mg/dl (65-105)
[2021-01-31 07:53] LABS: Glucose Point of Care 247 mg/dl (65-105)
[2021-01-31] MEDS: INSULIN ASPART (*BKC) 100 UNITS/ML SUB-Q ×3 (07:59→11:48)
[2021-01-31] MEDS: ASPIRIN 81 MG ENTERIC TABLET PO (08:01)
[2021-01-31] MEDS: ENOXAPARIN 40 MG/0.4 ML SYRINGE SUB-Q (08:01)
[2021-01-31] MEDS: ISOSORBIDE MONONITRATE 30 MG TAB.ER.24H PO (08:02)
[2021-01-31] MEDS: PANTOPRAZOLE 40 MG TABLET PO (08:02)
[2021-01-31] MEDS: ROSUVASTATIN 10 MG TABLET 20 MG PO (08:02)
--- NOTE | 2021-01-31 09:59 | PM.IMPN ---
Progress Note: A&P Assessment and Plan (1) Altered mental status: Qualifiers: Altered mental status type: disorientation Qualified Code(s): R41.0 - Disorientation, unspecified Code(s): R41.82 - Altered mental status, unspecified Status: Acute Assessment and Plan: most likely related to acute metabolic encephalopathy most likely related to UTI and dehydration patient is alert oriented x3 continue antibiotic continue IV fluid (2) Urinary tract infection: Qualifiers: Hematuria presence: with hematuria Urinary tract infection type: acute cystitis Qualified Code(s): N30.01 - Acute cystitis with hematuria Code(s): N39.0 - Urinary tract infection, site not specified Status: Acute Assessment and Plan: pending culture continue Rocephin (3) Chest pain at rest: Code(s): R07.9 - Chest pain, unspecified Status: Acute Assessment and Plan: probably related to stable angina patient has history of severe coronary artery disease not amenable to procedure continue to monitor continue medical management (4) Diabetes mellitus with hyperglycemia: Qualifiers: Diabetes mellitus type: type 2 Diabetes mellitus care home insulin use: with care home use Qualified Code(s): E11.65 - Type 2 diabetes mellitus with hyperglycemia; Z79.4 - halfway (current) use of insulin Code(s): E11.65 - Type 2 diabetes mellitus with hyperglycemia Status: Chronic Assessment and Plan: insulin sliding scale resume home medication (5) DAMIEN (acute kidney injury): Code(s): N17.9 - Acute kidney failure, unspecified Status: Acute Assessment and Plan: most likely related to dehydration continue IV fluid Subjective Date/time seen: 01/31/21 09:59 Interval history: Patient seen and examined Patient feels better today abdominal pain has improved mental status has significantly improved patient was found to have UTI acute on top of chronic renal failure and dehydration treated with IV fluid IV antibiotics Patient denies fever headache chest pain I am seeing the patient for altered mental status Exam Narrative: Alert Chest decreased air entry bilateral Abdomen nontender nondistended CVS S1 + S2 Lower extremity positive edema Objective Data Vital Signs Vital Signs: Vital Signs - 24 hr 01/30/21 15:10 01/30/21 17:44 01/30/21 18:13 Temperature 98.9 F Pulse Rate 83 75 80 Respiratory Rate 20 18 Blood Pressure 183/73 H 188/70 H 179/66 H Pulse Oximetry 97 100 01/30/21 18:28 01/30/21 18:39 01/30/21 19:31 Temperature 97.8 F Pulse Rate 78 78 75 Respiratory Rate 17 Blood Pressure 123/56 L Pulse Oximetry 97 01/30/21 20:00 01/30/21 22:04 01/30/21 23:06 Temperature 96.9 F L Pulse Rate 65 65 63 Respiratory Rate 17 16 Blood Pressure 149/51 H Pulse Oximetry 97 97 01/31/21 00:00 01/31/21 03:16 01/31/21 04:00 Temperature 97.4 F L Pulse Rate 67 59 L 57 L Respiratory Rate 16 Blood Pressure 138/53 L Pulse Oximetry 98 01/31/21 08:00 01/31/21 09:35 Temperature 98.5 F Pulse Rate 57 L 55 L Respiratory Rate 18 Blood Pressure 133/54 L Pulse Oximetry 100 Intake/Output Intake/Output: Intake & Output 01/28/21 01/29/21 01/30/21 01/31/21 23:59 23:59 23:59 23:59 Intake Total 1050 1050 1490 Balance 1050 1050 1490 Meds/Results Medications: Active Medications Generic Name Dose Route Start Last Admin Trade Name Freq PRN Reason Stop Dose Admin Aspirin 81 mg 01/31/21 09:00 01/31/21 08:01 Aspirin 81 Mg Enteric Tablet PO 81 mg DAILY CARLINE Administration Dextrose 12.5 gm 01/30/21 11:38 Dextrose 50% 25 Gm/50 Ml Syringe IV PUSH PRN PRN Hypoglycemia Protocol Enoxaparin Sodium 40 mg 01/31/21 09:00 01/31/21 08:01 Enoxaparin 40 Mg/0.4 Ml Syringe SUB-Q 40 mg DAILY CARLINE Administration Glucagon 1 mg 01/30/21 11:38 Glucagon For Inj 1 Mg Vial IM
--- NOTE | 2021-01-31 10:48 | PC.NURSE ---
Dr Isabel Torres notified of holding am metoprolol due to he 50 sb on tele
[2021-01-31 11:21] LABS: Glucose Point of Care 332 mg/dl (65-105)
[2021-01-31] MEDS: SODIUM CHLORIDE 0.9% IV 1,000 ML 65 ML IV CONT (16:14)
[2021-01-31 16:28] LABS: Glucose Point of Care 159 mg/dl (65-105)
[2021-01-31] MEDS: INSULIN ASPART (*BKC) 100 UNITS/ML 8 UNITS SUB-Q (16:44)
[2021-01-31] MEDS: INSULIN GLARGINE (LANTUS) 1,000 UNITS/10 ML VIAL 28 UNITS SUB-Q (20:40)
[2021-01-31 21:01] LABS: Glucose Point of Care 202 mg/dl (65-105)
[2021-02-01] VITALS: BP 146/50; PULSE 52; PULSE 55; RESP 18; TEMP 36.3; O2SAT 96
[2021-02-01 04:00] VITALS: BP 142/50; PULSE 53; PULSE 55; RESP 18; TEMP 36.3; O2SAT 97
[2021-02-01 05:58] LABS: Basophils Percent Auto 0.4 % (0.2-1.2); Eosinophils Absolute Auto 0.2 K/mm3 (0-0.3); Eosinophils Percent Auto 1.7 % (0-4.4); Hemoglobin 10.7 g/dL (12.0-15.0); Immature Granulocyte Absolute 0.04 K/mm3 (0.00-0.031); Immature Granulocyte Percent A 0.4 % (0-0.5); Lymphocytes Percent Auto 31.4 % (18.3-44.2); Mean Corpuscular HGB Conc 31.5 g/dl (32-36); Mean Corpuscular Hemoglobin 31.1 pg (26-34); Mean Corpuscular Volume 98.8 fl (80-100); Mean Platelet Volume 10.2 fl (7.4-10.4); Monocytes Absolute Auto 0.7 K/mm3 (0.1-0.6); Monocytes Percent Auto 7.6 % (2.6-8.5); Neutrophils Absolute Auto 5.2 K/mm3 (1.3-6.7); Neutrophils Percent Auto 58.5 % (45.5-73.1); Platelet Count Result 264 k/mm3 (150-375); Red Blood Count 3.44 M/mm3 (4.2-5.4); Red Cell Distribution Width 13.8 % (11.5-14.5); White Blood Count 8.9 K/mm3 (4.5-10.0)
[2021-02-01] MEDS: LEVOTHYROXINE SODIUM 75 MCG TABLET PO (06:07)
[2021-02-01 06:09] LABS: Alanine Aminotransferase 17 U/L (4-35); Alkaline Phosphatase 63 U/L (38-126); Anion Gap 6 mmol/L (8-16); Aspartate Amino Transferase 22 U/L (14-36); Bilirubin,Total 0.3 mg/dL (0.2-1.3); Blood Urea Nitrogen 25 mg/dL (7-17); Calcium 8.3 mg/dL (8.4-10.2); Carbon Dioxide 22 mmol/L (22-30); Chloride 109 mmol/L (98-107); Estimated CRCL calculation 24 ml/min; Estimated Glomerular Filt Rate 31; Glucose 194 mg/dL (65-110); Potassium 4.3 mmol/L (3.4-5.0); Sodium 137 mmol/L (137-145)
[2021-02-01 07:55] LABS: Glucose Point of Care 172 mg/dl (65-105)
[2021-02-01 08:00] VITALS: BP 152/57; PULSE 59; PULSE 63; RESP 18; TEMP 36.3; O2SAT 97
[2021-02-01] MEDS: INSULIN ASPART (*BKC) 100 UNITS/ML 6 UNITS SUB-Q (08:11)
[2021-02-01] MEDS: SODIUM CHLORIDE 0.9% IV 1,000 ML 65 ML IV CONT (08:15)
[2021-02-01] MEDS: PANTOPRAZOLE 40 MG TABLET PO (08:36)
[2021-02-01] MEDS: ASPIRIN 81 MG ENTERIC TABLET PO (08:36)
[2021-02-01] MEDS: ROSUVASTATIN 10 MG TABLET 20 MG PO (08:36)
[2021-02-01] MEDS: ENOXAPARIN 40 MG/0.4 ML SYRINGE SUB-Q (08:36)
[2021-02-01] MEDS: ISOSORBIDE MONONITRATE 30 MG TAB.ER.24H PO (08:36)
[2021-02-01 08:37] VITALS: PULSE 60; RESP 16; O2SAT 98
[2021-02-01] MEDS: METOPROLOL SUCCINATE EXT REL 100 MG TABCR PO (08:37)
[2021-02-01 11:50] LABS: Glucose Point of Care 152 mg/dl (65-105)
[2021-02-01 12:00] VITALS: BP 137/60; PULSE 51; PULSE 53; RESP 16; TEMP 36.3; O2SAT 98
[2021-02-01] MEDS: INSULIN ASPART (*BKC) 100 UNITS/ML SUB-Q (12:08)
--- NOTE | 2021-02-01 13:59 | PM.DS ---
DS: Admitting Diagnosis Discharge Date 02/01/2021 Admitting Diagnosis confusion DS: Discharge Diagnosis Discharge Diagnosis (1) Altered mental status: Qualifiers: Altered mental status type: disorientation Qualified Code(s): R41.0 - Disorientation, unspecified Code(s): R41.82 - Altered mental status, unspecified Status: Acute Assessment and Plan: most likely related to acute metabolic encephalopathy most likely related to UTI and dehydration patient is alert oriented x3 continue antibiotic continue IV fluid UTI urine culture with E coli pansensitive will change to cefdinir she was receiving ceftriaxone here in the hospital (2) Urinary tract infection: Qualifiers: Hematuria presence: with hematuria Urinary tract infection type: acute cystitis Qualified Code(s): N30.01 - Acute cystitis with hematuria Code(s): N39.0 - Urinary tract infection, site not specified Status: Acute Assessment and Plan: urine culture pansensitive E coli Treated with Rocephin Switched to cefdinir at discharge (3) Chest pain at rest: Code(s): R07.9 - Chest pain, unspecified Status: Acute Assessment and Plan: probably related to stable angina patient has history of severe coronary artery disease not amenable to procedure continue to monitor continue medical management (4) Diabetes mellitus with hyperglycemia: Qualifiers: Diabetes mellitus type: type 2 Diabetes mellitus residential insulin use: 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 Qualified Code(s): E11.65 - Type 2 diabetes mellitus with hyperglycemia; 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9 - Chronic kidney disease, unspecified Status: Chronic Assessment and Plan: baseline creatinine 1.5 discharge creatinine 1.6 DS: Summary Hospital Course Hospital Course: see above and # Acute encephalopathy CT head with no acute intracranial process. Infectious workup with mild leukocytosis noted, UA positive for urinary tract infection. Chest x-ray is negative for any acute abnormality. Also has acute renal insufficiency superimposed on chronic renal failure. Baseline creatinine 1.5. Current creatinine of 2.Improved with IV hydration back to normal by the time of discharge # chest discomfort while in the ER. Troponins negative. Serial troponins negative. EKG with nonspecific ST-T changes has chronic history of coronary artery disease which is not amenable for further revascularization nitro p.r.n. # UTI ceftriaxone urine culture follow culture grew pansensitive E coli # DAMIEN on CKD stage 3 baseline creatinine 1.5 admission creatinine of 2 gentle IV fluids back to normal by the time of discharge # Chronic back pain # Coronary artery disease status post CABG on aspirin Plavix at home severe multivessel coronary artery disease with known disease not amenable for further revascularization as noted in previous cardiology evaluation # moderate aortic stenosis # History of DVT # History of GI bleed # Hypertension # Hyperlipidemia resume rosuvastatin # Hypothyroidism resume levothyroxine # congestive heart failure diastolic well compensated # history of small-bowel obstruction 03/2020 needing laparotomy with ileal resection with [id number] ileal anastomosis # Meniere's disease #
== END 2021-02-01 15:25 | disposition home or self-care (01) | DRG 689 ==
LOC: ANHED 17:50 → ANHIMU 20:01 → ANH2MED 01-30 22:24 → ANHIMU 02-05 08:20
PROVIDERS: Emergency Medicine; Admitting Provider Internal Medicine; Emergency Provider Emergency Medicine; PCP Nurse Practitioner Adult Health; Visit Provider Internal Medicine
DX: N30.01 Acute cystitis with hematuria (principal); G93.41 Metabolic encephalopathy; N17.9 Acute kidney failure, unspecified; I13.0 Hypertensive heart and chronic kidney disease with heart failure and stage 1 through stage 4 chronic kidney disease, or unspecified chronic kidney disease; I50.32 Chronic diastolic (congestive) heart failure; B96.20 Unspecified Escherichia coli [E. coli] as the cause of diseases classified elsewhere; E11.65 Type 2 diabetes mellitus with hyperglycemia; I25.118 Atherosclerotic heart disease of native coronary artery with other forms of angina pectoris; D63.1 Anemia in chronic kidney disease; E11.22 Type 2 diabetes mellitus with diabetic chronic kidney disease; N18.31 Chronic kidney disease, stage 3a; E11.42 Type 2 diabetes mellitus with diabetic polyneuropathy; E11.51 Type 2 diabetes mellitus with diabetic peripheral angiopathy without gangrene; M54.9 Dorsalgia, unspecified; G89.29 Other chronic pain; E86.0 Dehydration; H81.09 Meniere's disease, unspecified ear; I35.0 Nonrheumatic aortic (valve) stenosis; E03.9 Hypothyroidism, unspecified; K21.9 Gastro-esophageal reflux disease without esophagitis; E78.5 Hyperlipidemia, unspecified; I25.2 Old myocardial infarction; Z79.4 Long term (current) use of insulin; Z79.82 Long term (current) use of aspirin; Z79.899 Other long term (current) drug therapy; Z86.010 Personal history of colon polyps; Z86.718 Personal history of other venous thrombosis and embolism; Z95.1 Presence of aortocoronary bypass graft; Z96.1 Presence of intraocular lens; Z98.49 Cataract extraction status, unspecified eye
CPT/HCPCS: 36415; 70450; 71045; 80053; 81001; 82948; 84484; 85025; 87077; 87086; 87088; 87186; 93005; 96361; 96365; 99285; A9270; G0378; J0696; J1650; J1815; J7030; J7120

== ENCOUNTER 2021-06-17 08:52 | Inpatient (IN) | payer MEDICARE, SELFPAY ==
[2021-06-17] VITALS (7 sets, daily range): BP systolic 92–154; BP diastolic 46–100; PULSE 72–87; RESP 16–22; TEMP 36.9–37.1; O2SAT 94–99
--- NOTE | ~2021-06-17 | XR_ITS ---
EXAMINATION: XR ankle RT min 3V DATE: 06/20/2021 13:41 INDICATION: Right ankle pain. Fall. TECHNIQUE: 4 views of right ankle were obtained. COMPARISON: None. FINDINGS: Bone alignment is normal. No fracture. There is mild osteoarthritis of talonavicular joint. There are enthesophytes at the posterior and plantar aspects of calcaneal tuberosity. Ankle soft tis mallika swelling is noted. IMPRESSION: 1. Mild osteoarthritis of talonavicular joint. Reviewed, dictated and finalized at location B.
--- NOTE | ~2021-06-17 | CT_ITS ---
EXAMINATION: CT brain wo con DATE: 06/17/2021 10:32 INDICATION: Confusion. Weakness. Left hand numbness. TECHNIQUE: Computed tomography (CT) of the head was performed without intravenous contrast. The mA wa s adjusted according to patient size. Iterative reconstruction technique was employed. The dose-lengt h product was 605.33 mGy-cm. COMPARISON: Head CT 01/29/2021 FINDINGS: There are scattered areas of low attenuation in the cerebral white matter, which is within normal limits for the patient's age. There is no intracranial hemorrhage, acute infarction, or abnorm al intracranial mass lesion. The ventricles are normal in size. There are likely changes of ocular le ns replacement surgeries. There is mucosal thickening in the paranasal sinuses. There is a trace left mastoid effusion. IMPRESSION: 1. Normal aging brain. Reviewed, dictated and finalized at location B. IMPRESSION: 1. Normal aging brain.
--- NOTE | ~2021-06-17 | US_ITS ---
EXAMINATION: US carotid duplex BI DATE: 06/17/2021 15:34 INDICATION: Syncope. TECHNIQUE: Grayscale, color Doppler, and pulsed Doppler images of the cervical carotid arteries were obtained. The degree of vessel stenosis is placed in one of the following categories: normal, <50%, 5 0-69%, >=70% but less than near-occlusion, near-occlusion, or total occlusion. Note that percent sten osis relative to normal distal artery lumen diameter is indirectly measured from velocity measurement s as described by Delfin, et al. Radiology 2003; 229:340-346. COMPARISON: Ultrasound 05/11/2020 FINDINGS: RIGHT: The right common carotid artery (CCA) peak systolic velocity (PSV) is 91 cm/s. The right internal car otid artery (ICA) PSV is 121 cm/s. The right ICA end-diastolic velocity (EDV) is 20 cm/s. The right I CA/CCA PSV ratio is 1.3. Grayscale and color Doppler images yield an estimate of <50% diameter reduct ion from plaque in the ICA. There is antegrade flow in the right vertebral artery. LEFT: The left CCA PSV is 91 cm/s. The left ICA PSV is 113 cm/s. The left ICA EDV is 22 cm/s. The left ICA/ CCA PSV ratio is 1.2. Grayscale and color Doppler images yield an estimate of <50% diameter reduction from plaque in the ICA. There is antegrade flow in the left vertebral artery. IMPRESSION: 1. <50% stenosis in the right internal carotid artery. 2. <50% stenosis in the left internal carotid artery. Reviewed, dictated and finalized at location B.
--- NOTE | ~2021-06-17 | US_ITS ---
EXAMINATION: US renal BI, US retroperitoneal duplex ltd DATE: 06/20/2021 11:38 INDICATION: Worsening renal function with elevated creatinine TECHNIQUE: 1. Multiple grayscale and color Doppler images of the kidneys were obtained. 2. Multiple grayscale and pulsed Doppler images of the aorta and renal arteries were obtained. COMPARISON: None. FINDINGS: Kidneys: The right kidney measures 8.9 x 4.8 x 5.2 cm. The left kidney measures 9.9 x 4.1 x 4.7 cm. The kidney s demonstrate normal echogenicity. There are couple exophytic left renal cysts the larger at the lowe r pole measuring 1.5 cm and the smaller at the interpolar region measuring 1.2 cm. There is no hydron ephrosis in either kidney. No stones identified. The bladder is not visualized. Renal arteries/vascular: The aorta peak systolic velocity is 139 cm/s. The right renal artery peak systolic velocity is 133 cm /s in the proximal segment, 124 cm/s in the mid segment, and 131 cm/s in the distal segment. The left renal artery peak systolic velocity is 138 cm/s in the proximal segment, 151 cm/s in the mid segment , and 114 cm/s in the distal segment. IMPRESSION: 1. Couple small left renal cysts measuring up to 1.5 cm. Otherwise normal kidneys with no hydronephro sis in either kidney. 2. No Doppler evidence of renal artery stenosis. Reviewed, dictated and finalized at location A. IMPRESSION: 1. Couple small left renal cysts measuring up to 1.5 cm. Otherwise normal kidne ys with no hydronephrosis in either kidney. 2. No Doppler evidence of renal artery stenosis.
--- NOTE | ~2021-06-17 | XR_ITS ---
EXAMINATION: XR chest 2V DATE: 06/17/2021 09:37 INDICATION: Productive cough. TECHNIQUE: Frontal and lateral views of the chest were obtained. COMPARISON: Chest single view 01/29/2021, CT abdomen and pelvis 03/04/2020 FINDINGS: There is mild atelectasis at left lung base. No pleural effusion or pneumothorax. The heart size is normal. Median sternotomy wires and mediastinal surgical clips are seen, likely from prior c oronary artery bypass grafting. There is a moderate-sized hiatal hernia. IMPRESSION: 1. Mild atelectasis at left lung base. 2. Moderate-sized hiatal hernia. Reviewed, dictated and finalized at location B.
--- NOTE | ~2021-06-17 | CT_ITS ---
EXAMINATION: CT thoracic lumbar wo con DATE: 06/18/2021 13:06 INDICATION: Back pain. TECHNIQUE: Computed tomography (CT) of the thoracic and lumbar spine was performed without intravenou s contrast. Automated exposure control and iterative reconstruction technique were employed. The dose -length product was 1914.02 mGy-cm. COMPARISON: None FINDINGS: CT THORACIC SPINE: Calcified right hilar lymph nodes are consistent with old granulomatous disease. T here is a moderate-sized sliding hiatal hernia. There is kyphosis of thoracic spine. Vertebral body h eights are normal. There is moderately decreased disc height at T8-T9 and mildly decreased disc heigh t from T2-T3 through T7-T8 and at T9-T10 and T10-T11. There is multilevel facet joint osteoarthritis, severe bilaterally at T7-T8 and T8-T9. On the right, there is mild neural foraminal stenosis at T7-T 8 and T8-T9. On the left, there is mild neural foraminal stenosis at C7-T8 and T8-T9. No central gaye l stenosis. CT LUMBAR SPINE: There is a chronic compression fracture of L3 with 2/5 loss of height. There is mode rately decreased disc height at L2-L3 and mildly decreased disc height at L3-L4 and L4-L5. The follow ing disc levels are specifically discussed: L1-L2: The disc is mildly bulging. There is mild right and moderate left facet joint osteoarthritis. There is mild bilateral neural foraminal stenosis. There is mild central canal stenosis. L2-L3: The disc is bulging. There is mild bilateral facet joint osteoarthritis. There is mild bilater al neural foraminal stenosis. There is mild central canal stenosis. L3-L4: The disc is bulging. There is mild bilateral facet joint osteoarthritis. There is moderate francisco ateral neural foraminal stenosis. There is mild central canal stenosis. L4-L5: The disc is bulging. There is mild bilateral facet joint osteoarthritis. There is mild right a nd moderate left neural foraminal stenosis. There is moderate central canal stenosis. L5-S1: The disc is bulging. There is severe right and moderate left facet joint osteoarthritis. There is mild bilateral neural foraminal stenosis. There is mild central canal stenosis. IMPRESSION: 1. Moderate thoracic and lumbar spondylosis. 2. Moderate-sized sliding hiatal hernia. Reviewed, dictated and finalized at location B.
--- NOTE | ~2021-06-17 | CT_ITS ---
EXAMINATION: CT cervical spine wo con DATE: 06/18/2021 13:05 INDICATION: Neck pain. TECHNIQUE: Computed tomography (CT) of the cervical spine was performed without intravenous contrast. Automated exposure control and iterative reconstruction technique were employed. The dose-length pro duct was 405.24 mGy-cm. COMPARISON: Cervical spine radiographs 08/26/2016 FINDINGS: There is a small left mastoid effusion. Bone alignment is normal. Vertebral body heights ar e normal. There is mildly decreased disc height at C4-C5 and moderately decreased disc height at C5-C 6. The following disc levels are specifically discussed: C2-C3: There is no uncovertebral joint osteoarthritis. There is severe right and mild left facet join t osteoarthritis. There is no neural foraminal stenosis. There is no central canal stenosis. C3-C4: There is no uncovertebral joint osteoarthritis. There is mild bilateral facet joint osteoarthr itis. There is no neural foraminal stenosis. There is no central canal stenosis. C4-C5: There is mild bilateral uncovertebral joint osteoarthritis. There is mild right and moderate l eft facet joint osteoarthritis. There is no neural foraminal stenosis. There is mild central canal st enosis. C5-C6: There is severe bilateral uncovertebral joint osteoarthritis. There is mild right and moderate left facet joint osteoarthritis. There is mild bilateral neural foraminal stenosis. There is mild ce ntral canal stenosis. C6-C7: There is no uncovertebral joint osteoarthritis. There is mild bilateral facet joint osteoarthr itis. There is no neural foraminal stenosis. There is no central canal stenosis. C7-T1: There is no uncovertebral joint osteoarthritis. There is mild bilateral facet joint osteoarthr itis. There is no neural foraminal stenosis. There is no central canal stenosis. IMPRESSION: 1. Moderate spondylosis at C5-C6 and mild spondylosis at other levels. Reviewed, dictated and finalized at location B.
--- NOTE | ~2021-06-17 | US_ITS ---
EXAMINATION: US venous doppler [facility] DATE: 06/17/2021 16:31 INDICATION: Lower limb pain and swelling TECHNIQUE: Grayscale ultrasound images without and with compression and Doppler ultrasound images of the bilateral lower extremity veins were obtained. COMPARISON: 08/08/2015 FINDINGS: The visualized portions of right common femoral vein, profunda (deep) femoral vein, femoral vein, pop liteal vein, posterior tibial veins, peroneal veins, gastrocnemius vein and greater saphenous vein ou tflow are patent. Noncompressible deep venous thrombosis in the left popliteal vein and left peroneal veins. The visual ized portions of left common femoral vein, profunda femoral vein, femoral vein, posterior tibial vein s, gastrocnemius vein and greater saphenous vein outflow are patent. IMPRESSION: 1. [id number] deep venous thrombosis in the left popliteal and peroneal veins. Findings were dis cussed with Ketan Sarah, the nurse caring for the patient, at 4:37 PM. 2. No deep venous thrombosis in the right lower limb. Reviewed, dictated and finalized at location A. IMPRESSION: 1. [id number]-sii-ilme deep venous thrombosis in the left popliteal and peroneal ve ins. Findings were discussed with Ketan Sarah, the nurse caring for the patient , at 4:37 PM. 2. No deep venous thrombosis in the right lower limb.
--- NOTE | ~2021-06-17 | US_ITS ---
EXAMINATION: US art doppler w press KRISTA DATE: 06/17/2021 16:31 INDICATION: Peripheral arterial disease. TECHNIQUE: Segmental pressures and plethysmographic and Doppler waveforms of the brachial and lower e xtremity arteries were obtained. COMPARISON: None. FINDINGS: Right and left brachial artery pressures of 133 mm Hg and 133 mm Hg, respectively, are concordant (no rmal difference <= 30 mmHg). The right ankle-brachial index (DENIS) is 1.10 (normal >= 0.9-1.0). The right great toe-brachial index (TBI) is 0.24 (normal >= 0.65). Arterial Doppler waveforms are triphasic in common femoral artery and biphasic from superficial femoral artery to dorsalis pedis. The left DENIS is 1.24. The left TBI is 0.37. Arterial Doppler waveforms are biphasic from common femor al artery to dorsalis pedis. IMPRESSION: 1. Normal ABIs and decreased TBIs, consistent with arterial occlusive disease. Note that ABIs may be overestimated if arteries are calcified. Reviewed, dictated and finalized at location B.
--- NOTE | 2021-06-17 09:01 | ED.GENADULT ---
HPI - General Adult General Chief complaint: Neuro Symptoms/Deficit <TINY Puentes Last Filed: 06/17/21 14:39> Stated complaint: hand numbness <TINY Puentes Last Filed: 06/17/21 14:39> Time Seen by Provider: 06/17/21 09:01 <TINY Puentes Last Filed: 06/17/21 14:39> Source: patient <TINY Puentes Last Filed: 06/17/21 14:39> Mode of arrival: ambulatory <TINY Puentes Last Filed: 06/17/21 14:39> Limitations: no limitations <TINY Puentes Last Filed: 06/17/21 14:39> History of Present Illness HPI narrative: Patient is an 86 y/o female who presents to the ED with c/o productive cough x1 week. She reports having production of white sputum. She has had intermittent burning chest pain over the last week since the cough has started. Denies any significant shortness of breath. No fever, chills. She was supposed to see her PCP today, but began feeling weak and had nausea this morning, which prompted her to come here instead. She did not fall or vomit. Also reports sore throat, congestion. No headache, urinary symptoms. Patient mentions she hit her right lower leg against a concrete block 4 days ago. She sustained a small abrasion to her right lower inner leg and reports the wound developed slight redness today. Patient's records, patient was admitted for acute kidney injury in January 2021. She sees Dr. Jaramillo and is scheduled to see him later this month. <Zeny Christine PA-C - Last Filed: 06/17/21 14:39> Related Data Home medications: Home Medications Medication Instructions Recorded Confirmed aspirin [Aspir-81] 81 mg PO DAILY 01/12/19 06/17/21 furosemide 40 mg PO DAILY 07/06/19 06/17/21 nitroglycerin 0.4 mg SUBLINGUAL Q5-10M PRN 07/06/19 06/17/21 insulin lispro [Humalog KwikPen See Rx Instructions .ROUTE .COMPLEX 03/05/20 01/30/21 Insulin] metoprolol succinate [Toprol XL] 100 mg PO DAILY 03/05/20 06/17/21 levothyroxine 50 mcg PO DAILY 01/30/21 06/17/21 [id number]-dtyhjijir-daffehrc 1 inh INHALATION DAILY PRN 06/17/21 06/17/21 [Trelegy Ellipta] insulin aspart U-100 [Novolog 06/17/21 U-100 Insulin aspart] <Zeny Christine PA-C - Last Filed: 06/17/21 14:39> Allergies/adverse reactions: Allergies Allergy/AdvReac Type Severity Reaction Status Date / Time No Known Allergies Allergy Verified 01/30/21 22:24 <Zeny Christine PA-C - Last Filed: 06/17/21 14:39> Review of Systems Review of Systems: CONSTITUTIONAL: Denies fever, chills. EYES: Denies visual changes, redness, or discharge. ENT: Reports rhinorrhea, congestion, sore throat. CARDIOVASCULAR: Reports burning chest pain. Denies palpitations, or edema. RESPIRATORY: Reports cough. Denies dyspnea. GASTROINTESTINAL: Reports nausea. Denies abdominal pain, vomiting, or diarrhea. GENITOURINARY: Denies dysuria or hematuria. MUSCULOSKELETAL: Denies back pain, joint pain, or myalgia. NEUROLOGIC: Reports generalized weakness. Denies headache. <Zeny Christine PA-C - Last Filed: 06/17/21 14:39> All systems reviewed & are unremarkable except as noted in HPI and below <Zeny Christine PA-C - Last Filed: 06/17/21 14:39> [facility] Past Medical History Medical History: Medical History Acute PN (pyelonephritis) Anemia Anemia due to stage 4 chronic kidney disease Aortic stenosis Bronchitis CAD (coronary artery disease) Cataracts, bilateral Chronic back pain Complicated UTI (urinary tract infection) COPD (chronic obstructive pulmonary disease) DVT (deep venous thrombosis) Femur fracture, right GERD (gastroesophageal reflux disease) GI bleed Heart attack History of angina History of blood transfusion HTN (hypertension) Hyperlipidemia Hypothyroid Meniere disease Osteopenia Peripheral neuropathy Peripheral vascular disease of lower extremity RLE stent placement Pneumonia Rectal polyp Renal disease Se
--- NOTE | 2021-06-17 09:02 | ECG_ITS ---
Measurements Intervals [place] Rate: 82 P: 13 CT: 156 QRS: 20 QRSD: 93 T: 48 QT: 369 QTc: 433 Interpretive Statements SINUS RHYTHM WITH SINUS ARRHYTHMIA MINIMAL ST DEPRESSION [0.025+ mV ST DEPRESSION] BASELINE ARTIFACT BORDERLINE ECG COMPARED TO ECG 01/29/2021 18:26:28 SINUS ARRHYTHMIA NOW PRESENT Electronically Signed On 06-17-2021 11:31:35 CDT by Yosef Myrick M.D.
[2021-06-17 09:23] LABS: Basophils Absolute Auto 0.1 K/mm3 (0.0-0.1); Basophils Percent Auto 0.4 % (0.2-1.2); Eosinophils Absolute Auto 0.1 K/mm3 (0-0.3); Eosinophils Percent Auto 0.7 % (0-4.4); Hematocrit 43.4 % (37.0-47.0); Hemoglobin 14.5 g/dL (12.0-15.0); Immature Granulocyte Absolute 0.08 K/mm3 (0.00-0.031); Immature Granulocyte Percent A 0.6 % (0-0.5); Lymphocytes Absolute Auto 2.87 K/mm3 (0.9-3.2); Lymphocytes Percent Auto 21.3 % (18.3-44.2); Mean Corpuscular HGB Conc 33.4 g/dl (32-36); Mean Corpuscular Hemoglobin 31.5 pg (26-34); Mean Corpuscular Volume 94.3 fl (80-100); Mean Platelet Volume 10.1 fl (7.4-10.4); Monocytes Percent Auto 7.4 % (2.6-8.5); Neutrophils Absolute Auto 9.4 K/mm3 (1.3-6.7); Neutrophils Percent Auto 69.6 % (45.5-73.1); Platelet Count Result 365 k/mm3 (150-375); Red Cell Distribution Width 12.8 % (11.5-14.5); White Blood Count 13.5 K/mm3 (4.5-10.0)
[2021-06-17 09:38] LABS: INR 1.1; Partial Thromboplastin Time 25.1 SECONDS (22.3-36.8); Prothrombin Time 13.3 Seconds (11.1-14.7)
[2021-06-17 09:41] LABS: Alanine Aminotransferase 18 U/L (4-35); Alkaline Phosphatase 90 U/L (38-126); Anion Gap 13 mmol/L (8-16); Aspartate Amino Transferase 31 U/L (14-36); Bilirubin,Total 1.2 mg/dL (0.2-1.3); Blood Urea Nitrogen 35 mg/dL (7-17); Calcium 8.8 mg/dL (8.4-10.2); Carbon Dioxide 28 mmol/L (22-30); Chloride 91 mmol/L (98-107); Estimated CRCL calculation 19 ml/min; Estimated Glomerular Filt Rate 24; Glucose 349 mg/dL (65-110); Potassium 4.1 mmol/L (3.4-5.0); Sodium 132 mmol/L (137-145)
[2021-06-17 09:53] LABS: NT Pro B Type Natriuretic Pept 1610 pg/mL (5-100); Troponin I 0.017 ng/mL (0.000-0.034)
[2021-06-17 10:23] LABS: Appearance Urine Cloudy (Clear); Bilirubin Urine 1+ (Negative); Blood Urine 2+ (Negative); Color Urine Yellow (Yellow); Glucose Urine UA 3+ mg/dL (Negative); Ketones Urine Negative (Negative); Leukocyte Esterase Ur Trace LEU/UL (Negative); Nitrate Urine Negative (Negative); Protein Urine 2+ mg/dL (Negative); Specific Grav Ur 1.025 (1.001-1.035); pH Urine 5.5 (5.0-9.0)
[2021-06-17 10:34] LABS: Bacteria Urine 1+ /hpf; Mucus Urine Rare /lpf; Squamous Epithelial Cell Urine Many /hpf (Few); Transitional Epi Cells Urine Rare /hpf (None Seen); WBC Clumps Urine Present /HPF; WBC Urine >75 /hpf
[2021-06-17 10:35] LABS: Add Urine Microscopic? YES
[2021-06-17] MEDS: SODIUM CHLORIDE 0.9% IV 500 ML 999 ML IV CONT (10:51)
--- NOTE | 2021-06-17 11:15 | PM.IMHP ---
H&P: HPI History of Present Illness Date/Time: 06/17/21 13:39 Chief Complaint: Weakness, cough, abdominal pain Narrative: Patient is an 86-year-old female with a history of COPD, bronchitis, CAD, frequent UTI, DVT, OK, hypertension presented to the ED with multiple complaints of weakness, urinary dysfunction, abdominal pain, near-syncope. Patient stated over the last day she has felt like she was going to pass out, wall. Yesterday she also experiencing left hand numbness and tingling. She also stated that she has been having some back problems where she has pain that goes up her neck, which causes her not to be able to walk. She stated that sometimes she walked to the kitchen however she has to run back to the chair because she feels like she is going to pass out. She does state that she gets very dizzy and her vision gets blurred. She did state that her dizziness is worse when she looks to the left. She does have a wound on her right ankle which she stated looks better than it has. She stated that she fell on some concrete and it turned into a blood blister was very red and very swollen. She stated that she has been putting Neosporin on it and it seems to be helping. The left foot she stated is normally blue and cold. Both legs are very different in size. She stated that the color gets better when she puts them up. She also states that she has been having a cough that has been around for about a week and that is thick, white, more than usual. Patient stated she has also been wheezing more than normal as well. She denies having shortness of breath however she stated that she has COPD and does not know how she got it other than she was around a lot of people used to smoke. She also stated that she has been having some chest pain lately which is mid clavicular. She does see cardiology and she takes nitro for this. She stated the last time sugar control was Thursday. She stated that this does relieve her pain and helps her symptoms. Patient also stated that she felt like she might have a UTI however she did not have the normal signs and symptoms. She denied having any burning or itching however she did notice that her urine is very dark and had a bad odor. It is also reported that she has been kind of confused lately even though I think she is baseline confused. She was alert oriented when I asked her orientation questions however she did have to think about a couple of the answers and told me that it was fall. She currently denies any chest pain, shortness of breath, nausea, vomiting, diarrhea, constipation, weakness or fatigue. Her NIH score was 0 even though she stated that she feels very weak and syncopal. Will get her orthostatic blood pressures along with a slew of other test. She also denies any headaches, recent falls, blackouts or syncopal episodes. She did state that she has been noticing some numbness tingling in her left hand. Review of Systems Review of Systems: All systems reviewed & are unremarkable except as noted in HPI and below PMFSH Past Medical History Medical History Acute PN (pyelonephritis) Anemia Anemia due to stage 4 chronic kidney disease Aortic stenosis Bronchitis CAD (coronary artery disease) Cataracts, bilateral Chronic back pain Complicated UTI (urinary tract infection) COPD (chronic obstructive pulmonary disease) DVT (deep venous thrombosis) Femur fracture, right GERD (gastroesophageal reflux disease) GI bleed Heart attack History of angina History of blood transfusion HTN (hypertension) Hyperlipidemia Hypothyroid Meniere disease Osteopenia Peripheral neuropathy Peripheral vascular disease of lower extremity RLE stent placement Pneumonia Rectal polyp Renal disease Seizures During [place] Type II diabetes mellitus UTI (urinary tract infection) Surgical History Surgical History H/O explo
[2021-06-17 13:29] LABS: Glucose Point of Care 374 mg/dl (65-105)
[2021-06-17] MEDS: INSULIN ASPART (*BKC) 100 UNITS/ML SUB-Q ×3 (13:49→18:46)
[2021-06-17 16:40] LABS: Glucose Point of Care 353 mg/dl (65-105)
[2021-06-17] MEDS: ENOXAPARIN 80 MG/0.8 ML SYRINGE 78 MG SUB-Q (17:30)
[2021-06-17] MEDS: INSULIN GLARGINE (*BKC) 100 UNITS/ML 20 UNITS SUB-Q (20:08)
[2021-06-17 20:26] LABS: Glucose Point of Care 303 mg/dl (65-105)
[2021-06-17 23:41] LABS: Glucose Point of Care 181 mg/dl (65-105)
[2021-06-18] VITALS (7 sets, daily range): BP systolic 104–146; BP diastolic 46–91; PULSE 67–74; RESP 16–24; TEMP 36.7–36.8; O2SAT 95–97
--- NOTE | 2021-06-18 | ECHO_ITS ---
Patient Info Name: Anuradha Spaulding Age: 86 years : 1935 Gender: Female Ht: 63 in Wt: 171 lbs BSA: 1.88 m2 HR: 80 bpm BP: 134 / 59 mmHg Heart Rhythm: Sinus Rhythm Technical Quality: Fair Exam Date: 06/18/2021 7:19 AM Exam Location: [facility] Card Pulmonary Patient Status: Inpatient Admit Date: 06/17/2021 Staff Ordering Physician: Peter Pérez Workers' Compensation Claims Supervisor: Danielle Antunez RDCS Attending Provider: Hailey Brady MD Referring Physician: Beto ACEVEDO; Exam Type: CA echo dop color flow w con Study Info Indications - edema Complete two-dimensional, color flow and Doppler transthoracic echocardiogram is performed with contrast to opacify the left ventricle and to improve the deliniation of the left ventricle endocardial borders. Contrast/Agitated Saline Contrast/Ag. Saline: Definity Amount: 2.00 ml Administered By: Danielle Antunez RDCS Existing IV Access: Yes IV Access Condition: patent with no signs of infiltration Summary 1. Normal LV size, mild LVH, hyperdynamic LV systolic function, ejection fraction more than 70%. Grade 1 diastolic dysfunction. Mild left atrial enlargement. Mitral valve leaflets are thickened, moderate mitral annular calcification, trivial MR. Aortic valve is moderately calcified and restricted, moderate aortic stenosis, valve area 1.3 cm2. Peak velocity 3.3 m/sec, mean gradient 26 mmHg. Trivial TR, RVSP 32 mmHg. Sinus rhythm. Left Ventricle Left ventricular chamber dimension is normal. Left ventricular systolic function is hyperdynamic, estimated at >70%. There is mildly increased left ventricular wall thickness. The left ventricular diastolic function is grade I diastolic dysfunction. Right Ventricle Right ventricular chamber dimension is normal. Right ventricular systolic function is normal. Left Atria Left atrial chamber dimension is mildly enlarged. Right Atria Right atrial chamber dimension is normal. Aortic Valve There is moderate aortic valve stenosis with a peak velocity of 334.67 cm/s, mean gradient of 26 mmHg, and aortic valve area of 1.32 cm2. There is moderate aortic valve calcification. Pulmonic Valve The pulmonic valve is normal. Mitral Valve The mitral valve has thickened leaflets. There is trace mitral valve regurgitation. There is moderate mitral valve calcification. Tricuspid Valve The tricuspid valve leaflets are normal. There is trace tricuspid valve regurgitation. Pericardium/Pleural The pericardium appears epicardial fat pad. Inferior Vena Cava Normal inferior vena cava with >50% collapse upon inspiration consistent with normal right atrial pressure, 10 mmHg. Aorta There is moderate aortic atherosclerosis. Left Ventricular Outflow Tract Name Value Normal LVOT 2D LVOT Diameter 2.00 cm LVOT Doppler LVOT Peak Gradient 8 mmHg LVOT Mean Gradient 4 mmHg LVOT VTI 23.90 cm LVOT VTI/AV VTI Ratio 0.42 LVOT Stroke Volume 75.07 ml
[2021-06-18] MEDS: LEVOTHYROXINE SODIUM 50 MCG TABLET PO (06:28)
[2021-06-18] MEDS: PERFLUTREN LIPID MICROSPHERES 1.5 ML VIAL DILUTED TO 10 ML TOTAL VOLUME IV PUSH (08:04)
--- NOTE | 2021-06-18 08:05 | IVDEFINITY ---
Prior to administration of IV Definity the patient was educated on the risks and benefits of the imaging enhancing agent including potential adverse side effects. The patient verbalized understanding. Allergies were verified. No exclusion criteria were identified and at least one of the following inclusion criteria were met: 1) physician request, 2) patient technically difficult to image (per the [place] [employer] guidelines of two or more segments not discernable within the apical view), or 3) questionable left ventricular function. ?
[2021-06-18 08:22] LABS: Glucose Point of Care 288 mg/dl (65-105)
[2021-06-18] MEDS: ASPIRIN 81 MG ENTERIC TABLET PO (08:45)
[2021-06-18] MEDS: FUROSEMIDE 40 MG TABLET PO (08:45)
[2021-06-18] MEDS: ISOSORBIDE MONONITRATE 30 MG TAB.ER.24H PO (08:45)
--- NOTE | 2021-06-18 08:45 | PM.IMPN ---
Progress Note: A&P Assessment and Plan (1) Peripheral vascular disease: Code(s): I73.9 - Peripheral vascular disease, unspecified Status: Acute Assessment and Plan: Left toes are purple Left leg swollen more than right Unilateral temperature variance, left toes are cold Arterial and venous doppler ordered Brachial index normal, show consistent with occlusive disease Wound care ordered for right ankle wound Continue home aspirin Keep legs elevated Layo yevgeniye (2) Acute on chronic kidney failure: Code(s): N17.9 - Acute kidney failure, unspecified; N18.9 - Chronic kidney disease, unspecified Status: Acute Assessment and Plan: BUN/Cr 35/2.00 Creatinine looks to be all over the place, baseline 1.4-1.7 Continue to trend labs Avoid nephrotoxic medications Could be an infection (3) Abnormal urinalysis: Code(s): R82.90 - Unspecified abnormal findings in urine Status: Acute Assessment and Plan: UA shows cloudy urine with trace leukocyte esterase, >75 WBC with clumps, 1+ bacteria Urine culture pending Continue ceftriaxone Trend urine output Adjust therapy as indicated by culture results (4) CHF (congestive heart failure): Code(s): I50.9 - Heart failure, unspecified Status: Acute Assessment and Plan: BNP is 1610 Echo >70% EF with grade 1 diastolic dysfunction Heart failure related to diastolic dysfunction Do not think that this is an acute exacerbation at this time Continue home lasix 40mg PO Daily Trend urine output Daily weights (5) Diabetes mellitus with hyperglycemia: Qualifiers: Diabetes mellitus type: type 2 Diabetes mellitus 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 customer service insulin use: with penitentiary use Qualified Code(s): E11.65 - Type 2 diabetes mellitus with hyperglycemia; Z79.4 - skilled nursing (current) use of insulin Code(s): E11.65 - Type 2 diabetes mellitus with hyperglycemia Status: Chronic Assessment and Plan: Glucose 342 Insulin pump removed ISS Accu-cheks AC/HS A1c Trend glucose Adjust therapy as indicated (6) Near syncope: Code(s): R55 - Syncope and collapse Status: Acute Assessment and Plan: Head Ct does not show any acute abnormalities Looks like she had a stent placed in her leg or abdomen, so MRI is probably not likely able to be obtained Could be orthostatic in nature, will check these Carotid dopper <50% stenosis bilaterally Carotid doppler in the past <50% PT/OT (7) COPD (chronic obstructive pulmonary disease): Qualifiers: COPD type: unspecified COPD Qualified Code(s): J44.9 - Chronic obstructive pulmonary disease, unspecified Code(s): J44.9 - Chronic obstructive pulmonary disease, unspecified Status: Chronic Assessment and Plan: Increased sputum and wheezes Could be a component of COPD Do not think this is an acute exacerbation Chest xray shows no acute abnormality Continue home trelegy and add albuterol (8) DVT (deep venous thrombosis): Code(s): I82.409 - Acute embolism and thrombosis of unspecified deep veins of unspecified lower extremity Status: Acute Assessment and Plan: Multiple DVTS noted in left popliteal and peroneal veins Venous and arterial doppler performed Start full dose lovenox Will probably need to be changed to PO anticoagulation at DC Subjective Date/time seen: 06/18/21 08:45 Interval history: Date/Time: 06/17/21 13:39 Chief Complaint: Weakness, cough, abdominal pain Narrative: Patient is an 86-year-old female with a history of COPD, bronchitis, CAD, frequent UTI, DVT, OR, hypertension presented to the ED with multiple complaints of weakness, urinary dysfunction, abdominal pain, near-syncope. Patient stated over the last day she has felt like she was going to pass out, wall. Yesterday she also experiencing le
--- NOTE | 2021-06-18 08:45 | P.PNIM_ITS ---
Progress Note: A&P Assessment and Plan (1) Peripheral vascular disease: Code(s): I73.9 - Peripheral vascular disease, unspecified Status: Acute Assessment and Plan: * Left toes are purple * Left leg swollen more than right * Unilateral temperature variance, left toes are cold * Arterial and venous doppler ordered * Brachial index normal, show consistent with occlusive disease * Wound care ordered for right ankle wound * Continue home aspirin * Keep legs elevated * Layo montalvo (2) Acute on chronic kidney failure: Code(s): N17.9 - Acute kidney failure, unspecified; N18.9 - Chronic kidney disease, unspecified Status: Acute Assessment and Plan: * BUN/Cr 35/2.00 * Creatinine looks to be all over the place, baseline 1.4-1.7 * Continue to trend labs * Avoid nephrotoxic medications * Could be an infection (3) Abnormal urinalysis: Code(s): R82.90 - Unspecified abnormal findings in urine Status: Acute Assessment and Plan: * UA shows cloudy urine with trace leukocyte esterase, >75 WBC with clumps, 1+ bacteria * Urine culture pending * Continue ceftriaxone * Trend urine output * Adjust therapy as indicated by culture results (4) CHF (congestive heart failure): Code(s): I50.9 - Heart failure, unspecified Status: Acute Assessment and Plan: * BNP is 1610 * Echo >70% EF with grade 1 diastolic dysfunction * Heart failure related to diastolic dysfunction * Do not think that this is an acute exacerbation at this time * Continue home lasix 40mg PO Daily * Trend urine output * Daily weights (5) Diabetes mellitus with hyperglycemia: Qualifiers: Diabetes mellitus type: type 2 Diabetes mellitus watermaster insulin use: with nursing home use Qualified Code(s): E11.65 - Type 2 diabetes mellitus with hyperglycemia; Z79.4 - [facility] (current) use of insulin Code(s): E11.65 - Type 2 diabetes mellitus with hyperglycemia Status: Chronic Assessment and Plan: * Glucose 342 * Insulin pump removed * ISS * Accu-cheks AC/HS * A1c * Trend glucose * Adjust therapy as indicated (6) Near syncope: Code(s): R55 - Syncope and collapse Status: Acute Assessment and Plan: * Head Ct does not show any acute abnormalities * Looks like she had a stent placed in her leg or abdomen, so MRI is probably not likely able to be obtained * Could be orthostatic in nature, will check these * Carotid dopper <50% stenosis bilaterally * Carotid doppler in the past <50% * PT/OT (7) COPD (chronic obstructive pulmonary disease): Qualifiers: COPD type: unspecified COPD Qualified Code(s): J44.9 - Chronic obstructive pulmonary disease, unspecified Code(s): J44.9 - Chronic obstructive pulmonary disease, unspecified Status: Chronic Assessment and Plan: * Increased sputum and wheezes * Could be a component of COPD * Do not think this is an acute exacerbation * Chest xray shows no acute abnormality * Continue home trelegy and add albuterol (8) DVT (deep venous thrombosis): Code(s): I82.409 - Acute embolism and thrombosis of unspecified deep veins of unspecified lower extremity Status: Acute Assessment and Plan: * Multiple DVTS noted in left popliteal and peroneal veins * Venous and arterial doppler performed * Start full dose lo
[2021-06-18] MEDS: INSULIN ASPART (*BKC) 100 UNITS/ML SUB-Q ×3 (08:46→16:35)
[2021-06-18] MEDS: METOPROLOL SUCCINATE EXT REL 100 MG TABCR PO (08:46)
[2021-06-18] MEDS: ROSUVASTATIN 10 MG TABLET 20 MG PO (08:46)
[2021-06-18 11:24] LABS: Glucose Point of Care 387 mg/dl (65-105)
[2021-06-18 11:45] LABS: Glucose Point of Care 372 mg/dl (65-105)
[2021-06-18 12:25] LABS: Alanine Aminotransferase 12 U/L (4-35); Albumin Level 3.4 g/dL (3.5-5.1); Alkaline Phosphatase 73 U/L (38-126); Anion Gap 8 mmol/L (8-16); Aspartate Amino Transferase 24 U/L (14-36); Basophils Absolute Auto 0.1 K/mm3 (0.0-0.1); Basophils Percent Auto 0.5 % (0.2-1.2); Bilirubin,Total 0.5 mg/dL (0.2-1.3); Blood Urea Nitrogen 33 mg/dL (7-17); Calcium 8.1 mg/dL (8.4-10.2); Carbon Dioxide 29 mmol/L (22-30); Chloride 95 mmol/L (98-107); Eosinophils Absolute Auto 0.1 K/mm3 (0-0.3); Eosinophils Percent Auto 0.8 % (0-4.4); Estimated CRCL calculation 19 ml/min; Estimated Glomerular Filt Rate 24; Glucose 342 mg/dL (65-110); Hematocrit 40.4 % (37.0-47.0); Hemoglobin 12.8 g/dL (12.0-15.0); Immature Granulocyte Absolute 0.05 K/mm3 (0.00-0.031); Immature Granulocyte Percent A 0.5 % (0-0.5); Lymphocytes Percent Auto 18.8 % (18.3-44.2); Mean Corpuscular HGB Conc 31.7 g/dl (32-36); Mean Corpuscular Hemoglobin 31.1 pg (26-34); Mean Corpuscular Volume 98.1 fl (80-100); Mean Platelet Volume 10.1 fl (7.4-10.4); Monocytes Absolute Auto 0.7 K/mm3 (0.1-0.6); Monocytes Percent Auto 6.7 % (2.6-8.5); Neutrophils Absolute Auto 7.7 K/mm3 (1.3-6.7); Neutrophils Percent Auto 72.7 % (45.5-73.1); Platelet Count Result 320 k/mm3 (150-375); Potassium 3.8 mmol/L (3.4-5.0); Red Blood Count 4.12 M/mm3 (4.2-5.4); Sodium 132 mmol/L (137-145); White Blood Count 10.6 K/mm3 (4.5-10.0)
[2021-06-18 16:31] LABS: Glucose Point of Care 337 mg/dl (65-105)
[2021-06-18] MEDS: ENOXAPARIN 80 MG/0.8 ML SYRINGE 78 MG SUB-Q (16:33)
[2021-06-18] MEDS: FUROSEMIDE INJ 40 MG/4 ML VIAL IV PUSH (16:34)
--- NOTE | 2021-06-18 21:15 | PC.NURSE ---
Pt stated she last seen her cane from home when she was getting CT scan. Spoke with CT they stated they don't have her cane.
[2021-06-18] MEDS: INSULIN GLARGINE (*BKC) 100 UNITS/ML 20 UNITS SUB-Q (21:18)
[2021-06-18] MEDS: INSULIN ASPART (*BKC) 100 UNITS/ML 7 UNITS SUB-Q (21:34)
[2021-06-18 21:41] LABS: Glucose Point of Care 420 mg/dl (65-105)
[2021-06-18 23:01] LABS: Glucose Point of Care 381 mg/dl (65-105)
[2021-06-19] VITALS (7 sets, daily range): BP systolic 76–150; BP diastolic 38–69; PULSE 66–80; RESP 16–20; TEMP 36.5–36.7; O2SAT 95–99
[2021-06-19 05:09] LABS: Basophils Absolute Auto 0.1 K/mm3 (0.0-0.1); Basophils Percent Auto 0.5 % (0.2-1.2); Eosinophils Absolute Auto 0.2 K/mm3 (0-0.3); Eosinophils Percent Auto 1.6 % (0-4.4); Hematocrit 41.7 % (37.0-47.0); Immature Granulocyte Absolute 0.06 K/mm3 (0.00-0.031); Immature Granulocyte Percent A 0.6 % (0-0.5); Lymphocytes Absolute Auto 3.39 K/mm3 (0.9-3.2); Mean Corpuscular HGB Conc 31.2 g/dl (32-36); Mean Corpuscular Hemoglobin 30.7 pg (26-34); Mean Corpuscular Volume 98.6 fl (80-100); Mean Platelet Volume 10.2 fl (7.4-10.4); Monocytes Absolute Auto 0.9 K/mm3 (0.1-0.6); Monocytes Percent Auto 8.5 % (2.6-8.5); Neutrophils Absolute Auto 5.5 K/mm3 (1.3-6.7); Neutrophils Percent Auto 54.8 % (45.5-73.1); Platelet Count Result 315 k/mm3 (150-375); Red Blood Count 4.23 M/mm3 (4.2-5.4); Red Cell Distribution Width 12.8 % (11.5-14.5)
[2021-06-19 05:17] LABS: Alanine Aminotransferase 12 U/L (4-35); Albumin Level 3.6 g/dL (3.5-5.1); Alkaline Phosphatase 75 U/L (38-126); Anion Gap 10 mmol/L (8-16); Aspartate Amino Transferase 21 U/L (14-36); Bilirubin,Total 0.5 mg/dL (0.2-1.3); Blood Urea Nitrogen 33 mg/dL (7-17); Calcium 8.1 mg/dL (8.4-10.2); Carbon Dioxide 27 mmol/L (22-30); Chloride 95 mmol/L (98-107); Estimated CRCL calculation 18 ml/min; Estimated Glomerular Filt Rate 22; Glucose 250 mg/dL (65-110); Potassium 3.5 mmol/L (3.4-5.0); Sodium 132 mmol/L (137-145)
[2021-06-19] MEDS: LEVOTHYROXINE SODIUM 50 MCG TABLET PO (06:44)
[2021-06-19 07:50] LABS: Glucose Point of Care 284 mg/dl (65-105)
[2021-06-19] MEDS: INSULIN ASPART (*BKC) 100 UNITS/ML SUB-Q ×3 (08:14→17:05)
[2021-06-19] MEDS: ASPIRIN 81 MG ENTERIC TABLET PO (08:16)
[2021-06-19] MEDS: FUROSEMIDE 40 MG TABLET PO (08:16)
[2021-06-19] MEDS: ROSUVASTATIN 10 MG TABLET 20 MG PO (08:17)
[2021-06-19] MEDS: ISOSORBIDE MONONITRATE 30 MG TAB.ER.24H PO (08:17)
[2021-06-19] MEDS: METOPROLOL SUCCINATE EXT REL 100 MG TABCR PO (08:19)
--- NOTE | 2021-06-19 10:45 | P.PNIM_ITS ---
Progress Note: A&P Assessment and Plan (1) Peripheral vascular disease: Code(s): I73.9 - Peripheral vascular disease, unspecified Status: Acute Assessment and Plan: * Left toes are purple * Left leg swollen more than right * Unilateral temperature variance, left toes are cold * Arterial and venous doppler ordered * Brachial index normal, show consistent with occlusive disease * Wound care ordered for right ankle wound * Continue home aspirin * Keep legs elevated * Layo montalvo (2) Acute on chronic kidney failure: Code(s): N17.9 - Acute kidney failure, unspecified; N18.9 - Chronic kidney disease, unspecified Status: Acute Assessment and Plan: * BUN/Cr 35/2.10 * Creatinine looks to be all over the place, baseline 1.4-1.7 * Continue to trend labs * Avoid nephrotoxic medications * Could be an infection (3) Abnormal urinalysis: Code(s): R82.90 - Unspecified abnormal findings in urine Status: Acute Assessment and Plan: * Repeat UA looks better with 1+ leukocytes esterase, WBC 4-6 * Urine culture resulted as contaminated * Continue ceftriaxone for now * repeat UA and culture * Trend urine output * Adjust therapy as indicated by culture results (4) CHF (congestive heart failure): Code(s): I50.9 - Heart failure, unspecified Status: Acute Assessment and Plan: * BNP is 1610 * Echo >70% EF with grade 1 diastolic dysfunction * Heart failure related to diastolic dysfunction * Do not think that this is an acute exacerbation at this time * Continue home lasix 40mg PO Daily * Trend urine output * Daily weights (5) Diabetes mellitus with hyperglycemia: Qualifiers: Diabetes mellitus type: type 2 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 insulin use: with longterm use Qualified Code(s): E11.65 - Type 2 diabetes mellitus with hyperglycemia; Z79.4 - care home (current) use of insulin Code(s): E11.65 - Type 2 diabetes mellitus with hyperglycemia Status: Chronic Assessment and Plan: * Current glucose 445 * Insulin pump removed * ISS * Accu-Cheks AC/HS * A1c * Trend glucose * Adjust therapy as indicated (6) Near syncope: Code(s): R55 - Syncope and collapse Status: Acute Assessment and Plan: * Head Ct does not show any acute abnormalities * Looks like she had a stent placed in her leg or abdomen, so MRI is probably not likely able to be obtained * Orthostatic blood pressure were positive supine 105/55, sitting 105/51, and standing 76/38 * Metoprolol has been decreased to 50mg daily * Carotid dopper <50% stenosis bilaterally * PT/OT (7) COPD (chronic obstructive pulmonary disease): Qualifiers: COPD type: unspecified COPD Qualified Code(s): J44.9 - Chronic obstructive pulmonary disease, unspecified Code(s): J44.9 - Chronic obstructive pulmonary disease, unspecified Status: Chronic Assessment and Plan: * Increased sputum and wheezes * Could be a component of COPD * Do not think this is an acute exacerbation * Chest xray shows no acute abnormality * Continue home trelegy and add albuterol (8) DVT (deep venous thrombosis): Code(s): I82.409 - Acute embolism and thrombosis of unspecified deep veins of unspecified lower extremity Status: Acute Assessment and Plan: * Multiple DVTS noted in left popliteal
--- NOTE | 2021-06-19 10:45 | PM.IMPN ---
Progress Note: A&P Assessment and Plan (1) Peripheral vascular disease: Code(s): I73.9 - Peripheral vascular disease, unspecified Status: Acute Assessment and Plan: Left toes are purple Left leg swollen more than right Unilateral temperature variance, left toes are cold Arterial and venous doppler ordered Brachial index normal, show consistent with occlusive disease Wound care ordered for right ankle wound Continue home aspirin Keep legs elevated Layo montalvo (2) Acute on chronic kidney failure: Code(s): N17.9 - Acute kidney failure, unspecified; N18.9 - Chronic kidney disease, unspecified Status: Acute Assessment and Plan: BUN/Cr 35/2.10 Creatinine looks to be all over the place, baseline 1.4-1.7 Continue to trend labs Avoid nephrotoxic medications Could be an infection (3) Abnormal urinalysis: Code(s): R82.90 - Unspecified abnormal findings in urine Status: Acute Assessment and Plan: Repeat UA looks better with 1+ leukocytes esterase, WBC 4-6 Urine culture resulted as contaminated Continue ceftriaxone for now repeat UA and culture Trend urine output Adjust therapy as indicated by culture results (4) CHF (congestive heart failure): Code(s): I50.9 - Heart failure, unspecified Status: Acute Assessment and Plan: BNP is 1610 Echo >70% EF with grade 1 diastolic dysfunction Heart failure related to diastolic dysfunction Do not think that this is an acute exacerbation at this time Continue home lasix 40mg PO Daily Trend urine output Daily weights (5) Diabetes mellitus with hyperglycemia: Qualifiers: Diabetes mellitus type: type 2 Diabetes mellitus 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 insulin use: with 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 use Qualified Code(s): E11.65 - Type 2 diabetes mellitus with hyperglycemia; Z79.4 - intermediate frame tender (current) use of insulin Code(s): E11.65 - Type 2 diabetes mellitus with hyperglycemia Status: Chronic Assessment and Plan: Current glucose 445 Insulin pump removed ISS Accu-Cheks AC/HS A1c Trend glucose Adjust therapy as indicated (6) Near syncope: Code(s): R55 - Syncope and collapse Status: Acute Assessment and Plan: Head Ct does not show any acute abnormalities Looks like she had a stent placed in her leg or abdomen, so MRI is probably not likely able to be obtained Orthostatic blood pressure were positive supine 105/55, sitting 105/51, and standing 76/38 Metoprolol has been decreased to 50mg daily Carotid dopper <50% stenosis bilaterally PT/OT (7) COPD (chronic obstructive pulmonary disease): Qualifiers: COPD type: unspecified COPD Qualified Code(s): J44.9 - Chronic obstructive pulmonary disease, unspecified Code(s): J44.9 - Chronic obstructive pulmonary disease, unspecified Status: Chronic Assessment and Plan: Increased sputum and wheezes Could be a component of COPD Do not think this is an acute exacerbation Chest xray shows no acute abnormality Continue home trelegy and add albuterol (8) DVT (deep venous thrombosis): Code(s): I82.409 - Acute embolism and thrombosis of unspecified deep veins of unspecified lower extremity Status: Acute Assessment and Plan: Multiple DVTS noted in left popliteal and peroneal veins Venous and arterial doppler performed Start full dose lovenox Will probably need to be changed to PO anticoagulation at DC Time Spent With Patient Time with patient: Greater than 35 minutes Subjective Date/time seen: 06/19/21 10:45 Interval history: Date/Time: 06/17/21 13:39 Chief Complaint: Weakness, cough, abdominal pain Narrative: Patient is an 86-year-old female with a history of COPD, bronchitis, CAD, frequent UTI, DVT, MD, hypertension presented to the ED with multiple complaints of weakness, urinary dysfunction,
--- NOTE | 2021-06-19 11:13 | PC.NURSE ---
Pete Pérez CARTON FOLDER notified of patient orthostatic positive. Bp dropped when pt stood up
--- NOTE | 2021-06-19 11:48 | PC.NURSE ---
Pete Pérez [employer] Miner Blasting notified of blood sugar 490.
[2021-06-19 12:08] LABS: Glucose Point of Care 489 mg/dl (65-105)
[2021-06-19 12:08] LABS: Glucose Point of Care 490 mg/dl (65-105)
[2021-06-19] MEDS: SODIUM CHLORIDE 0.9% IV 250 ML 100 ML IV CONT (12:09)
[2021-06-19] MEDS: INSULIN ASPART (*BKC) 100 UNITS/ML 10 UNITS SUB-Q ×2 (12:14→15:22)
[2021-06-19 12:38] LABS: Appearance Urine Cloudy (Clear); Bilirubin Urine Negative (Negative); Blood Urine Negative (Negative); Color Urine Yellow (Yellow); Glucose Urine UA 2+ mg/dL (Negative); Ketones Urine Negative (Negative); Leukocyte Esterase Ur 1+ LEU/UL (NEGATIVE); Nitrate Urine Negative (Negative); Protein Urine Negative (Negative); Specific Grav Ur 1.015 (1.001-1.035); Urobilinogen Urine 0.2 mg/dL (<2.0)
[2021-06-19 12:40] LABS: Mucus Urine Rare /lpf; RBC Urine 0-2 /hpf (0-2); Squamous Epithelial Cell Urine Occasional /hpf (Few)
[2021-06-19 12:48] LABS: Add Urine Microscopic? YES
--- NOTE | 2021-06-19 15:06 | PC.NURSE ---
glucose 445, Pete Pérez notified new orders received.
[2021-06-19 15:07] LABS: Glucose Point of Care 445 mg/dl (65-105)
[2021-06-19] MEDS: SODIUM CHLORIDE 0.9% IV 250 ML 500 ML IV CONT (15:24)
[2021-06-19] MEDS: INSULIN HUMAN NPH (*BKC) 100 UNITS/ML 12 UNITS SUB-Q (15:26)
[2021-06-19 16:45] LABS: Glucose Point of Care 262 mg/dl (65-105)
[2021-06-19] MEDS: INSULIN ASPART (*BKC) 100 UNITS/ML 8 UNITS SUB-Q (17:05)
[2021-06-19] MEDS: ENOXAPARIN 80 MG/0.8 ML SYRINGE 78 MG SUB-Q (17:06)
--- NOTE | 2021-06-19 17:08 | PC.NURSE ---
glucose 262 called to Pete Pérez set up mechanic coil winding machines
[2021-06-19 18:43] LABS: Glucose Point of Care 170 mg/dl (65-105)
--- NOTE | 2021-06-19 18:44 | PC.NURSE ---
glucose of 170 called to Pete Pérez ORIENTAL RUG STRETCHER
[2021-06-19 20:31] LABS: Glucose Point of Care 108 mg/dl (65-105)
[2021-06-19] MEDS: INSULIN GLARGINE (*BKC) 100 UNITS/ML 25 UNITS SUB-Q (22:27)
[2021-06-19 22:33] LABS: Glucose Point of Care 191 mg/dl (65-105)
[2021-06-20] VITALS (8 sets, daily range): BP systolic 63–152; BP diastolic 39–69; PULSE 54–62; RESP 16–18; TEMP 36.7–36.9; O2SAT 96–97
[2021-06-20 00:32] LABS: Glucose Point of Care 290 mg/dl (65-105)
[2021-06-20] MEDS: ACETAMINOPHEN 325 MG TABLET 650 MG PO ×2 (02:41→06:38)
[2021-06-20 02:43] LABS: Glucose Point of Care 319 mg/dl (65-105)
[2021-06-20] MEDS: LEVOTHYROXINE SODIUM 50 MCG TABLET PO (05:38)
[2021-06-20 05:46] LABS: Basophils Absolute Auto 0.1 K/mm3 (0.0-0.1); Basophils Percent Auto 0.5 % (0.2-1.2); Eosinophils Absolute Auto 0.2 K/mm3 (0-0.3); Eosinophils Percent Auto 1.6 % (0-4.4); Hematocrit 36.8 % (37.0-47.0); Hemoglobin 11.7 g/dL (12.0-15.0); Immature Granulocyte Absolute 0.05 K/mm3 (0.00-0.031); Immature Granulocyte Percent A 0.5 % (0-0.5); Lymphocytes Absolute Auto 3.16 K/mm3 (0.9-3.2); Lymphocytes Percent Auto 32.7 % (18.3-44.2); Mean Corpuscular HGB Conc 31.8 g/dl (32-36); Mean Corpuscular Volume 97.6 fl (80-100); Mean Platelet Volume 10.3 fl (7.4-10.4); Monocytes Absolute Auto 0.9 K/mm3 (0.1-0.6); Neutrophils Absolute Auto 5.4 K/mm3 (1.3-6.7); Neutrophils Percent Auto 55.7 % (45.5-73.1); Platelet Count Result 316 k/mm3 (150-375); Red Blood Count 3.77 M/mm3 (4.2-5.4); Red Cell Distribution Width 12.7 % (11.5-14.5); White Blood Count 9.7 K/mm3 (4.5-10.0)
[2021-06-20 05:49] LABS: Glucose Point of Care 263 mg/dl (65-105)
[2021-06-20 06:08] LABS: Alanine Aminotransferase 10 U/L (4-35); Albumin Level 3.1 g/dL (3.5-5.1); Alkaline Phosphatase 60 U/L (38-126); Anion Gap 6 mmol/L (8-16); Aspartate Amino Transferase 21 U/L (14-36); Bilirubin,Total 0.4 mg/dL (0.2-1.3); Blood Urea Nitrogen 38 mg/dL (7-17); Calcium 7.9 mg/dL (8.4-10.2); Carbon Dioxide 29 mmol/L (22-30); Chloride 95 mmol/L (98-107); Estimated CRCL calculation 17 ml/min; Estimated Glomerular Filt Rate 21; Glucose 273 mg/dL (65-110); Magnesium 1.9 mg/dL (1.6-2.3); Potassium 3.2 mmol/L (3.4-5.0); Sodium 130 mmol/L (137-145)
[2021-06-20 08:03] LABS: Glucose Point of Care 261 mg/dl (65-105)
[2021-06-20] MEDS: ASPIRIN 81 MG ENTERIC TABLET PO (09:28)
[2021-06-20] MEDS: FUROSEMIDE 40 MG TABLET PO (09:28)
[2021-06-20] MEDS: METOPROLOL SUCCINATE EXT REL 50 MG TABCR PO (09:28)
[2021-06-20] MEDS: INSULIN ASPART (*BKC) 100 UNITS/ML 8 UNITS SUB-Q (09:29)
[2021-06-20] MEDS: ISOSORBIDE MONONITRATE 30 MG TAB.ER.24H PO (09:29)
[2021-06-20] MEDS: ROSUVASTATIN 10 MG TABLET 20 MG PO (09:29)
[2021-06-20] MEDS: INSULIN ASPART (*BKC) 100 UNITS/ML SUB-Q ×2 (09:29→12:21)
[2021-06-20] MEDS: POTASSIUM CHLORIDE 20 MEQ TABLET 40 MEQ PO (09:31)
[2021-06-20] MEDS: INSULIN GLARGINE (*BKC) 100 UNITS/ML 25 UNITS SUB-Q (09:32)
--- NOTE | 2021-06-20 11:00 | P.PNIM_ITS ---
Progress Note: A&P Assessment and Plan (1) Peripheral vascular disease: Code(s): I73.9 - Peripheral vascular disease, unspecified Status: Acute Assessment and Plan: * Left toes are purple * Left leg swollen more than right * Unilateral temperature variance, left toes are cold * Arterial and venous doppler ordered * Brachial index normal, show consistent with occlusive disease * Wound care ordered for right ankle wound * Continue home aspirin * Keep legs elevated * Layo hose * Gabapentin ordered (2) Acute on chronic kidney failure: Code(s): N17.9 - Acute kidney failure, unspecified; N18.9 - Chronic kidney disease, unspecified Status: Acute Assessment and Plan: * BUN/Cr 38/2.20 * Creatinine looks to be all over the place, baseline 1.4-1.7 * Continue to trend labs * Avoid nephrotoxic medications * Could be an infection * Renal duplex and ultrasound performed and pending * Consider consulting nephro (3) Abnormal urinalysis: Code(s): R82.90 - Unspecified abnormal findings in urine Status: Acute Assessment and Plan: * Repeat UA looks better with 1+ leukocytes esterase, WBC 4-6 * Urine culture resulted as contaminated * Continue ceftriaxone for now * repeat UA and culture * Trend urine output * Adjust therapy as indicated by culture results (4) CHF (congestive heart failure): Code(s): I50.9 - Heart failure, unspecified Status: Acute Assessment and Plan: * BNP is 1610 * Echo >70% EF with grade 1 diastolic dysfunction * Heart failure related to diastolic dysfunction * Do not think that this is an acute exacerbation at this time * Continue home lasix 40mg PO Daily * Trend urine output * Daily weights (5) Diabetes mellitus with hyperglycemia: Qualifiers: Diabetes mellitus buttermaker insulin use: with nursing home use Diabetes mellitus type: type 2 Qualified Code(s): E11.65 - Type 2 diabetes mellitus with hyperglycemia; Z79.4 - termite renewal inspector (current) use of insulin Code(s): E11.65 - Type 2 diabetes mellitus with hyperglycemia Status: Chronic Assessment and Plan: * Current glucose 273 * Insulin pump removed * Glucose roll 127 units in 24 hours * Adjust Lantus from 25 to 35 units BID * Adjust with meals to 10 units * ISS increased and adjusted * Accu-Cheks AC/HS * A1c * Trend glucose * Adjust therapy as indicated (6) Near syncope: Code(s): R55 - Syncope and collapse Status: Acute Assessment and Plan: * Head Ct does not show any acute abnormalities * Looks like she had a stent placed in her leg or abdomen, so MRI is probably not likely able to be obtained * Orthostatic blood pressure were positive supine 105/55, sitting 105/51, and standing 76/38 * Metoprolol has been decreased to 50mg daily * Carotid dopper <50% stenosis bilaterally * PT/OT (7) COPD (chronic obstructive pulmonary disease): Qualifiers: COPD type: unspecified COPD Qualified Code(s): J44.9 - Chronic obstructive pulmonary disease, unspecified Code(s): J44.9 - Chronic obstructive pulmonary disease, unspecified Status: Chronic Assessment and Plan: * Increased sputum and wheezes * Could be a component of COPD * Do not think this is an acute exacerbation * Chest xray shows no acute abnormality * Continue home trelegy and add albuterol
--- NOTE | 2021-06-20 11:00 | PM.IMPN ---
Progress Note: A&P Assessment and Plan (1) Peripheral vascular disease: Code(s): I73.9 - Peripheral vascular disease, unspecified Status: Acute Assessment and Plan: Left toes are purple Left leg swollen more than right Unilateral temperature variance, left toes are cold Arterial and venous doppler ordered Brachial index normal, show consistent with occlusive disease Wound care ordered for right ankle wound Continue home aspirin Keep legs elevated Layo hose Gabapentin ordered (2) Acute on chronic kidney failure: Code(s): N17.9 - Acute kidney failure, unspecified; N18.9 - Chronic kidney disease, unspecified Status: Acute Assessment and Plan: BUN/Cr 38/2.20 Creatinine looks to be all over the place, baseline 1.4-1.7 Continue to trend labs Avoid nephrotoxic medications Could be an infection Renal duplex and ultrasound performed and pending Consider consulting nephro (3) Abnormal urinalysis: Code(s): R82.90 - Unspecified abnormal findings in urine Status: Acute Assessment and Plan: Repeat UA looks better with 1+ leukocytes esterase, WBC 4-6 Urine culture resulted as contaminated Continue ceftriaxone for now repeat UA and culture Trend urine output Adjust therapy as indicated by culture results (4) CHF (congestive heart failure): Code(s): I50.9 - Heart failure, unspecified Status: Acute Assessment and Plan: BNP is 1610 Echo >70% EF with grade 1 diastolic dysfunction Heart failure related to diastolic dysfunction Do not think that this is an acute exacerbation at this time Continue home lasix 40mg PO Daily Trend urine output Daily weights (5) Diabetes mellitus with hyperglycemia: Qualifiers: Diabetes mellitus assisted insulin use: with assisted use Diabetes mellitus type: type 2 Qualified Code(s): E11.65 - Type 2 diabetes mellitus with hyperglycemia; Z79.4 - halfway (current) use of insulin Code(s): E11.65 - Type 2 diabetes mellitus with hyperglycemia Status: Chronic Assessment and Plan: Current glucose 273 Insulin pump removed Glucose roll 127 units in 24 hours Adjust Lantus from 25 to 35 units BID Adjust with meals to 10 units ISS increased and adjusted Accu-Cheks AC/HS A1c Trend glucose Adjust therapy as indicated (6) Near syncope: Code(s): R55 - Syncope and collapse Status: Acute Assessment and Plan: Head Ct does not show any acute abnormalities Looks like she had a stent placed in her leg or abdomen, so MRI is probably not likely able to be obtained Orthostatic blood pressure were positive supine 105/55, sitting 105/51, and standing 76/38 Metoprolol has been decreased to 50mg daily Carotid dopper <50% stenosis bilaterally PT/OT (7) COPD (chronic obstructive pulmonary disease): Qualifiers: COPD type: unspecified COPD Qualified Code(s): J44.9 - Chronic obstructive pulmonary disease, unspecified Code(s): J44.9 - Chronic obstructive pulmonary disease, unspecified Status: Chronic Assessment and Plan: Increased sputum and wheezes Could be a component of COPD Do not think this is an acute exacerbation Chest xray shows no acute abnormality Continue home trelegy and add albuterol (8) DVT (deep venous thrombosis): Code(s): I82.409 - Acute embolism and thrombosis of unspecified deep veins of unspecified lower extremity Status: Acute Assessment and Plan: Multiple DVTS noted in left popliteal and peroneal veins Venous and arterial doppler performed Start full dose lovenox Did send through for eliquis awaiting cost analysis Will probably need to be changed to PO anticoagulation at [place] (9) Right ankle pain: Code(s): M25.571 - Pain in right ankle and joints of right foot Status: Acute
[2021-06-20 11:43] LABS: Glucose Point of Care 340 mg/dl (65-105)
[2021-06-20 12:17] LABS: Troponin I 0.013 ng/mL (0.000-0.034)
[2021-06-20] MEDS: INSULIN ASPART (*BKC) 100 UNITS/ML 10 UNITS SUB-Q ×2 (12:20→16:54)
[2021-06-20] MEDS: GABAPENTIN 100 MG CAPSULE PO ×2 (12:22→16:53)
[2021-06-20 16:37] LABS: Glucose Point of Care 71 mg/dl (65-105)
[2021-06-20] MEDS: ENOXAPARIN 80 MG/0.8 ML SYRINGE 78 MG SUB-Q (16:53)
--- NOTE | 2021-06-20 16:59 | PC.NURSE ---
Pt intake 100% of evening meal. States her blood sugar will be high later and requests that evening insulin be given. States I would take it if I was at home.
[2021-06-20 17:55] LABS: Glucose Point of Care 181 mg/dl (65-105)
[2021-06-20] MEDS: PANTOPRAZOLE SODIUM IV 40 MG VIAL IV PUSH (20:49)
[2021-06-20] MEDS: INSULIN GLARGINE (*BKC) 100 UNITS/ML 35 UNITS SUB-Q (20:52)
[2021-06-20 21:19] LABS: Glucose Point of Care 224 mg/dl (65-105)
[2021-06-20 22:52] LABS: Glucose Point of Care 227 mg/dl (65-105)
[2021-06-21 02:36] LABS: Glucose Point of Care 179 mg/dl (65-105)
[2021-06-21 05:15] VITALS: BP 130/53; BP 138/80; BP 145/67; TEMP 36.5
[2021-06-21] MEDS: LEVOTHYROXINE SODIUM 50 MCG TABLET PO (05:46)
[2021-06-21 06:14] LABS: Glucose Point of Care 234 mg/dl (65-105)
[2021-06-21 06:18] LABS: Basophils Absolute Auto 0.1 K/mm3 (0.0-0.1); Basophils Percent Auto 0.5 % (0.2-1.2); Eosinophils Absolute Auto 0.2 K/mm3 (0-0.3); Eosinophils Percent Auto 1.7 % (0-4.4); Hematocrit 38.8 % (37.0-47.0); Hemoglobin 12.5 g/dL (12.0-15.0); Immature Granulocyte Absolute 0.06 K/mm3 (0.00-0.031); Immature Granulocyte Percent A 0.6 % (0-0.5); Lymphocytes Percent Auto 30.6 % (18.3-44.2); Mean Corpuscular HGB Conc 32.2 g/dl (32-36); Mean Corpuscular Hemoglobin 31.3 pg (26-34); Monocytes Absolute Auto 0.9 K/mm3 (0.1-0.6); Monocytes Percent Auto 8.6 % (2.6-8.5); Neutrophils Absolute Auto 6.1 K/mm3 (1.3-6.7); Platelet Count Result 347 k/mm3 (150-375); Red Cell Distribution Width 12.9 % (11.5-14.5); White Blood Count 10.5 K/mm3 (4.5-10.0)
[2021-06-21 06:41] LABS: Alanine Aminotransferase 13 U/L (4-35); Albumin Level 3.2 g/dL (3.5-5.1); Alkaline Phosphatase 53 U/L (38-126); Anion Gap 5 mmol/L (8-16); Aspartate Amino Transferase 29 U/L (14-36); Bilirubin,Total 0.4 mg/dL (0.2-1.3); Blood Urea Nitrogen 35 mg/dL (7-17); Calcium 8.1 mg/dL (8.4-10.2); Carbon Dioxide 32 mmol/L (22-30); Chloride 98 mmol/L (98-107); Estimated CRCL calculation 17 ml/min; Estimated Glomerular Filt Rate 21; Glucose 254 mg/dL (65-110); Potassium 5.2 mmol/L (3.4-5.0); Sodium 135 mmol/L (137-145)
[2021-06-21 07:12] LABS: Hemoglobin A1C 12.3 % (<5.7)
[2021-06-21 07:51] LABS: Glucose Point of Care 243 mg/dl (65-105)
[2021-06-21 08:00] VITALS: BP 181/64
[2021-06-21] MEDS: METOPROLOL SUCCINATE EXT REL 50 MG TABCR PO (08:45)
[2021-06-21] MEDS: ROSUVASTATIN 10 MG TABLET 20 MG PO (08:45)
[2021-06-21] MEDS: GABAPENTIN 100 MG CAPSULE PO ×3 (08:46→17:25)
[2021-06-21] MEDS: PANTOPRAZOLE SODIUM IV 40 MG VIAL IV PUSH ×2 (08:46→20:44)
[2021-06-21] MEDS: ISOSORBIDE MONONITRATE 30 MG TAB.ER.24H PO (08:46)
[2021-06-21] MEDS: ASPIRIN 81 MG ENTERIC TABLET PO (08:46)
[2021-06-21] MEDS: FUROSEMIDE 40 MG TABLET PO (08:46)
[2021-06-21] MEDS: INSULIN GLARGINE (*BKC) 100 UNITS/ML 35 UNITS SUB-Q ×2 (08:48→20:44)
[2021-06-21] MEDS: INSULIN ASPART (*BKC) 100 UNITS/ML 12 UNITS SUB-Q ×3 (08:49→17:26)
[2021-06-21] MEDS: INSULIN ASPART (*BKC) 100 UNITS/ML SUB-Q ×2 (08:49→11:58)
[2021-06-21] MEDS: ONDANSETRON INJ 4 MG/2 ML VIAL IV PUSH (08:50)
[2021-06-21 08:55] VITALS: BP 112/59
[2021-06-21 08:56] VITALS: BP 86/47
[2021-06-21 11:33] LABS: Glucose Point of Care 217 mg/dl (65-105)
[2021-06-21 12:54] LABS: Anion Gap 8 mmol/L (8-16); Blood Urea Nitrogen 33 mg/dL (7-17); Calcium 8.3 mg/dL (8.4-10.2); Carbon Dioxide 28 mmol/L (22-30); Chloride 100 mmol/L (98-107); Estimated CRCL calculation 19 ml/min; Estimated Glomerular Filt Rate 24; Glucose 160 mg/dL (65-110); Sodium 136 mmol/L (137-145)
[2021-06-21 14:00] VITALS: BP 127/73; PULSE 58; RESP 16; TEMP 36.7; O2SAT 95
--- NOTE | 2021-06-21 15:04 | P.PNIM_ITS ---
Progress Note: A&P Assessment and Plan (1) DVT (deep venous thrombosis): Code(s): I82.409 - Acute embolism and thrombosis of unspecified deep veins of unspecified lower extremity Status: Acute Assessment and Plan: * Multiple DVTS noted in left popliteal and peroneal veins * Venous and arterial doppler performed * Started full dose lovenox * Did send through for eliquis awaiting cost analysis * Will probably need to be changed to PO anticoagulation at [place] (2) Peripheral vascular disease: Code(s): I73.9 - Peripheral vascular disease, unspecified Status: Acute Assessment and Plan: * Left toes are purple * Left leg swollen more than right * Unilateral temperature variance, left toes are cold * Arterial and venous doppler ordered * Normal ABIs and decreased TBIs, consistent with arterial occlusive disease * Wound care ordered for right ankle wound * Continue home aspirin * Keep legs elevated * Layo hose * Gabapentin ordered (3) Acute on chronic kidney failure: Code(s): N17.9 - Acute kidney failure, unspecified; N18.9 - Chronic kidney disease, unspecified Status: Acute Assessment and Plan: * BUN/Cr 33/2.0 * Creatinine looks to be all over the place, baseline 1.4-1.7 * Continue to trend labs * Avoid nephrotoxic medications * Renal duplex and ultrasound negative * Consider consulting nephro if kidney function does not continue to improve (4) Abnormal urinalysis: Code(s): R82.90 - Unspecified abnormal findings in urine Status: Acute Assessment and Plan: * Repeat UA looks better with 1+ leukocytes esterase, WBC 4-6 * Urine culture resulted as contaminated * repeat UA and culture negative * Urine culture x2 negative, stopped Rocephin (5) Near syncope: Code(s): R55 - Syncope and collapse Status: Acute Assessment and Plan: * Head Ct does not show any acute abnormalities * Looks like she had a stent placed in her leg or abdomen, so MRI is probably not likely able to be obtained * Orthostatic blood pressure were positive supine 105/55, sitting 105/51, and standing 76/38 * Metoprolol has been decreased to 50mg daily * Carotid dopper <50% stenosis bilaterally * PT/OT (6) Orthostatic hypotension: Code(s): I95.1 - Orthostatic hypotension Status: Acute Assessment and Plan: -as above -still orthostatic today, likely exacerbated by age and dehydration (7) CHF (congestive heart failure): Code(s): I50.9 - Heart failure, unspecified Status: Acute Assessment and Plan: * BNP is 1610 * Echo >70% EF with grade 1 diastolic dysfunction * Heart failure related to diastolic dysfunction * Do not think that this is an acute exacerbation at this time * Continue home lasix 40mg PO Daily * Trend urine output * Daily weights (8) Diabetes mellitus with hyperglycemia: Qualifiers: Diabetes mellitus type: type 2 Diabetes mellitus intermediate insulin use: with terminologist use Qualified Code(s): E11.65 - Type 2 diabetes mellitus with hyperglycemia; Z79.4 - long-term (current) use of insulin Code(s): E11.65 - Type 2 diabetes mellitus with hyperglycemia Status: Chronic Assessment and Plan: * Current glucose 254 * Insulin pump removed * Adjust Lantus from 25 to 35 units BID * Adjust with meals to 12 units * ISS increased and adjusted * Accu-Cheks A
--- NOTE | 2021-06-21 15:04 | PM.IMPN ---
Progress Note: A&P Assessment and Plan (1) DVT (deep venous thrombosis): Code(s): I82.409 - Acute embolism and thrombosis of unspecified deep veins of unspecified lower extremity Status: Acute Assessment and Plan: Multiple DVTS noted in left popliteal and peroneal veins Venous and arterial doppler performed Started full dose lovenox Did send through for eliquis awaiting cost analysis Will probably need to be changed to PO anticoagulation at [place] (2) Peripheral vascular disease: Code(s): I73.9 - Peripheral vascular disease, unspecified Status: Acute Assessment and Plan: Left toes are purple Left leg swollen more than right Unilateral temperature variance, left toes are cold Arterial and venous doppler ordered Normal ABIs and decreased TBIs, consistent with arterial occlusive disease Wound care ordered for right ankle wound Continue home aspirin Keep legs elevated Layo hose Gabapentin ordered (3) Acute on chronic kidney failure: Code(s): N17.9 - Acute kidney failure, unspecified; N18.9 - Chronic kidney disease, unspecified Status: Acute Assessment and Plan: BUN/Cr 33/2.0 Creatinine looks to be all over the place, baseline 1.4-1.7 Continue to trend labs Avoid nephrotoxic medications Renal duplex and ultrasound negative Consider consulting nephro if kidney function does not continue to improve (4) Abnormal urinalysis: Code(s): R82.90 - Unspecified abnormal findings in urine Status: Acute Assessment and Plan: Repeat UA looks better with 1+ leukocytes esterase, WBC 4-6 Urine culture resulted as contaminated repeat UA and culture negative Urine culture x2 negative, stopped Rocephin (5) Near syncope: Code(s): R55 - Syncope and collapse Status: Acute Assessment and Plan: Head Ct does not show any acute abnormalities Looks like she had a stent placed in her leg or abdomen, so MRI is probably not likely able to be obtained Orthostatic blood pressure were positive supine 105/55, sitting 105/51, and standing 76/38 Metoprolol has been decreased to 50mg daily Carotid dopper <50% stenosis bilaterally PT/OT (6) Orthostatic hypotension: Code(s): I95.1 - Orthostatic hypotension Status: Acute Assessment and Plan: -as above -still orthostatic today, likely exacerbated by age and dehydration (7) CHF (congestive heart failure): Code(s): I50.9 - Heart failure, unspecified Status: Acute Assessment and Plan: BNP is 1610 Echo >70% EF with grade 1 diastolic dysfunction Heart failure related to diastolic dysfunction Do not think that this is an acute exacerbation at this time Continue home lasix 40mg PO Daily Trend urine output Daily weights (8) Diabetes mellitus with hyperglycemia: Qualifiers: Diabetes mellitus type: type 2 Diabetes mellitus intermediate insulin use: with superintendent container terminal use Qualified Code(s): E11.65 - Type 2 diabetes mellitus with hyperglycemia; Z79.4 - FDC (current) use of insulin Code(s): E11.65 - Type 2 diabetes mellitus with hyperglycemia Status: Chronic Assessment and Plan: Current glucose 254 Insulin pump removed Adjust Lantus from 25 to 35 units BID Adjust with meals to 12 units ISS increased and adjusted Accu-Cheks AC/HS A1c 12.3 Trend glucose Adjust therapy as indicated (9) COPD (chronic obstructive pulmonary disease): Qualifiers: COPD type: unspecified COPD Qualified Code(s): J44.9 - Chronic obstructive pulmonary disease, unspecified Code(s): J44.9 - Chronic obstructive pulmonary disease, unspecified Status: Chronic Assessment and Plan: Increased sputum and wheezes Could be a component of COPD Do not think this is an acute exacerbation Chest xray shows no acute abnormality Continue home
[2021-06-21 16:28] LABS: Glucose Point of Care 100 mg/dl (65-105)
[2021-06-21] MEDS: ENOXAPARIN 80 MG/0.8 ML SYRINGE 78 MG SUB-Q (17:25)
[2021-06-21 20:57] VITALS: BP 119/56; PULSE 65; RESP 16; TEMP 36.5; O2SAT 97
[2021-06-21 20:59] LABS: Glucose Point of Care 270 mg/dl (65-105)
[2021-06-22] VITALS (8 sets, daily range): BP systolic 82–148; BP diastolic 40–57; PULSE 61–68; RESP 16–18; TEMP 35.9–36.7; O2SAT 95–98
[2021-06-22] MEDS: LEVOTHYROXINE SODIUM 50 MCG TABLET PO (05:33)
[2021-06-22 07:45] LABS: Glucose Point of Care 244 mg/dl (65-105)
[2021-06-22] MEDS: INSULIN ASPART (*BKC) 100 UNITS/ML SUB-Q (08:03)
[2021-06-22] MEDS: INSULIN ASPART (*BKC) 100 UNITS/ML 12 UNITS SUB-Q ×3 (08:04→16:42)
[2021-06-22] MEDS: PANTOPRAZOLE SODIUM IV 40 MG VIAL IV PUSH ×2 (08:06→20:47)
[2021-06-22] MEDS: GABAPENTIN 100 MG CAPSULE PO ×3 (08:06→16:41)
[2021-06-22] MEDS: ROSUVASTATIN 10 MG TABLET 20 MG PO (08:06)
[2021-06-22] MEDS: FUROSEMIDE 40 MG TABLET PO (08:06)
[2021-06-22] MEDS: ASPIRIN 81 MG ENTERIC TABLET PO (08:06)
[2021-06-22] MEDS: ISOSORBIDE MONONITRATE 30 MG TAB.ER.24H PO (08:07)
[2021-06-22] MEDS: METOPROLOL SUCCINATE EXT REL 50 MG TABCR PO (08:07)
[2021-06-22] MEDS: INSULIN GLARGINE (*BKC) 100 UNITS/ML 35 UNITS SUB-Q (08:09)
--- NOTE | 2021-06-22 09:00 | PM.IMPN ---
Progress Note: A&P Assessment and Plan (1) DVT (deep venous thrombosis): Code(s): I82.409 - Acute embolism and thrombosis of unspecified deep veins of unspecified lower extremity Status: Acute Assessment and Plan: Multiple DVTS noted in left popliteal and peroneal veins Venous and arterial doppler performed Started full dose lovenox Did send through for eliquis awaiting cost analysis Will probably need to be changed to PO anticoagulation at [place] (2) Peripheral vascular disease: Code(s): I73.9 - Peripheral vascular disease, unspecified Status: Acute Assessment and Plan: Left toes are purple Left leg swollen more than right Unilateral temperature variance, left toes are cold Arterial and venous doppler ordered Normal ABIs and decreased TBIs, consistent with arterial occlusive disease Wound care ordered for right ankle wound Continue home aspirin Keep legs elevated Layo hose Gabapentin ordered (3) Acute on chronic kidney failure: Code(s): N17.9 - Acute kidney failure, unspecified; N18.9 - Chronic kidney disease, unspecified Status: Acute Assessment and Plan: BUN/Cr 33/2.0 Creatinine looks to be all over the place, baseline 1.4-1.7 Continue to trend labs Avoid nephrotoxic medications Renal duplex and ultrasound negative Consider consulting nephro if kidney function does not continue to improve (4) Abnormal urinalysis: Code(s): R82.90 - Unspecified abnormal findings in urine Status: Acute Assessment and Plan: Repeat UA looks better with 1+ leukocytes esterase, WBC 4-6 Urine culture resulted as contaminated repeat UA and culture negative Urine culture x2 negative, stopped Rocephin (5) Near syncope: Code(s): R55 - Syncope and collapse Status: Acute Assessment and Plan: Head Ct does not show any acute abnormalities Looks like she had a stent placed in her leg or abdomen, so MRI is probably not likely able to be obtained Orthostatic blood pressure were positive supine 105/55, sitting 105/51, and standing 76/38 Metoprolol has been decreased to 25mg daily Carotid dopper <50% stenosis bilaterally PT/OT (6) Orthostatic hypotension: Code(s): I95.1 - Orthostatic hypotension Status: Acute Assessment and Plan: -as above -still orthostatic today, likely exacerbated by age and dehydration (7) CHF (congestive heart failure): Code(s): I50.9 - Heart failure, unspecified Status: Acute Assessment and Plan: BNP is 1610 Echo >70% EF with grade 1 diastolic dysfunction Heart failure related to diastolic dysfunction Do not think that this is an acute exacerbation at this time Continue home lasix 40mg PO Daily Trend urine output Daily weights (8) Diabetes mellitus with hyperglycemia: Qualifiers: Diabetes mellitus type: type 2 Diabetes mellitus [facility] insulin use: with termite technician use Qualified Code(s): E11.65 - Type 2 diabetes mellitus with hyperglycemia; Z79.4 - senior living (current) use of insulin Code(s): E11.65 - Type 2 diabetes mellitus with hyperglycemia Status: Chronic Assessment and Plan: Current glucose 138 Insulin pump removed Adjust Lantus from 25 to 35 units BID Adjust with meals to 12 units ISS increased and adjusted Accu-Cheks AC/HS A1c 12.3 Trend glucose Adjust therapy as indicated (9) COPD (chronic obstructive pulmonary disease): Qualifiers: COPD type: unspecified COPD Qualified Code(s): J44.9 - Chronic obstructive pulmonary disease, unspecified Code(s): J44.9 - Chronic obstructive pulmonary disease, unspecified Status: Chronic Assessment and Plan: Increased sputum and wheezes Could be a component of COPD Do not think this is an acute exacerbation Chest xray shows no acute abnormality Continue home
--- NOTE | 2021-06-22 09:00 | P.PNIM_ITS ---
Progress Note: A&P Assessment and Plan (1) DVT (deep venous thrombosis): Code(s): I82.409 - Acute embolism and thrombosis of unspecified deep veins of unspecified lower extremity Status: Acute Assessment and Plan: * Multiple DVTS noted in left popliteal and peroneal veins * Venous and arterial doppler performed * Started full dose lovenox * Did send through for eliquis awaiting cost analysis * Will probably need to be changed to PO anticoagulation at [place] (2) Peripheral vascular disease: Code(s): I73.9 - Peripheral vascular disease, unspecified Status: Acute Assessment and Plan: * Left toes are purple * Left leg swollen more than right * Unilateral temperature variance, left toes are cold * Arterial and venous doppler ordered * Normal ABIs and decreased TBIs, consistent with arterial occlusive disease * Wound care ordered for right ankle wound * Continue home aspirin * Keep legs elevated * Layo hose * Gabapentin ordered (3) Acute on chronic kidney failure: Code(s): N17.9 - Acute kidney failure, unspecified; N18.9 - Chronic kidney disease, unspecified Status: Acute Assessment and Plan: * BUN/Cr 33/2.0 * Creatinine looks to be all over the place, baseline 1.4-1.7 * Continue to trend labs * Avoid nephrotoxic medications * Renal duplex and ultrasound negative * Consider consulting nephro if kidney function does not continue to improve (4) Abnormal urinalysis: Code(s): R82.90 - Unspecified abnormal findings in urine Status: Acute Assessment and Plan: * Repeat UA looks better with 1+ leukocytes esterase, WBC 4-6 * Urine culture resulted as contaminated * repeat UA and culture negative * Urine culture x2 negative, stopped Rocephin (5) Near syncope: Code(s): R55 - Syncope and collapse Status: Acute Assessment and Plan: * Head Ct does not show any acute abnormalities * Looks like she had a stent placed in her leg or abdomen, so MRI is probably not likely able to be obtained * Orthostatic blood pressure were positive supine 105/55, sitting 105/51, and standing 76/38 * Metoprolol has been decreased to 25mg daily * Carotid dopper <50% stenosis bilaterally * PT/OT (6) Orthostatic hypotension: Code(s): I95.1 - Orthostatic hypotension Status: Acute Assessment and Plan: -as above -still orthostatic today, likely exacerbated by age and dehydration (7) CHF (congestive heart failure): Code(s): I50.9 - Heart failure, unspecified Status: Acute Assessment and Plan: * BNP is 1610 * Echo >70% EF with grade 1 diastolic dysfunction * Heart failure related to diastolic dysfunction * Do not think that this is an acute exacerbation at this time * Continue home lasix 40mg PO Daily * Trend urine output * Daily weights (8) Diabetes mellitus with hyperglycemia: Qualifiers: Diabetes mellitus type: type 2 Diabetes mellitus longterm insulin use: with long term care administrator use Qualified Code(s): E11.65 - Type 2 diabetes mellitus with hyperglycemia; Z79.4 - senior living (current) use of insulin Code(s): E11.65 - Type 2 diabetes mellitus with hyperglycemia Status: Chronic Assessment and Plan: * Current glucose 138 * Insulin pump removed * Adjust Lantus from 25 to 35 units BID * Adjust with meals to 12 units * ISS increased and adjusted * Accu-Cheks A
[2021-06-22 09:50] LABS: Glucose Point of Care 202 mg/dl (65-105)
[2021-06-22 11:11] LABS: Basophils Percent Auto 0.4 % (0.2-1.2); Eosinophils Absolute Auto 0.1 K/mm3 (0-0.3); Eosinophils Percent Auto 1.1 % (0-4.4); Hematocrit 39.6 % (37.0-47.0); Hemoglobin 12.1 g/dL (12.0-15.0); Immature Granulocyte Absolute 0.07 K/mm3 (0.00-0.031); Immature Granulocyte Percent A 0.6 % (0-0.5); Mean Corpuscular HGB Conc 30.6 g/dl (32-36); Mean Corpuscular Hemoglobin 31.6 pg (26-34); Mean Corpuscular Volume 103.4 fl (80-100); Mean Platelet Volume 9.8 fl (7.4-10.4); Monocytes Absolute Auto 0.7 K/mm3 (0.1-0.6); Monocytes Percent Auto 6.7 % (2.6-8.5); Neutrophils Absolute Auto 7.2 K/mm3 (1.3-6.7); Neutrophils Percent Auto 66.2 % (45.5-73.1); Platelet Count Result 304 k/mm3 (150-375); Red Blood Count 3.83 M/mm3 (4.2-5.4); Red Cell Distribution Width 13.2 % (11.5-14.5); White Blood Count 10.8 K/mm3 (4.5-10.0)
[2021-06-22 11:22] LABS: Alanine Aminotransferase 14 U/L (4-35); Albumin Level 3.4 g/dL (3.5-5.1); Alkaline Phosphatase 59 U/L (38-126); Anion Gap 7 mmol/L (8-16); Aspartate Amino Transferase 27 U/L (14-36); Bilirubin,Total 0.2 mg/dL (0.2-1.3); Blood Urea Nitrogen 37 mg/dL (7-17); Calcium 8.2 mg/dL (8.4-10.2); Carbon Dioxide 31 mmol/L (22-30); Chloride 96 mmol/L (98-107); Estimated CRCL calculation 17 ml/min; Estimated Glomerular Filt Rate 21; Glucose 138 mg/dL (65-110); Sodium 134 mmol/L (137-145)
[2021-06-22 11:29] LABS: Glucose Point of Care 137 mg/dl (65-105)
[2021-06-22 16:27] LABS: Glucose Point of Care 123 mg/dl (65-105)
[2021-06-22] MEDS: FUROSEMIDE INJ 40 MG/4 ML VIAL IV PUSH (16:41)
[2021-06-22] MEDS: ENOXAPARIN 80 MG/0.8 ML SYRINGE 78 MG SUB-Q (16:41)
[2021-06-22 18:42] LABS: Glucose Point of Care 146 mg/dl (65-105)
[2021-06-22 19:49] LABS: Glucose Point of Care 118 mg/dl (65-105)
[2021-06-23] VITALS (11 sets, daily range): BP systolic 80–137; BP diastolic 52–114; PULSE 56–119; RESP 16–18; TEMP 36.1–36.7; O2SAT 96–100
[2021-06-23] MEDS: LEVOTHYROXINE SODIUM 50 MCG TABLET PO (05:22)
[2021-06-23 07:40] LABS: Basophils Absolute Auto 0.1 K/mm3 (0.0-0.1); Basophils Percent Auto 0.5 % (0.2-1.2); Eosinophils Absolute Auto 0.1 K/mm3 (0-0.3); Eosinophils Percent Auto 1.3 % (0-4.4); Hematocrit 39.4 % (37.0-47.0); Hemoglobin 12.4 g/dL (12.0-15.0); Immature Granulocyte Absolute 0.07 K/mm3 (0.00-0.031); Immature Granulocyte Percent A 0.6 % (0-0.5); Lymphocytes Absolute Auto 2.77 K/mm3 (0.9-3.2); Lymphocytes Percent Auto 25.4 % (18.3-44.2); Mean Corpuscular HGB Conc 31.5 g/dl (32-36); Mean Corpuscular Hemoglobin 31.4 pg (26-34); Mean Corpuscular Volume 99.7 fl (80-100); Mean Platelet Volume 9.8 fl (7.4-10.4); Monocytes Absolute Auto 0.8 K/mm3 (0.1-0.6); Monocytes Percent Auto 7.2 % (2.6-8.5); Neutrophils Absolute Auto 7.1 K/mm3 (1.3-6.7); Platelet Count Result 315 k/mm3 (150-375); Red Blood Count 3.95 M/mm3 (4.2-5.4); Red Cell Distribution Width 13.1 % (11.5-14.5); White Blood Count 10.9 K/mm3 (4.5-10.0)
[2021-06-23 07:47] LABS: Glucose Point of Care 115 mg/dl (65-105)
[2021-06-23 08:39] LABS: Alanine Aminotransferase 15 U/L (4-35); Albumin Level 3.6 g/dL (3.5-5.1); Alkaline Phosphatase 60 U/L (38-126); Anion Gap 7 mmol/L (8-16); Aspartate Amino Transferase 31 U/L (14-36); Bilirubin,Total 0.3 mg/dL (0.2-1.3); Blood Urea Nitrogen 41 mg/dL (7-17); Calcium 8.3 mg/dL (8.4-10.2); Carbon Dioxide 32 mmol/L (22-30); Chloride 97 mmol/L (98-107); Estimated CRCL calculation 19 ml/min; Estimated Glomerular Filt Rate 24; Glucose 131 mg/dL (65-110); Sodium 136 mmol/L (137-145)
[2021-06-23] MEDS: ASPIRIN 81 MG ENTERIC TABLET PO (09:06)
[2021-06-23] MEDS: FUROSEMIDE 40 MG TABLET PO (09:06)
[2021-06-23] MEDS: PANTOPRAZOLE SODIUM IV 40 MG VIAL IV PUSH (09:06)
[2021-06-23] MEDS: GABAPENTIN 100 MG CAPSULE PO ×2 (09:06→12:26)
[2021-06-23] MEDS: ROSUVASTATIN 10 MG TABLET 20 MG PO (09:06)
[2021-06-23] MEDS: INSULIN ASPART (*BKC) 100 UNITS/ML 12 UNITS SUB-Q ×3 (09:17→17:10)
[2021-06-23] MEDS: INSULIN GLARGINE (*BKC) 100 UNITS/ML 25 UNITS SUB-Q ×2 (09:20→21:05)
[2021-06-23] MEDS: METOPROLOL SUCCINATE EXT REL 25 MG TABCR PO (09:25)
--- NOTE | 2021-06-23 09:30 | PM.IMPN ---
Progress Note: A&P Assessment and Plan (1) Near syncope: Code(s): R55 - Syncope and collapse Status: Acute Assessment and Plan: Head Ct does not show any acute abnormalities Looks like she had a stent placed in her leg or abdomen, so MRI is probably not likely able to be obtained Orthostatic blood pressure were positive supine 132/59, sitting 115/91, and standing 80/62 Metoprolol has been decreased to 25mg daily, Imdur has been DC'd Consider cardiology Consider midodrine Education provided to patient about slow and easy position changes with rest between each position change Carotid dopper <50% stenosis bilaterally PT/OT (2) Orthostatic hypotension: Code(s): I95.1 - Orthostatic hypotension Status: Acute Assessment and Plan: -as above -still orthostatic today, likely exacerbated by age and dehydration -Decreased BP medications -DC'd isosorbide and metoprolol is at 25mg (3) DVT (deep venous thrombosis): Code(s): I82.409 - Acute embolism and thrombosis of unspecified deep veins of unspecified lower extremity Status: Acute Assessment and Plan: Multiple DVTS noted in left popliteal and peroneal veins Venous and arterial doppler performed Started full dose lovenox Did send through for Xarelto awaiting cost analysis Will probably need to be changed to PO anticoagulation at [place] (4) Peripheral vascular disease: Code(s): I73.9 - Peripheral vascular disease, unspecified Status: Acute Assessment and Plan: Left toes are purple Left leg swollen more than right Unilateral temperature variance, left toes are cold Arterial and venous doppler ordered Normal ABIs and decreased TBIs, consistent with arterial occlusive disease Wound care ordered for right ankle wound Continue home aspirin Keep legs elevated Layo hose Gabapentin ordered (5) Acute on chronic kidney failure: Code(s): N17.9 - Acute kidney failure, unspecified; N18.9 - Chronic kidney disease, unspecified Status: Acute Assessment and Plan: BUN/Cr 41/2.0 Creatinine looks to be all over the place, baseline 1.4-1.7 Continue to trend labs Avoid nephrotoxic medications Renal duplex and ultrasound negative Consider consulting nephro if kidney function does not continue to improve (6) Abnormal urinalysis: Code(s): R82.90 - Unspecified abnormal findings in urine Status: Acute Assessment and Plan: Repeat UA looks better with 1+ leukocytes esterase, WBC 4-6 Urine culture resulted as contaminated repeat UA and culture negative Urine culture x2 negative, stopped Rocephin (7) CHF (congestive heart failure): Code(s): I50.9 - Heart failure, unspecified Status: Acute Assessment and Plan: BNP is 1610 Echo >70% EF with grade 1 diastolic dysfunction Heart failure related to diastolic dysfunction Do not think that this is an acute exacerbation at this time Continue home lasix 40mg PO Daily Trend urine output Daily weights (8) Diabetes mellitus with hyperglycemia: Qualifiers: Diabetes mellitus nursing home insulin use: with terminal manager use Diabetes mellitus type: type 2 Qualified Code(s): E11.65 - Type 2 diabetes mellitus with hyperglycemia; Z79.4 - terminal makeup operator (current) use of insulin Code(s): E11.65 - Type 2 diabetes mellitus with hyperglycemia Status: Chronic Assessment and Plan: Current glucose 131 Insulin pump removed Adjust Lantus from 25 to 35 units BID Adjust with meals to 12 units ISS increased and adjusted Accu-Cheks AC/HS A1c 12.3 Trend glucose Adjust therapy as indicated (9) COPD (chronic obstructive pulmonary disease): Qualifiers: COPD type: unspecified COPD Qualified Code(s): J44.9 - Chronic obstructive pulmonary disease, unspecified Code(s): J44.9 - Chronic obstructive pu
--- NOTE | 2021-06-23 09:30 | P.PNIM_ITS ---
Progress Note: A&P Assessment and Plan (1) Near syncope: Code(s): R55 - Syncope and collapse Status: Acute Assessment and Plan: * Head Ct does not show any acute abnormalities * Looks like she had a stent placed in her leg or abdomen, so MRI is probably not likely able to be obtained * Orthostatic blood pressure were positive supine 132/59, sitting 115/91, and standing 80/62 * Metoprolol has been decreased to 25mg daily, Imdur has been DC'd * Consider cardiology * Consider midodrine * Education provided to patient about slow and easy position changes with rest between each position change * Carotid dopper <50% stenosis bilaterally * PT/OT (2) Orthostatic hypotension: Code(s): I95.1 - Orthostatic hypotension Status: Acute Assessment and Plan: -as above -still orthostatic today, likely exacerbated by age and dehydration -Decreased BP medications -DC'd isosorbide and metoprolol is at 25mg (3) DVT (deep venous thrombosis): Code(s): I82.409 - Acute embolism and thrombosis of unspecified deep veins of unspecified lower extremity Status: Acute Assessment and Plan: * Multiple DVTS noted in left popliteal and peroneal veins * Venous and arterial doppler performed * Started full dose lovenox * Did send through for Xarelto awaiting cost analysis * Will probably need to be changed to PO anticoagulation at [place] (4) Peripheral vascular disease: Code(s): I73.9 - Peripheral vascular disease, unspecified Status: Acute Assessment and Plan: * Left toes are purple * Left leg swollen more than right * Unilateral temperature variance, left toes are cold * Arterial and venous doppler ordered * Normal ABIs and decreased TBIs, consistent with arterial occlusive disease * Wound care ordered for right ankle wound * Continue home aspirin * Keep legs elevated * Layo hose * Gabapentin ordered (5) Acute on chronic kidney failure: Code(s): N17.9 - Acute kidney failure, unspecified; N18.9 - Chronic kidney disease, unspecified Status: Acute Assessment and Plan: * BUN/Cr 41/2.0 * Creatinine looks to be all over the place, baseline 1.4-1.7 * Continue to trend labs * Avoid nephrotoxic medications * Renal duplex and ultrasound negative * Consider consulting nephro if kidney function does not continue to improve (6) Abnormal urinalysis: Code(s): R82.90 - Unspecified abnormal findings in urine Status: Acute Assessment and Plan: * Repeat UA looks better with 1+ leukocytes esterase, WBC 4-6 * Urine culture resulted as contaminated * repeat UA and culture negative * Urine culture x2 negative, stopped Rocephin (7) CHF (congestive heart failure): Code(s): I50.9 - Heart failure, unspecified Status: Acute Assessment and Plan: * BNP is 1610 * Echo >70% EF with grade 1 diastolic dysfunction * Heart failure related to diastolic dysfunction * Do not think that this is an acute exacerbation at this time * Continue home lasix 40mg PO Daily * Trend urine output * Daily weights (8) Diabetes mellitus with hyperglycemia: Qualifiers: Diabetes mellitus intermediate accountant insulin use: with intermediate accountant use Diabetes mellitus type: type 2 Qualified Code(s): E11.65 - Type 2 diabetes mellitus with hyperglycemia; Z79.4 - medical terminologist (current) use of insulin Code(s): E11.65 - Type 2 diabetes gisela
[2021-06-23 11:53] LABS: Glucose Point of Care 193 mg/dl (65-105)
[2021-06-23 16:23] LABS: Glucose Point of Care 161 mg/dl (65-105)
[2021-06-23] MEDS: GABAPENTIN 100 MG CAPSULE 200 MG PO (17:11)
[2021-06-23] MEDS: RIVAROXABAN 15 MG TABLET PO (17:11)
[2021-06-23 20:01] LABS: Glucose Point of Care 114 mg/dl (65-105)
[2021-06-23] MEDS: PANTOPRAZOLE 40 MG TABLET PO (21:06)
[2021-06-24 06:00] VITALS: BP 123/47; PULSE 58; RESP 18; TEMP 36.5; O2SAT 94
[2021-06-24 06:01] LABS: Basophils Percent Auto 0.4 % (0.2-1.2); Eosinophils Absolute Auto 0.1 K/mm3 (0-0.3); Eosinophils Percent Auto 1.4 % (0-4.4); Hematocrit 42.4 % (37.0-47.0); Hemoglobin 12.2 g/dL (12.0-15.0); Immature Granulocyte Absolute 0.08 K/mm3 (0.00-0.031); Immature Granulocyte Percent A 0.8 % (0-0.5); Lymphocytes Percent Auto 29.5 % (18.3-44.2); Mean Corpuscular HGB Conc 28.8 g/dl (32-36); Mean Corpuscular Hemoglobin 31.1 pg (26-34); Mean Corpuscular Volume 108.2 fl (80-100); Mean Platelet Volume 9.8 fl (7.4-10.4); Monocytes Absolute Auto 0.7 K/mm3 (0.1-0.6); Monocytes Percent Auto 7.8 % (2.6-8.5); Neutrophils Absolute Auto 5.7 K/mm3 (1.3-6.7); Neutrophils Percent Auto 60.1 % (45.5-73.1); Platelet Count Result 283 k/mm3 (150-375); Red Blood Count 3.92 M/mm3 (4.2-5.4); Red Cell Distribution Width 13.2 % (11.5-14.5); White Blood Count 9.5 K/mm3 (4.5-10.0)
[2021-06-24 06:08] LABS: Alanine Aminotransferase 14 U/L (4-35); Albumin Level 3.4 g/dL (3.5-5.1); Alkaline Phosphatase 59 U/L (38-126); Anion Gap 7 mmol/L (8-16); Aspartate Amino Transferase 28 U/L (14-36); Bilirubin,Total 0.3 mg/dL (0.2-1.3); Blood Urea Nitrogen 38 mg/dL (7-17); Calcium 8.3 mg/dL (8.4-10.2); Carbon Dioxide 31 mmol/L (22-30); Chloride 96 mmol/L (98-107); Estimated CRCL calculation 21 ml/min; Estimated Glomerular Filt Rate 27; Glucose 182 mg/dL (65-110); Magnesium 2.1 mg/dL (1.6-2.3); Potassium 3.6 mmol/L (3.4-5.0); Sodium 134 mmol/L (137-145)
[2021-06-24] MEDS: LEVOTHYROXINE SODIUM 50 MCG TABLET PO (06:14)
[2021-06-24 07:48] LABS: Glucose Point of Care 164 mg/dl (65-105)
[2021-06-24] MEDS: GABAPENTIN 100 MG CAPSULE 200 MG PO ×3 (08:22→16:21)
[2021-06-24] MEDS: ROSUVASTATIN 10 MG TABLET 20 MG PO (08:22)
[2021-06-24] MEDS: FUROSEMIDE 40 MG TABLET PO (08:22)
[2021-06-24] MEDS: ASPIRIN 81 MG ENTERIC TABLET PO (08:22)
[2021-06-24] MEDS: METOPROLOL SUCCINATE EXT REL 25 MG TABCR PO (08:22)
[2021-06-24] MEDS: RIVAROXABAN 15 MG TABLET PO (08:23)
[2021-06-24] MEDS: PANTOPRAZOLE 40 MG TABLET PO ×2 (08:23→20:25)
[2021-06-24] MEDS: INSULIN ASPART (*BKC) 100 UNITS/ML 12 UNITS SUB-Q ×3 (08:28→16:22)
[2021-06-24] MEDS: INSULIN ASPART (*BKC) 100 UNITS/ML SUB-Q ×3 (08:28→16:22)
[2021-06-24] MEDS: INSULIN GLARGINE (*BKC) 100 UNITS/ML 25 UNITS SUB-Q ×2 (08:29→20:27)
[2021-06-24 10:12] LABS: Thyroid Stimulating Hormone Reflex 0.877 uIU/mL (0.465-4.68)
[2021-06-24 10:21] LABS: Folic Acid 15.9 ng/mL (2.76->20)
[2021-06-24] MEDS: ONDANSETRON INJ 4 MG/2 ML VIAL IV PUSH (10:50)
[2021-06-24 11:56] LABS: Glucose Point of Care 222 mg/dl (65-105)
[2021-06-24 13:08] VITALS: BP 128/48; PULSE 61
[2021-06-24 13:09] VITALS: BP 106/47; PULSE 60
[2021-06-24 13:10] VITALS: BP 85/56; PULSE 68
[2021-06-24] MEDS: CYANOCOBALAMIN INJ 1,000 MCG/ML VIAL 1000 MCG IM (13:10)
[2021-06-24 14:00] VITALS: BP 118/48; PULSE 60; RESP 12; TEMP 35.9; O2SAT 98
--- NOTE | 2021-06-24 14:11 | PM.IMPN ---
Progress Note: A&P Assessment and Plan (1) Near syncope: Code(s): R55 - Syncope and collapse Status: Acute Assessment and Plan: Patient with near syncopy event. Brain CT does not show any acute abnormalities. Orthostatic blood pressure were positive supine 132/59, sitting 115/91, and standing 80/62 so suspect this is the etiology of her near-syncopal event. Imdur stopped and Metoprolol decreased. Hold lasix and add midodrine. Layo hose added. Patient was educated about slow and easy position changes with rest between each position change. Continued PT/OT. (2) Orthostatic hypotension: Code(s): I95.1 - Orthostatic hypotension Status: Acute Assessment and Plan: Patient with orthostatic HoTN and still orthostatic today likely exacerbated by age and dehydration. Isosorbide stopped. Will hold Lasix. TSH and Cortisol okay. Add Midodrine. NS x 500mL (3) DVT (deep venous thrombosis): Code(s): I82.409 - Acute embolism and thrombosis of unspecified deep veins of unspecified lower extremity Status: Acute Assessment and Plan: Bilateral venous doppler showing left popliteal and peroneal veins DVTs. She was started full dose lovenox and transitioned to Xarelto but will change to Eliquis since better safety profile in patient's with renal failure. (4) Peripheral vascular disease: Code(s): I73.9 - Peripheral vascular disease, unspecified Status: Acute Assessment and Plan: Concern for vascular disease. Arterial doppler showing normal ABIs and decreased TBIs, consistent with arterial occlusive disease. Continue ASA and Crestor. Unable to get CTA given her renal failure. (5) Acute on chronic kidney failure: Code(s): N17.9 - Acute kidney failure, unspecified; N18.9 - Chronic kidney disease, unspecified Status: Acute Assessment and Plan: BUN/Cr 35/2.0 on admission. Renal duplex and ultrasound negative. Hold Lasix. NS x 500mL (6) CHF (congestive heart failure): Code(s): I50.9 - Heart failure, unspecified Status: Acute Assessment and Plan: Patient with chronic diastolic CHF. BNP is 1610 but CXR showing only atelectasis so doubt acute exacerbation. Echo >70% EF with grade 1 diastolic dysfunction. Currently on home lasix 40mg PO Daily. Could be overdiuresed. Hold Lasix (7) Diabetes mellitus with hyperglycemia: Qualifiers: Diabetes mellitus intermediate manager insulin use: with half-way use Diabetes mellitus type: type 2 Qualified Code(s): E11.65 - Type 2 diabetes mellitus with hyperglycemia; Z79.4 - termite control representative (current) use of insulin Code(s): E11.65 - Type 2 diabetes mellitus with hyperglycemia Status: Chronic Assessment and Plan: A1c 12.3 The patient's blood glucose was reviewed on 06/24 Glucose much better controlled overall. Continue AccuCheks covering with sliding scale. Hypoglycemia protocol available as needed. Continue current medications with Lantus 25U Q12h with Novolog 12U TID. (8) COPD (chronic obstructive pulmonary disease): Qualifiers: COPD type: unspecified COPD Qualified Code(s): J44.9 - Chronic obstructive pulmonary disease, unspecified Code(s): J44.9 - Chronic obstructive pulmonary disease, unspecified Status: Chronic Assessment and Plan: Stable. CXR showing mild atelectasis left lung base. On room air. No wheezing. Continue Trelegy prn (9) Right ankle pain: Code(s): M25.571 - Pain in right ankle and joints of right foot Status: Acute Assessment and Plan: Patietn with right ankle pain. Ankle xray showing osteoarthritis. Continue supportive care (10) Chest pain: Code(s): R07.9 - Chest pain, unspecified Status: Acute Assessment and Plan: Troponin negative x2. EKG showed minimal ST depression but otherwise normal sinus rhythm and sinus arrhythmia but overall no significant change. Chest pain resolved but appear
[2021-06-24] MEDS: MIDODRINE HCL 2.5 MG TABLET PO (16:21)
[2021-06-24 16:22] LABS: Glucose Point of Care 207 mg/dl (65-105)
[2021-06-24] MEDS: SODIUM CHLORIDE 0.9% IV 1,000 ML 100 ML IV CONT (16:22)
[2021-06-24 19:45] LABS: Glucose Point of Care 155 mg/dl (65-105)
[2021-06-24] MEDS: APIXABAN 5 MG TABLET 10 MG PO (20:25)
[2021-06-24 22:00] VITALS: BP 110/41; PULSE 56; RESP 18; TEMP 36.5; O2SAT 93
[2021-06-25] VITALS (16 sets, daily range): BP systolic 61–150; BP diastolic 35–100; PULSE 56–87; RESP 16–20; TEMP 36.4; O2SAT 96–98
[2021-06-25] MEDS: LEVOTHYROXINE SODIUM 50 MCG TABLET PO (06:05)
[2021-06-25 06:17] LABS: Basophils Percent Auto 0.4 % (0.2-1.2); Eosinophils Absolute Auto 0.1 K/mm3 (0-0.3); Eosinophils Percent Auto 1.2 % (0-4.4); Hematocrit 37.1 % (37.0-47.0); Hemoglobin 11.6 g/dL (12.0-15.0); Immature Granulocyte Absolute 0.06 K/mm3 (0.00-0.031); Immature Granulocyte Percent A 0.7 % (0-0.5); Lymphocytes Absolute Auto 3.04 K/mm3 (0.9-3.2); Mean Corpuscular HGB Conc 31.3 g/dl (32-36); Mean Corpuscular Hemoglobin 31.3 pg (26-34); Mean Platelet Volume 10.1 fl (7.4-10.4); Monocytes Absolute Auto 0.8 K/mm3 (0.1-0.6); Monocytes Percent Auto 8.8 % (2.6-8.5); Neutrophils Absolute Auto 4.9 K/mm3 (1.3-6.7); Neutrophils Percent Auto 54.9 % (45.5-73.1); Platelet Count Result 332 k/mm3 (150-375); Red Blood Count 3.71 M/mm3 (4.2-5.4); Red Cell Distribution Width 13.1 % (11.5-14.5); White Blood Count 8.9 K/mm3 (4.5-10.0)
[2021-06-25 06:33] LABS: Anion Gap 7 mmol/L (8-16); Blood Urea Nitrogen 35 mg/dL (7-17); Calcium 8.1 mg/dL (8.4-10.2); Carbon Dioxide 31 mmol/L (22-30); Chloride 98 mmol/L (98-107); Estimated CRCL calculation 19 ml/min; Estimated Glomerular Filt Rate 25; Glucose 215 mg/dL (65-110); Magnesium 2.2 mg/dL (1.6-2.3); Phosphorus 4.1 mg/dL (2.5-4.5); Sodium 136 mmol/L (137-145)
[2021-06-25 07:54] LABS: Glucose Point of Care 202 mg/dl (65-105)
[2021-06-25] MEDS: INSULIN GLARGINE (*BKC) 100 UNITS/ML 25 UNITS SUB-Q (08:38)
[2021-06-25] MEDS: INSULIN ASPART (*BKC) 100 UNITS/ML 12 UNITS SUB-Q ×3 (08:39→16:45)
[2021-06-25] MEDS: INSULIN ASPART (*BKC) 100 UNITS/ML SUB-Q ×2 (08:39→12:24)
[2021-06-25] MEDS: APIXABAN 5 MG TABLET 10 MG PO ×2 (08:40→20:04)
[2021-06-25] MEDS: ASPIRIN 81 MG ENTERIC TABLET PO (08:40)
[2021-06-25] MEDS: GABAPENTIN 100 MG CAPSULE 200 MG PO ×3 (08:40→16:45)
[2021-06-25] MEDS: METOPROLOL SUCCINATE EXT REL 25 MG TABCR PO (08:41)
[2021-06-25] MEDS: ROSUVASTATIN 10 MG TABLET 20 MG PO (08:41)
[2021-06-25] MEDS: MIDODRINE HCL 2.5 MG TABLET PO ×2 (08:41→12:24)
[2021-06-25] MEDS: PANTOPRAZOLE 40 MG TABLET PO ×2 (08:41→20:04)
--- NOTE | 2021-06-25 09:31 | PCNWS ---
Weekly nutritional screen. Patient is tolerating current diabetic consistent carbohydrate diet with adequate intake. No weight loss reported. Pt is enjoying the food and received an educational handout about carbohydrate counting. No further nutritional interventions needed.
--- NOTE | 2021-06-25 11:04 | PCOTNOTE ---
Attempted to see pt. this morning, however RN stated orthostatics went from 121/53 supine to 61/35 standing. Will check back later to see if orthostatics have improved due to new medication that was started yesterday, spoke to OTR for possible decrease in frequency until BP more stable.
--- NOTE | 2021-06-25 11:24 | PCOTNOTE ---
All documentation completed by Marquita Evans on 06/24/21 was completed as a certified occupational therapy department chair versus student BUTCHER. All coursework and certification testing was completed and passed prior to this date.
[2021-06-25 11:34] LABS: Glucose Point of Care 314 mg/dl (65-105)
--- NOTE | 2021-06-25 12:35 | PCNSR ---
On 06/25/21, the student, Vanda Alexis, provided care and completed [facility] documentation on this patient. I have reviewed the student's documentation and agree with the findings.
--- NOTE | 2021-06-25 14:21 | PM.IMPN ---
Progress Note: A&P Assessment and Plan (1) Near syncope: Code(s): R55 - Syncope and collapse Status: Acute Assessment and Plan: Patient with near syncopy event. Brain CT does not show any acute abnormalities. Orthostatic blood pressure were positive to suggest this is the etiology of her near-syncopal event. Imdur and Lasix stopped and Metoprolol decreased. Midodrine added. Layo hose added. Patient was educated about slow and easy position changes with rest between each position change. Will advance midodrine. Check BP in all four extremities. Cut metoprolol down again. Continued PT/OT. (2) Orthostatic hypotension: Code(s): I95.1 - Orthostatic hypotension Status: Acute Assessment and Plan: Patient with orthostatic HoTN and still orthostatic today likely exacerbated by age, DM with autonomic insufficiency and dehydration. Isosorbide and Lasix stopped. TSH and Cortisol okay. Advance midodrine. (3) DVT (deep venous thrombosis): Code(s): I82.409 - Acute embolism and thrombosis of unspecified deep veins of unspecified lower extremity Status: Acute Assessment and Plan: Bilateral venous doppler showing left popliteal and peroneal veins DVTs. She was started full dose lovenox and transitioned to Xarelto but changed to Eliquis since better safety profile in patient's with renal failure. Doubt PE causing the HoTH since her HoTN is intermittent and positional. (4) Peripheral vascular disease: Code(s): I73.9 - Peripheral vascular disease, unspecified Status: Acute Assessment and Plan: Concern for vascular disease. Arterial doppler showing normal ABIs and decreased TBIs, consistent with arterial occlusive disease. Continue ASA and Crestor. Unable to get CTA given her renal failure. (5) Acute on chronic kidney failure: Code(s): N17.9 - Acute kidney failure, unspecified; N18.9 - Chronic kidney disease, unspecified Status: Acute Assessment and Plan: Baseline Cr 1.6-1.7 in January. BUN/Cr 35/2.0 on admission here. Renal duplex and ultrasound negative. Cr slightly better and suspect she probably is at baseline. (6) CHF (congestive heart failure): Code(s): I50.9 - Heart failure, unspecified Status: Acute Assessment and Plan: Patient with chronic diastolic CHF. BNP is 1610 but CXR showing only atelectasis so doubt acute exacerbation. Echo >70% EF with grade 1 diastolic dysfunction. She takes home lasix 40mg PO Daily. Could be overdiuresed causing the low BP and elevated Cr. Lasix remains on hold. Remains euvolemic. Follow. (7) Diabetes mellitus with hyperglycemia: Qualifiers: Diabetes mellitus terminal clerk insulin use: with terminal clerk use Diabetes mellitus type: type 2 Qualified Code(s): E11.65 - Type 2 diabetes mellitus with hyperglycemia; Z79.4 - retirement (current) use of insulin Code(s): E11.65 - Type 2 diabetes mellitus with hyperglycemia Status: Chronic Assessment and Plan: A1c 12.3 The patient's blood glucose was reviewed on 06/25 Glucose higher now. Continue AccuCheks covering with sliding scale. Hypoglycemia protocol available as needed. Current medications with Lantus 25U Q12h with Novolog 12U TID. Will advance Lantus. (8) COPD (chronic obstructive pulmonary disease): Qualifiers: COPD type: unspecified COPD Qualified Code(s): J44.9 - Chronic obstructive pulmonary disease, unspecified Code(s): J44.9 - Chronic obstructive pulmonary disease, unspecified Status: Chronic Assessment and Plan: Stable. CXR showing mild atelectasis left lung base. On room air. No wheezing. Continue Trelegy prn (9) Right ankle pain: Code(s): M25.571 - Pain in right ankle and joints of right foot Status: Acute Assessment and Plan: Patietn with right ankle pain. Ankle xray showing osteoarthritis. Continue supportive care. Continue PT (10) Chest pain:
[2021-06-25 16:30] LABS: Glucose Point of Care 123 mg/dl (65-105)
[2021-06-25] MEDS: MIDODRINE HCL 2.5 MG TABLET 5 MG PO (16:46)
[2021-06-25 19:42] LABS: Glucose Point of Care 113 mg/dl (65-105)
[2021-06-25] MEDS: INSULIN GLARGINE (*BKC) 100 UNITS/ML 28 UNITS SUB-Q (20:06)
[2021-06-25] MEDS: ARTIFICIAL TEARS OPHTH SOLN 15 ML BOTTLE 1 DROP EACH EYE (20:57)
[2021-06-26 05:05] VITALS: BP 140/52; PULSE 66; RESP 20; TEMP 36.6; O2SAT 96
[2021-06-26 06:02] LABS: Anion Gap 4 mmol/L (8-16); Blood Urea Nitrogen 33 mg/dL (7-17); Carbon Dioxide 34 mmol/L (22-30); Chloride 98 mmol/L (98-107); Estimated CRCL calculation 21 ml/min; Estimated Glomerular Filt Rate 27; Glucose 180 mg/dL (65-110); Potassium 4.2 mmol/L (3.4-5.0); Sodium 136 mmol/L (137-145)
[2021-06-26] MEDS: LEVOTHYROXINE SODIUM 50 MCG TABLET PO (06:41)
[2021-06-26] MEDS: ARTIFICIAL TEARS OPHTH SOLN 15 ML BOTTLE 1 DROP EACH EYE (06:41)
[2021-06-26 07:40] LABS: Glucose Point of Care 173 mg/dl (65-105)
[2021-06-26] MEDS: INSULIN GLARGINE (*BKC) 100 UNITS/ML 28 UNITS SUB-Q (09:04)
[2021-06-26] MEDS: INSULIN ASPART (*BKC) 100 UNITS/ML 12 UNITS SUB-Q ×3 (09:05→16:48)
[2021-06-26 09:06] VITALS: PULSE 70
[2021-06-26] MEDS: MIDODRINE HCL 2.5 MG TABLET 5 MG PO ×3 (09:06→16:49)
[2021-06-26] MEDS: METOPROLOL SUCCINATE EXT REL 12.5 MG TABCR PO (09:06)
[2021-06-26] MEDS: APIXABAN 5 MG TABLET 10 MG PO (09:07)
[2021-06-26] MEDS: ROSUVASTATIN 10 MG TABLET 20 MG PO (09:07)
[2021-06-26] MEDS: PANTOPRAZOLE 40 MG TABLET PO (09:07)
[2021-06-26] MEDS: GABAPENTIN 100 MG CAPSULE 200 MG PO ×3 (09:07→16:49)
[2021-06-26] MEDS: ASPIRIN 81 MG ENTERIC TABLET PO (09:07)
[2021-06-26 10:52] VITALS: BP 135/50; PULSE 65
[2021-06-26 10:54] VITALS: BP 145/53; PULSE 61
[2021-06-26 10:56] VITALS: BP 115/65; PULSE 67
[2021-06-26 11:34] LABS: Glucose Point of Care 272 mg/dl (65-105)
[2021-06-26] MEDS: INSULIN ASPART (*BKC) 100 UNITS/ML SUB-Q (11:44)
[2021-06-26 13:45] VITALS: BP 169/64; PULSE 58; RESP 16; TEMP 36.6; O2SAT 96
--- NOTE | 2021-06-26 15:52 | PM.DS ---
DS: Admitting Diagnosis Discharge Date 06/26/21 Admitting Diagnosis Near syncope DS: Discharge Diagnosis Discharge Diagnosis (1) Near syncope: Code(s): R55 - Syncope and collapse Status: Acute Assessment and Plan: Patient with near syncope event. Brain CT did not show any acute abnormalities. Orthostatic blood pressure were positive to suggest this is the etiology of her near-syncopal event. Imdur and Lasix stopped and Metoprolol decreased. Midodrine added. Layo hose added. Patient was educated about slow and easy position changes with rest between each position change. BP improved. (2) Orthostatic hypotension: Code(s): I95.1 - Orthostatic hypotension Status: Acute Assessment and Plan: Patient with orthostatic HoTN likely related to her age, DM with autonomic insufficiency and dehydration. Isosorbide and Lasix stopped. TSH and Cortisol okay. Metoprolol dose cut back. She was started on midodrine. Still orthostatic but better. Will need to be careful with positional changes. Patient made aware. Continue Layo hose (3) DVT (deep venous thrombosis): Code(s): I82.409 - Acute embolism and thrombosis of unspecified deep veins of unspecified lower extremity Status: Acute Assessment and Plan: Bilateral venous doppler showing left popliteal and peroneal veins DVTs. She was started full dose lovenox because she is high risk and transitioned to Xarelto; changed to Eliquis since better safety profile in patient's with renal failure. Doubt PE causing the HoTN since her HoTN is intermittent and positional. (4) Peripheral vascular disease: Code(s): I73.9 - Peripheral vascular disease, unspecified Status: Acute Assessment and Plan: Concern for vascular disease by exam. Arterial doppler showing normal ABIs and decreased TBIs, consistent with arterial occlusive disease. We continued ASA and Crestor. Unable to get CTA given her renal failure. Patient will need to follow up with vascular surgeon after discharge. (5) Acute on chronic kidney failure: Code(s): N17.9 - Acute kidney failure, unspecified; N18.9 - Chronic kidney disease, unspecified Status: Acute Assessment and Plan: Baseline Cr 1.6-1.7 in January. BUN/Cr 35/2.0 on admission here. Renal duplex and ultrasound negative. Cr better and was 1.8 at discharge. Suspect she probably is at baseline. (6) CHF (congestive heart failure): Code(s): I50.9 - Heart failure, unspecified Status: Acute Assessment and Plan: Patient with chronic diastolic CHF. BNP is 1610 but CXR showing only atelectasis so doubt acute exacerbation. Echo >70% EF with grade 1 diastolic dysfunction. She takes home lasix 40mg PO daily. She could be overdiuresed causing the low BP and elevated Cr. Lasix was held and remained on hold given the persistent orthostatic HoTN. She remained euvolemic. (7) Diabetes mellitus with hyperglycemia: Qualifiers: Diabetes mellitus superintendent container terminal insulin use: with superintendent container terminal use Diabetes mellitus type: type 2 Qualified Code(s): E11.65 - Type 2 diabetes mellitus with hyperglycemia; Z79.4 - assisted (current) use of insulin Code(s): E11.65 - Type 2 diabetes mellitus with hyperglycemia Status: Chronic Assessment and Plan: A1c 12.3 The patient's blood glucose was monitored closely with AccuCheks covering with sliding scale. Hypoglycemia protocol was available as needed. Medications adjusted to Lantus 28U Q12h with Novolog 12U TID at meals. Glucose levels did improve. (8) COPD (chronic obstructive pulmonary disease): Qualifiers: COPD type: unspecified COPD Qualified Code(s): J44.9 - Chronic obstructive pulmonary disease, unspecified Code(s): J44.9 - Chronic obstructive pulmonary disease, unspecified Status: Chronic Assessment and Plan: Stable. CXR showed mild atelectasis left lung base. She remained on room a
[2021-06-26 16:33] LABS: Glucose Point of Care 136 mg/dl (65-105)
[2021-06-26 18:05] LABS: EDCOVIDSCREEN Negative (Negative)
[2021-06-27 13:27] LABS: Methylmalonic Acid 1540 nmol/L (87-318)
--- NOTE | 2021-07-03 10:22 | PC.NURSE ---
MMA is elevated at 1540. Dr. Reed aware. Results faxed to Narda Casiano NP.
== END 2021-06-26 18:30 | DRG 312 ==
LOC: ANHED 10:44 → ANH3MED 11:18
PROVIDERS: Internal Medicine; Nurse Practitioner; Physician Assistant; Admitting Provider Internal Medicine; Emergency Provider Emergency Medicine; PCP Nurse Practitioner Adult Health; Visit Provider Physician Assistant
DX: I95.1 Orthostatic hypotension (principal); I82.432 Acute embolism and thrombosis of left popliteal vein; I82.452 Acute embolism and thrombosis of left peroneal vein; N17.9 Acute kidney failure, unspecified; I13.0 Hypertensive heart and chronic kidney disease with heart failure and stage 1 through stage 4 chronic kidney disease, or unspecified chronic kidney disease; I50.32 Chronic diastolic (congestive) heart failure; N18.4 Chronic kidney disease, stage 4 (severe); E86.0 Dehydration; I73.9 Peripheral vascular disease, unspecified; Z20.822 Contact with and (suspected) exposure to COVID-19; S80.811A Abrasion, right lower leg, initial encounter; W22.09XA Striking against other stationary object, initial encounter; E11.22 Type 2 diabetes mellitus with diabetic chronic kidney disease; E11.65 Type 2 diabetes mellitus with hyperglycemia; R82.90 Unspecified abnormal findings in urine; I25.10 Atherosclerotic heart disease of native coronary artery without angina pectoris; J44.9 Chronic obstructive pulmonary disease, unspecified; K21.9 Gastro-esophageal reflux disease without esophagitis; E87.8 Other disorders of electrolyte and fluid balance, not elsewhere classified; M19.071 Primary osteoarthritis, right ankle and foot; D63.1 Anemia in chronic kidney disease; I35.0 Nonrheumatic aortic (valve) stenosis; E11.42 Type 2 diabetes mellitus with diabetic polyneuropathy; E78.5 Hyperlipidemia, unspecified; E03.9 Hypothyroidism, unspecified; M85.80 Other specified disorders of bone density and structure, unspecified site; Z96.641 Presence of right artificial hip joint; Z79.4 Long term (current) use of insulin; Z79.82 Long term (current) use of aspirin; Z95.820 Peripheral vascular angioplasty status with implants and grafts; I25.2 Old myocardial infarction; Z90.49 Acquired absence of other specified parts of digestive tract; Z90.710 Acquired absence of both cervix and uterus; Z95.1 Presence of aortocoronary bypass graft; E66.9 Obesity, unspecified; Z68.30 Body mass index [BMI] 30.0-30.9, adult
CPT/HCPCS: 36415; 70450; 71046; 72125; 72128; 72131; 73610; 76775; 80048; 80053; 81001; 82533; 82607; 82746; 82948; 83036; 83735; 83880; 83921; 84100; 84443; 84484; 85025; 85610; 85730; 87086; 87088; 87426; 93005; 93880; 93923; 93970; 93976; 96361; 96365; 96366; 96372; 96375; 97110; 97161; 97165; 97530; 97535; 99284; A9270; C8929; C9113; C9803; G0378; J0696; J1650; J1815; J1940; J2405; J3420; J7030; J7040; J7050; Q9957

== ENCOUNTER 2021-07-30 15:26 | Inpatient (IN) | payer MEDICARE, SELFPAY ==
[2021-07-30] VITALS (9 sets, daily range): BP systolic 137–155; BP diastolic 64–86; PULSE 81–91; RESP 18–24; TEMP 36.6–37.4; O2SAT 88–100; BMI 35.3
--- NOTE | ~2021-07-30 | XR_ITS ---
EXAMINATION: XR chest 2V DATE: 07/30/2021 16:24 INDICATION: Weakness TECHNIQUE: AP and lateral views of the chest are obtained. COMPARISON: 06/17/2021 FINDINGS: Patchy opacities have developed in the mid and upper lung zones. There is also a new small left pleural effusion. There is no pneumothorax. The heart size is normal. There is moderate thoracic spondylosis. There is a moderate-sized sliding hiatal hernia. Median sternotomy wires and mediastina l surgical clips are seen, likely from prior coronary artery bypass grafting. IMPRESSION: 1. New patchy opacities of the mid and upper lung zones, likely pneumonia. 2. Small left pleural effusion. Reviewed, dictated and finalized at location F.
--- NOTE | ~2021-07-30 | XR_ITS ---
EXAMINATION: XR chest 1V portable INDICATION: Shortness of breath TECHNIQUE: Portable AP chest at 0610 hours COMPARISON: 07/30/2021 FINDINGS: There are persistent patchy opacities of the mid and upper lung zones. A small left pleural effusion is suggested. There is no pneumothorax. The cardiomediastinal silhouette is stable. Median sternotomy wires and mediastinal surgical clips are seen, likely from prior coronary artery bypass gr afting. IMPRESSION: 1. Persistent patchy opacities of the mid and upper lung zones, likely pneumonia. Reviewed, dictated and finalized at location A. IMPRESSION: 1. Persistent patchy opacities of the mid and upper lung zones, likely pneumoni a.
--- NOTE | 2021-07-30 15:44 | ECG_ITS ---
Measurements Intervals [place] Rate: 90 P: 20 MO: 142 QRS: 26 QRSD: 97 T: 11 QT: 366 QTc: 450 Interpretive Statements SINUS RHYTHM NONSPECIFIC ST & T-WAVE ABNORMALITY- INFERIOR LEADS BASELINE ARTIFACT- I, II, III, V1-V3 BORDERLINE ECG Electronically Signed On 07-30-2021 16:23:59 CDT by Sathya Cohen D.O.
--- NOTE | 2021-07-30 16:23 | PC.NURSE ---
Pt to XRAY via stretcher.
[2021-07-30 16:43] LABS: Basophils Absolute Auto 0.1 K/mm3 (0.0-0.1); Basophils Percent Auto 0.4 % (0.2-1.2); Eosinophils Absolute Auto 0.1 K/mm3 (0-0.3); Eosinophils Percent Auto 0.7 % (0-4.4); Hematocrit 35.1 % (37.0-47.0); Hemoglobin 10.2 g/dL (12.0-15.0); Immature Granulocyte Percent A 0.8 % (0-0.5); Lymphocytes Absolute Auto 1.41 K/mm3 (0.9-3.2); Lymphocytes Percent Auto 11.8 % (18.3-44.2); Mean Corpuscular HGB Conc 29.1 g/dl (32-36); Mean Corpuscular Hemoglobin 30.7 pg (26-34); Mean Corpuscular Volume 105.7 fl (80-100); Mean Platelet Volume 9.6 fl (7.4-10.4); Monocytes Absolute Auto 1.2 K/mm3 (0.1-0.6); Monocytes Percent Auto 9.8 % (2.6-8.5); Neutrophils Absolute Auto 9.1 K/mm3 (1.3-6.7); Neutrophils Percent Auto 76.5 % (45.5-73.1); Platelet Count Result 435 k/mm3 (150-375); Red Blood Count 3.32 M/mm3 (4.2-5.4); Red Cell Distribution Width 13.9 % (11.5-14.5); White Blood Count 11.9 K/mm3 (4.5-10.0)
[2021-07-30 16:52] LABS: Lactic Acid Reflex 0.8 mmol/L (0.7-2.0)
[2021-07-30 16:54] LABS: Prothrombin Time 22.2 Seconds (11.1-14.7)
[2021-07-30 16:55] LABS: Appearance Urine Slightly Cloudy (Clear); Bilirubin Urine Negative (Negative); Blood Urine Trace-lysed (Negative); Color Urine Yellow (Yellow); Glucose Urine UA Negative (Negative); Ketones Urine Negative (Negative); Leukocyte Esterase Ur 2+ LEU/UL (Negative); Nitrate Urine Negative (Negative); Protein Urine 2+ mg/dL (Negative); pH Urine 5.5 (5.0-9.0)
[2021-07-30 16:55] LABS: Alanine Aminotransferase 15 U/L (6-35); Albumin Level 3.5 g/dL (3.5-5.1); Alkaline Phosphatase 72 U/L (38-126); Anion Gap 2 mmol/L (8-16); Aspartate Amino Transferase 49 U/L (14-36); Bilirubin,Total 0.4 mg/dL (0.2-1.3); Blood Urea Nitrogen 38 mg/dL (7-17); Calcium 8.1 mg/dL (8.4-10.2); Carbon Dioxide 37 mmol/L (22-30); Chloride 101 mmol/L (98-107); Estimated CRCL calculation 26 ml/min; Estimated Glomerular Filt Rate 33; Glucose 55 mg/dL (65-110); Partial Thromboplastin Time 40.4 SECONDS (22.3-36.8); Potassium 4.2 mmol/L (3.4-5.0); Sodium 140 mmol/L (137-145)
[2021-07-30 17:02] LABS: Bacteria Urine Trace /hpf; Mucus Urine Rare /lpf; Squamous Epithelial Cell Urine Occasional /hpf (Few); WBC Urine >75 /hpf
[2021-07-30 17:04] LABS: Add Urine Microscopic? YES
--- NOTE | 2021-07-30 17:04 | PC.NURSE ---
Per progress developer, pt BS is 55, pt sat upright and given orange juice. Pt states she has diabetes and has not had anything to eat since last night. When asked if she felt like her sugar was low, pt nodded and said yes. Pt able to tolerate orange juice without difficulty.
[2021-07-30 17:09] LABS: Hypochromasia 1+ (NORMAL); Platelet Estimate Increased (Adequate)
--- NOTE | 2021-07-30 17:57 | PC.NURSE ---
BS 93
[2021-07-30 18:00] LABS: Glucose Point of Care 93 mg/dl (65-105)
[2021-07-30 18:03] LABS: Glucose Point of Care 89 mg/dl (65-105)
--- NOTE | 2021-07-30 18:04 | PC.NURSE ---
box lunch given.
--- NOTE | 2021-07-30 18:34 | ED.WEAKNESS ---
HPI - Weakness General Chief complaint: Weakness Stated complaint: Weakness, Everything is Bad Time Seen by Provider: 07/30/21 16:33 History of Present Illness HPI Narrative: This 86-year-old female presents here with generalized weakness, she states that she had felt weak at home, and almost passed out, and that she had been dealing with pneumonia and urinary tract infection and other issues, and that she had been having hypoglycemic episodes also. Denies any active chest pain, but states that she has been having constant cough and difficulty breathing for which she is needing oxygen now. Related Data Home Medications Medication Instructions Recorded Confirmed aspirin 81 mg tablet,delayed 81 mg PO DAILY 01/12/19 06/17/21 release (Aspir-) levothyroxine 75 mcg tablet 50 mcg PO DAILY 01/30/21 06/17/21 fluticasone fur. 100 mcg-umeclid 1 inh inhalation DAILY PRN 06/17/21 06/17/21 62.5 mcg-vilant 25 mcg Shortness Of Breath Or Wheezing inhalat.powder (Trelegy Ellipta) Allergies Allergy/AdvReac Type Severity Reaction Status Date / Time No Known Allergies Allergy Verified 01/30/21 22:24 Review of Systems Review of Systems: CONST: No fever. HEENT: No sore throat C/V: No chest pain RESP: Cough GI: Nausea : No dysuria. M/S: all over body aches SKIN: No rash. NEURO: Lightheadedness PSYCH: [No depression] [facility] Past Medical History Medical History Acute PN (pyelonephritis) Anemia Anemia due to stage 4 chronic kidney disease Aortic stenosis Bronchitis CAD (coronary artery disease) Cataracts, bilateral Chronic back pain Complicated UTI (urinary tract infection) COPD (chronic obstructive pulmonary disease) DVT (deep venous thrombosis) Femur fracture, right GERD (gastroesophageal reflux disease) GI bleed Heart attack History of angina History of blood transfusion HTN (hypertension) Hyperlipidemia Hypothyroid Meniere disease Osteopenia Peripheral neuropathy Peripheral vascular disease of lower extremity RLE stent placement Pneumonia Rectal polyp Renal disease Seizures During [place] Type II diabetes mellitus UTI (urinary tract infection) Surgical History Surgical History H/O exploratory laparotomy 03/06/20 Exploratory laparotomy 2. Ileal resection with [id number] ileal anastomosis 3. Release of small-bowel obstruction History of appendectomy during hysterectomy History of cardiac catheterization History of cataract removal with insertion of prosthetic lens History of cholecystectomy during hysterectomy History of hysterectomy Open JALYN-BSO with cholecystectomy and appendectomy History of total right hip arthroplasty Hx of blepharoplasty Hx of CABG Family History Family History Father Hypertension Pneumonia Smoking Acute myocardial infarction at 57 Mother Diabetes mellitus Family history of glaucoma Cancer Hypotension Cerebrovascular accident Sibling Diabetes mellitus Heart disease Sibling Diabetes mellitus Heart disease Sibling Diabetes mellitus Heart disease Sibling Diabetes mellitus Heart disease Sibling Suicide and self-inflicted injury Sibling Accidental , public place Daughter Breast cancer Social History Social History Social History: Lives at home with her daughter Shyla, who is also her healthcare power of patent attorney. They have 2 dogs and 1 cat. One of the dogs is a showed dog. 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 Patient wishes to be a full code at this time. However patient does have a living will that states she does not want to be intubated or tube feeding. Patient will remain a full code as she states that she wants to be saved if she can be saved. Smoking status: Never smoker Second hand tobacco smoke exposure: Y
[2021-07-30] MEDS: cefTRIAXone 2 GM in SODIUM CHLORIDE 0.9% IV 100 ML 200 ML IVPB (18:38)
--- NOTE | 2021-07-30 19:27 | PC.NURSE ---
[facility] ERP DR SOLIZ, ZOFRAN 4MG IVP
[2021-07-30] MEDS: ONDANSETRON INJ 4 MG/2 ML VIAL IV PUSH (19:29)
[2021-07-30 20:07] LABS: Glucose Point of Care 316 mg/dl (65-105)
[2021-07-30 20:41] LABS: SARS-CoV-2 RNA PCR Negative
--- NOTE | 2021-07-30 22:24 | ADMGEN ---
This patient, Anuradha Spaulding, was admitted to 3 [facility] Surg Room 326-01 @ 2205. Patient/family oriented to hospital policies and general routines including ID bracelet, bed and alarms, visiting hours, pain management, procedures, bathroom and other care routines, personal items, smoking policy, room service/diet, and visiting hours. Information on how to activate the Rapid Response Team has been discussed. Patient/Family are encouraged to report perceived risks to care and to ask questions if they do not understand what they are told or what they should do.
[2021-07-30 23:15] LABS: Glucose Point of Care 262 mg/dl (65-105)
[2021-07-31] VITALS (14 sets, daily range): BP systolic 122–152; BP diastolic 57–84; PULSE 74–87; RESP 15–20; TEMP 36.5–37.1; O2SAT 91–100
[2021-07-31] MEDS: APIXABAN 5 MG TABLET PO ×3 (00:50→23:22)
[2021-07-31 05:12] LABS: Glucose Point of Care 246 mg/dl (65-105)
[2021-07-31] MEDS: LEVOTHYROXINE SODIUM 50 MCG TABLET PO (05:42)
--- NOTE | 2021-07-31 06:07 | PM.IMHP ---
H&P: HPI History of Present Illness Date/Time: 07/31/21 05:07 Chief Complaint: Weakness Narrative: 86-year-old female with past medical history of CHF, type 2 diabetes mellitus, hypothyroidism, COPD and recent diagnosis of DVTs who presented to the ER from home via private vehicle due to weakness. Source of information is ER records and past medical records. The patient herself provides limited history and is having moments of confusion at the time of my evaluation. Patient had just been hospitalized at our facility 06/19/2019 through 06/26/2021 due to near syncope, orthostatic hypotension, acute on chronic kidney injury and diabetes with hyperglycemia. the patient was discharged to residential facility for rehab for 3 weeks. She does was discharged home 2 days ago. The patient had reported that she felt so weak at home that she thought she was going to pass out. When she arrived to the ER patient was found to be hypoglycemic. Patient is evidently been having some hypoglycemic episodes at home as well. She had decreased appetite. She denied any nausea or vomiting. She is noted to be have audible wheezing when a at bedside but wheezing is arising from the patient's the upper airway and not from her lung jones. She had been reporting a constant cough. She was having difficulty breathing on arriving to the ER and was found to be hypoxic with O2 sats of 88%. She is now on 2 L nasal cannula with oxygen saturations between 92 and 100%. She denies any dysuria but has been having increased urinary frequency. Sedated not have any evidence of hematuria in the ER. She does report pain under breath and she is noted to have extensive candidiasis under bilateral breasts. She denies any abdominal pain. She has a poor appetite. The patient was alert oriented to person place and name of the current president. Intermittently throughout the night the patient had episodes of confusion and thought that she was in a different town in not in the hospital. Review of Systems Review of Systems: 12 point review of systems was attempted but was limited due to patient's confusion. [facility] Past Medical History Medical History (Updated 07/31/21 @ 08:14 by Laurie Mayberry DO) Anemia due to stage 4 chronic kidney disease Aortic stenosis Echo April 2020: Moderate aortic stenosis with peak velocity of 305 mean gradient of 23 valve area 1.3 with severe aortic valve calcification CAD (coronary artery disease) Non STEMI April 2020 Cataracts, bilateral Chronic back pain Chronic kidney disease, stage 4 (severe) COPD (chronic obstructive pulmonary disease) Diastolic CHF Echocardiogram 05/11/2020: EF 65-70%, mildly increased left ventricular wall thickness, diastolic dysfunction grade 1, moderate left atrial enlargement, mitral valve with thickened leaflets calcification of leaflets and annulus, mild mitral valve regurgitation, mild tricuspid regurgitation, mild pulmonary hypertension with RVSP of 41 DVT (deep venous thrombosis) Left popliteal and peroneal DVT 2021 Femur fracture, right GERD (gastroesophageal reflux disease) GI bleed Heart attack Hiatal hernia History of angina History of blood transfusion HTN (hypertension) Hyperlipidemia Hypothyroid Meniere disease Osteopenia Peripheral neuropathy Peripheral vascular disease of lower extremity RLE stent placement Rectal polyp Seizures During KS Type II diabetes mellitus Surgical History Surgical History (Updated 07/31/21 @ 07:46 by Laurie Mayberry, DO) H/O exploratory laparotomy 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 With subsequent release of small-bowel obstruction History of appendectomy during hysterectomy History of cardiac catheterization History of cataract removal with insertion of prosthetic lens History of cholecystectomy during hysterectomy History of hysterectomy Open JALYN-BSO with cholecystectomy and appendectomy Hi
[2021-07-31 08:06] LABS: Hematocrit 33.8 % (37.0-47.0); Hemoglobin 9.7 g/dL (12.0-15.0); Mean Corpuscular HGB Conc 28.7 g/dl (32-36); Mean Platelet Volume 9.8 fl (7.4-10.4); Platelet Count Result 379 k/mm3 (150-375); Red Blood Count 3.13 M/mm3 (4.2-5.4); Red Cell Distribution Width 13.9 % (11.5-14.5); White Blood Count 10.1 K/mm3 (4.5-10.0)
[2021-07-31 08:11] LABS: Glucose Point of Care 216 mg/dl (65-105)
[2021-07-31 08:15] LABS: Anion Gap 6 mmol/L (8-16); Blood Urea Nitrogen 38 mg/dL (7-17); Calcium 7.9 mg/dL (8.4-10.2); Carbon Dioxide 32 mmol/L (22-30); Chloride 100 mmol/L (98-107); Estimated CRCL calculation 25 ml/min; Estimated Glomerular Filt Rate 31; Glucose 227 mg/dL (65-110); Potassium 5.2 mmol/L (3.4-5.0); Sodium 138 mmol/L (137-145)
[2021-07-31] MEDS: ALBUTEROL SULFATE NEB 2.5 MG/3 ML INH 5 MG INHALATION ×3 (08:21→20:52)
[2021-07-31] MEDS: IPRATROPIUM BR 0.02% INH SOLN 0.5 MG/2.5 ML VIAL INHALATION ×3 (08:22→20:52)
[2021-07-31] MEDS: INSULIN ASPART (*BKC) 100 UNITS/ML 6 UNITS SUB-Q ×2 (09:05→13:42)
[2021-07-31] MEDS: INSULIN ASPART (*BKC) 100 UNITS/ML SUB-Q (09:06)
[2021-07-31] MEDS: GABAPENTIN 100 MG CAPSULE PO ×3 (09:07→17:45)
[2021-07-31] MEDS: MIDODRINE HCL 2.5 MG TABLET 5 MG PO ×3 (09:08→17:45)
[2021-07-31] MEDS: PANTOPRAZOLE 40 MG TABLET PO ×2 (09:08→23:22)
[2021-07-31] MEDS: BUMETANIDE 1 MG TABLET 2 MG PO (09:08)
[2021-07-31] MEDS: METOPROLOL SUCCINATE EXT REL 12.5 MG TABCR PO (09:08)
[2021-07-31] MEDS: ROSUVASTATIN 10 MG TABLET 20 MG PO (09:08)
[2021-07-31] MEDS: SILVERGEL (ELTA) 45 ML 1 APPLIC TOPICAL (09:11)
[2021-07-31] MEDS: LACTULOSE 20 GM/30 ML UDC 10 GM PO (09:11)
[2021-07-31] MEDS: GENTAMICIN SULFATE 0.3% OP SOL 5 ML BTL 1 DROP EACH EYE ×3 (09:11→23:22)
[2021-07-31] MEDS: INSULIN GLARGINE (*BKC) 100 UNITS/ML 20 UNITS SUB-Q (09:11)
[2021-07-31 11:53] LABS: Glucose Point of Care 193 mg/dl (65-105)
--- NOTE | 2021-07-31 15:53 | PM.IMPN ---
Progress Note: A&P Assessment and Plan (1) Pneumonia: Code(s): J18.9 - Pneumonia, unspecified organism Status: Acute (2) Respiratory failure with hypoxia: Code(s): J96.91 - Respiratory failure, unspecified with hypoxia Status: Acute (3) Bacteriuria with pyuria: Code(s): R82.71 - Bacteriuria; R82.81 - Pyuria Status: Acute (4) Candidiasis of breast: Code(s): B37.89 - Other sites of candidiasis Status: Acute (5) Diabetes mellitus with hypoglycemia and coma, with long-term current use of insulin: Code(s): E11.641 - Type 2 diabetes mellitus with hypoglycemia with coma; Z79.4 - termite control technician (current) use of insulin Status: Acute (6) Acute conjunctivitis, bilateral: Code(s): H10.33 - Unspecified acute conjunctivitis, bilateral Status: Acute (7) Acute on chronic anemia: Code(s): D64.9 - Anemia, unspecified Status: Acute Plan Bilateral upper lobe pneumonia Acute hypoxic respiratory failure continue oxygen supplementation Hypoglycemia Mild anemia no active since bleeding with with on anticoagulation on board will monitor for any signs of active bleeding Chronic kidney disease stage 3 Urinary tract infection Bilateral conjunctivitis Recent DVT on Eliquis Patient was recently diagnosed with DVT and was discharged on Eliquis. She has a trend of her hemoglobin downward. Will continue to monitor for any signs of active bleeding. Will continue Eliquis for now. Candidiasis under bilateral breasts wound care antifungal barrier cream to apply DVT prophylaxis on Eliquis Code status full code Additional Plan Patient has been admitted as observation status. Subjective Date/time seen: 07/31/21 15:53 Interval history: HPI:86-year-old female with past medical history of CHF, type 2 diabetes mellitus, hypothyroidism, COPD and recent diagnosis of DVTs who presented to the ER from home via private vehicle due to weakness.? Source of information is ER records and past medical records.? The patient herself provides limited history and is having moments of confusion at the time of my evaluation.? Patient had just been hospitalized at our facility 06/19/2019 through 06/26/2021 due to near syncope, orthostatic hypotension, acute on chronic kidney injury and diabetes with hyperglycemia.? the patient was [facility] for 3 weeks.? She does was discharged home 2 days ago.? The patient had reported that she felt so weak at home that she thought she was going to pass out.? When she arrived to the ER patient was found to be hypoglycemic.? Patient is evidently been having some hypoglycemic episodes at home as well.? She had decreased appetite.? She denied any nausea or vomiting.? She is noted to be have audible wheezing when a at bedside but wheezing is arising from the patient's the upper airway and not from her lung jones.? She had been reporting a constant cough.? She was having difficulty breathing on arriving to the ER and was found to be hypoxic with O2 sats of 88%.? She is now on 2 L nasal cannula with oxygen saturations between 92 and 100%.? She denies any dysuria but has been having increased urinary frequency.? Sedated not have any evidence of hematuria in the ER.? She does report pain under breath and she is noted to have extensive candidiasis under bilateral breasts.? She denies any abdominal pain.? She has a poor appetite. The patient was alert oriented to person place and name of the current president.? Intermittently throughout the night the patient had episodes of confusion and thought that she was in a different town in not in the hospital. 07/31/2021 no new complaints. Review chart for admission records. Patient confused but able to verbalize. Review of Systems Review of Systems: All systems reviewed & are unremarkable except as noted in HPI and below (HPI) Exam Narrative: GENERAL: The patient is chronically ill-looking, not i
[2021-07-31 16:54] LABS: Glucose Point of Care 150 mg/dl (65-105)
[2021-07-31 23:43] LABS: Glucose Point of Care 173 mg/dl (65-105)
[2021-08-01] VITALS (14 sets, daily range): BP systolic 120–138; BP diastolic 48–69; PULSE 70–90; RESP 14–20; TEMP 36.1–36.8; O2SAT 87–100
[2021-08-01] MEDS: ALBUTEROL SULFATE NEB 2.5 MG/3 ML INH 5 MG INHALATION ×3 (02:55→20:20)
[2021-08-01] MEDS: IPRATROPIUM BR 0.02% INH SOLN 0.5 MG/2.5 ML VIAL INHALATION ×3 (02:55→20:21)
[2021-08-01] MEDS: GENTAMICIN SULFATE 0.3% OP SOL 5 ML BTL 1 DROP EACH EYE ×3 (05:43→22:00)
[2021-08-01] MEDS: LEVOTHYROXINE SODIUM 50 MCG TABLET PO (05:44)
[2021-08-01 08:24] LABS: Glucose Point of Care 198 mg/dl (65-105)
[2021-08-01 08:41] LABS: Alanine Aminotransferase 21 U/L (6-35); Albumin Level 3.5 g/dL (3.5-5.1); Alkaline Phosphatase 81 U/L (38-126); Anion Gap 5 mmol/L (8-16); Aspartate Amino Transferase 54 U/L (14-36); Bilirubin,Total 0.4 mg/dL (0.2-1.3); Blood Urea Nitrogen 39 mg/dL (7-17); Calcium 8.2 mg/dL (8.4-10.2); Carbon Dioxide 35 mmol/L (22-30); Chloride 97 mmol/L (98-107); Estimated CRCL calculation 22 ml/min; Estimated Glomerular Filt Rate 27; Glucose 192 mg/dL (65-110); Magnesium 2.1 mg/dL (1.6-2.3); Potassium 4.9 mmol/L (3.4-5.0); Sodium 137 mmol/L (137-145)
[2021-08-01] MEDS: GABAPENTIN 100 MG CAPSULE PO ×2 (08:49→12:34)
[2021-08-01] MEDS: BUMETANIDE 1 MG TABLET 2 MG PO (08:49)
[2021-08-01] MEDS: INSULIN ASPART (*BKC) 100 UNITS/ML 6 UNITS SUB-Q ×2 (08:49→12:34)
[2021-08-01] MEDS: ROSUVASTATIN 10 MG TABLET 20 MG PO (08:50)
[2021-08-01] MEDS: MIDODRINE HCL 2.5 MG TABLET 5 MG PO ×2 (08:50→12:34)
[2021-08-01] MEDS: METOPROLOL SUCCINATE EXT REL 12.5 MG TABCR PO (08:50)
[2021-08-01] MEDS: SILVERGEL (ELTA) 45 ML 1 APPLIC TOPICAL (08:50)
[2021-08-01] MEDS: APIXABAN 5 MG TABLET PO ×2 (08:50→21:00)
[2021-08-01] MEDS: PANTOPRAZOLE 40 MG TABLET PO ×2 (08:50→21:00)
[2021-08-01] MEDS: INSULIN GLARGINE (*BKC) 100 UNITS/ML 20 UNITS SUB-Q (08:55)
[2021-08-01 09:01] LABS: Basophils Absolute Auto 0.1 K/mm3 (0.0-0.1); Basophils Percent Auto 0.6 % (0.2-1.2); Eosinophils Absolute Auto 0.1 K/mm3 (0-0.3); Eosinophils Percent Auto 0.5 % (0-4.4); Hematocrit 37.7 % (37.0-47.0); Hemoglobin 10.3 g/dL (12.0-15.0); Immature Granulocyte Absolute 0.08 K/mm3 (0.00-0.031); Immature Granulocyte Percent A 0.8 % (0-0.5); Lymphocytes Absolute Auto 1.76 K/mm3 (0.9-3.2); Lymphocytes Percent Auto 17.5 % (18.3-44.2); Mean Corpuscular HGB Conc 27.3 g/dl (32-36); Mean Corpuscular Hemoglobin 30.3 pg (26-34); Mean Corpuscular Volume 110.9 fl (80-100); Mean Platelet Volume 9.9 fl (7.4-10.4); Monocytes Absolute Auto 1.1 K/mm3 (0.1-0.6); Monocytes Percent Auto 11.2 % (2.6-8.5); Neutrophils Percent Auto 69.4 % (45.5-73.1); Platelet Count Result 370 k/mm3 (150-375); Red Cell Distribution Width 13.8 % (11.5-14.5); White Blood Count 10.1 K/mm3 (4.5-10.0)
[2021-08-01] MEDS: ACETAMINOPHEN 325 MG TABLET 650 MG PO (09:01)
--- NOTE | 2021-08-01 09:48 | PCCCNOTE ---
On 08/01/21, the student, [Ela Huitron], provided care and completed [facility] documentation on this patient. I have reviewed the student's documentation and agree with the findings.
--- NOTE | 2021-08-01 10:56 | PCOTNOTE ---
Attempted to see patient for OT evaluation this AM. Patient not responding to questions and not opening eyes. Will continue to attempt later when she is more appropriate.
--- NOTE | 2021-08-01 11:42 | PCPTNOTE ---
Attempted to see patient for PT evaluation this AM. Per OT, Patient not responding to questions and not opening eyes. Will continue to attempt later when she is more appropriate.
[2021-08-01 11:59] LABS: Glucose Point of Care 179 mg/dl (65-105)
[2021-08-01] MEDS: ALBUTEROL SULFATE NEB 2.5 MG/0.5 ML INH 5 MG (14:40)
--- NOTE | 2021-08-01 15:22 | PM.IMPN ---
Progress Note: A&P Assessment and Plan (1) Pneumonia: Code(s): J18.9 - Pneumonia, unspecified organism Status: Acute (2) Respiratory failure with hypoxia: Code(s): J96.91 - Respiratory failure, unspecified with hypoxia Status: Acute (3) Bacteriuria with pyuria: Code(s): R82.71 - Bacteriuria; R82.81 - Pyuria Status: Acute (4) Candidiasis of breast: Code(s): B37.89 - Other sites of candidiasis Status: Acute (5) Diabetes mellitus with hypoglycemia and coma, with long-term current use of insulin: Code(s): E11.641 - Type 2 diabetes mellitus with hypoglycemia with coma; Z79.4 - retail support specialist (current) use of insulin Status: Acute (6) Acute conjunctivitis, bilateral: Code(s): H10.33 - Unspecified acute conjunctivitis, bilateral Status: Acute (7) Acute on chronic anemia: Code(s): D64.9 - Anemia, unspecified Status: Acute Plan Bilateral upper lobe pneumonia Acute hypoxic respiratory failure continue oxygen supplementation Hypoglycemia resolved continue to monitor Mild anemia no active since bleeding with with on anticoagulation on board will monitor for any signs of active bleeding. H&H is stable Chronic kidney disease stage 3. Mild bump in creatinine but remains still within her baseline Urinary tract infection Bilateral conjunctivitis Recent DVT on Eliquis Patient was recently diagnosed with DVT and was discharged on Eliquis. She has a trend of her hemoglobin downward. Will continue to monitor for any signs of active bleeding. Will continue Eliquis for now. Candidiasis under bilateral breasts wound care antifungal barrier cream to apply DVT prophylaxis on Eliquis Code status full code Subjective Date/time seen: 08/01/21 15:23 Interval history: HPI:86-year-old female with past medical history of CHF, type 2 diabetes mellitus, hypothyroidism, COPD and recent diagnosis of DVTs who presented to the ER from home via private vehicle due to weakness.? Source of information is ER records and past medical records.? The patient herself provides limited history and is having moments of confusion at the time of my evaluation.? Patient had just been hospitalized at our facility 06/19/2019 through 06/26/2021 due to near syncope, orthostatic hypotension, acute on chronic kidney injury and diabetes with hyperglycemia.? the patient was [facility] for [facility].? She does was discharged home 2 days ago.? The patient had reported that she felt so weak at home that she thought she was going to pass out.? When she arrived to the ER patient was found to be hypoglycemic.? Patient is evidently been having some hypoglycemic episodes at home as well.? She had decreased appetite.? She denied any nausea or vomiting.? She is noted to be have audible wheezing when a at bedside but wheezing is arising from the patient's the upper airway and not from her lung jones.? She had been reporting a constant cough.? She was having difficulty breathing on arriving to the ER and was found to be hypoxic with O2 sats of 88%.? She is now on 2 L nasal cannula with oxygen saturations between 92 and 100%.? She denies any dysuria but has been having increased urinary frequency.? Sedated not have any evidence of hematuria in the ER.? She does report pain under breath and she is noted to have extensive candidiasis under bilateral breasts.? She denies any abdominal pain.? She has a poor appetite. The patient was alert oriented to person place and name of the current president.? Intermittently throughout the night the patient had episodes of confusion and thought that she was in a different town in not in the hospital. 07/31/2021 no new complaints. Review chart for admission records. Patient confused but able to verbalize. 08/01/2021 patient more awake and alert. Reports she is feeling okay. She denies any new complaints. She is generally weak denies any shortness of breat
--- NOTE | 2021-08-01 16:04 | PCRCNOTE ---
Window of time for tx passed. No trilogy available. Pharmacy contacted will continue tx as scheduled.
[2021-08-01 17:18] LABS: Glucose Point of Care 148 mg/dl (65-105)
[2021-08-01 21:07] LABS: Glucose Point of Care 181 mg/dl (65-105)
[2021-08-02] VITALS (17 sets, daily range): BP systolic 118–141; BP diastolic 45–82; PULSE 66–89; RESP 16–18; TEMP 36.4–36.8; O2SAT 92–99
[2021-08-02] MEDS: IPRATROPIUM BR 0.02% INH SOLN 0.5 MG/2.5 ML VIAL INHALATION ×4 (02:25→20:13)
[2021-08-02] MEDS: ALBUTEROL SULFATE NEB 2.5 MG/3 ML INH 5 MG INHALATION ×4 (02:25→20:13)
[2021-08-02] MEDS: GENTAMICIN SULFATE 0.3% OP SOL 5 ML BTL 1 DROP EACH EYE ×3 (05:35→21:04)
[2021-08-02] MEDS: LEVOTHYROXINE SODIUM 50 MCG TABLET PO (05:35)
[2021-08-02] MEDS: FLUTICASONE/UMECLIDIN/VILANTER 100-62.5-25 MCG ELLIPTA 1 PUFF INHALATION (08:18)
[2021-08-02 08:21] LABS: Glucose Point of Care 153 mg/dl (65-105)
[2021-08-02 08:57] LABS: Basophils Absolute Auto 0.1 K/mm3 (0.0-0.1); Basophils Percent Auto 0.7 % (0.2-1.2); Eosinophils Absolute Auto 0.2 K/mm3 (0-0.3); Eosinophils Percent Auto 1.6 % (0-4.4); Hematocrit 35.6 % (37.0-47.0); Hemoglobin 10.6 g/dL (12.0-15.0); Immature Granulocyte Absolute 0.11 K/mm3 (0.00-0.031); Lymphocytes Absolute Auto 2.12 K/mm3 (0.9-3.2); Lymphocytes Percent Auto 19.7 % (18.3-44.2); Mean Corpuscular HGB Conc 29.8 g/dl (32-36); Mean Corpuscular Hemoglobin 31.1 pg (26-34); Mean Corpuscular Volume 104.4 fl (80-100); Mean Platelet Volume 9.2 fl (7.4-10.4); Monocytes Absolute Auto 0.9 K/mm3 (0.1-0.6); Monocytes Percent Auto 8.7 % (2.6-8.5); Neutrophils Absolute Auto 7.3 K/mm3 (1.3-6.7); Neutrophils Percent Auto 68.3 % (45.5-73.1); Platelet Count Result 397 k/mm3 (150-375); Red Blood Count 3.41 M/mm3 (4.2-5.4); Red Cell Distribution Width 13.5 % (11.5-14.5); White Blood Count 10.7 K/mm3 (4.5-10.0)
[2021-08-02] MEDS: GABAPENTIN 100 MG CAPSULE PO ×3 (08:58→17:31)
[2021-08-02] MEDS: PANTOPRAZOLE 40 MG TABLET PO ×2 (08:59→20:45)
[2021-08-02] MEDS: BUMETANIDE 1 MG TABLET 2 MG PO (08:59)
[2021-08-02] MEDS: MIDODRINE HCL 2.5 MG TABLET 5 MG PO ×3 (08:59→17:31)
[2021-08-02] MEDS: APIXABAN 5 MG TABLET PO ×2 (09:00→20:46)
[2021-08-02] MEDS: ROSUVASTATIN 10 MG TABLET 20 MG PO (09:00)
[2021-08-02] MEDS: INSULIN ASPART (*BKC) 100 UNITS/ML 6 UNITS SUB-Q ×3 (09:00→17:32)
[2021-08-02] MEDS: LACTULOSE 20 GM/30 ML UDC 10 GM PO (09:01)
[2021-08-02] MEDS: METOPROLOL SUCCINATE EXT REL 12.5 MG TABCR PO (09:01)
[2021-08-02] MEDS: INSULIN GLARGINE (*BKC) 100 UNITS/ML 20 UNITS SUB-Q ×2 (09:05→20:45)
[2021-08-02] MEDS: SILVERGEL (ELTA) 45 ML 1 APPLIC TOPICAL (09:06)
[2021-08-02 09:42] LABS: Alanine Aminotransferase 27 U/L (6-35); Albumin Level 3.4 g/dL (3.5-5.1); Alkaline Phosphatase 81 U/L (38-126); Aspartate Amino Transferase 63 U/L (14-36); Bilirubin,Total 0.3 mg/dL (0.2-1.3); Blood Urea Nitrogen 43 mg/dL (7-17); Calcium 8.3 mg/dL (8.4-10.2); Carbon Dioxide > 40 mmol/L (22-30); Chloride 95 mmol/L (98-107); Estimated CRCL calculation 21 ml/min; Estimated Glomerular Filt Rate 25; Glucose 189 mg/dL (65-110); Potassium 4.8 mmol/L (3.4-5.0); Sodium 138 mmol/L (137-145)
--- NOTE | 2021-08-02 09:53 | PCPTNOTE ---
Physical therapy initial evaluation attempted, Pt declined this date due to increased fatigue.
[2021-08-02 09:57] LABS: Anisocytosis 1+ (NORMAL); Hypochromasia 1+ (NORMAL); Platelet Estimate Adequate (Adequate)
--- NOTE | 2021-08-02 10:45 | PM.IMPN ---
Progress Note: A&P Assessment and Plan (1) Pneumonia: Code(s): J18.9 - Pneumonia, unspecified organism Status: Acute (2) Respiratory failure with hypoxia: Code(s): J96.91 - Respiratory failure, unspecified with hypoxia Status: Acute (3) Bacteriuria with pyuria: Code(s): R82.71 - Bacteriuria; R82.81 - Pyuria Status: Acute (4) Candidiasis of breast: Code(s): B37.89 - Other sites of candidiasis Status: Acute (5) Diabetes mellitus with hypoglycemia and coma, with long-term current use of insulin: Code(s): E11.641 - Type 2 diabetes mellitus with hypoglycemia with coma; Z79.4 - roasterman (current) use of insulin Status: Acute (6) Acute conjunctivitis, bilateral: Code(s): H10.33 - Unspecified acute conjunctivitis, bilateral Status: Acute (7) Acute on chronic anemia: Code(s): D64.9 - Anemia, unspecified Status: Acute Plan Bilateral upper lobe pneumonia Acute hypoxic respiratory failure continue oxygen supplementation Hypoglycemia resolved continue to monitor Mild anemia no active since bleeding with with on anticoagulation on board will monitor for any signs of active bleeding. H&H is stable Chronic kidney disease stage 3. Mild bump in creatinine but remains still within her baseline Urinary tract infection Bilateral conjunctivitis on gentamicin eyedrops Recent DVT on Eliquis Patient was recently diagnosed with DVT and was discharged on Eliquis. She has a trend of her hemoglobin downward. Will continue to monitor for any signs of active bleeding. Will continue Eliquis for now. Candidiasis under bilateral breasts wound care antifungal barrier cream to apply DVT prophylaxis on Eliquis Code status full code PT OT to see she is from [facility]. Hold Bumex today recheck labs in a.m. Subjective Date/time seen: 08/02/21 10:45 Interval history: HPI:86-year-old female with past medical history of CHF, type 2 diabetes mellitus, hypothyroidism, COPD and recent diagnosis of DVTs who presented to the ER from home via private vehicle due to weakness.? Source of information is ER records and past medical records.? The patient herself provides limited history and is having moments of confusion at the time of my evaluation.? Patient had just been hospitalized at our facility 06/19/2019 through 06/26/2021 due to near syncope, orthostatic hypotension, acute on chronic kidney injury and diabetes with hyperglycemia.? [facility].? She does was discharged home 2 days ago.? The patient had reported that she felt so weak at home that she thought she was going to pass out.? When she arrived to the ER patient was found to be hypoglycemic.? Patient is evidently been having some hypoglycemic episodes at home as well.? She had decreased appetite.? She denied any nausea or vomiting.? She is noted to be have audible wheezing when a at bedside but wheezing is arising from the patient's the upper airway and not from her lung jones.? She had been reporting a constant cough.? She was having difficulty breathing on arriving to the ER and was found to be hypoxic with O2 sats of 88%.? She is now on 2 L nasal cannula with oxygen saturations between 92 and 100%.? She denies any dysuria but has been having increased urinary frequency.? Sedated not have any evidence of hematuria in the ER.? She does report pain under breath and she is noted to have extensive candidiasis under bilateral breasts.? She denies any abdominal pain.? She has a poor appetite. The patient was alert oriented to person place and name of the current president.? Intermittently throughout the night the patient had episodes of confusion and thought that she was in a different town in not in the hospital. 07/31/2021 no new complaints. Review chart for admission records. Patient confused but able to verbalize. 08/01/2021 patient more awake and alert. Reports she
[2021-08-02 11:58] LABS: Glucose Point of Care 218 mg/dl (65-105)
[2021-08-02] MEDS: INSULIN ASPART (*BKC) 100 UNITS/ML SUB-Q (12:17)
[2021-08-02 13:34] LABS: Pneumococcal Antigen Urine Not Detected (Not Detected)
[2021-08-02 18:04] LABS: Glucose Point of Care 182 mg/dl (65-105)
[2021-08-02 20:32] LABS: Legionella pneumophila Ag Ur Not Detected (Not Detected)
[2021-08-02 21:41] LABS: Glucose Point of Care 344 mg/dl (65-105)
[2021-08-02 22:20] LABS: Mycoplasma IgM Antibody Titer 58 U/mL (<770)
--- NOTE | 2021-08-02 22:32 | PCCCNOTE ---
On 08/02/21, the student, Ela Huitron, provided care and completed [facility] documentation on this patient. I have reviewed the student's documentation and agree with the findings.
[2021-08-03] VITALS (12 sets, daily range): BP systolic 122–124; BP diastolic 48–78; PULSE 64–90; RESP 16–20; TEMP 36.1–36.7; O2SAT 93–97
[2021-08-03] MEDS: ALBUTEROL SULFATE NEB 2.5 MG/3 ML INH 5 MG INHALATION ×4 (02:41→19:23)
[2021-08-03] MEDS: IPRATROPIUM BR 0.02% INH SOLN 0.5 MG/2.5 ML VIAL INHALATION ×4 (02:41→19:23)
[2021-08-03] MEDS: LEVOTHYROXINE SODIUM 50 MCG TABLET PO (05:48)
[2021-08-03] MEDS: GENTAMICIN SULFATE 0.3% OP SOL 5 ML BTL 1 DROP EACH EYE ×3 (05:48→20:09)
[2021-08-03 06:11] LABS: Basophils Absolute Auto 0.1 K/mm3 (0.0-0.1); Basophils Percent Auto 0.4 % (0.2-1.2); Eosinophils Absolute Auto 0.2 K/mm3 (0-0.3); Eosinophils Percent Auto 1.3 % (0-4.4); Hematocrit 31.2 % (37.0-47.0); Hemoglobin 9.5 g/dL (12.0-15.0); Immature Granulocyte Absolute 0.09 K/mm3 (0.00-0.031); Immature Granulocyte Percent A 0.8 % (0-0.5); Lymphocytes Absolute Auto 2.37 K/mm3 (0.9-3.2); Lymphocytes Percent Auto 20.8 % (18.3-44.2); Mean Corpuscular HGB Conc 30.4 g/dl (32-36); Mean Corpuscular Hemoglobin 30.4 pg (26-34); Mean Platelet Volume 9.4 fl (7.4-10.4); Monocytes Absolute Auto 0.8 K/mm3 (0.1-0.6); Monocytes Percent Auto 7.3 % (2.6-8.5); Neutrophils Absolute Auto 7.9 K/mm3 (1.3-6.7); Neutrophils Percent Auto 69.4 % (45.5-73.1); Platelet Count Result 402 k/mm3 (150-375); Red Blood Count 3.12 M/mm3 (4.2-5.4); Red Cell Distribution Width 13.5 % (11.5-14.5); White Blood Count 11.4 K/mm3 (4.5-10.0)
[2021-08-03 06:51] LABS: Alanine Aminotransferase 26 U/L (6-35); Albumin Level 3.1 g/dL (3.5-5.1); Alkaline Phosphatase 68 U/L (38-126); Aspartate Amino Transferase 54 U/L (14-36); Bilirubin,Total 0.4 mg/dL (0.2-1.3); Blood Urea Nitrogen 44 mg/dL (7-17); Calcium 7.8 mg/dL (8.4-10.2); Carbon Dioxide > 40 mmol/L (22-30); Chloride 92 mmol/L (98-107); Estimated CRCL calculation 19 ml/min; Estimated Glomerular Filt Rate 22; Glucose 186 mg/dL (65-110); Magnesium 1.9 mg/dL (1.6-2.3); Sodium 138 mmol/L (137-145)
[2021-08-03 08:02] LABS: Glucose Point of Care 188 mg/dl (65-105)
[2021-08-03] MEDS: ROSUVASTATIN 10 MG TABLET 20 MG PO (08:42)
[2021-08-03] MEDS: GABAPENTIN 100 MG CAPSULE PO ×3 (08:42→16:54)
[2021-08-03] MEDS: METOPROLOL SUCCINATE EXT REL 12.5 MG TABCR PO (08:43)
[2021-08-03] MEDS: MIDODRINE HCL 2.5 MG TABLET 5 MG PO ×3 (08:44→16:54)
[2021-08-03] MEDS: LACTULOSE 20 GM/30 ML UDC 10 GM PO (08:45)
[2021-08-03] MEDS: PANTOPRAZOLE 40 MG TABLET PO ×2 (08:45→20:09)
[2021-08-03] MEDS: INSULIN ASPART (*BKC) 100 UNITS/ML 6 UNITS SUB-Q ×3 (08:45→16:55)
[2021-08-03] MEDS: APIXABAN 5 MG TABLET PO ×2 (08:45→20:09)
[2021-08-03] MEDS: INSULIN GLARGINE (*BKC) 100 UNITS/ML 20 UNITS SUB-Q ×2 (08:47→20:08)
[2021-08-03] MEDS: FLUTICASONE/UMECLIDIN/VILANTER 100-62.5-25 MCG ELLIPTA 1 PUFF INHALATION (09:11)
[2021-08-03] MEDS: SILVERGEL (ELTA) 45 ML 1 APPLIC TOPICAL (09:57)
--- NOTE | 2021-08-03 11:48 | PM.IMPN ---
Progress Note: A&P Assessment and Plan (1) Pneumonia: Code(s): J18.9 - Pneumonia, unspecified organism Status: Acute (2) Respiratory failure with hypoxia: Code(s): J96.91 - Respiratory failure, unspecified with hypoxia Status: Acute (3) Bacteriuria with pyuria: Code(s): R82.71 - Bacteriuria; R82.81 - Pyuria Status: Acute (4) Candidiasis of breast: Code(s): B37.89 - Other sites of candidiasis Status: Acute (5) Diabetes mellitus with hypoglycemia and coma, with long-term current use of insulin: Code(s): E11.641 - Type 2 diabetes mellitus with hypoglycemia with coma; Z79.4 - brim stretcher (current) use of insulin Status: Acute (6) Acute conjunctivitis, bilateral: Code(s): H10.33 - Unspecified acute conjunctivitis, bilateral Status: Acute (7) Acute on chronic anemia: Code(s): D64.9 - Anemia, unspecified Status: Acute Plan Bilateral upper lobe pneumonia treated with IV antibiotics ceftriaxone and azithromycin Acute hypoxic respiratory failure continue oxygen supplementation stable acid requirement Hypoglycemia resolved continue to monitor Mild anemia no active since bleeding with with on anticoagulation on board will monitor for any signs of active bleeding. H&H is stable Chronic kidney disease stage 3. Mild bump in creatinine continues. Will give gentle IV fluid today Urinary tract infection on Rocephin urine culture with no growth Bilateral conjunctivitis on gentamicin eyedrops Recent DVT on Eliquis Patient was recently diagnosed with DVT and was discharged on Eliquis. She has a trend of her hemoglobin downward. Will continue to monitor for any signs of active bleeding. Will continue Eliquis for now. Candidiasis under bilateral breasts wound care antifungal barrier cream to apply DVT prophylaxis on Eliquis Code status full code PT OT to see she is from [facility]. Bumex on hold Subjective Date/time seen: 08/03/21 11:48 Interval history: HPI:86-year-old female with past medical history of CHF, type 2 diabetes mellitus, hypothyroidism, COPD and recent diagnosis of DVTs who presented to the ER from home via private vehicle due to weakness.? Source of information is ER records and past medical records.? The patient herself provides limited history and is having moments of confusion at the time of my evaluation.? Patient had just been hospitalized at our facility 06/19/2019 through 06/26/2021 due to near syncope, orthostatic hypotension, acute on chronic kidney injury and diabetes with hyperglycemia.? the patient was discharged to residential facility for rehab for 3 weeks.? She does was discharged home 2 days ago.? The patient had reported that she felt so weak at home that she thought she was going to pass out.? When she arrived to the ER patient was found to be hypoglycemic.? Patient is evidently been having some hypoglycemic episodes at home as well.? She had decreased appetite.? She denied any nausea or vomiting.? She is noted to be have audible wheezing when a at bedside but wheezing is arising from the patient's the upper airway and not from her lung jones.? She had been reporting a constant cough.? She was having difficulty breathing on arriving to the ER and was found to be hypoxic with O2 sats of 88%.? She is now on 2 L nasal cannula with oxygen saturations between 92 and 100%.? She denies any dysuria but has been having increased urinary frequency.? Sedated not have any evidence of hematuria in the ER.? She does report pain under breath and she is noted to have extensive candidiasis under bilateral breasts.? She denies any abdominal pain.? She has a poor appetite. The patient was alert oriented to person place and name of the current president.? Intermittently throughout the night the patient had episodes of confusion and thought that she was in a different town in not in the hospital. 07/31/2021 no new complaints. Review chart for admission re
[2021-08-03 11:59] LABS: Glucose Point of Care 229 mg/dl (65-105)
[2021-08-03] MEDS: INSULIN ASPART (*BKC) 100 UNITS/ML SUB-Q ×2 (12:31→16:55)
[2021-08-03] MEDS: SODIUM CHLORIDE 0.9% IV 1,000 ML 50 ML IV CONT (12:56)
[2021-08-03 16:32] LABS: Glucose Point of Care 269 mg/dl (65-105)
[2021-08-04] VITALS (14 sets, daily range): BP systolic 136–146; BP diastolic 52–55; PULSE 61–80; RESP 16–20; TEMP 36.1–36.3; O2SAT 92–100
[2021-08-04 00:42] LABS: Glucose Point of Care 287 mg/dl (65-105)
[2021-08-04] MEDS: ALBUTEROL SULFATE NEB 2.5 MG/3 ML INH 5 MG INHALATION ×2 (01:20→21:35)
[2021-08-04] MEDS: IPRATROPIUM BR 0.02% INH SOLN 0.5 MG/2.5 ML VIAL INHALATION ×4 (01:20→21:35)
[2021-08-04] MEDS: LEVOTHYROXINE SODIUM 50 MCG TABLET PO (05:49)
[2021-08-04] MEDS: GENTAMICIN SULFATE 0.3% OP SOL 5 ML BTL 1 DROP EACH EYE ×3 (05:49→21:16)
[2021-08-04 07:12] LABS: Basophils Percent Auto 0.4 % (0.2-1.2); Eosinophils Absolute Auto 0.2 K/mm3 (0-0.3); Eosinophils Percent Auto 1.8 % (0-4.4); Hematocrit 30.4 % (37.0-47.0); Hemoglobin 8.8 g/dL (12.0-15.0); Immature Granulocyte Absolute 0.06 K/mm3 (0.00-0.031); Immature Granulocyte Percent A 0.6 % (0-0.5); Lymphocytes Absolute Auto 2.14 K/mm3 (0.9-3.2); Lymphocytes Percent Auto 21.3 % (18.3-44.2); Mean Corpuscular HGB Conc 28.9 g/dl (32-36); Mean Corpuscular Hemoglobin 30.6 pg (26-34); Mean Corpuscular Volume 105.6 fl (80-100); Mean Platelet Volume 9.5 fl (7.4-10.4); Monocytes Absolute Auto 0.9 K/mm3 (0.1-0.6); Monocytes Percent Auto 8.4 % (2.6-8.5); Neutrophils Absolute Auto 6.8 K/mm3 (1.3-6.7); Neutrophils Percent Auto 67.5 % (45.5-73.1); Platelet Count Result 374 k/mm3 (150-375); Red Blood Count 2.88 M/mm3 (4.2-5.4); Red Cell Distribution Width 13.8 % (11.5-14.5); White Blood Count 10.1 K/mm3 (4.5-10.0)
[2021-08-04 07:26] LABS: Alanine Aminotransferase 23 U/L (6-35); Albumin Level 2.8 g/dL (3.5-5.1); Alkaline Phosphatase 60 U/L (38-126); Aspartate Amino Transferase 37 U/L (14-36); Bilirubin,Total 0.3 mg/dL (0.2-1.3); Blood Urea Nitrogen 38 mg/dL (7-17); Calcium 7.8 mg/dL (8.4-10.2); Carbon Dioxide > 40 mmol/L (22-30); Chloride 97 mmol/L (98-107); Estimated CRCL calculation 21 ml/min; Estimated Glomerular Filt Rate 25; Glucose 171 mg/dL (65-110); Magnesium 1.9 mg/dL (1.6-2.3); Potassium 4.1 mmol/L (3.4-5.0); Sodium 139 mmol/L (137-145)
[2021-08-04 07:57] LABS: Anisocytosis 1+ (NORMAL); Hypochromasia 1+ (NORMAL); Platelet Estimate Adequate (Adequate)
[2021-08-04 07:58] LABS: Glucose Point of Care 158 mg/dl (65-105)
[2021-08-04] MEDS: LACTULOSE 20 GM/30 ML UDC 10 GM PO (08:03)
[2021-08-04] MEDS: INSULIN ASPART (*BKC) 100 UNITS/ML 6 UNITS SUB-Q ×3 (08:03→16:47)
[2021-08-04] MEDS: METOPROLOL SUCCINATE EXT REL 12.5 MG TABCR PO (08:04)
[2021-08-04] MEDS: ROSUVASTATIN 10 MG TABLET 20 MG PO (08:04)
[2021-08-04] MEDS: MIDODRINE HCL 2.5 MG TABLET 5 MG PO ×3 (08:04→16:48)
[2021-08-04] MEDS: GABAPENTIN 100 MG CAPSULE PO ×3 (08:04→16:47)
[2021-08-04] MEDS: PANTOPRAZOLE 40 MG TABLET PO ×2 (08:04→21:16)
[2021-08-04] MEDS: APIXABAN 5 MG TABLET PO ×2 (08:07→21:16)
[2021-08-04] MEDS: INSULIN GLARGINE (*BKC) 100 UNITS/ML 20 UNITS SUB-Q ×2 (08:08→21:16)
[2021-08-04] MEDS: ALBUTEROL SULFATE NEB 2.5 MG/0.5 ML INH 5 MG ×2 (09:11→15:34)
[2021-08-04] MEDS: SILVERGEL (ELTA) 45 ML 1 APPLIC TOPICAL (10:37)
[2021-08-04 12:07] LABS: Glucose Point of Care 196 mg/dl (65-105)
--- NOTE | 2021-08-04 14:27 | PM.IMPN ---
Progress Note: A&P Assessment and Plan (1) Pneumonia: Code(s): J18.9 - Pneumonia, unspecified organism Status: Acute (2) Respiratory failure with hypoxia: Code(s): J96.91 - Respiratory failure, unspecified with hypoxia Status: Acute (3) Bacteriuria with pyuria: Code(s): R82.71 - Bacteriuria; R82.81 - Pyuria Status: Acute (4) Candidiasis of breast: Code(s): B37.89 - Other sites of candidiasis Status: Acute (5) Diabetes mellitus with hypoglycemia and coma, with long-term current use of insulin: Code(s): E11.641 - Type 2 diabetes mellitus with hypoglycemia with coma; Z79.4 - long term care phlebotomist (current) use of insulin Status: Acute (6) Acute conjunctivitis, bilateral: Code(s): H10.33 - Unspecified acute conjunctivitis, bilateral Status: Acute (7) Acute on chronic anemia: Code(s): D64.9 - Anemia, unspecified Status: Acute Plan #Bilateral upper lobe pneumonia treated with IV antibiotics ceftriaxone and azithromycin. day 5 of azithromycin. Will stop after that. Continue ceftriaxone. Repeat x-ray reviewed #Acute hypoxic respiratory failure continue oxygen supplementation stable oxygen requirement #Hypoglycemia resolved continue to monitor #Mild anemia no active since bleeding with with on anticoagulation on board will monitor for any signs of active bleeding. H&H is stable #Chronic kidney disease stage 3. Mild bump in creatinine continues. Will give gentle IV fluid started 08/03/2021. Creatinine improved today. Will stop fluid and recheck creatinine in the morning #Urinary tract infection on Rocephin urine culture with no growth #Bilateral conjunctivitis on gentamicin eyedrops #Recent DVT on Eliquis #Patient was recently diagnosed with DVT and was discharged on Eliquis. She has a trend of her hemoglobin downward. Will continue to monitor for any signs of active bleeding. Will continue Eliquis for now. #Candidiasis under bilateral breasts wound care antifungal barrier cream to apply #DVT prophylaxis on Eliquis #Code status full code PT OT to see she is from [facility]. Bumex on hold. Family agreeable for placement pending cost associated with. Will consult care coordination Subjective Date/time seen: 08/04/21 14:27 Interval history: HPI:86-year-old female with past medical history of CHF, type 2 diabetes mellitus, hypothyroidism, COPD and recent diagnosis of DVTs who presented to the ER from home via private vehicle due to weakness.? Source of information is ER records and past medical records.? The patient herself provides limited history and is having moments of confusion at the time of my evaluation.? Patient had just been hospitalized at our facility 06/19/2019 through 06/26/2021 due to near syncope, orthostatic hypotension, acute on chronic kidney injury and diabetes with hyperglycemia.? the patient was discharged to intermediate facility for rehab for 3 weeks.? She does was discharged home 2 days ago.? The patient had reported that she felt so weak at home that she thought she was going to pass out.? When she arrived to the ER patient was found to be hypoglycemic.? Patient is evidently been having some hypoglycemic episodes at home as well.? She had decreased appetite.? She denied any nausea or vomiting.? She is noted to be have audible wheezing when a at bedside but wheezing is arising from the patient's the upper airway and not from her lung jones.? She had been reporting a constant cough.? She was having difficulty breathing on arriving to the ER and was found to be hypoxic with O2 sats of 88%.? She is now on 2 L nasal cannula with oxygen saturations between 92 and 100%.? She denies any dysuria but has been having increased urinary frequency.? Sedated not have any evidence of hematuria in the ER.? She does report pain under breath and she is noted to have extensive candidiasis under bilateral breasts.? She denies any abdominal pain.? She franco
[2021-08-04] MEDS: FLUTICASONE/UMECLIDIN/VILANTER 100-62.5-25 MCG ELLIPTA 1 PUFF INHALATION (15:37)
[2021-08-04] MEDS: AZITHROMYCIN 250 MG TABLET 500 MG PO (16:47)
[2021-08-04 17:01] LABS: Glucose Point of Care 194 mg/dl (65-105)
[2021-08-04 20:37] LABS: Glucose Point of Care 187 mg/dl (65-105)
[2021-08-04] MEDS: CEFDINIR 300 MG CAPSULE PO (21:16)
[2021-08-05] VITALS (15 sets, daily range): BP systolic 102–141; BP diastolic 50–63; PULSE 62–72; RESP 16–18; TEMP 36.1–36.8; O2SAT 93–99
[2021-08-05] MEDS: ALBUTEROL SULFATE NEB 2.5 MG/3 ML INH 5 MG INHALATION ×4 (02:43→21:00)
[2021-08-05] MEDS: IPRATROPIUM BR 0.02% INH SOLN 0.5 MG/2.5 ML VIAL INHALATION ×4 (02:44→21:00)
[2021-08-05] MEDS: ACETAMINOPHEN 325 MG TABLET 650 MG PO (03:25)
[2021-08-05] MEDS: LEVOTHYROXINE SODIUM 50 MCG TABLET PO (05:56)
[2021-08-05] MEDS: GENTAMICIN SULFATE 0.3% OP SOL 5 ML BTL 1 DROP EACH EYE ×3 (05:56→21:20)
[2021-08-05 06:40] LABS: Basophils Percent Auto 0.3 % (0.2-1.2); Eosinophils Absolute Auto 0.2 K/mm3 (0-0.3); Eosinophils Percent Auto 2.6 % (0-4.4); Hematocrit 28.5 % (37.0-47.0); Hemoglobin 8.7 g/dL (12.0-15.0); Immature Granulocyte Absolute 0.06 K/mm3 (0.00-0.031); Immature Granulocyte Percent A 0.6 % (0-0.5); Lymphocytes Absolute Auto 2.33 K/mm3 (0.9-3.2); Mean Corpuscular HGB Conc 30.5 g/dl (32-36); Mean Corpuscular Volume 101.4 fl (80-100); Mean Platelet Volume 9.5 fl (7.4-10.4); Monocytes Absolute Auto 0.7 K/mm3 (0.1-0.6); Monocytes Percent Auto 7.7 % (2.6-8.5); Neutrophils Absolute Auto 5.9 K/mm3 (1.3-6.7); Neutrophils Percent Auto 63.8 % (45.5-73.1); Platelet Count Result 388 k/mm3 (150-375); Red Blood Count 2.81 M/mm3 (4.2-5.4); Red Cell Distribution Width 13.8 % (11.5-14.5); White Blood Count 9.3 K/mm3 (4.5-10.0)
[2021-08-05 06:58] LABS: Alanine Aminotransferase 21 U/L (6-35); Albumin Level 2.9 g/dL (3.5-5.1); Alkaline Phosphatase 58 U/L (38-126); Anion Gap 2 mmol/L (8-16); Aspartate Amino Transferase 38 U/L (14-36); Bilirubin,Total 0.3 mg/dL (0.2-1.3); Blood Urea Nitrogen 32 mg/dL (7-17); Calcium 7.9 mg/dL (8.4-10.2); Carbon Dioxide 37 mmol/L (22-30); Chloride 98 mmol/L (98-107); Estimated CRCL calculation 22 ml/min; Estimated Glomerular Filt Rate 27; Glucose 107 mg/dL (65-110); Potassium 3.6 mmol/L (3.4-5.0); Sodium 137 mmol/L (137-145)
[2021-08-05 07:45] LABS: Glucose Point of Care 100 mg/dl (65-105)
[2021-08-05] MEDS: ROSUVASTATIN 10 MG TABLET 20 MG PO (08:07)
[2021-08-05] MEDS: APIXABAN 5 MG TABLET PO ×2 (08:07→21:20)
[2021-08-05] MEDS: METOPROLOL SUCCINATE EXT REL 12.5 MG TABCR PO (08:08)
[2021-08-05] MEDS: GABAPENTIN 100 MG CAPSULE PO ×3 (08:09→17:02)
[2021-08-05] MEDS: MIDODRINE HCL 2.5 MG TABLET 5 MG PO ×3 (08:09→17:02)
[2021-08-05] MEDS: PANTOPRAZOLE 40 MG TABLET PO ×2 (08:09→21:20)
[2021-08-05] MEDS: SILVERGEL (ELTA) 45 ML 1 APPLIC TOPICAL (08:09)
[2021-08-05] MEDS: INSULIN ASPART (*BKC) 100 UNITS/ML 6 UNITS SUB-Q ×2 (08:13→17:04)
[2021-08-05] MEDS: INSULIN GLARGINE (*BKC) 100 UNITS/ML 20 UNITS SUB-Q ×2 (08:14→21:20)
[2021-08-05] MEDS: FLUTICASONE/UMECLIDIN/VILANTER 100-62.5-25 MCG ELLIPTA 1 PUFF INHALATION (08:34)
[2021-08-05 10:59] LABS: Glucose Point of Care 110 mg/dl (65-105)
[2021-08-05 11:50] LABS: Glucose Point of Care 99 mg/dl (65-105)
[2021-08-05] MEDS: LACTULOSE 20 GM/30 ML UDC 10 GM PO (11:50)
--- NOTE | 2021-08-05 12:09 | PM.IMPN ---
Progress Note: A&P Assessment and Plan (1) Pneumonia: Code(s): J18.9 - Pneumonia, unspecified organism Status: Acute (2) Respiratory failure with hypoxia: Code(s): J96.91 - Respiratory failure, unspecified with hypoxia Status: Acute (3) Bacteriuria with pyuria: Code(s): R82.71 - Bacteriuria; R82.81 - Pyuria Status: Acute (4) Candidiasis of breast: Code(s): B37.89 - Other sites of candidiasis Status: Acute (5) Diabetes mellitus with hypoglycemia and coma, with long-term current use of insulin: Code(s): E11.641 - Type 2 diabetes mellitus with hypoglycemia with coma; Z79.4 - buttermaker continuous churn (current) use of insulin Status: Acute (6) Acute conjunctivitis, bilateral: Code(s): H10.33 - Unspecified acute conjunctivitis, bilateral Status: Acute (7) Acute on chronic anemia: Code(s): D64.9 - Anemia, unspecified Status: Acute Plan #Bilateral upper lobe pneumonia treated with IV antibiotics ceftriaxone and azithromycin. Finished as azithromycin course. Continue ceftriaxone. Repeat x-ray reviewed. Ceftriaxone switched to cefdinir which will be continued #Acute hypoxic respiratory failure continue oxygen supplementation stable oxygen requirement #Hypoglycemia resolved continue to monitor. Continue to monitor #Mild anemia no active since bleeding with with on anticoagulation on board will monitor for any signs of active bleeding. H&H is stable #Chronic kidney disease stage 3. Mild bump in creatinine continues. Will give gentle IV fluid started 08/03/2021. Creatinine improved today. Stop fluid. Creatinine stabilizing 1.8 today. Will restart her Bumex #Urinary tract infection on Rocephin urine culture with no growth # Bilateral conjunctivitis on gentamicin eyedrops # Recent DVT on Eliquis # Patient was recently diagnosed with DVT and was discharged on Eliquis. She has a trend of her hemoglobin downward. Will continue to monitor for any signs of active bleeding. Will continue Eliquis for now. # Candidiasis under bilateral breasts wound care antifungal barrier cream to apply # DVT prophylaxis on Eliquis # Code status full code PT OT to see. She is from [facility]. Bumex on hold. Family agreeable for placement pending cost associated with. She is doing better now able to go home with family acid/home health Subjective Date/time seen: 08/05/21 12:09 Interval history: HPI:86-year-old female with past medical history of CHF, type 2 diabetes mellitus, hypothyroidism, COPD and recent diagnosis of DVTs who presented to the ER from home via private vehicle due to weakness.? Source of information is ER records and past medical records.? The patient herself provides limited history and is having moments of confusion at the time of my evaluation.? Patient had just been hospitalized at our facility 06/19/2019 through 06/26/2021 due to near syncope, orthostatic hypotension, acute on chronic kidney injury and diabetes with hyperglycemia.? the patient was [facility] to [facility] for [facility].? She does was discharged home 2 days ago.? The patient had reported that she felt so weak at home that she thought she was going to pass out.? When she arrived to the ER patient was found to be hypoglycemic.? Patient is evidently been having some hypoglycemic episodes at home as well.? She had decreased appetite.? She denied any nausea or vomiting.? She is noted to be have audible wheezing when a at bedside but wheezing is arising from the patient's the upper airway and not from her lung jones.? She had been reporting a constant cough.? She was having difficulty breathing on arriving to the ER and was found to be hypoxic with O2 sats of 88%.? She is now on 2 L nasal cannula with oxygen saturations between 92 and 100%.? She denies any dysuria but has been having increased urinary frequency.? Sedated not have any evidence of hematuria in the ER.? She does repor
[2021-08-05 16:47] LABS: Glucose Point of Care 137 mg/dl (65-105)
[2021-08-05] MEDS: CEFDINIR 300 MG CAPSULE PO (21:20)
[2021-08-06] VITALS (9 sets, daily range): BP systolic 115–138; BP diastolic 58–59; PULSE 59–96; RESP 16–18; TEMP 36.4–36.7; O2SAT 92–98
[2021-08-06 02:42] LABS: Glucose Point of Care 161 mg/dl (65-105)
[2021-08-06] MEDS: GENTAMICIN SULFATE 0.3% OP SOL 5 ML BTL 1 DROP EACH EYE (06:12)
[2021-08-06] MEDS: LEVOTHYROXINE SODIUM 50 MCG TABLET PO (06:12)
[2021-08-06 06:21] LABS: Basophils Percent Auto 0.4 % (0.2-1.2); Eosinophils Absolute Auto 0.2 K/mm3 (0-0.3); Eosinophils Percent Auto 2.8 % (0-4.4); Immature Granulocyte Absolute 0.03 K/mm3 (0.00-0.031); Immature Granulocyte Percent A 0.4 % (0-0.5); Lymphocytes Percent Auto 21.4 % (18.3-44.2); Mean Corpuscular Hemoglobin 30.4 pg (26-34); Mean Corpuscular Volume 104.7 fl (80-100); Mean Platelet Volume 9.3 fl (7.4-10.4); Monocytes Absolute Auto 0.7 K/mm3 (0.1-0.6); Monocytes Percent Auto 7.9 % (2.6-8.5); Neutrophils Absolute Auto 5.7 K/mm3 (1.3-6.7); Neutrophils Percent Auto 67.1 % (45.5-73.1); Platelet Count Result 375 k/mm3 (150-375); Red Blood Count 2.96 M/mm3 (4.2-5.4); White Blood Count 8.4 K/mm3 (4.5-10.0)
[2021-08-06 06:45] LABS: Alanine Aminotransferase 24 U/L (6-35); Alkaline Phosphatase 57 U/L (38-126); Anion Gap 2 mmol/L (8-16); Aspartate Amino Transferase 38 U/L (14-36); Bilirubin,Total 0.3 mg/dL (0.2-1.3); Blood Urea Nitrogen 30 mg/dL (7-17); Carbon Dioxide 37 mmol/L (22-30); Chloride 102 mmol/L (98-107); Estimated CRCL calculation 25 ml/min; Estimated Glomerular Filt Rate 31; Glucose 102 mg/dL (65-110); Potassium 3.9 mmol/L (3.4-5.0); Sodium 141 mmol/L (137-145)
[2021-08-06 07:47] LABS: Glucose Point of Care 108 mg/dl (65-105)
[2021-08-06] MEDS: ALBUTEROL SULFATE NEB 2.5 MG/3 ML INH 5 MG INHALATION ×2 (08:24→14:02)
[2021-08-06] MEDS: FLUTICASONE/UMECLIDIN/VILANTER 100-62.5-25 MCG ELLIPTA 1 PUFF INHALATION (08:25)
[2021-08-06] MEDS: IPRATROPIUM BR 0.02% INH SOLN 0.5 MG/2.5 ML VIAL INHALATION ×2 (08:25→14:02)
[2021-08-06] MEDS: APIXABAN 5 MG TABLET PO (09:01)
[2021-08-06] MEDS: MIDODRINE HCL 2.5 MG TABLET 5 MG PO ×2 (09:01→12:20)
[2021-08-06] MEDS: GABAPENTIN 100 MG CAPSULE PO ×2 (09:01→12:20)
[2021-08-06] MEDS: ROSUVASTATIN 10 MG TABLET 20 MG PO (09:01)
[2021-08-06] MEDS: PANTOPRAZOLE 40 MG TABLET PO (09:01)
[2021-08-06] MEDS: METOPROLOL SUCCINATE EXT REL 12.5 MG TABCR PO (09:02)
[2021-08-06] MEDS: BUMETANIDE 1 MG TABLET 2 MG PO (09:02)
[2021-08-06] MEDS: LACTULOSE 20 GM/30 ML UDC 10 GM PO (09:03)
[2021-08-06] MEDS: INSULIN ASPART (*BKC) 100 UNITS/ML 6 UNITS SUB-Q ×2 (09:08→12:20)
[2021-08-06] MEDS: INSULIN GLARGINE (*BKC) 100 UNITS/ML 20 UNITS SUB-Q (09:08)
[2021-08-06] MEDS: SILVERGEL (ELTA) 45 ML 1 APPLIC TOPICAL (09:12)
[2021-08-06 11:57] LABS: Glucose Point of Care 161 mg/dl (65-105)
--- NOTE | 2021-08-06 12:41 | PM.DS ---
DS: Admitting Diagnosis Discharge Date 08/06/21 Admitting Diagnosis Weakness DS: Discharge Diagnosis Discharge Diagnosis (1) Respiratory failure with hypoxia: Code(s): J96.91 - Respiratory failure, unspecified with hypoxia Status: Acute (2) Hypoglycemia associated with diabetes: Code(s): E11.649 - Type 2 diabetes mellitus with hypoglycemia without coma Status: Acute (3) Pneumonia: Code(s): J18.9 - Pneumonia, unspecified organism Status: Acute (4) Bacteriuria with pyuria: Code(s): R82.71 - Bacteriuria; R82.81 - Pyuria Status: Acute (5) Candidiasis of breast: Code(s): B37.89 - Other sites of candidiasis Status: Acute (6) Acute conjunctivitis, bilateral: Code(s): H10.33 - Unspecified acute conjunctivitis, bilateral Status: Acute (7) Acute on chronic anemia: Code(s): D64.9 - Anemia, unspecified Status: Acute (8) Type II diabetes mellitus: Qualifiers: Diabetes mellitus senior care insulin use: with termite inspector use Diabetes mellitus complication status: with neurologic complications Diabetes mellitus complication detail: with polyneuropathy Qualified Code(s): E11.42 - Type 2 diabetes mellitus with diabetic polyneuropathy; Z79.4 - rat exterminator (current) use of insulin Code(s): E11.9 - Type 2 diabetes mellitus without complications Status: Chronic (9) Chronic kidney disease, stage 4 (severe): Code(s): N18.4 - Chronic kidney disease, stage 4 (severe) Status: Acute DS: Summary Hospital Course Reason for hospitalization: 86-year-old female with diastolic heart failure, CKD, aortic stenosis and COPD here for weakness. Hospital Course: 86-year-old female with diabetes and CHF was brought to the emergency room because of weakness. She also has COPD and is on chronic oxygen at home. Chest x-ray was consistent with bilateral upper lobe pneumonia. She completed a course of azithromycin during her hospital course here. He is also treated with Rocephin then changed to Cefdinir and completed a 7 day course. She was having episodes of hypoglycemia prior to admission. Medications adjusted and this improved. She would having mild anemia noted. She was recently diagnosed with DVT was discharged on Eliquis. However with resuming her diuretics, her hemoglobin has drifted upward so there is probably a component of dilution. She has CKD stage 3 with acute component. She was given IV fluids and creatinine improved. Bumex was restarted and fluids were stopped. She had Elisha under bilateral breasts treated with antifungal care. She worked with PT and OT. She also was noted to have bilateral conjunctivitis complete a course of gentamicin eyedrops. She overall did well was able to be discharged home on 08/06/2021. Status at Discharge Cognitive/behavioral status at discharge: Stable Time Spent with Patient Time attestation: Total time spent providing and/or coordinating discharge services: 35 minutes Time spent: Greater than 30 minutes Exam Narrative: AF 97.5 115/58 63 18 96% 1L Gen - NARD sitting up in the chair HEENT - ectropion noted. sclera mild injected. Chest - distant BS CV - RRR S1/S2 with 2/6 murmur Abd - Soft, NT/ND, Positive BS Ext - No pedal edema Psych - Nml mood and affect Skin - Warm and dry. no rash noted under breasts DS: Data Data Completed and Pending Labs on day of discharge: Labs from last 24 hours 08/06/21 08/06/21 08/06/21 11:50 07:42 06:09 WBC RBC Hgb Hct MCV MCH MCHC RDW Plt Count MPV Immature Gran % (Auto) Neut % (Auto) Lymph % (Auto) [place] % (Auto) Eos % (Auto) Baso % (Auto) Lymph # (Auto) [place] # (Auto) Eos # (Auto) Baso # (Auto) Abs Immat Gran (auto) Absolute Neuts (auto) Absolute Nucleated RBC Nucleated RBC % Platelet Estimate Hypochromasia Sodium 141 Potas
--- NOTE | 2021-08-06 14:31 | PCRCNOTE ---
HOME O2 EVAL ISNT NEEDED PATIENT IS DISCHARGING TO SNF. NURSING STAFF AT SNF WILL TITRATE O2 NEEDED.
[2021-08-06 15:30] LABS: EDCOVIDSCREEN Negative (Negative)
--- NOTE | 2021-08-09 07:03 | PC.NURSE ---
Mycoplasma IGM WNL at 58. Mycoplasma Pneu is elevated at 1.20. Dr. Brianna aguilar. Faxed to PCP Maria G Casiano NP
== END 2021-08-06 16:07 | DRG 193 ==
LOC: ANHED 18:41 → ANH3MEDSUR 21:02
PROVIDERS: Internal Medicine; Admitting Provider Internal Medicine; Emergency Provider Emergency Medicine; PCP Nurse Practitioner Adult Health; Visit Provider Internal Medicine
DX: J18.9 Pneumonia, unspecified organism (principal); J96.01 Acute respiratory failure with hypoxia; B37.89 Other sites of candidiasis; I13.0 Hypertensive heart and chronic kidney disease with heart failure and stage 1 through stage 4 chronic kidney disease, or unspecified chronic kidney disease; I50.32 Chronic diastolic (congestive) heart failure; J44.0 Chronic obstructive pulmonary disease with (acute) lower respiratory infection; N18.4 Chronic kidney disease, stage 4 (severe); Z20.822 Contact with and (suspected) exposure to COVID-19; R82.71 Bacteriuria; R82.81 Pyuria; H10.33 Unspecified acute conjunctivitis, bilateral; D63.1 Anemia in chronic kidney disease; D64.9 Anemia, unspecified; I25.10 Atherosclerotic heart disease of native coronary artery without angina pectoris; I35.0 Nonrheumatic aortic (valve) stenosis; E11.42 Type 2 diabetes mellitus with diabetic polyneuropathy; E11.51 Type 2 diabetes mellitus with diabetic peripheral angiopathy without gangrene; E11.22 Type 2 diabetes mellitus with diabetic chronic kidney disease; E11.649 Type 2 diabetes mellitus with hypoglycemia without coma; K21.9 Gastro-esophageal reflux disease without esophagitis; E78.5 Hyperlipidemia, unspecified; E03.9 Hypothyroidism, unspecified; I25.2 Old myocardial infarction; Z79.01 Long term (current) use of anticoagulants; Z79.4 Long term (current) use of insulin; Z79.899 Other long term (current) drug therapy; Z86.718 Personal history of other venous thrombosis and embolism; Z98.49 Cataract extraction status, unspecified eye; Z96.1 Presence of intraocular lens; Z99.81 Dependence on supplemental oxygen
CPT/HCPCS: 36415; 51701; 71045; 71046; 80048; 80053; 81001; 82948; 83605; 83735; 85025; 85027; 85610; 85730; 86738; 87040; 87086; 87426; 87449; 87899; 93005; 94640; 96365; 96367; 96375; 97110; 97116; 97161; 97165; 97530; 97535; 99285; A9270; C9803; G0378; J0456; J0696; J1815; J2405; J7030; U0003; U0005

== ENCOUNTER 2021-09-14 15:09 | Inpatient (IN) | payer MEDICARE, SELFPAY ==
[2021-09-14] VITALS (8 sets, daily range): BP systolic 105–162; BP diastolic 48–133; PULSE 62–121; RESP 12–20; TEMP 36.5–36.7; O2SAT 97–100
--- NOTE | ~2021-09-14 | XR_ITS ---
EXAM: XR ankle RT 2V DATE: 09/14/2021 18:34 HISTORY: FX, NEEDED MORTISE VIEW . COMPARISON: X-ray ankle, same date. FINDINGS: Redemonstration of the nondisplaced oblique distal right fibular fracture. Talar dome is i ntact. No medial gutter widening. IMPRESSION: Nondisplaced oblique distal right fibular fracture. Reviewed, dictated and finalized at location K.
--- NOTE | ~2021-09-14 | XR_ITS ---
EXAM: XR foot RT 2V, XR ankle RT 2V DATE: 09/14/2021 17:36 HISTORY: PTS LEG GAVE OUT AND SHE COLLAPSED, PAIN TO LATERAL SIDE . COMPARISON: None available. FINDINGS: Decreased mineralization. Nondisplaced oblique fracture of the distal right fibula, extend ing to the level of the joint line. No lytic or blastic lesion. Degenerative tibiotalar midfoot and f irst MTP changes. Plantar and Achilles enthesopathy. No erosion or periosteal change. Soft tissues wi thin normal limits. IMPRESSION: Nondisplaced oblique distal right fibular fracture (Wells B type fracture). Reviewed, dictated and finalized at location K. IMPRESSION: Nondisplaced oblique distal right fibular fracture (Wells B type fr acture).
--- NOTE | ~2021-09-14 | US_ITS ---
EXAMINATION: US carotid duplex BI DATE: 09/15/2021 10:19 INDICATION: Dizziness. Syncopal episode. TECHNIQUE: Grayscale, color Doppler, and pulsed Doppler images of the cervical carotid arteries were obtained. The degree of vessel stenosis is placed in one of the following categories: normal, <50%, 5 0-69%, >=70% but less than near-occlusion, near-occlusion, or total occlusion. Note that percent sten osis relative to normal distal artery lumen diameter is indirectly measured from velocity measurement s as described by Delfin, et al. Radiology 2003; [id number]. COMPARISON: 06/17/2021 FINDINGS: RIGHT: The right common carotid artery (CCA) peak systolic velocity (PSV) is 70 cm/s. The right internal car otid artery (ICA) PSV is 120 cm/s. The right ICA end-diastolic velocity (EDV) is 23 cm/s. The right I CA/CCA PSV ratio is 1.7. Grayscale and color Doppler images yield an estimate of <50% diameter reduct ion from plaque in the ICA. The external carotid artery (ECA) PSV is 140 cm/s. There is antegrade morgan w in the right vertebral artery. LEFT: The left CCA PSV is 93 cm/s. The left ICA PSV is 98 cm/s. The left ICA EDV is 20 cm/s. The left ICA/C CA PSV ratio is 1.1. Grayscale and color Doppler images yield an estimate of <50% diameter reduction from plaque in the ICA. The ECA PSV is 142 cm/s. There is antegrade flow in the left vertebral artery . IMPRESSION: 1. <50% stenosis in the right internal carotid artery. 2. <50% stenosis in the left internal carotid artery. Reviewed, dictated and finalized at location A.
--- NOTE | 2021-09-14 15:11 | ECG_ITS ---
Measurements Intervals Hen[place] Rate: 68 P: AR: 0 QRS: 13 QRSD: 92 T: 46 QT: 402 QTc: 428 Interpretive Statements SINUS RHYTHM ATRIAL AND VENTRICULAR PREMATURE COMPLEXES CONSIDER INFERIOR INFARCT, AGE INDETERMINATE BORDERLINE ST ABNORMALITY- HIGH LATERAL LEADS BASELINE ARTIFACT- I, II, III, AVR, AVL, AVF ABNORMAL ECG Electronically Signed On 09-14-2021 15:32:19 CDT by Sathya Cohen D.O.
[2021-09-14 15:41] LABS: Basophils Absolute Auto 0.1 K/mm3 (0.0-0.1); Basophils Percent Auto 0.5 % (0.2-1.2); Eosinophils Absolute Auto 0.1 K/mm3 (0-0.3); Hematocrit 46.2 % (37.0-47.0); Hemoglobin 14.6 g/dL (12.0-15.0); Immature Granulocyte Absolute 0.05 K/mm3 (0.00-0.031); Immature Granulocyte Percent A 0.4 % (0-0.5); Lymphocytes Absolute Auto 2.77 K/mm3 (0.9-3.2); Lymphocytes Percent Auto 22.1 % (18.3-44.2); Mean Corpuscular HGB Conc 31.6 g/dl (32-36); Mean Corpuscular Hemoglobin 30.5 pg (26-34); Mean Corpuscular Volume 96.5 fl (80-100); Mean Platelet Volume 10.4 fl (7.4-10.4); Monocytes Absolute Auto 0.7 K/mm3 (0.1-0.6); Monocytes Percent Auto 5.7 % (2.6-8.5); Neutrophils Absolute Auto 8.8 K/mm3 (1.3-6.7); Neutrophils Percent Auto 70.3 % (45.5-73.1); Platelet Count Result 362 k/mm3 (150-375); Red Blood Count 4.79 M/mm3 (4.2-5.4); Red Cell Distribution Width 14.1 % (11.5-14.5); White Blood Count 12.5 K/mm3 (4.5-10.0)
[2021-09-14 15:51] LABS: Alanine Aminotransferase 21 U/L (6-35); Albumin Level 4.6 g/dL (3.5-5.1); Alkaline Phosphatase 96 U/L (38-126); Anion Gap 13 mmol/L (8-16); Aspartate Amino Transferase 28 U/L (14-36); Bilirubin,Total 0.4 mg/dL (0.2-1.3); Blood Urea Nitrogen 44 mg/dL (7-17); Carbon Dioxide 24 mmol/L (22-30); Chloride 99 mmol/L (98-107); Estimated Glomerular Filt Rate 18; Glucose 353 mg/dL (65-110); Potassium 4.3 mmol/L (3.4-5.0); Sodium 136 mmol/L (137-145)
[2021-09-14] MEDS: ACETAMINOPHEN 500 MG TABLET 1000 MG PO (17:50)
[2021-09-14] MEDS: LACTATED RINGERS 1,000 ML 999 ML IV CONT (17:51)
--- NOTE | 2021-09-14 18:21 | ED.GENADULT ---
HPI - General Adult General Chief complaint: Syncope Stated complaint: SYNCOPE WEAKNESS Time Seen by Provider: 09/14/21 16:41 History of Present Illness HPI narrative: This is an 86-year-old female with past medical history of coronary artery disease, hypertension, who presents emergency department complaining of right ankle pain after collapsing. Patient states approximately an hour prior to arrival she was transferring to the toilet when she suddenly lost strength in both legs. She denies hitting her head, or loss of consciousness. She denies preceding palpitations, chest pain or shortness of breath. She denies similar symptoms since then. She contacted family members who were able to pick her up from the floor and brought her here. She complains of 5-10, sharp right ankle pain, exacerbated by movement and alleviated with rest She denies pain elsewhere. She denies recent fevers, chills or other illness. Related Data Home Medications Medication Instructions Recorded Confirmed levothyroxine 75 mcg tablet 50 mcg PO DAILY 01/30/21 09/14/21 apixaban 5 mg tablet (Eliquis) 5 mg PO Q12HR 07/30/21 09/14/21 bumetanide 2 mg tablet 2 mg PO DAILY 07/30/21 09/14/21 lactulose 10 gram oral packet 30 ml PO DAILY 07/30/21 09/14/21 midodrine 5 mg tablet 5 mg PO TID 09/14/21 09/14/21 pantoprazole 40 mg tablet,delayed 40 mg PO QAM 09/14/21 09/14/21 release Allergies Allergy/AdvReac Type Severity Reaction Status Date / Time No Known Allergies Allergy Verified 09/14/21 20:19 Review of Systems Review of Systems: CONSTITUTIONAL: Denies fever, chills, or sweats. EYES: Denies visual changes, redness, or discharge. ENT: Denies rhinorrhea, congestion, sore throat, or otalgia. CARDIOVASCULAR: Denies chest pain, palpitations, or edema. RESPIRATORY: Denies cough or dyspnea. GASTROINTESTINAL: Denies abdominal pain, nausea, vomiting, or diarrhea. GENITOURINARY: Denies dysuria or hematuria. SKIN: Denies rash or itching. MUSCULOSKELETAL: Right ankle pain, denies back pain, or myalgia. NEUROLOGIC: Denies headache, numbness, dizziness, or weakness. PSYCHIATRIC: Denies anxiety or depression. [facility] Past Medical History Medical History Anemia due to stage 4 chronic kidney disease Aortic stenosis Echo April 2020: Moderate aortic stenosis with peak velocity of 305 mean gradient of 23 valve area 1.3 with severe aortic valve calcification CAD (coronary artery disease) Non STEMI April 2020 Cataracts, bilateral Chronic back pain Chronic kidney disease, stage 4 (severe) COPD (chronic obstructive pulmonary disease) Diastolic CHF Echocardiogram 05/11/2020: EF 65-70%, mildly increased left ventricular wall thickness, diastolic dysfunction grade 1, moderate left atrial enlargement, mitral valve with thickened leaflets calcification of leaflets and annulus, mild mitral valve regurgitation, mild tricuspid regurgitation, mild pulmonary hypertension with RVSP of 41 DVT (deep venous thrombosis) Left popliteal and peroneal DVT 2021 Femur fracture, right GERD (gastroesophageal reflux disease) GI bleed Heart attack Hiatal hernia History of angina History of blood transfusion HTN (hypertension) Hyperlipidemia Hypothyroid Meniere disease Osteopenia Peripheral neuropathy Peripheral vascular disease of lower extremity RLE stent placement Rectal polyp Seizures During PA Type II diabetes mellitus Surgical History Surgical History H/O exploratory laparotomy 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 With subsequent release of small-bowel obstruction History of appendectomy during hysterectomy History of cardiac catheterization History of cataract removal with insertion of prosthetic lens History of cholecystectomy during hysterectomy History of hysterectomy Open JALYN-BSO with cholec
--- NOTE | 2021-09-14 19:10 | PC.NURSE ---
Assumed care of pt at this time. Pt alert and upright on stretcher, eating box lunch. Pt and family updated on POC.
--- NOTE | 2021-09-14 19:13 | PM.IMHP ---
H&P: HPI History of Present Illness Date/Time: 09/14/211854 Chief Complaint: Weakness and Syncope Narrative: This 86-year-old female patient with significant past medical history of coronary artery disease status post VT and subsequent CABG, hypertension, hypothyroidism, chronic kidney disease stage 4, aortic stenosis, COPD, diastolic heart failure, DVT of the left poplitea and peroneal veins diagnosis in May of 2021, GERD, GI bleed, hyperlipidemia, diabetes mellitus type 2 and seizures presents to the emergency room this evening after reporting that she was in her bathroom with her walker when all of a sudden her bilateral legs began to feel weak and they gave out causing her to fall to the ground. She also states to this provider that she had some dizziness just prior to the fall and notes that she has difficulties with her blood pressure at times. She was brought to the emergency room with complaints of having pain in the right ankle and the left ankle. Workup was performed and imaging of the right ankle shows a nondisplaced oblique distal right fibular fracture and the left ankle was without acute finding. Labs were performed that shows a white blood cell count of 12.5 without a left shift. Her renal function is further decline from her baseline at 2.5 and a BUN of 44. Her baseline creatinine is 1.5-2. Patient does admit she has not been drinking a lot of water in this extreme heat outside currently. EKG shows sinus rhythm with PACs and PVCs at 68 beats per minute without any ischemic ST changes. ER physician spoke with Orthopedics who suggested splint and they will follow-up as outpatient. Patient is being admitted to hospitalist service at this time for observation admission for treatment of her DAMIEN overnight and re-evaluation. Patient was not orthostatic in the emergency room, however these will be continued every 8 hours during the time of her hydration. In addition secondary to her having acute dizziness and vascular disease carotid Dopplers will also be ordered. Her cardiac history was reviewed and are as follows: most recent echocardiogram June 18, 2021 demonstrates normal left ventricular size, mild left ventricular hypertrophy, hyperdynamic left ventricular systolic function with an ejection fraction more than 70%. There is grade 1 diastolic dysfunction. There is moderate aortic stenosis. At the time of my exam, she denies any chest pain, dyspnea, nausea, vomiting, diarrhea And no urinary complaints. Her only complaint is of pain in her right ankle. Review of Systems Review of Systems: All systems reviewed & are unremarkable except as noted in HPI and below [facility] Past Medical History Medical History Anemia due to stage 4 chronic kidney disease Aortic stenosis Echo April 2020: Moderate aortic stenosis with peak velocity of 305 mean gradient of 23 valve area 1.3 with severe aortic valve calcification CAD (coronary artery disease) Non STEMI April 2020 Cataracts, bilateral Chronic back pain Chronic kidney disease, stage 4 (severe) COPD (chronic obstructive pulmonary disease) Diastolic CHF Echocardiogram 05/11/2020: EF 65-70%, mildly increased left ventricular wall thickness, diastolic dysfunction grade 1, moderate left atrial enlargement, mitral valve with thickened leaflets calcification of leaflets and annulus, mild mitral valve regurgitation, mild tricuspid regurgitation, mild pulmonary hypertension with RVSP of 41 DVT (deep venous thrombosis) Left popliteal and peroneal DVT 2021 Femur fracture, right GERD (gastroesophageal reflux disease) GI bleed Heart attack Hiatal hernia History of angina History of blood transfusion HTN (hypertension) Hyperlipidemia Hypothyroid Meniere disease Osteopenia Peripheral neuropathy Peripheral vascular disease of lower extremity RLE stent placement Rectal polyp Seizures During VT Type II diabetes gisela
[2021-09-14 19:43] LABS: Glucose Point of Care 317 mg/dl (65-105)
[2021-09-14 20:07] LABS: Hemoglobin A1C 10.3 % (<5.7)
--- NOTE | 2021-09-14 20:19 | ADMGEN ---
This patient, Anuradha Spaulding, was admitted to 2 Medical Room 241-01 @2000. Patient/family oriented to hospital policies and general routines including ID bracelet, bed and alarms, visiting hours, pain management, procedures, bathroom and other care routines, personal items, smoking policy, room service/diet, and visiting hours. Information on how to activate the Rapid Response Team has been discussed. Patient/Family are encouraged to report perceived risks to care and to ask questions if they do not understand what they are told or what they should do.
[2021-09-14] MEDS: GABAPENTIN 100 MG CAPSULE PO (21:53)
[2021-09-14] MEDS: APIXABAN 5 MG TABLET PO (21:53)
[2021-09-14] MEDS: INSULIN GLARGINE (*BKC) 100 UNITS/ML 20 UNITS SUB-Q (21:53)
[2021-09-14] MEDS: HYDROcodone/acetaminophen (*CRX) 5-325 MG TABLET 1 TAB PO (22:50)
[2021-09-14] MEDS: SODIUM CHLORIDE 0.9% IV 1,000 ML 75 ML IV CONT (22:51)
[2021-09-15] VITALS (18 sets, daily range): BP systolic 91–145; BP diastolic 45–74; PULSE 54–90; RESP 17–21; TEMP 36.2–37.1; O2SAT 95–100
[2021-09-15] MEDS: HYDROmorphone HCL INJ (*CRX) 1 MG/ML SYR IV PUSH (03:20)
[2021-09-15 03:53] LABS: Appearance Urine Clear (Clear); Bilirubin Urine Negative (Negative); Blood Urine Trace-lysed (Negative); Glucose Urine UA 3+ mg/dL (Negative); Ketones Urine Negative (Negative); Leukocyte Esterase Ur Negative LEU/UL (Negative); Nitrate Urine Negative (Negative); Protein Urine 2+ mg/dL (Negative); Specific Grav Ur 1.015 (1.001-1.035); Urobilinogen Urine 0.2 mg/dL (<2.0); pH Urine 6.5 (5.0-9.0)
[2021-09-15 03:56] LABS: Mucus Urine Rare /lpf; RBC Urine 0-2 /hpf (0-2); Squamous Epithelial Cell Urine Rare /hpf (Few)
[2021-09-15 03:57] LABS: Add Urine Microscopic? YES; Color Urine Light Yellow (Yellow)
[2021-09-15 05:16] LABS: Basophils Absolute Auto 0.1 K/mm3 (0.0-0.1); Basophils Percent Auto 0.5 % (0.2-1.2); Eosinophils Absolute Auto 0.1 K/mm3 (0-0.3); Eosinophils Percent Auto 1.3 % (0-4.4); Hematocrit 36.6 % (37.0-47.0); Hemoglobin 11.7 g/dL (12.0-15.0); Immature Granulocyte Absolute 0.04 K/mm3 (0.00-0.031); Immature Granulocyte Percent A 0.4 % (0-0.5); Lymphocytes Absolute Auto 2.57 K/mm3 (0.9-3.2); Lymphocytes Percent Auto 26.8 % (18.3-44.2); Mean Corpuscular Hemoglobin 30.8 pg (26-34); Mean Corpuscular Volume 96.3 fl (80-100); Mean Platelet Volume 10.8 fl (7.4-10.4); Monocytes Absolute Auto 0.8 K/mm3 (0.1-0.6); Neutrophils Absolute Auto 6.1 K/mm3 (1.3-6.7); Platelet Count Result 268 k/mm3 (150-375); Red Cell Distribution Width 14.1 % (11.5-14.5); White Blood Count 9.6 K/mm3 (4.5-10.0)
[2021-09-15] MEDS: LEVOTHYROXINE SODIUM 75 MCG TABLET PO (05:38)
[2021-09-15 06:32] LABS: Alanine Aminotransferase 14 U/L (6-35); Albumin Level 3.3 g/dL (3.5-5.1); Alkaline Phosphatase 66 U/L (38-126); Anion Gap 6 mmol/L (8-16); Aspartate Amino Transferase 18 U/L (14-36); Bilirubin,Total 0.3 mg/dL (0.2-1.3); Blood Urea Nitrogen 44 mg/dL (7-17); Carbon Dioxide 24 mmol/L (22-30); Chloride 102 mmol/L (98-107); Estimated Glomerular Filt Rate 21; Glucose 409 mg/dL (65-110); Magnesium 2.3 mg/dL (1.6-2.3); Sodium 132 mmol/L (137-145)
[2021-09-15 07:45] LABS: Glucose Point of Care 343 mg/dl (65-105)
[2021-09-15] MEDS: LACTULOSE 20 GM/30 ML UDC 10 GM PO (08:31)
[2021-09-15] MEDS: APIXABAN 5 MG TABLET PO ×2 (08:31→20:01)
[2021-09-15] MEDS: ROSUVASTATIN 10 MG TABLET PO (08:31)
[2021-09-15] MEDS: FUROSEMIDE 20 MG TABLET PO (08:31)
[2021-09-15] MEDS: MIDODRINE HCL 2.5 MG TABLET PO ×3 (08:31→17:36)
[2021-09-15] MEDS: BUMETANIDE 1 MG TABLET 2 MG PO (08:31)
[2021-09-15] MEDS: PANTOPRAZOLE 40 MG TABLET PO (08:31)
[2021-09-15] MEDS: GABAPENTIN 100 MG CAPSULE PO ×3 (08:31→17:36)
[2021-09-15] MEDS: METOPROLOL SUCCINATE EXT REL 25 MG TABCR PO (08:31)
[2021-09-15] MEDS: INSULIN ASPART (*BKC) 100 UNITS/ML SUB-Q ×3 (08:32→17:36)
[2021-09-15] MEDS: FLUTICASONE/UMECLIDIN/VILANTER 100-62.5-25 MCG ELLIPTA 1 PUFF INHALATION (09:10)
--- NOTE | 2021-09-15 10:05 | PM.IMPN ---
Progress Note: A&P Assessment and Plan (1) Fall: Code(s): W19.XXXA - Unspecified fall, initial encounter Status: Acute Assessment and Plan: - Secondary to Abnormalities of gait and mobility vs. Orthostasis - ER physician consulted with orthopedics who ordered splinting and will follow up as outpatient (Dr. Baker.) - Maintain splint (OCL) to RLE - Fall precautions - PT eval for appropriateness for discharge. - Orthostatic vitals Q shift - Continue home midodrine - Carotid Dopplers (2) Fracture of right fibula: Code(s): S82.401A - Unspecified fracture of shaft of right fibula, initial encounter for closed fracture Status: Acute Assessment and Plan: - See plan above - Pain medications prn ordered. (3) DAMIEN (acute kidney injury): Code(s): N17.9 - Acute kidney failure, unspecified Status: Acute Assessment and Plan: - Gentle hydration with IVF of NS at 75 ml/hr - Check labs in AM, monitor VS. - Baseline creatinine is 1.5-2.0. (4) Chronic kidney disease, stage 4 (severe): Code(s): N18.4 - Chronic kidney disease, stage 4 (severe) Status: Chronic Assessment and Plan: - Baseline creatinine is 1.5-2.0. - Gently hydrate with NS at 75 ml/hr - Monitor labs and fluids (5) Diabetes mellitus with hypoglycemia and coma, with long-term current use of insulin: Code(s): E11.641 - Type 2 diabetes mellitus with hypoglycemia with coma; Z79.4 - nursing home (current) use of insulin Status: Chronic Assessment and Plan: - accu checks AC and HS. - Hypoglycemic protocol - heart healthy diet - SSI, low dose - Check Hgb A1C - Continue lantus 20 units HS. (6) Diastolic heart failure: Code(s): I50.30 - Unspecified diastolic (congestive) heart failure Status: Chronic Assessment and Plan: - most recent echocardiogram June 18, 2021 demonstrates normal left ventricular size, mild left ventricular hypertrophy, hyperdynamic left ventricular systolic function with an ejection fraction more than 70%. There is grade 1 diastolic dysfunction. There is moderate aortic stenosis. - Continue diuretics of Furosemide and Bumex. - Monitor VS and labs - Accurate I&O - Daily weight - Pt. appears Euvolemic (7) Hypertension: Code(s): I10 - Essential (primary) hypertension Status: Chronic Assessment and Plan: - Continue home medications and monitor. - Orthostatic vitals ordered Q-shift - Heart healthy diet. (8) Hyperlipidemia: Code(s): E78.5 - Hyperlipidemia, unspecified Status: Chronic Assessment and Plan: - Continue Statin therapy. (9) DVT (deep venous thrombosis): Code(s): I82.409 - Acute embolism and thrombosis of unspecified deep veins of unspecified lower extremity Status: Chronic Assessment and Plan: - History, not acute. Continue Eliquis 5 mg po BID. Subjective Date/time seen: 09/15/21 10:05 No complaints Exam Narrative: Pleasant female patient Const: General: comfortable and no acute distress HENMT: General nose exam: Normal nares present Mouth: Yes moist mucous membranes Eyes: Sclera: sclerae normal Pupils: Equal, round and reactive pupils present EOM: EOMs intact bilaterally Other: + Ectropion Neck: Neck: supple and No no JVD Carotids: no bruits Lymphatic: lymphadenopathy not noted Chest: Other: non tender to palpation. Resp: Effort & Inspection: normal respiratory effort Auscultation: diminished lung sounds bilateral in the lower lung jones and diffuse Cardio: Rate: regular rate Rhythm: regular rhythm Heart sounds: Murmur heart sound present diastolic II/, with radiation and at the axilla GI: Inspection: non-distended Auscultation: normal bowel sounds Skin: General skin exam: normal color and no rashes or lesions noted Rashes: no rashes noted Wounds: no wounds Neuro: General: gait normal (Normal for patient with use of walker) Cranial nerves: Yes
--- NOTE | 2021-09-15 10:39 | PCOTNOTE ---
Attempted OT evaluation this date; per supervisor chemical doctor will not be in until tomorrow to assess for WB status. Will evaluate once WB is ordered.
--- NOTE | 2021-09-15 10:41 | PCPTNOTE ---
Attempted PT evaluation this date; per core analysis operator doctor will not be in until tomorrow to assess for WB status. Will evaluate once WB is ordered.
[2021-09-15 11:37] LABS: Glucose Point of Care 358 mg/dl (65-105)
[2021-09-15] MEDS: HYDROcodone/acetaminophen (*CRX) 5-325 MG TABLET 1 TAB PO ×2 (12:18→20:03)
[2021-09-15 16:33] LABS: Glucose Point of Care 342 mg/dl (65-105)
[2021-09-15] MEDS: INSULIN GLARGINE (*BKC) 100 UNITS/ML 20 UNITS SUB-Q (20:01)
[2021-09-15 21:18] LABS: Glucose Point of Care 330 mg/dl (65-105)
[2021-09-15] MEDS: SODIUM CHLORIDE 0.9% IV 1,000 ML 75 ML IV CONT (22:33)
[2021-09-16] VITALS (17 sets, daily range): BP systolic 90–166; BP diastolic 48–77; PULSE 60–75; RESP 16–21; TEMP 36.3–36.9; O2SAT 94–100
[2021-09-16] MEDS: HYDROcodone/acetaminophen (*CRX) 5-325 MG TABLET 1 TAB PO ×3 (02:03→22:26)
[2021-09-16 05:09] LABS: Hematocrit 37.2 % (37.0-47.0); Hemoglobin 11.7 g/dL (12.0-15.0); Mean Corpuscular HGB Conc 31.5 g/dl (32-36); Mean Corpuscular Hemoglobin 30.8 pg (26-34); Mean Corpuscular Volume 97.9 fl (80-100); Mean Platelet Volume 10.8 fl (7.4-10.4); Platelet Count Result 246 k/mm3 (150-375); White Blood Count 9.8 K/mm3 (4.5-10.0)
[2021-09-16 05:24] LABS: Anion Gap 7 mmol/L (8-16); Blood Urea Nitrogen 40 mg/dL (7-17); Calcium 8.1 mg/dL (8.4-10.2); Carbon Dioxide 27 mmol/L (22-30); Chloride 98 mmol/L (98-107); Estimated Glomerular Filt Rate 20; Glucose 272 mg/dL (65-110); Potassium 3.6 mmol/L (3.4-5.0); Sodium 132 mmol/L (137-145)
[2021-09-16] MEDS: LEVOTHYROXINE SODIUM 75 MCG TABLET PO (05:55)
--- NOTE | 2021-09-16 07:28 | PCOTNOTE ---
Will complete OT evaluation after ortho consult and WB status. Will follow.
[2021-09-16 07:50] LABS: Glucose Point of Care 265 mg/dl (65-105)
[2021-09-16] MEDS: LACTULOSE 20 GM/30 ML UDC 10 GM PO (08:33)
[2021-09-16] MEDS: GABAPENTIN 100 MG CAPSULE PO ×3 (08:33→17:24)
[2021-09-16] MEDS: FUROSEMIDE 20 MG TABLET PO (08:33)
[2021-09-16] MEDS: BUMETANIDE 1 MG TABLET 2 MG PO (08:33)
[2021-09-16] MEDS: FLUTICASONE/UMECLIDIN/VILANTER 100-62.5-25 MCG ELLIPTA 1 PUFF INHALATION (08:33)
[2021-09-16] MEDS: MIDODRINE HCL 2.5 MG TABLET PO ×3 (08:33→17:25)
[2021-09-16] MEDS: PANTOPRAZOLE 40 MG TABLET PO (08:33)
[2021-09-16] MEDS: APIXABAN 5 MG TABLET PO ×2 (08:33→20:07)
[2021-09-16] MEDS: ROSUVASTATIN 10 MG TABLET PO (08:33)
[2021-09-16] MEDS: METOPROLOL SUCCINATE EXT REL 25 MG TABCR PO (08:34)
[2021-09-16] MEDS: INSULIN ASPART (*BKC) 100 UNITS/ML SUB-Q ×3 (08:35→17:23)
--- NOTE | 2021-09-16 10:33 | PM.IMPN ---
Progress Note: A&P Assessment and Plan (1) Fall: Code(s): W19.XXXA - Unspecified fall, initial encounter Status: Acute Assessment and Plan: - ER physician consulted with orthopedics who ordered splinting and will follow up as outpatient (Dr. Baker.) - Maintain splint (OCL) to RLE - Fall precautions - PT eval for appropriateness for discharge. -discharge planning (2) Fracture of right fibula: Code(s): S82.401A - Unspecified fracture of shaft of right fibula, initial encounter for closed fracture Status: Acute Assessment and Plan: - See plan above - Pain medications prn ordered. (3) DAMIEN (acute kidney injury): Code(s): N17.9 - Acute kidney failure, unspecified Status: Acute Assessment and Plan: - Gentle hydration with IVF of NS at 75 ml/hr - Check labs in AM, monitor VS. - Baseline creatinine is 1.5-2.0. (4) Chronic kidney disease, stage 4 (severe): Code(s): N18.4 - Chronic kidney disease, stage 4 (severe) Status: Chronic Assessment and Plan: - Baseline creatinine is 1.5-2.0. 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 - Hypoglycemic protocol - heart healthy diet - SSI, low dose - Check Hgb A1C - Continue lantus 20 units HS. (6) Diastolic heart failure: Code(s): I50.30 - Unspecified diastolic (congestive) heart failure Status: Chronic Assessment and Plan: - most recent echocardiogram June 18, 2021 demonstrates normal left ventricular size, mild left ventricular hypertrophy, hyperdynamic left ventricular systolic function with an ejection fraction more than 70%. There is grade 1 diastolic dysfunction. There is moderate aortic stenosis. - Continue diuretics of Furosemide and Bumex. - Monitor VS and labs - Accurate I&O - Daily weight - Pt. appears Euvolemic (7) Hypertension: Code(s): I10 - Essential (primary) hypertension Status: Chronic Assessment and Plan: - Continue home medications and monitor. - Orthostatic vitals ordered Q-shift - Heart healthy diet. (8) Hyperlipidemia: Code(s): E78.5 - Hyperlipidemia, unspecified Status: Chronic Assessment and Plan: - Continue Statin therapy. (9) DVT (deep venous thrombosis): Code(s): I82.409 - Acute embolism and thrombosis of unspecified deep veins of unspecified lower extremity Status: Chronic Assessment and Plan: - History, not acute. Continue Eliquis 5 mg po BID. Subjective Date/time seen: 09/16/21 10:33 No new complaints. Pain controlled Exam Narrative: Pleasant female patient Const: General: comfortable and no acute distress HENMT: General nose exam: Normal nares present Mouth: Yes moist mucous membranes Eyes: Sclera: sclerae normal Pupils: Equal, round and reactive pupils present EOM: EOMs intact bilaterally Other: + Ectropion Neck: Neck: supple and No no JVD Carotids: no bruits Lymphatic: lymphadenopathy not noted Chest: Other: non tender to palpation. Resp: Effort & Inspection: normal respiratory effort Auscultation: diminished lung sounds bilateral in the lower lung jones and diffuse Cardio: Rate: regular rate Rhythm: regular rhythm Heart sounds: Murmur heart sound present diastolic II/, with radiation and at the axilla GI: Inspection: non-distended Auscultation: normal bowel sounds Skin: General skin exam: normal color and no rashes or lesions noted Rashes: no rashes noted Wounds: no wounds Neuro: General: gait normal (Normal for patient with use of walker) Cranial nerves: Yes Equal, round and reactive pupils present Speech: normal speech Motor exam (neuro): 5/5 motor str
[2021-09-16 11:54] LABS: Glucose Point of Care 293 mg/dl (65-105)
[2021-09-16 16:25] LABS: Glucose Point of Care 353 mg/dl (65-105)
[2021-09-16] MEDS: INSULIN GLARGINE (*BKC) 100 UNITS/ML 20 UNITS SUB-Q (20:07)
[2021-09-16 20:35] LABS: Glucose Point of Care 387 mg/dl (65-105)
[2021-09-16] MEDS: SODIUM CHLORIDE 0.9% IV 1,000 ML 75 ML IV CONT (20:43)
[2021-09-17] VITALS (9 sets, daily range): BP systolic 126–144; BP diastolic 52–62; PULSE 61–85; RESP 16–18; TEMP 36.5–36.9; O2SAT 95–97
[2021-09-17] MEDS: HYDROcodone/acetaminophen (*CRX) 5-325 MG TABLET 1 TAB PO (04:38)
[2021-09-17] MEDS: LEVOTHYROXINE SODIUM 75 MCG TABLET PO (05:32)
[2021-09-17 07:49] LABS: Glucose Point of Care 273 mg/dl (65-105)
[2021-09-17] MEDS: INSULIN ASPART (*BKC) 100 UNITS/ML SUB-Q (07:52)
[2021-09-17] MEDS: MIDODRINE HCL 2.5 MG TABLET PO ×3 (08:26→16:31)
[2021-09-17] MEDS: APIXABAN 5 MG TABLET PO (08:26)
[2021-09-17] MEDS: METOPROLOL SUCCINATE EXT REL 25 MG TABCR PO (08:27)
[2021-09-17] MEDS: FUROSEMIDE 20 MG TABLET PO (08:27)
[2021-09-17] MEDS: GABAPENTIN 100 MG CAPSULE PO ×3 (08:27→16:31)
[2021-09-17] MEDS: BUMETANIDE 1 MG TABLET 2 MG PO (08:28)
[2021-09-17] MEDS: LACTULOSE 20 GM/30 ML UDC 10 GM PO (08:28)
[2021-09-17] MEDS: ROSUVASTATIN 10 MG TABLET PO (08:28)
[2021-09-17] MEDS: PANTOPRAZOLE 40 MG TABLET PO (08:29)
[2021-09-17] MEDS: FLUTICASONE/UMECLIDIN/VILANTER 100-62.5-25 MCG ELLIPTA 1 PUFF INHALATION (08:43)
--- NOTE | 2021-09-17 09:02 | PM.DS ---
DS: Admitting Diagnosis Discharge Date 09/17/21 Admitting Diagnosis Ankle fracture DS: Discharge Diagnosis Discharge Diagnosis (1) Fall: Code(s): W19.XXXA - Unspecified fall, initial encounter Status: Acute Assessment and Plan: - ER physician consulted with orthopedics who ordered splinting and will follow up as outpatient (Dr. Baker.) - Maintain splint (OCL) to RLE - Fall precautions - PT eval for appropriateness for discharge. -discharge planning (2) Fracture of right fibula: Code(s): S82.401A - Unspecified fracture of shaft of right fibula, initial encounter for closed fracture Status: Acute Assessment and Plan: - See plan above - Pain medications prn ordered. 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 - Orthostatic vitals ordered Q-shift - Heart healthy diet. (8) Hyperlipidemia: Code(s): E78.5 - Hyperlipidemia, unspecified Status: Chronic Assessment and Plan: - Continue Statin therapy. (9) DVT (deep venous thrombosis): Code(s): I82.409 - Acute embolism and thrombosis of unspecified deep veins of unspecified lower extremity Status: Chronic Assessment and Plan: - History, not acute. Continue Eliquis 5 mg po BID. DS: Summary Hospital Course Hospital Course: See discharge plan and diagnoses Time Spent with Patient Time attestation: Total time spent providing and/or coordinating discharge services: Exam Narrative: Pleasant female patient Const: General: comfortable and no acute distress HENMT: General nose exam: Normal nares present Mouth: Yes moist mucous membranes Eyes: Sclera: sclerae normal Pupils: Equal, round and reactive pupils present EOM: EOMs intact bilaterally Other: + Ectropion Neck: Neck: supple and No no JVD Carotids: no bruits Lymphatic: lymphadenopathy not noted Chest: Other: non tender to palpation. Resp: Effort & Inspection: normal respiratory effort Auscultation: diminished lung sounds bilateral in the lower lung jones and diffuse Cardio: Rate: regular rate Rhythm: regular rhythm Heart sounds: Murmur heart sound present diastolic II/, with radiation and at the axilla GI: Inspection: non-distended Auscultation: normal bowel sounds Skin: General skin exam: normal color and no rashes or lesions noted Rashes: no rashes noted Wounds: no wounds Neuro: General: gait normal (Normal for patient with use of walker) Cranial nerves: Yes Equal, round and reactive pupils present Speech: normal speech Motor exam (neuro): 5/5 motor strength present throughout and Normal motor muscle tone present throughout Sensory Exam: normal sensation Extrem: General: normal to inspection, no edema and no pedal edema Other: FROM Psych: Mental Status: mental status grossly normal Affect: normal affect DS: Data Data Completed and Pending Labs on day of discharge: Labs from last 24 hours 09/17/21 09/16/21 09/16/21 07:40 20:06 16:17 POC Capillary Glucose 273 H 387 H 353 H 09/16/21 11:44 POC Capill
[2021-09-17 11:14] LABS: EDCOVIDSCREEN Negative (Negative)
[2021-09-17 11:30] LABS: Glucose Point of Care 417 mg/dl (65-105)
[2021-09-17] MEDS: INSULIN ASPART (*BKC) 100 UNITS/ML 14 UNITS SUB-Q (11:52)
[2021-09-17 13:08] LABS: Glucose Point of Care 477 mg/dl (65-105)
[2021-09-17] MEDS: INSULIN ASPART (*BKC) 100 UNITS/ML 12 UNITS SUB-Q (13:21)
[2021-09-17 14:54] LABS: Glucose Point of Care 299 mg/dl (65-105)
[2021-09-17 16:28] LABS: Glucose Point of Care 181 mg/dl (65-105)
== END 2021-09-17 16:45 | DRG 562 ==
LOC: ANHED 18:53 → ANH2MED 19:30
PROVIDERS: Emergency Medicine; Nurse Practitioner Adult Health; Admitting Provider Internal Medicine; Emergency Provider Preventive Medicine Aerospace Medicine; PCP Nurse Practitioner Adult Health; Visit Provider Chiropractor
DX: S82.434A Nondisplaced oblique fracture of shaft of right fibula, initial encounter for closed fracture (principal); E11.641 Type 2 diabetes mellitus with hypoglycemia with coma; I13.0 Hypertensive heart and chronic kidney disease with heart failure and stage 1 through stage 4 chronic kidney disease, or unspecified chronic kidney disease; N18.4 Chronic kidney disease, stage 4 (severe); I50.32 Chronic diastolic (congestive) heart failure; N17.9 Acute kidney failure, unspecified; E11.22 Type 2 diabetes mellitus with diabetic chronic kidney disease; Z20.822 Contact with and (suspected) exposure to COVID-19; I25.10 Atherosclerotic heart disease of native coronary artery without angina pectoris; D63.1 Anemia in chronic kidney disease; E11.42 Type 2 diabetes mellitus with diabetic polyneuropathy; K21.9 Gastro-esophageal reflux disease without esophagitis; E78.5 Hyperlipidemia, unspecified; E03.9 Hypothyroidism, unspecified; I73.9 Peripheral vascular disease, unspecified; J44.9 Chronic obstructive pulmonary disease, unspecified; I35.0 Nonrheumatic aortic (valve) stenosis; K44.9 Diaphragmatic hernia without obstruction or gangrene; M85.80 Other specified disorders of bone density and structure, unspecified site; Z96.641 Presence of right artificial hip joint; W19.XXXA Unspecified fall, initial encounter; Z86.718 Personal history of other venous thrombosis and embolism; I25.2 Old myocardial infarction; Z90.49 Acquired absence of other specified parts of digestive tract; Z90.710 Acquired absence of both cervix and uterus; Z95.1 Presence of aortocoronary bypass graft; Z79.4 Long term (current) use of insulin
CPT/HCPCS: 29515; 36415; 73600; 73620; 80048; 80053; 81001; 82948; 83036; 83735; 85025; 85027; 87426; 93005; 93880; 94640; 96361; 96374; 97110; 97161; 97166; 97530; 97535; 99285; A9270; C9803; G0378; J1170; J1815; J7030; J7120

== ENCOUNTER 2021-11-06 20:18 | Inpatient (IN) | payer MEDICARE, SELFPAY ==
[2021-11-06] VITALS (7 sets, daily range): BP systolic 141–194; BP diastolic 53–110; PULSE 78–89; RESP 14–20; TEMP 36.6; O2SAT 88–99
--- NOTE | ~2021-11-06 | XR_ITS ---
EXAM: XR hip LT 2V w AP pelvis DATE: 11/06/2021 22:36 HISTORY: left hip pain, fall TODAY, LEG EXTERNALLY ROTATED . COMPARISON: 10/29/2014, CT abdomen and pelvis 03/04/2020, abdominal x-ray 03/06/2020. FINDINGS: Decreased mineralization. Left inguinal vascular clips. Partially visualized right hip art hroplasty, without obvious complication. Intertrochanteric fracture on the left, with mild medial ang ulation. No lytic or blastic lesion. Degenerative changes in the lower lumbar spine, pubic symphysis and left hip. No erosion or periosteal change. Soft tissues within normal limits. IMPRESSION: Left intertrochanteric femoral fracture. Reviewed, dictated and finalized at location K.
--- NOTE | ~2021-11-06 | CT_ITS ---
EXAMINATION: CT brain wo con DATE: 11/06/2021 22:41 INDICATION: fall . TECHNIQUE: Computed tomography (CT) of the head was performed without intravenous contrast. The mA wa s adjusted according to patient size. Iterative reconstruction technique was employed. The dose-lengt h product was 605.33 mGy-cm. COMPARISON: 06/17/2021 FINDINGS: No acute intracranial hemorrhage or extra-axial fluid collection. No hydrocephalus, mass, or herniation. No acute ischemic infarct. Unremarkable dural venous sinus attenuation. No acute osseous abnormality. The aerated spaces are clear. Moderate atrophy and chronic white matter change. Atherosclerotic intracranial calcification. Bilater al lens replacements. IMPRESSION: No acute intracranial process. Reviewed, dictated and finalized at location K.
--- NOTE | ~2021-11-06 | XR_ITS ---
EXAMINATION: XR chest 1V Exam Date/Time: 11/06/2021 22:30 CDT HISTORY: fall TODAY, HX CHF, HX OF CABG Comparison: 08/03/2021. RESULT: Lines, tubes, and devices: Intact sternotomy wires. Mediastinal vascular clips. Lungs and pleura: Clear. Cardiomediastinal silhouette: Stable. Other: No acute osseous or upper abdominal finding. IMPRESSION: No acute cardiopulmonary process. Reviewed, dictated and finalized at location K.
--- NOTE | ~2021-11-06 | XR_ITS ---
EXAM: XR knee LT 3V DATE: 11/06/2021 22:36 HISTORY: left knee pain, fall TODAY . COMPARISON: 02/25/2010, 05/07/2009. FINDINGS: Decreased mineralization. No fracture or dislocation. No lytic or blastic lesion. Moderate medial joint space narrowing. Tricompartmental osteophytosis, severe in the medial compartment. No e rosion or periosteal change. Vascular clips in the medial leg. IMPRESSION: No acute osseous finding the left knee. Reviewed, dictated and finalized at location K.
--- NOTE | ~2021-11-06 | CT_ITS ---
EXAMINATION: CT thoracic lumbar wo con DATE: 11/06/2021 22:50 INDICATION: back pain, fall . TECHNIQUE: Computed tomography (CT) of the thoracic and lumbar spine was performed without intravenou s contrast. The dose-length product was 2139.27 mGy-cm. COMPARISON: 06/18/2021 FINDINGS: THORACIC SPINE: Decreased mineralization. Kyphosis. Vertebral body alignment intact. Vertebral body heights preserved . Multilevel degenerative disease. No traumatic malalignment or fracture. Right apical scarring. Aort ic arch, coronary artery, aortic valve, and mitral calcification. Hilar node calcification. Moderate hiatal hernia. LUMBAR SPINE: 5 nonrib-bearing lumbar-type vertebral bodies. Pedicles intact. Normal vertebral body alignment. Stab le mild height loss at L3, remaining vertebral body heights preserved. Multilevel degenerative disc d isease. Multilevel facet arthropathy. Cholecystectomy. Atherosclerotic aortic calcifications. IMPRESSION: No acute fracture or traumatic malalignment detected in the thoracic or lumbar spine. Reviewed, dictated and finalized at location K.
--- NOTE | ~2021-11-06 | XR_ITS ---
EXAMINATION: XR surgery orthopedic DATE: 11/08/2021 16:09 INDICATION: Intertrochanteric nailing of a left hip fracture TECHNIQUE: 5 fluoroscopic images of the left hip and femur were obtained during procedure performed chelo Baker. Radiologist was not present for the imaging or procedure. The amount of fluoroscopy ti me used during this procedure was 3.2 minutes. COMPARISON: 11/16/2021 FINDINGS: Interval open reduction internal fixation of a intertrochanteric fracture the proximal left femur wit h an intramedullary candelaria, femoral neck dynamic compression screw and distal interlocking screw fixatio n. Alignment post fixation appears near-anatomic. Left hip joint space appears relatively preserved. No new fractures identified. Surgical clips at the left groin and along the medial left thigh likely related to prior saphenous vein graft harvest. IMPRESSION: 1. Near-anatomic alignment post open reduction internal fixation of an intratrochanteric fracture of the proximal left femur. Reviewed, dictated and finalized at location A. IMPRESSION: 1. Near-anatomic alignment post open reduction internal fixation of an intratro chanteric fracture of the proximal left femur.
--- NOTE | ~2021-11-06 | XR_ITS ---
EXAMINATION: XR ankle RT min 3V DATE: 11/07/2021 17:10 INDICATION: Distal fibular fracture. TECHNIQUE: Anteroposterior, mortise, and lateral views of the right ankle were obtained. COMPARISON: 09/23/2021 FINDINGS: Diffuse osteopenia. No change in one cortical width lateral displacement of an oblique fracture of th e distal right fibular metadiaphysis. The fracture line is less distinct and there is small amount of callus formation about the peripheral margins of the fracture consistent with some interval healing. No other fractures identified. Polyarticular osteoarthritis, mild in the mid and hindfoot and more s evere at the first metatarsophalangeal and a few of the interphalangeal joints which are partially vi sualized on the lateral projection. Small Achilles and plantar calcaneal spurs. Soft tissue swelling with subcutaneous edema about the distal right calf and ankle. IMPRESSION: 1. Healing minimally displaced extra articular fracture at the distal right fibular metadiaphysis. Reviewed, dictated and finalized at location A. IMPRESSION: 1. Healing minimally displaced extra articular fracture at the distal right fib ular metadiaphysis.
--- NOTE | ~2021-11-06 | CT_ITS ---
EXAMINATION: CT cervical spine wo con DATE: 11/06/2021 22:43 INDICATION: neck pain, fall TECHNIQUE: Computed tomography (CT) of the cervical spine was performed without intravenous contrast. Automated exposure control and iterative reconstruction technique were employed. The dose-length pro duct was 478.88 mGy-cm. COMPARISON: 06/18/2021 FINDINGS: Vertebral Body Alignment: Intact. Craniocervical and atlantoaxial alignment: Moderate degenerative change. Alignment intact. Osseous structures/fracture: No evidence of a lytic or blastic process in the visualized spine. No e vidence of acute fracture. Cervical soft tissues: The paraspinal soft tissues planes are maintained. Degenerative changes: Degenerative changes, without severe neural foraminal or central canal narrowin g. IMPRESSION: No acute fracture or traumatic malalignment in the cervical spine. Reviewed, dictated and finalized at location K.
--- NOTE | 2021-11-06 20:34 | ECG_ITS ---
Measurements Intervals [place] Rate: 82 P: 51 UT: 190 QRS: 47 QRSD: 101 T: 53 QT: 396 QTc: 464 Interpretive Statements SINUS RHYTHM BASELINE ARTIFACT- I, III, AVL NORMAL ECG COMPARED TO ECG 09/14/2021 15:15:06 NO SIGNIFICANT CHANGES Electronically Signed On 11-07-2021 7:12:45 CDT by Sathya Cohen D.O.
[2021-11-06 21:38] LABS: Glucose Point of Care 389 mg/dl (65-105)
[2021-11-06] MEDS: ONDANSETRON INJ 4 MG/2 ML VIAL IV PUSH (22:04)
[2021-11-06] MEDS: MORPHINE SULFATE (*CRX) 4 MG/ML INJ IV PUSH (22:04)
[2021-11-06 22:17] LABS: Basophils Percent Auto 0.3 % (0.2-1.2); Eosinophils Absolute Auto 0.1 K/mm3 (0-0.3); Eosinophils Percent Auto 0.4 % (0-4.4); Hematocrit 41.4 % (37.0-47.0); Hemoglobin 12.9 g/dL (12.0-15.0); Immature Granulocyte Absolute 0.11 K/mm3 (0.00-0.031); Immature Granulocyte Percent A 0.8 % (0-0.5); Lymphocytes Absolute Auto 1.71 K/mm3 (0.9-3.2); Lymphocytes Percent Auto 12.1 % (18.3-44.2); Mean Corpuscular HGB Conc 31.2 g/dl (32-36); Mean Corpuscular Hemoglobin 30.1 pg (26-34); Mean Corpuscular Volume 96.7 fl (80-100); Mean Platelet Volume 10.5 fl (7.4-10.4); Monocytes Absolute Auto 0.6 K/mm3 (0.1-0.6); Monocytes Percent Auto 4.5 % (2.6-8.5); Neutrophils Absolute Auto 11.6 K/mm3 (1.3-6.7); Neutrophils Percent Auto 81.9 % (45.5-73.1); Platelet Count Result 257 k/mm3 (150-375); Red Blood Count 4.28 M/mm3 (4.2-5.4); Red Cell Distribution Width 14.1 % (11.5-14.5); White Blood Count 14.1 K/mm3 (4.5-10.0)
--- NOTE | 2021-11-06 22:18 | ED.FALL ---
HPI - Fall General Chief Complaint: Fall <Linette Castillo PA-C - Last Filed: 11/07/21 01:23> Stated Complaint: LEFT HIP PAIN S/P GLF; HI BG <TINY Millan Last Filed: 11/07/21 01:23> Time Seen by Provider: 11/06/21 21:40 <TINY Millan Last Filed: 11/07/21 01:23> Source: patient <TINY Millan Last Filed: 11/07/21 01:23> Mode of arrival: EMS <TINY Millan Last Filed: 11/07/21 01:23> Limitations: no limitations <TINY Millan Last Filed: 11/07/21 01:23> History of Present Illness HPI Narrative: This is a 86 year old female that presents to the ER for left hip pain after a fall today. Reports she was going into the kitchen and her knee gave out on her. Reports she was recently discharged from a nursing facility and thinks she was discharged too soon. Reports left hip pain and knee pain since the fall. Also reports back pain. Reports she did not hit her head or lose consciousness. Denies vomiting, or numbness. <TINY Millan Last Filed: 11/07/21 01:23> Related Data Home Medications: Home Medications Medication Instructions Recorded Confirmed levothyroxine 75 mcg tablet 50 mcg PO DAILY 01/30/21 11/07/21 apixaban 5 mg tablet (Eliquis) 5 mg PO Q12HR 07/30/21 11/07/21 bumetanide 2 mg tablet 2 mg PO DAILY 07/30/21 11/07/21 insulin glargine 100 unit/mL 25 unit subcut Q12HR 11/07/21 11/07/21 subcutaneous solution (Lantus U-100 Insulin) rosuvastatin 10 mg tablet (Crestor) 20 mg PO QHS 11/07/21 11/07/21 <TINY Millan Last Filed: 11/07/21 01:23> Allergies/Adverse Reactions: Allergies Allergy/AdvReac Type Severity Reaction Status Date / Time No Known Allergies Allergy Verified 09/23/21 15:56 <Linette Castillo PA-C - Last Filed: 11/07/21 01:23> Review of Systems Review of Systems: CONSTITUTIONAL: Denies fever CARDIOVASCULAR: Denies chest pain GASTROINTESTINAL: Denies vomiting MUSCULOSKELETAL: Reports back pain, joint pain, and myalgia. NEUROLOGIC: Denies headache, numbness <Linette Castillo PA-C - Last Filed: 11/07/21 01:23> All systems reviewed & are unremarkable except as noted in HPI and below <Linette Castillo PA-C - Last Filed: 11/07/21 01:23> FOR[facility]LY [facility] Past Medical History Medical History: Medical History (Updated 11/07/21 @ 00:12 by Linette Castillo PA-C) Anemia due to stage 4 chronic kidney disease Aortic stenosis Echo April 2020: Moderate aortic stenosis with peak velocity of 305 mean gradient of 23 valve area 1.3 with severe aortic valve calcification Arthritis CAD (coronary artery disease) Non STEMI April 2020 Cataracts, bilateral Chronic back pain Chronic kidney disease, stage 4 (severe) Claustrophobia COPD (chronic obstructive pulmonary disease) Diastolic CHF Echocardiogram 05/11/2020: EF 65-70%, mildly increased left ventricular wall thickness, diastolic dysfunction grade 1, moderate left atrial enlargement, mitral valve with thickened leaflets calcification of leaflets and annulus, mild mitral valve regurgitation, mild tricuspid regurgitation, mild pulmonary hypertension with RVSP of 41 DVT (deep venous thrombosis) Left popliteal and peroneal DVT 2021 Femur fracture, right GERD (gastroesophageal reflux disease) GI bleed Heart attack Hiatal hernia High cholesterol History of angina History of blood transfusion HTN (hypertension) Hyperlipidemia Hypothyroid Light headedness Meniere disease Osteopenia Peripheral neuropathy Peripheral vascular disease of lower extremity RLE stent placement Rectal polyp Seizures During MA Type II diabetes mellitus Wears glasses <Linette Castillo PA-C - Last Filed: 11/07/21 01:23> Surgical History Surgical History: Surgical History H/O exploratory laparotomy 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 With subse
[2021-11-06 22:28] LABS: Anion Gap 15 mmol/L (8-16); Blood Urea Nitrogen 43 mg/dL (7-17); Calcium 8.6 mg/dL (8.4-10.2); Carbon Dioxide 21 mmol/L (22-30); Chloride 102 mmol/L (98-107); Estimated Glomerular Filt Rate 21; Glucose 400 mg/dL (65-110); Potassium 4.8 mmol/L (3.4-5.0); Sodium 138 mmol/L (137-145)
--- NOTE | 2021-11-07 00:22 | PM.IMHP ---
H&P: HPI History of Present Illness Date/Time: 11/07/21 00:22 Chief Complaint: Fall Narrative: This is an 86-year-old female with past medical history significant for Meniere's disease, type 2 diabetes mellitus, seizure disorder, peripheral vascular disease, peripheral neuropathy, chronic kidney disease, anemia of chronic disease, COPD, coronary artery disease. Patient presents to the emergency room after she had a mechanical fall from ground level there was no loss of consciousness. Patient denies any lightheadedness, syncope, near syncope, vertigo, she has been in her usual state of up until this. Patient had a fall a few weeks ago as well. Was unable to bear weight on her left leg. In emergency room patient was found to have left intertrochanteric fracture. Patient has been admitted for further evaluation management and treatment. Review of Systems Review of Systems: Fall unable to bear weight on left leg pain with movement, limited range of motion Constitutional: Constitutional: Denies chills, Denies fever(s) and Denies malaise Eyes: Eyes: Denies change in vision ENT: Denies dysphagia, Denies vertigo, Denies dizziness, Denies odynophagia and Denies disequilibrium Cardiovascular: Cardiovascular: Denies chest pain, Denies syncope, Denies irregular heart rhythm, Denies lightheadedness and Denies palpitations Respiratory: Respiratory: Denies change in phlegm color, Denies cough, Denies excessive phlegm production, Denies dyspnea and Denies wheezing Gastrointestinal: Gastrointestinal: Denies abdominal pain, Denies dyspepsia, Denies heartburn, Denies diarrhea, Denies nausea and Denies vomiting Genitourinary: Genitourinary: Denies dysuria Musculoskeletal: Musculoskeletal: Reports arthralgias (L hip) Integumentary/Breasts: Skin/Breast: Denies rash Neurologic: Denies abnormal gait, Denies vertigo, Denies dizziness, Denies focal weakness and Denies Sensory deficit (Neuro) Psychiatric: Psychiatric: Reports no additional psychiatric complaints and Reports as per HPI Endocrine: Endocrine: Denies cold intolerance, Denies fatigue, Denies flushing, Denies heat intolerance, Denies polyphagia, Denies polydipsia and Denies palpitations Hematologic/Lymphatic: Hematologic/Lymphatic: Reports no additional hematologic/lymphatic complaints and Reports as per HPI Allergic/Immunologic: Allergic/Immunologic: Reports no additional allergic/immunologic complaints and Reports as per HPI [facility] Past Medical History Medical History Anemia due to stage 4 chronic kidney disease Aortic stenosis Echo April 2020: Moderate aortic stenosis with peak velocity of 305 mean gradient of 23 valve area 1.3 with severe aortic valve calcification Arthritis CAD (coronary artery disease) Non STEMI April 2020 Cataracts, bilateral Chronic back pain Chronic kidney disease, stage 4 (severe) Claustrophobia COPD (chronic obstructive pulmonary disease) Diastolic CHF Echocardiogram 05/11/2020: EF 65-70%, mildly increased left ventricular wall thickness, diastolic dysfunction grade 1, moderate left atrial enlargement, mitral valve with thickened leaflets calcification of leaflets and annulus, mild mitral valve regurgitation, mild tricuspid regurgitation, mild pulmonary hypertension with RVSP of 41 DVT (deep venous thrombosis) Left popliteal and peroneal DVT 2021 Femur fracture, right GERD (gastroesophageal reflux disease) GI bleed Heart attack Hiatal hernia High cholesterol History of angina History of blood transfusion HTN (hypertension) Hyperlipidemia Hypothyroid Light headedness Meniere disease Osteopenia Peripheral neuropathy Peripheral vascular disease of lower extremity RLE stent placement Rectal polyp Seizures During ND Type II diabetes mellitus Wears glasses Surgical History Surgical History (Updated 11/07/21 @ 16:14 by KEELY Ledezma) H/O exploratory laparotomy Ileal resection
[2021-11-07 00:36] LABS: Appearance Urine Clear (Clear); Bilirubin Urine Negative (Negative); Blood Urine Negative (Negative); Color Urine Yellow (Yellow); Glucose Urine UA 2+ mg/dL (Negative); Ketones Urine Trace mg/dL (Negative); Leukocyte Esterase Ur Negative LEU/UL (Negative); Nitrate Urine Negative (Negative); Protein Urine 1+ mg/dL (Negative); Specific Grav Ur 1.015 (1.001-1.035); Urobilinogen Urine 0.2 mg/dL (<2.0); pH Urine 5.5 (5.0-9.0)
[2021-11-07 00:43] LABS: Bacteria Urine Trace /hpf; RBC Urine 0-2 /hpf (0-2); Squamous Epithelial Cell Urine Rare /hpf (Few)
[2021-11-07 01:20] LABS: Add Urine Microscopic? YES
[2021-11-07 01:40] VITALS: BMI 32.9
--- NOTE | 2021-11-07 01:55 | ADMGEN ---
This patient, Anuradha Spaulding, was admitted to 3 [facility] Surg Room 317-02 @0130. Patient/family oriented to hospital policies and general routines including ID bracelet, bed and alarms, visiting hours, pain management, procedures, bathroom and other care routines, personal items, smoking policy, room service/diet, and visiting hours. Information on how to activate the Rapid Response Team has been discussed. Patient/Family are encouraged to report perceived risks to care and to ask questions if they do not understand what they are told or what they should do.
[2021-11-07 01:56] VITALS: O2SAT 97
[2021-11-07] MEDS: MORPHINE SULFATE (*CRX) 4 MG/ML INJ IV PUSH ×2 (02:18→22:35)
--- NOTE | 2021-11-07 02:27 | PC.NURSE ---
Patient admitted with medication list. Unsure of how updated medication list is; daughter to bring updated med list in the AM. Verified medications using external MAR and what patient can remember for certain.
[2021-11-07 08:00] VITALS: PULSE 79; RESP 17; O2SAT 98
[2021-11-07] MEDS: METOPROLOL SUCCINATE EXT REL 12.5 MG TABCR PO (08:57)
[2021-11-07] MEDS: BUMETANIDE 1 MG TABLET 2 MG PO (08:57)
[2021-11-07] MEDS: GABAPENTIN 100 MG CAPSULE PO ×3 (08:58→20:02)
[2021-11-07] MEDS: PANTOPRAZOLE 40 MG TABLET PO ×2 (08:58→20:02)
[2021-11-07] MEDS: LEVOTHYROXINE SODIUM 50 MCG TABLET PO (08:58)
[2021-11-07 11:21] LABS: Glucose Point of Care 189 mg/dl (65-105)
[2021-11-07] MEDS: FLUTICASONE/UMECLIDIN/VILANTER 100-62.5-25 MCG ELLIPTA 1 PUFF INHALATION (11:23)
[2021-11-07 11:25] VITALS: O2SAT 97
--- NOTE | 2021-11-07 12:28 | PM.IMPN ---
Progress Note: A&P Assessment and Plan (1) Closed intertrochanteric fracture of left femur: Qualifiers: Encounter type: initial encounter Fracture alignment: displaced Qualified Code(s): S72.142A - Displaced intertrochanteric fracture of left femur, initial encounter for closed fracture Code(s): S72.142A - Displaced intertrochanteric fracture of left femur, initial encounter for closed fracture Status: Acute Assessment and Plan: per Ortho (2) Fall: Code(s): W19.XXXA - Unspecified fall, initial encounter Status: Acute (3) Hypertension: Code(s): I10 - Essential (primary) hypertension Status: Chronic Assessment and Plan: monitor (4) Chronic kidney disease, stage 4 (severe): Code(s): N18.4 - Chronic kidney disease, stage 4 (severe) Status: Chronic Assessment and Plan: creatinine baseline (5) GERD (gastroesophageal reflux disease): Code(s): K21.9 - Gastro-esophageal reflux disease without esophagitis Status: Acute Assessment and Plan: monitor Subjective Date/time seen: 11/07/21 12:28 no complaints, pain controlled Exam Narrative: General: alert and oriented Psych: appropriate mood nad affect Eyes: PERRLA Neck: Trachea midline, no new lesions Skin: no changes Lungs: CTA Cardiac: Normal S1,S2, no MGR ABD: soft, nd, nt, nbs Ext: no new lesions, no cce Vasc: Pulses intact Objective Data Vital Signs Vital Signs: Vital Signs - 24 hr 11/06/21 20:21 11/06/21 21:31 11/06/21 21:46 Temperature 97.8 F Pulse Rate 81 82 84 Respiratory Rate 20 18 14 Blood Pressure 179/99 H 182/110 H 194/75 H Pulse Oximetry 97 99 96 Oxygen Delivery 11/06/21 22:15 11/06/21 22:53 11/06/21 23:01 Temperature Pulse Rate 85 89 78 Respiratory Rate 17 16 17 Blood Pressure 160/64 H 141/53 H Pulse Oximetry 88 L 98 97 Oxygen Delivery 11/06/21 23:46 11/07/21 01:56 11/07/21 08:00 Temperature Pulse Rate 79 79 Respiratory Rate 17 17 Blood Pressure 145/59 H Pulse Oximetry 98 97 98 Oxygen Delivery Room Air Room Air 11/07/21 11:25 Temperature Pulse Rate Respiratory Rate Blood Pressure Pulse Oximetry 97 Oxygen Delivery Room Air Intake/Output Intake/Output: Intake & Output 11/04/21 11/05/21 11/06/21 11/07/21 23:59 23:59 23:59 23:59 Intake Total 100 100 Balance 100 100 Meds/Results Medications: Active Medications Generic Name Dose Route Start Last Admin Trade Name Freq PRN Reason Stop Dose Admin Albuterol 5 mg 11/07/21 08:11 Albuterol Sulfate Neb 2.5 Mg/3 Ml Inh INHALATION Q6HRT PRN Shortness Of Breath Or Wheezing Bumetanide 2 mg 11/07/21 09:00 11/07/21 08:57 Bumetanide 1 Mg Tablet PO 2 mg DAILY CARLINE Administration Fluticasone/Umeclidinium/Vilanterol 1 puff 11/07/21 09:00 11/07/21 11:23 Fluticasone/Umeclidin/Vilanter 100-62.5-25 Mcg Ellipta INHALATION 1 puff DAILYRT CARLINE Administration Gabapentin 100 mg 11/07/21 08:25 11/07/21 08:58 Gabapentin 100 Mg Capsule PO 100 mg Q8HR CARLINE Administration Acetaminophen 1,000 mg in 100 mls @ 400 mls/hr 11/07/21 00:08 11/07/21 11:56 Ofirmev 1,000 Mg Ivpb IVPB 11/08/21 00:07 Infused Q6H PRN Infusion Mild Pain (1-3) or Fever Levothyroxine Sodium 50 mcg 11/07/21 08:25 11/07/21 08:58 Levothyroxine Sodium 50 Mcg Tablet PO 50 mcg DAILY@0630 CARLINE Administration Metoprolol Succinate 12.5 mg 11/07/21 09:00 11/07/21 08:57 Metoprolol Succinate Ext Rel 12.5 Mg Tabcr PO 12.5 mg DAILY CARLINE Administration Morphine Sulfate 4 mg 11/07/21 00:08 11/07/21 02:18 Morphine Sulfate (*Crx) 4 Mg/Ml Inj IV PUSH 4 mg Q4H PRN Administration Pain Rated 7-10 Pantoprazole Sodium 40 mg 11/07/21 09:00 11/07/21 08:58 Pantoprazole 40 Mg Tablet PO 40 mg Q12HR CARLINE Administration Rosuvastatin Calcium 20 mg 11/07/21 21:00 Rosuvastatin 10 Mg Tablet PO
[2021-11-07 14:00] VITALS: BP 110/49; PULSE 62; RESP 16; TEMP 36.5; O2SAT 91
--- NOTE | 2021-11-07 16:08 | PM.CNOR ---
Assessment and Plan Assessment and plan (1) Closed intertrochanteric fracture of left femur: Qualifiers: Encounter type: initial encounter Fracture alignment: displaced Qualified Code(s): S72.142A - Displaced intertrochanteric fracture of left femur, initial encounter for closed fracture <Anupama Sultana, [facility] - Last Filed: 11/07/21 16:24> Code(s): S72.142A - Displaced intertrochanteric fracture of left femur, initial encounter for closed fracture <Anupama Sultana, [facility] - Last Filed: 11/07/21 16:24> Status: Acute <Anupama Sultana, [facility] - Last Filed: 11/07/21 16:24> Assessment and Plan: History, exam and radiographs reviewed with the patient and her granddaughter at the bedside. The fracture type and injury as well as radiographs discussed with the patient and family. Operative and nonoperative treatment options reviewed. The patient elects for operative treatment. Risk of nonunion, malunion or late displacement discussed. Stiffness, pain and possible dysfunction of the joint discussed. Risks of surgery including but not limited to neurovascular damage, wound complications, blood clot, pulmonary embolus, stroke, myocardial infarction, anesthetic risks up to and including were reviewed. Continued pain and possible dysfunction were explained. No guarantees were offered. The patient understands and wishes to proceed. Plan: Left Hip IT Nail by Dr. Samuel SOLANO at midnight. Hold blood thinners. Obtain consent. Nonweightbearing/ Bedrest. Bolton catheter, monitor output. Pain control. Fall precautions. <Anupama Sultana, [facility] - Last Filed: 11/07/21 16:24> (2) Lateral malleolar fracture: Qualifiers: Encounter type: initial encounter Fracture alignment: nondisplaced Fracture type: closed Laterality: right Qualified Code(s): S82.64XA - Nondisplaced fracture of lateral malleolus of right fibula, initial encounter for closed fracture <Anupama Sultana, [facility] - Last Filed: 11/07/21 16:24> Code(s): S82.63XA - Displaced fracture of lateral malleolus of unspecified fibula, initial encounter for closed fracture <Anupama Sultana, [facility] - Last Filed: 11/07/21 16:24> Status: Acute <KEELY Ledezma - Last Filed: 11/07/21 16:24> Assessment and Plan: History of nondisplaced oblique distal right fibular fracture. Most recent radiographs were from August. We will obtain new radiographs of the right ankle for further evaluation while patient is here inpatient. She also has a small wound on the lateral aspect of the forefoot which should be covered with a Mepilex border dressing for pressure relief. Elevate and offload the right lower extremity at this time. <KEELY Ledezma - Last Filed: 11/07/21 16:24> History of Present Illness HPI Consult date: 11/07/21 <KEELY Ledezma - Last Filed: 11/07/21 16:24> 11/08/21 <Eugene Baker MD - Last Filed: 11/08/21 14:49> Chief complaint: Left Intertrochanteric Hip Fracture <KEELY Ledezma - Last Filed: 11/07/21 16:24> Narrative: 86-year-old female admitted to [facility] Emergency Room after a fall at home. Radiographs of the hip revealed a left intertrochanteric femoral fracture. Patient does have a history of a right hip fracture for which she underwent a right hip bipolar by Dr. Bubba Good in 2014. She was recently seen in the outpatient orthopedic clinic after a fall which resulted in a nondisplaced OB distal right fibular fracture on September 14, 2021. She was evaluated by Dr. Baker at that time and was recommended for immobilization with a fracture boot and weight-bearing as tolerated. Per patient's family, she was just recently discharged from [facility] prior to her fall at home which has resulted in a left hip fracture. She denies loss of consciousness at that time of the fall. She denies any other joint pain. She was admitted for
[2021-11-07 16:51] LABS: Glucose Point of Care 250 mg/dl (65-105)
[2021-11-07] MEDS: ROSUVASTATIN 10 MG TABLET 20 MG PO (20:02)
[2021-11-07 20:06] LABS: Glucose Point of Care 304 mg/dl (65-105)
[2021-11-07 21:41] VITALS: BP 129/51; PULSE 74; RESP 16; TEMP 37; O2SAT 92
[2021-11-07] MEDS: INSULIN ASPART (*BKC) 100 UNITS/ML SUB-Q (22:36)
[2021-11-08] VITALS (17 sets, daily range): BP systolic 110–189; BP diastolic 43–76; PULSE 66–83; RESP 14–20; TEMP 36.1–37.2; O2SAT 88–100
[2021-11-08] MEDS: GABAPENTIN 100 MG CAPSULE PO ×2 (05:11→21:07)
[2021-11-08] MEDS: LEVOTHYROXINE SODIUM 50 MCG TABLET PO (05:11)
[2021-11-08 07:49] LABS: Glucose Point of Care 320 mg/dl (65-105)
[2021-11-08] MEDS: BUMETANIDE 1 MG TABLET 2 MG PO (08:24)
[2021-11-08] MEDS: PANTOPRAZOLE 40 MG TABLET PO ×2 (08:24→21:08)
[2021-11-08] MEDS: METOPROLOL SUCCINATE EXT REL 12.5 MG TABCR PO (08:24)
[2021-11-08 09:04] LABS: Hematocrit 34.7 % (37.0-47.0); Hemoglobin 10.9 g/dL (12.0-15.0); Mean Corpuscular HGB Conc 31.4 g/dl (32-36); Mean Corpuscular Volume 95.6 fl (80-100); Mean Platelet Volume 10.9 fl (7.4-10.4); Platelet Count Result 217 k/mm3 (150-375); Red Blood Count 3.63 M/mm3 (4.2-5.4); Red Cell Distribution Width 14.1 % (11.5-14.5); White Blood Count 11.1 K/mm3 (4.5-10.0)
[2021-11-08 09:21] LABS: Anion Gap 10 mmol/L (8-16); Blood Urea Nitrogen 47 mg/dL (7-17); Calcium 8.3 mg/dL (8.4-10.2); Carbon Dioxide 24 mmol/L (22-30); Chloride 101 mmol/L (98-107); Estimated CRCL calculation 16 ml/min; Estimated Glomerular Filt Rate 19; Glucose 300 mg/dL (65-110); Potassium 4.8 mmol/L (3.4-5.0); Sodium 135 mmol/L (137-145)
[2021-11-08] MEDS: FLUTICASONE/UMECLIDIN/VILANTER 100-62.5-25 MCG ELLIPTA 1 PUFF INHALATION (09:32)
[2021-11-08 11:30] LABS: Glucose Point of Care 308 mg/dl (65-105)
--- NOTE | 2021-11-08 11:33 | PM.IMPN ---
Progress Note: A&P Assessment and Plan (1) Closed intertrochanteric fracture of left femur: Qualifiers: Encounter type: initial encounter Fracture alignment: displaced Qualified Code(s): S72.142A - Displaced intertrochanteric fracture of left femur, initial encounter for closed fracture Code(s): S72.142A - Displaced intertrochanteric fracture of left femur, initial encounter for closed fracture Status: Acute Assessment and Plan: admit to regular medical floor bed rest orthopedic surgery consult (2) Fall: Code(s): W19.XXXA - Unspecified fall, initial encounter Status: Acute Assessment and Plan: fall precautions (3) Hypertension: Code(s): I10 - Essential (primary) hypertension Status: Chronic Assessment and Plan: continue home meds continue to monitor (4) Chronic kidney disease, stage 4 (severe): Code(s): N18.4 - Chronic kidney disease, stage 4 (severe) Status: Chronic Assessment and Plan: continue to monitor BUN and creatinine (5) GERD (gastroesophageal reflux disease): Code(s): K21.9 - Gastro-esophageal reflux disease without esophagitis Status: Acute Assessment and Plan: PPI as need Subjective Date/time seen: 11/08/21 11:33 No new complaints Exam Narrative: patient is laying in the stretcher Const: General: comfortable, no acute distress, well developed, alert and awake Nutritional Appearance: average body habitus Orientation/consciousness: patient oriented x3 HENMT: Head: normal to inspection, normocephalic and atraumatic Ears: hearing grossly normal bilaterally Face and sinus: normal facial exam Eyes: General: appearance normal, both eyes and all related structures Pupils: Equal, round and reactive pupils present EOM: EOMs intact bilaterally Neck: Neck: full ROM, no lymphadenopathy and no JVD Thyroid: thyroid normal Lymphatic: no lymphadenopathy noted Resp: Effort & Inspection: normal respiratory effort and able to speak in complete sentences Auscultation: clear to auscultation bilaterally Cardio: Jugular venous distension: no JVD Rate: regular rate Rhythm: regular rhythm Heart sounds: S1 normal heart sound present and S2 normal heart sound present : General: Yes deferred Skin: Rashes: no rashes Wounds: no wounds Neuro: General: patient oriented x3, CN's II-XI intact bilaterally and Unable to assess gait Cranial nerves: Yes CN's II-XII intact bilaterally and Yes Equal, round and reactive pupils present Cognition (Neuro): normal cognition Speech: normal speech Gait exam (Neuro): Unable to assess gait Motor exam (neuro): 5/5 motor strength present throughout Sensory Exam: No Sensory deficit (Neuro) Extrem: General: normal exam except as noted and other ( left hip limited range of motion) Objective Data Vital Signs Vital Signs: Vital Signs - 24 hr 11/07/21 14:00 11/07/21 20:00 11/07/21 21:41 Temperature 97.7 F 98.6 F Pulse Rate 62 74 Respiratory Rate 16 16 Blood Pressure 110/49 L 129/51 L Pulse Oximetry 91 92 Oxygen Delivery Room Air 11/08/21 05:50 11/08/21 08:24 11/08/21 09:33 Temperature 97.5 F L Pulse Rate 83 83 Respiratory Rate 16 Blood Pressure 114/61 Pulse Oximetry 90 96 Oxygen Delivery Room Air 11/08/21 08:30 Temperature Pulse Rate Respiratory Rate Blood Pressure Pulse Oximetry Oxygen Delivery Room Air Intake/Output Intake/Output: Intake & Output 11/05/21 11/06/21 11/07/21 11/08/21 23:59 23:59 23:59 23:59 Intake Total 100 1190 50 Output Total 1250 600 Balance 100 -60 -550 Meds/Results Medications: Active Medications Generic Name Dose Route Start Last Admin Trade Name Freq PRN Reason Stop Dose Admin Albuterol 5 mg 11/07/21 08:11 Albuterol Sulfate Neb 2.5 Mg/3 Ml Inh INHALATION Q6HRT PRN Shortness Of Breath Or Wheezing Bumetanide 2 mg 11/07/21 09:00 11/08/21 08:24 Bume
--- NOTE | 2021-11-08 12:23 | WPDHPUPDATE1 ---
History and Physical Update Update Date/Time: 11/08/21 12:23 History and Physical has been reviewed, including an updated exam of the patient. There are NO changes in the patient's condition. Risks, benefits, and alternatives have been discussed and questions answered. Patient agrees to proceed with procedure.
[2021-11-08 14:10] LABS: Glucose Point of Care 295 mg/dl (65-105)
[2021-11-08] MEDS: TRANEXAMIC ACID 1,000MG/ISO100 1,000 MG/100 ML BAG 200 MG IVPB (14:12)
[2021-11-08] MEDS: INSULIN HUMAN REGULAR (*BKC) 100 UNITS/ML 10 UNITS SUB-Q (14:17)
--- NOTE | 2021-11-08 14:44 | WPDANESEPPF ---
Anes - Initial Pre Proc Eval Procedure: Operation Date: 11/08/21 15:00 Proposed Procedures p Left Intertrochanteric Nail - Eugene Baker MD Date/Time: 11/08/21 14:44 Surgeon: Yoni Maki MD Pre Op Diagnosis: Left Intertrochanteric Hip Fracture Patient Data Age: 86 Gender: F Height: 1.6 m Weight: 84.3 kg Last Vital Signs Temp 37.2 C 11/08/21 14:30 Pulse 77 11/08/21 14:30 Resp 14 11/08/21 14:30 BP 127/51 L 11/08/21 14:30 Pulse Ox 95 11/08/21 14:30 O2 Del Method Nasal Cannula 11/08/21 14:30 O2 Flow Rate 1 11/08/21 14:30 Allergies Allergy/AdvReac Type Severity Reaction Status Date / Time No Known Allergies Allergy Verified 09/23/21 15:56 Home Medications Medication Instructions Recorded Confirmed Type levothyroxine 75 mcg tablet 50 mcg PO DAILY 01/30/21 11/07/21 History gabapentin 100 mg capsule 100 mg PO TID #30 caps 06/26/21 11/07/21 Rx metoprolol succinate 25 mg capsule 12.5 mg PO DAILY #14 ea 06/26/21 11/07/21 Rx sprinkle, ext. release 24 hr pantoprazole 40 mg tablet,delayed 40 mg PO Q12HR #30 tabs 06/26/21 11/07/21 Rx release apixaban 5 mg tablet (Eliquis) 5 mg PO Q12HR 07/30/21 11/07/21 History bumetanide 2 mg tablet 2 mg PO DAILY 07/30/21 11/07/21 History albuterol sulfate 2.5 mg/3 mL 5 mg (6 mL) inhalation Q6HRT PRN 08/06/21 11/07/21 Rx (0.083 %) solution for nebulization Shortness Of Breath Or Wheezing #75 mL fluticasone fur. 100 mcg-umeclid 1 inh inhalation DAILY #1 ea 08/06/21 11/07/21 Rx 62.5 mcg-vilant 25 mcg inhalat.powder (Trelegy Ellipta) insulin aspart U-100 100 unit/mL 4 unit (0.04 mL) subcut TIDWM #10 08/06/21 11/07/21 Rx subcutaneous solution (Novolog mL U-100 Insulin aspart) insulin glargine 100 unit/mL 25 unit subcut Q12HR 11/07/21 11/07/21 History subcutaneous solution (Lantus U-100 Insulin) rosuvastatin 10 mg tablet (Crestor) 20 mg PO QHS 11/07/21 11/07/21 History Laboratory Tests 11/07/21 11/07/21 11/08/21 16:47 20:01 07:45 WBC RBC Hgb Hct MCV MCH MCHC RDW Plt Count MPV Sodium Potassium Chloride Carbon Dioxide Anion Gap BUN Creatinine Estim Creat Clear Calc Estimated GFR Glucose POC Capillary Glucose 250 mg/dl H mg/dl 304 mg/dl H mg/dl 320 mg/dl H mg/dl (65-105) (65-105) (65-105) Calcium 11/08/21 11/08/21 11/08/21 08:44 08:44 11:25 WBC 11.1 K/mm3 H K/mm3 (4.5-10.0) RBC 3.63 M/mm3 L M/mm3 (4.2-5.4) Hgb 10.9 g/dL L g/dL (12.0-15.0) Hct 34.7 % L % (37.0-47.0) MCV 95.6 fl fl (80-100) MCH 30.0 pg pg (26-34) MCHC 31.4 g/dl L g/dl (32-36) RDW 14.1 % % (11.5-14.5) Plt Count 217 k/mm3 k/mm3 (150-375) MPV 10.9 fl H fl (7.4-10.4) Sodium 135 mmol/L L mmol/L (137-145) Potassium 4.8 mmol/L mmol/L (3.4-5.0) Chloride 101 mmol/L mmol/L (98-107) Carbon Dioxide 24 mmol/L mmol/L (22-30) Anion Gap 10 mmol/L mmol/L (8-16) BUN 47 mg/dL H mg/dL (7-17) Creatinine 2.40 mg/dL H mg/dL (0.7-1.0) Estim Creat Clear Calc 16 ml/min ml/min Estimated GFR 19 L (59 - ) Glucose 300 mg/dL H mg/dL (65-110) POC Capillary Glucose 308 mg/dl H mg/dl (65-105) Calcium 8.3 mg/dL L mg/dL (8.4-10.2) 11/08/21 14:07 WBC RBC Hgb Hct MCV MCH MCHC RDW Plt Count MPV Sodium Potassium Chloride Carbon Dioxide Anion Gap BUN Creatinine Estim Creat Clear Calc Estimated GFR Glucose POC
[2021-11-08] MEDS: LACTATED RINGERS 1,000 ML 30 ML IV CONT (14:45)
[2021-11-08] MEDS: ceFAZolin 2 GM/D5W 50 ML 2 GM/50 ML BAG IVPB ×2 (15:12→23:25)
--- NOTE | 2021-11-08 16:22 | W.PM.PROC2 ---
Procedure Note - Detailed Date of Procedure 11/08/21 Pre-op Diagnosis Left Intertrochanteric Hip Fracture Post-op Diagnosis Same Procedure Performed INSERTION INTRAMEDULLARY JULIA LEFT HIP Surgeon Eugene Baker MD Anesthesia General Description of Procedure THE PATIENT WAS TAKEN TO THE OPERATING ROOM AND PLACED ON A FRACTURE TABLE AFTER GIVEN GENERAL ANESTHESIA. THE LEFT LOWER EXTREMITY WAS PLACED IN A TRACTION BOOT AND USING SOME TRACTION AND INTERNAL ROTATION THE INNER TROCHANTERIC FRACTURE WAS REDUCED TO ANATOMIC POSITION. NEXT THE LEFT LOWER EXTREMITY WAS PREPPED AND DRAPED IN THE STERILE FASHION. AN INCISION WAS MADE PROXIMAL TO THE TIP OF THE GREATER TROCHANTER AND DISSECTION CONTINUED TILL THE TIP OF THE GREATER TROCHANTER WAS PALPATED. A GUIDE PIN WAS PLACED DOWN THE FEMORAL CANAL AND PAST THE FRACTURE SITE. THIS WAS CHECKED ON FLUOROSCOPY AND FOUND TO BE IN GOOD POSITION. AN INITIAL REAMER WAS USED TO REAM THE FEMORAL CANAL. A 11 BY 200 MM ARTHREX JULIA WAS INSERTED TILL THE CORRECT POSITION WAS IDENTIFIED ON XRAY. A GUIDE PIN WAS INSERTED THROUGH THE FEMORAL NECK AT 125 DE[address]GLE TILL IT REACHED THE TIP OF THE SUB CHONDRAL BONE SEEN ON XRAY. AFTER REAMING, LAG SCREW WAS INSERTED MEASURING 105 MM. XRAYS SHOWED IT TO BE IN GOOD POSITION. THE LAG SCREW WAS LOCKED PROXIMALLY. NEXT A DISTAL LOCKING SCREW WAS PLACED ACROSS THE JULIA AND WAS IN GOOD POSITION ON XRAY. THE TRACTION WAS RELEASED. THE WOUNDS WERE WASHED. THE DEEP FASCIA WAS REPAIRED WITH #1 VICRYL SUTURE, THE SUB CUTANEOUS LAYER WITH 2-0 VICRYL, AND THE SKIN WITH HUI. THE WOUNDS WERE WASHED AND THEN STERILE DRESSING WAS APPLIED. PATIENT WAS EXTUBATED AND SENT TO RECOVERY ROOM. Estimated Blood Loss 100 Urine Output 550 Complications No immediate complications Condition Stable Disposition PACU
--- NOTE | 2021-11-08 16:40 | SUR.PHASEI ---
blood glucose checked in recovery, 285. Dr. Vail notified of result. No new orders.
[2021-11-08 16:41] LABS: Glucose Point of Care 285 mg/dl (65-105)
[2021-11-08] MEDS: fentaNYL CITRATE INJ (*CRX) 100 MCG/2 ML VIAL 25 MCG IV PUSH ×3 (16:48→17:38)
[2021-11-08] MEDS: ONDANSETRON INJ 4 MG/2 ML VIAL IV PUSH (17:19)
[2021-11-08] MEDS: hydrALAZINE HCL 20 MG/ML VIAL 5 MG IV PUSH (17:34)
--- NOTE | 2021-11-08 18:01 | PC.NURSE ---
This patient, Anuradha Spaulding, was received from Post-op on 11/08/21 at 1755. Patient/family oriented to unit policies and routines
[2021-11-08] MEDS: MORPHINE SULFATE (*CRX) 4 MG/ML INJ IV PUSH (18:09)
[2021-11-08] MEDS: SODIUM CHLORIDE 0.9% IV 1,000 ML 125 ML IV CONT (18:09)
[2021-11-08 18:10] LABS: Glucose Point of Care 285 mg/dl (65-105)
[2021-11-08] MEDS: INSULIN ASPART (*BKC) 100 UNITS/ML SUB-Q (18:17)
[2021-11-08] MEDS: INSULIN GLARGINE (*BKC) 100 UNITS/ML 25 UNITS SUB-Q (21:02)
[2021-11-08] MEDS: APIXABAN 5 MG TABLET PO (21:07)
[2021-11-08] MEDS: SENNA/DOCUSATE SODIUM TABLET 2 TAB PO (21:07)
[2021-11-08] MEDS: ROSUVASTATIN 10 MG TABLET 20 MG PO (21:07)
[2021-11-08] MEDS: FAMOTIDINE 20 MG TABLET PO (21:07)
[2021-11-08 21:15] LABS: Glucose Point of Care 266 mg/dl (65-105)
[2021-11-09] VITALS (10 sets, daily range): BP systolic 114–143; BP diastolic 45–54; PULSE 70–81; RESP 12–20; TEMP 36.3–36.8; O2SAT 87–99
[2021-11-09] MEDS: ONDANSETRON INJ 4 MG/2 ML VIAL IV PUSH ×2 (02:59→11:22)
[2021-11-09] MEDS: MORPHINE SULFATE (*CRX) 4 MG/ML INJ IV PUSH (03:13)
[2021-11-09] MEDS: ceFAZolin 2 GM/D5W 50 ML 2 GM/50 ML BAG IVPB ×2 (06:17→14:27)
[2021-11-09] MEDS: GABAPENTIN 100 MG CAPSULE PO ×3 (06:18→21:22)
[2021-11-09] MEDS: LEVOTHYROXINE SODIUM 50 MCG TABLET PO (06:18)
[2021-11-09 07:00] LABS: Anion Gap 12 mmol/L (8-16); Blood Urea Nitrogen 49 mg/dL (7-17); Calcium 7.9 mg/dL (8.4-10.2); Carbon Dioxide 23 mmol/L (22-30); Chloride 101 mmol/L (98-107); Estimated CRCL calculation 18 ml/min; Estimated Glomerular Filt Rate 21; Glucose 332 mg/dL (65-110); Potassium 4.6 mmol/L (3.4-5.0); Sodium 136 mmol/L (137-145)
[2021-11-09 07:22] LABS: Basophils Percent Auto 0.4 % (0.2-1.2); Eosinophils Percent Auto 0.3 % (0-4.4); Hematocrit 33.2 % (37.0-47.0); Hemoglobin 10.5 g/dL (12.0-15.0); Immature Granulocyte Absolute 0.08 K/mm3 (0.00-0.031); Immature Granulocyte Percent A 0.7 % (0-0.5); Lymphocytes Absolute Auto 1.54 K/mm3 (0.9-3.2); Lymphocytes Percent Auto 13.7 % (18.3-44.2); Mean Corpuscular HGB Conc 31.6 g/dl (32-36); Mean Corpuscular Hemoglobin 31.3 pg (26-34); Mean Corpuscular Volume 99.1 fl (80-100); Monocytes Absolute Auto 0.9 K/mm3 (0.1-0.6); Monocytes Percent Auto 7.9 % (2.6-8.5); Neutrophils Absolute Auto 8.7 K/mm3 (1.3-6.7); Red Blood Count 3.35 M/mm3 (4.2-5.4); Red Cell Distribution Width 14.3 % (11.5-14.5); White Blood Count 11.3 K/mm3 (4.5-10.0)
[2021-11-09 08:00] LABS: Glucose Point of Care 333 mg/dl (65-105)
[2021-11-09] MEDS: BUMETANIDE 1 MG TABLET 2 MG PO (08:21)
[2021-11-09] MEDS: METOPROLOL SUCCINATE EXT REL 12.5 MG TABCR PO (08:21)
[2021-11-09] MEDS: PANTOPRAZOLE 40 MG TABLET PO ×2 (08:27→21:22)
[2021-11-09] MEDS: FAMOTIDINE 20 MG TABLET PO ×2 (08:28→21:19)
[2021-11-09] MEDS: SENNA/DOCUSATE SODIUM TABLET 2 TAB PO ×2 (08:28→16:46)
[2021-11-09] MEDS: APIXABAN 5 MG TABLET PO ×2 (08:28→21:19)
[2021-11-09] MEDS: INSULIN ASPART (*BKC) 100 UNITS/ML SUB-Q ×5 (08:29→16:41)
[2021-11-09] MEDS: INSULIN GLARGINE (*BKC) 100 UNITS/ML 25 UNITS SUB-Q ×2 (08:35→21:28)
[2021-11-09] MEDS: FLUTICASONE/UMECLIDIN/VILANTER 100-62.5-25 MCG ELLIPTA 1 PUFF INHALATION (08:37)
[2021-11-09] MEDS: ACETAMINOPHEN 325 MG TABLET 650 MG PO (08:43)
[2021-11-09] MEDS: polyethylene glycoL 3350 17 GM POWD.PACK PO (08:49)
[2021-11-09] MEDS: SODIUM CHLORIDE 0.9% IV 1,000 ML 125 ML IV CONT ×2 (09:42→21:20)
--- NOTE | 2021-11-09 10:13 | WPDANESPN ---
Anes - Prog Note Post-Op Date/Time: 11/09/21 10:13 Vital Signs: Last Vital Signs Temp 36.3 C L 11/09/21 07:35 Pulse 70 11/09/21 08:21 Resp 20 11/09/21 07:35 BP 125/47 L 11/09/21 07:35 Pulse Ox 98 11/09/21 07:35 O2 Del Method Nasal Cannula 11/09/21 03:17 O2 Flow Rate 3 11/09/21 03:17 Pain Score (VAS): 0 I/O: Intake & Output 11/08/21 11/09/21 11/09/21 23:59 07:59 15:59 Intake Total 400 1100 50 Output Total 1360 700 Balance -960 400 50 Laboratory Tests 11/09/21 06:28 11/09/21 06:28 11/08/21 11/08/21 11/08/21 11:25 14:07 16:32 WBC RBC Hgb Hct MCV MCH MCHC RDW Plt Count MPV Immature Gran % (Auto) Neut % (Auto) Lymph % (Auto) Weber % (Auto) Eos % (Auto) Baso % (Auto) Lymph # (Auto) Weber # (Auto) Eos # (Auto) Baso # (Auto) Abs Immat Gran (auto) Absolute Neuts (auto) Absolute Nucleated RBC Nucleated RBC % % Immature Plt Fraction Sodium Potassium Chloride Carbon Dioxide Anion Gap BUN Creatinine Estim Creat Clear Calc Estimated GFR Glucose POC Capillary Glucose 308 H 295 H 285 H Calcium 11/08/21 11/08/21 11/09/21 18:07 21:02 06:28 WBC 11.3 H RBC 3.35 L Hgb 10.5 L Hct 33.2 L MCV 99.1 MCH 31.3 MCHC 31.6 L RDW 14.3 Plt Count TNP MPV TNP Immature Gran % (Auto) 0.7 H Neut % (Auto) 77.0 H Lymph % (Auto) 13.7 L Weber % (Auto) 7.9 Eos % (Auto) 0.3 Baso % (Auto) 0.4 Lymph # (Auto) 1.54 Weber # (Auto) 0.9 H Eos # (Auto) 0.0 Baso # (Auto) 0.0 Abs Immat Gran (auto) 0.08 H Absolute Neuts (auto) 8.7 H Absolute Nucleated RBC 0.0 Nucleated RBC % 0.0 % Immature Plt Fraction TNP Sodium Potassium Chloride Carbon Dioxide Anion Gap BUN Creatinine Estim Creat Clear Calc Estimated GFR Glucose POC Capillary Glucose 285 H 266 H Calcium 11/09/21 11/09/21 06:28 07:44 WBC RBC Hgb Hct MCV MCH MCHC RDW Plt Count MPV Immature Gran % (Auto) Neut % (Auto) Lymph % (Auto) Weber % (Auto) Eos % (Auto) Baso % (Auto) Lymph # (Auto) Weber # (Auto) Eos # (Auto) Baso # (Auto) Abs Immat Gran (auto) Absolute Neuts (auto) Absolute Nucleated RBC Nucleated RBC % % Immature Plt Fraction Sodium 136 L Potassium 4.6 Chloride 101 Carbon Dioxide 23 Anion Gap 12 BUN 49 H Creatinine 2.20 H Estim Creat Clear Calc 18 Estimated GFR 21 L Glucose 332 H POC Capillary Glucose 333 H Calcium 7.9 L Patient Feedback: Patient satisfied with anesthetic care.
[2021-11-09 11:28] LABS: Glucose Point of Care 319 mg/dl (65-105)
[2021-11-09] MEDS: ACETAMINOPHEN/CODEINE (*CRX) 300/30 MG TABLET 1 TAB PO (11:47)
--- NOTE | 2021-11-09 12:41 | PM.IMPN ---
Progress Note: A&P Assessment and Plan (1) Closed intertrochanteric fracture of left femur: Qualifiers: Encounter type: initial encounter Fracture alignment: displaced Qualified Code(s): S72.142A - Displaced intertrochanteric fracture of left femur, initial encounter for closed fracture Code(s): S72.142A - Displaced intertrochanteric fracture of left femur, initial encounter for closed fracture Status: Acute Assessment and Plan: admit to regular medical floor bed rest orthopedic surgery consult 11/09/2021 interval history: 86 y/o female had a ground level fall and found to have left intertrochanteric fracture, was seen by Dr Baker an orthopedic surgeon patient was taken to OR on and had ORIF, this morning patient stats pain still persist but somnolent as patient was given morphine earlier, able to answer appropriately, will have PT work with the patient and family stats patient is able to tolerate tylenol #3, will CPM and monitor, patient will benefit with acute rehab. (2) Fall: Code(s): W19.XXXA - Unspecified fall, initial encounter Status: Acute Assessment and Plan: fall precautions (3) Hypertension: Code(s): I10 - Essential (primary) hypertension Status: Chronic Assessment and Plan: continue home meds continue to monitor (4) Chronic kidney disease, stage 4 (severe): Code(s): N18.4 - Chronic kidney disease, stage 4 (severe) Status: Chronic Assessment and Plan: continue to monitor BUN and creatinine (5) GERD (gastroesophageal reflux disease): Code(s): K21.9 - Gastro-esophageal reflux disease without esophagitis Status: Acute Assessment and Plan: PPI as need Subjective Date/time seen: 11/09/21 12:41 Narrative: HPI-?This is an 86-year-old female with past medical history significant for Meniere's disease, type 2 diabetes mellitus, seizure disorder, peripheral vascular disease, peripheral neuropathy, chronic kidney disease, anemia of chronic disease, COPD, coronary artery disease.? Patient presents to the emergency room after she had a mechanical fall from ground level there was no loss of consciousness.? Patient denies any lightheadedness, syncope, near syncope, vertigo, she has been in her usual state of up until this. ? Patient had a fall a few weeks ago as well.? Was unable to bear weight on her left leg.? In emergency room patient was found to have left intertrochanteric fracture.? Patient has been admitted for further evaluation management and treatment. 11/09/2021 interval history: 86 y/o female had a ground level fall and found to have left intertrochanteric fracture, was seen by Dr Baker an orthopedic surgeon patient was taken to OR on and had ORIF, this morning patient stats pain still persist but somnolent as patient was given morphine earlier, able to answer appropriately, will have PT work with the patient and family stats patient is able to tolerate tylenol #3, will CPM and monitor, patient will benefit with acute rehab. Review of Systems Constitutional: Constitutional: Denies chills, Denies fatigue, Denies fever(s) and Denies malaise Musculoskeletal: Musculoskeletal: Reports as per HPI, Denies numbness and Denies tingling Neurologic: Reports as per HPI, Reports Normal hearing present, Denies headache(s), Denies numbness, Denies tingling and Denies weakness Exam Narrative: elderly frail Patient is comfortable, NAD HEENT: eyes are clear and none icteric LUNGS: normal respiratory effort ABD: distended Lower extremities: no edema SKIN: nonjaundiced Neuro: grossly intact. Objective Data Vital Signs Vital Signs: Vital Signs - 24 hr 11/08/21 14:30 11/08/21 13:50 11/08/21 13:55 Temperature 99.0 F Pulse Rate 77 71 Respiratory Rate 14 14 Blood Pressure 127/51 L 134/43 L Pulse Oximetry 95 88 L 97 Oxygen Delivery Nasal Cannula Room Air Nasal Cannula Oxygen Flow Rate 1
--- NOTE | 2021-11-09 13:02 | PCOTNOTE ---
Attempted OT evaluation this date x2. Per RN pt. was confused and struggling with directions due to pain medication. Medication was changed and pt. now in a lot of pain and unable to participate in therapy. Discussed with family in room and granddaughter agrees to hold all therapy until tomorrow morning. Will attempt again as able.
--- NOTE | 2021-11-09 13:11 | PCPTNOTE ---
Attempted PT evaluation this date x2. This morning pt was confused and unable to answer simple questions. Per OT, medication was changed and pt. now in a lot of pain and unable to participate in therapy. Hold all therapy until tomorrow morning. Will attempt again as able.
[2021-11-09 16:42] LABS: Glucose Point of Care 198 mg/dl (65-105)
[2021-11-09] MEDS: ROSUVASTATIN 10 MG TABLET 20 MG PO (21:21)
[2021-11-09 22:19] LABS: Glucose Point of Care 273 mg/dl (65-105)
[2021-11-10 06:00] VITALS: BP 137/46; PULSE 72; RESP 14; TEMP 36.3; O2SAT 96
[2021-11-10] MEDS: ACETAMINOPHEN/CODEINE (*CRX) 300/30 MG TABLET 1 TAB PO (06:27)
[2021-11-10] MEDS: GABAPENTIN 100 MG CAPSULE PO ×3 (06:29→20:49)
[2021-11-10] MEDS: LEVOTHYROXINE SODIUM 50 MCG TABLET PO (06:29)
[2021-11-10 07:41] LABS: Glucose Point of Care 195 mg/dl (65-105)
[2021-11-10 07:42] LABS: Hematocrit 34.7 % (37.0-47.0); Hemoglobin 10.4 g/dL (12.0-15.0); Mean Corpuscular Hemoglobin 30.7 pg (26-34); Mean Corpuscular Volume 102.4 fl (80-100); Mean Platelet Volume 10.7 fl (7.4-10.4); Platelet Count Result 235 k/mm3 (150-375); Red Blood Count 3.39 M/mm3 (4.2-5.4); Red Cell Distribution Width 14.2 % (11.5-14.5); White Blood Count 11.4 K/mm3 (4.5-10.0)
[2021-11-10 07:44] LABS: Anion Gap 13 mmol/L (8-16); Blood Urea Nitrogen 44 mg/dL (7-17); Calcium 7.8 mg/dL (8.4-10.2); Carbon Dioxide 27 mmol/L (22-30); Chloride 99 mmol/L (98-107); Estimated CRCL calculation 18 ml/min; Estimated Glomerular Filt Rate 21; Glucose 210 mg/dL (65-110); Potassium 3.9 mmol/L (3.4-5.0); Sodium 139 mmol/L (137-145)
[2021-11-10 08:11] VITALS: PULSE 72
[2021-11-10] MEDS: METOPROLOL SUCCINATE EXT REL 12.5 MG TABCR PO (08:11)
[2021-11-10] MEDS: APIXABAN 5 MG TABLET PO ×2 (08:12→20:49)
[2021-11-10] MEDS: BUMETANIDE 1 MG TABLET 2 MG PO (08:12)
[2021-11-10] MEDS: SENNA/DOCUSATE SODIUM TABLET 2 TAB PO ×2 (08:12→16:27)
[2021-11-10] MEDS: PANTOPRAZOLE 40 MG TABLET PO ×2 (08:12→20:49)
[2021-11-10] MEDS: polyethylene glycoL 3350 17 GM POWD.PACK PO (08:12)
[2021-11-10] MEDS: FAMOTIDINE 20 MG TABLET PO ×2 (08:12→20:49)
[2021-11-10] MEDS: INSULIN GLARGINE (*BKC) 100 UNITS/ML 25 UNITS SUB-Q ×2 (08:16→20:48)
[2021-11-10] MEDS: FLUTICASONE/UMECLIDIN/VILANTER 100-62.5-25 MCG ELLIPTA 1 PUFF INHALATION (08:24)
[2021-11-10 11:37] LABS: Glucose Point of Care 334 mg/dl (65-105)
[2021-11-10] MEDS: INSULIN ASPART (*BKC) 100 UNITS/ML SUB-Q ×4 (11:43→17:11)
--- NOTE | 2021-11-10 11:44 | PM.IMPN ---
Progress Note: A&P Assessment and Plan (1) Closed intertrochanteric fracture of left femur: Qualifiers: Encounter type: initial encounter Fracture alignment: displaced Qualified Code(s): S72.142A - Displaced intertrochanteric fracture of left femur, initial encounter for closed fracture Code(s): S72.142A - Displaced intertrochanteric fracture of left femur, initial encounter for closed fracture Status: Acute Assessment and Plan: admit to regular medical floor bed rest status post hip surgery. Continue PTOT (2) Fall: Code(s): W19.XXXA - Unspecified fall, initial encounter Status: Acute Assessment and Plan: fall precautions (3) Hypertension: Code(s): I10 - Essential (primary) hypertension Status: Chronic Assessment and Plan: continue home meds continue to monitor (4) Chronic kidney disease, stage 4 (severe): Code(s): N18.4 - Chronic kidney disease, stage 4 (severe) Status: Chronic Assessment and Plan: continue to monitor BUN and creatinine (5) GERD (gastroesophageal reflux disease): Code(s): K21.9 - Gastro-esophageal reflux disease without esophagitis Status: Acute Assessment and Plan: PPI as need Subjective Date/time seen: 11/10/21 11:44 still having some pain in her hip Exam Narrative: elderly frail Patient is comfortable, NAD HEENT: eyes are clear and none icteric LUNGS: normal respiratory effort ABD: distended Lower extremities: no edema SKIN: nonjaundiced Neuro: grossly intact. Objective Data Vital Signs Vital Signs: Vital Signs - 24 hr 11/09/21 16:00 11/09/21 22:00 11/09/21 20:20 Temperature 98.2 F 97.9 F Pulse Rate 80 78 78 Respiratory Rate 16 18 18 Blood Pressure 143/54 H 122/45 L Pulse Oximetry 94 91 91 Oxygen Delivery Nasal Cannula Oxygen Flow Rate 1 11/10/21 06:00 11/10/21 08:11 11/10/21 08:46 Temperature 97.4 F L Pulse Rate 72 72 Respiratory Rate 14 Blood Pressure 137/46 L Pulse Oximetry 96 Oxygen Delivery Room Air Oxygen Flow Rate 11/10/21 09:00 Temperature Pulse Rate Respiratory Rate Blood Pressure Pulse Oximetry Oxygen Delivery Room Air Oxygen Flow Rate Intake/Output Intake/Output: Intake & Output 11/07/21 11/08/21 11/09/2122 23:59 23:59 23:59 23:59 Intake Total 8319 179 5520 200 Output Total 1250 2560 2150 550 Balance -60 -2060 1320 -350 Meds/Results Medications: Active Medications Generic Name Dose Route Start Last Admin Trade Name Freq PRN Reason Stop Dose Admin Acetaminophen 650 mg 11/08/21 17:50 11/09/21 08:43 Acetaminophen 325 Mg Tablet PO 650 mg Q6H PRN Administration Mild Pain (1-3) or Fever Acetaminophen/Codeine Phosphate 1 tab 11/09/21 11:35 11/10/21 06:27 Acetaminophen/Codeine (*Crx) 300/30 Mg Tablet PO 1 tab Q4H PRN Administration Pain Rated 4-6 Albuterol 5 mg 11/07/21 08:11 Albuterol Sulfate Neb 2.5 Mg/3 Ml Inh INHALATION Q6HRT PRN Shortness Of Breath Or Wheezing Apixaban 5 mg 11/08/21 21:00 11/10/21 08:12 Apixaban 5 Mg Tablet PO 5 mg Q12HR CARLINE Administration Bumetanide 2 mg 11/07/21 09:00 11/10/21 08:12 Bumetanide 1 Mg Tablet PO 2 mg DAILY CARLINE Administration Diazepam 5 mg 11/08/21 17:50 Diazepam (*Crx) 5 Mg Tablet PO Q8H PRN Muscle Spasm Famotidine 20 mg 11/08/21 21:00 11/10/21 08:12 Famotidine 20 Mg Tablet PO 20 mg Q12HR CARLINE Administration Fluticasone/Umeclidinium/Vilanterol 1 puff 11/07/21 09:00 11/10/21 08:24 Fluticasone/Umeclidin/Vilanter 100-62.5-25 Mcg Ellipta INHALATION 1 puff DAILYRT CARLINE Administration Gabapentin 100 mg 11/07/21 08:25 11/10/21 06:29 Gabapentin 100 Mg Capsule PO 100 mg Q8HR CARLINE Administration Hydroxyzine Pamoate 50 mg 11/08/21 17:50 Hydroxyzine Pamoate 25 Mg Capsule PO Q4H PRN Itching Insulin Aspart 0 unit
[2021-11-10 14:00] VITALS: BP 116/48; PULSE 81; RESP 20; TEMP 35.7; O2SAT 93
[2021-11-10 17:07] LABS: Glucose Point of Care 292 mg/dl (65-105)
[2021-11-10] MEDS: ROSUVASTATIN 10 MG TABLET 20 MG PO (20:49)
[2021-11-10 22:00] VITALS: BP 134/51; PULSE 70; RESP 14; TEMP 36.8; O2SAT 91
[2021-11-11] MEDS: ACETAMINOPHEN/CODEINE (*CRX) 300/30 MG TABLET 1 TAB PO ×2 (05:40→13:35)
[2021-11-11] MEDS: GABAPENTIN 100 MG CAPSULE PO ×2 (05:46→13:35)
[2021-11-11] MEDS: LEVOTHYROXINE SODIUM 50 MCG TABLET PO (05:46)
[2021-11-11 06:00] VITALS: BP 139/67; PULSE 76; RESP 16; TEMP 37; O2SAT 94
[2021-11-11 06:13] LABS: Hematocrit 35.2 % (37.0-47.0); Mean Corpuscular HGB Conc 31.3 g/dl (32-36); Mean Corpuscular Hemoglobin 30.6 pg (26-34); Mean Corpuscular Volume 97.8 fl (80-100); Mean Platelet Volume 10.5 fl (7.4-10.4); Platelet Count Result 304 k/mm3 (150-375); Red Cell Distribution Width 13.8 % (11.5-14.5); White Blood Count 11.1 K/mm3 (4.5-10.0)
[2021-11-11 06:25] LABS: Glucose Point of Care 207 mg/dl (65-105)
[2021-11-11 06:32] LABS: Anion Gap 13 mmol/L (8-16); Blood Urea Nitrogen 47 mg/dL (7-17); Calcium 8.3 mg/dL (8.4-10.2); Carbon Dioxide 32 mmol/L (22-30); Chloride 95 mmol/L (98-107); Estimated CRCL calculation 17 ml/min; Estimated Glomerular Filt Rate 20; Glucose 140 mg/dL (65-110); Potassium 3.7 mmol/L (3.4-5.0); Sodium 140 mmol/L (137-145)
[2021-11-11 07:32] LABS: Glucose Point of Care 139 mg/dl (65-105)
[2021-11-11 08:13] VITALS: O2SAT 97
[2021-11-11] MEDS: FLUTICASONE/UMECLIDIN/VILANTER 100-62.5-25 MCG ELLIPTA 1 PUFF INHALATION (08:13)
[2021-11-11] MEDS: INSULIN ASPART (*BKC) 100 UNITS/ML SUB-Q ×3 (08:50→11:41)
[2021-11-11] MEDS: SENNA/DOCUSATE SODIUM TABLET 2 TAB PO (08:55)
[2021-11-11] MEDS: APIXABAN 5 MG TABLET PO (08:55)
[2021-11-11] MEDS: polyethylene glycoL 3350 17 GM POWD.PACK PO (08:55)
[2021-11-11] MEDS: PANTOPRAZOLE 40 MG TABLET PO (08:55)
[2021-11-11] MEDS: FAMOTIDINE 20 MG TABLET PO (08:55)
[2021-11-11] MEDS: BUMETANIDE 1 MG TABLET 2 MG PO (08:56)
[2021-11-11] MEDS: INSULIN GLARGINE (*BKC) 100 UNITS/ML 25 UNITS SUB-Q (09:03)
[2021-11-11 09:09] VITALS: PULSE 83
[2021-11-11] MEDS: METOPROLOL SUCCINATE EXT REL 12.5 MG TABCR PO (09:09)
--- NOTE | 2021-11-11 10:54 | PM.DS ---
DS: Admitting Diagnosis Discharge Date November 11, 2021 Admitting Diagnosis hip fracture DS: Discharge Diagnosis Discharge Diagnosis (1) Closed intertrochanteric fracture of left femur: Qualifiers: Encounter type: initial encounter Fracture alignment: displaced Qualified Code(s): S72.142A - Displaced intertrochanteric fracture of left femur, initial encounter for closed fracture Code(s): S72.142A - Displaced intertrochanteric fracture of left femur, initial encounter for closed fracture Status: Acute Assessment and Plan: admit to regular medical floor bed rest status post hip surgery. Continue PTOT (2) Fall: Code(s): W19.XXXA - Unspecified fall, initial encounter Status: Acute Assessment and Plan: fall precautions (3) Hypertension: Code(s): I10 - Essential (primary) hypertension Status: Chronic Assessment and Plan: continue home meds continue to monitor (4) Chronic kidney disease, stage 4 (severe): Code(s): N18.4 - Chronic kidney disease, stage 4 (severe) Status: Chronic Assessment and Plan: continue to monitor BUN and creatinine (5) GERD (gastroesophageal reflux disease): Code(s): K21.9 - Gastro-esophageal reflux disease without esophagitis Status: Acute Assessment and Plan: PPI as need DS: Summary Hospital Course Hospital Course: patient is a 86-year-old female who came in with a hip fracture after a fall. She underwent repair few days ago and has done exceptionally well. She works with physical therapy and occupational therapy and she will be discharged to a skilled facility and can be discharged today. Continue pain medication as needed. Time Spent with Patient Time attestation: Total time spent providing and/or coordinating discharge services: Exam Narrative: elderly frail Patient is comfortable, NAD HEENT: eyes are clear and none icteric LUNGS: normal respiratory effort ABD: distended Lower extremities: no edema SKIN: nonjaundiced Neuro: grossly intact. DS: Data Data Completed and Pending Labs on day of discharge: Labs from last 24 hours 11/11/21 11/11/21 11/11/21 07:30 05:38 05:38 WBC 11.1 H RBC 3.60 L Hgb 11.0 L Hct 35.2 L MCV 97.8 MCH 30.6 MCHC 31.3 L RDW 13.8 Plt Count 304 MPV 10.5 H Sodium 140 Potassium 3.7 Chloride 95 L Carbon Dioxide 32 H Anion Gap 13 BUN 47 H Creatinine 2.30 H Estim Creat Clear Calc 17 Estimated GFR 20 L Glucose 140 H POC Capillary Glucose 139 H Calcium 8.3 L 11/10/21 11/10/21 11/10/21 20:47 17:05 11:33 WBC RBC Hgb Hct MCV MCH MCHC RDW Plt Count MPV Sodium Potassium Chloride Carbon Dioxide Anion Gap BUN Creatinine Estim Creat Clear Calc Estimated GFR Glucose POC Capillary Glucose 207 H 292 H 334 H Calcium Discharge Plan Discharge Attending physician on discharge: Arron Soto Consulting providers: Linette Castillo ; Eugene Baker Discharging Clinician: Arron Soto Patient Disposition: SNF Activity: may shower and no driving Diet: as tolerated Wound Care Instructions: follow printed instructions Discharge Instructions: Postoperative Hip Fracture Instructions Dr. Eugene Baker [phone] Dressing to be changed daily with an island dressing beginning on post op day #2. May stop dressing changes at post op day #14. Marcus to be removed on post op day #14 You may shower with your dressing but do not submerge in a bath tub. Do not drive or operate machinery until you are released by your surgeon. Do not walk without a walker for any reason until you are released by your surgeon. Resume normal dose of Eliquis for DVT prevention, no additional blood thinner indicated at this time. . Continue to apply ice to the hip intermitt
[2021-11-11 11:35] LABS: Glucose Point of Care 242 mg/dl (65-105)
--- NOTE | 2021-11-11 11:43 | PCPTNOTE ---
The patient treatment was not able to be completed this A.M.. PT attempted 2x this A.M. however on first attempt patient completed OT treatment and had to return back to bed due to drop in BP. Returned later and patient was eating lunch. Will plan to continue treatment per plan of care.
[2021-11-11 14:00] VITALS: BP 123/87; PULSE 75; RESP 18; TEMP 36.7; O2SAT 96
--- NOTE | 2021-11-11 14:51 | PCPTNOTE ---
Attempted to see patient for PT, however spoke with nursing, per nursing: patient just got pain medication and is kind of out of it, plus patient is getting ready to discharge.
== END 2021-11-11 15:50 | DRG 481 ==
LOC: ANHED 11-07 00:12 → ANH3MEDSUR 11-07 00:54
PROVIDERS: Family Medicine; Orthopaedic Surgery; Physician Assistant; Admitting Provider Internal Medicine; Emergency Provider Preventive Medicine Aerospace Medicine; PCP Nurse Practitioner Adult Health; Visit Provider Chiropractor
PROC: 0QS736Z Reposition Left Upper Femur with Intramedullary Internal Fixation Device, Percutaneous Approach (ICD-10-PCS; CPT 27245; principal; 2021-11-08 15:00)
DX: S72.142A Displaced intertrochanteric fracture of left femur, initial encounter for closed fracture (principal); I13.0 Hypertensive heart and chronic kidney disease with heart failure and stage 1 through stage 4 chronic kidney disease, or unspecified chronic kidney disease; N18.4 Chronic kidney disease, stage 4 (severe); I50.32 Chronic diastolic (congestive) heart failure; W18.30XA Fall on same level, unspecified, initial encounter; D63.1 Anemia in chronic kidney disease; E11.22 Type 2 diabetes mellitus with diabetic chronic kidney disease; E78.5 Hyperlipidemia, unspecified; E03.9 Hypothyroidism, unspecified; E11.51 Type 2 diabetes mellitus with diabetic peripheral angiopathy without gangrene; E11.42 Type 2 diabetes mellitus with diabetic polyneuropathy; G40.909 Epilepsy, unspecified, not intractable, without status epilepticus; H81.09 Meniere's disease, unspecified ear; G89.29 Other chronic pain; I25.2 Old myocardial infarction; I35.0 Nonrheumatic aortic (valve) stenosis; I25.10 Atherosclerotic heart disease of native coronary artery without angina pectoris; J44.9 Chronic obstructive pulmonary disease, unspecified; K21.9 Gastro-esophageal reflux disease without esophagitis; M85.80 Other specified disorders of bone density and structure, unspecified site; M54.9 Dorsalgia, unspecified; S90.921A Unspecified superficial injury of right foot, initial encounter; S82.64XD Nondisplaced fracture of lateral malleolus of right fibula, subsequent encounter for closed fracture with routine healing; W19.XXXD Unspecified fall, subsequent encounter; Z90.49 Acquired absence of other specified parts of digestive tract; Z79.4 Long term (current) use of insulin; Z86.718 Personal history of other venous thrombosis and embolism; Z98.49 Cataract extraction status, unspecified eye; Z96.1 Presence of intraocular lens; Z90.710 Acquired absence of both cervix and uterus; Z96.641 Presence of right artificial hip joint; Z90.79 Acquired absence of other genital organ(s); Z90.722 Acquired absence of ovaries, bilateral; Z95.1 Presence of aortocoronary bypass graft; Z79.01 Long term (current) use of anticoagulants
CPT/HCPCS: 36415; 51702; 70450; 71045; 72125; 72128; 72131; 73502; 73562; 73610; 80048; 81001; 82948; 85025; 85027; 85055; 93005; 94640; 96365; 96375; 96376; 97110; 97161; 97165; 97530; 97535; 99199; 99285; A9270; C1713; G0378; G0379; J0131; J0360; J0690; J1815; J2270; J2370; J2405; J2704; J3010; J7030; J7120

== ENCOUNTER 2021-11-25 15:01 | Outpatient (CLI) | payer OTHER, SELFPAY ==
--- NOTE | ~2021-11-25 | CT_ITS ---
EXAMINATION: CT brain wo con DATE: 11/25/2021 15:24 INDICATION: Syncope TECHNIQUE: Computed tomography (CT) of the head was performed without intravenous contrast. The dose- length product was 605.33 mGy-cm. COMPARISON: None FINDINGS: Generalized atrophy. There are scattered mild periventricular and subcortical white matter changes, most likely related to small vessel ischemic disease (microangiopathy). No acute intracrania l hemorrhage, infarction, mass or mass effect. Basilar cisterns are patent. Paranasal sinuses and mas toids are pneumatized. There is intracranial atherosclerosis. No depressed skull fractures. IMPRESSION: 1. No acute intracranial abnormality. 2: Chronic age-related findings. Reviewed, dictated and finalized at location B.
== END 2021-11-25 15:02 | disposition home or self-care (01) ==
PROVIDERS: PCP Nurse Practitioner Adult Health; Visit Provider Hospitalist
DX: R55 Syncope and collapse (principal)
CPT/HCPCS: 70450

== ENCOUNTER 2022-05-08 18:34 | Emergency (ER) | payer MEDICARE, SELFPAY ==
--- NOTE | ~2022-05-08 | XR_ITS ---
EXAMINATION: XR chest 2V DATE: 05/08/2022 19:18 INDICATION: Heart palpitations, weakness and nausea TECHNIQUE: PA and lateral views of the chest were obtained. COMPARISON: Chest radiograph dated 11/06/21 FINDINGS: The lungs remain clear with no focal airspace opacities, pulmonary edema, pleural effusion or pneumot horax. The cardiomediastinal silhouette is normal. Median sternotomy wires and mediastinal surgical c lips are seen, likely from prior coronary artery bypass grafting. Moderate-sized hiatal hernia. Susanne cystectomy clips at the right upper quadrant. Chronic fracture at the proximal right humerus. IMPRESSION: 1. No acute cardiopulmonary disease. 2. Moderate sized hiatal hernia. Reviewed, dictated and finalized at location A. ERCIAL CONSTRUCTION PROJECT MANAGER
--- NOTE | ~2022-05-08 | CT_ITS ---
EXAMINATION: CT abdomen pelvis wo con DATE: 05/08/2022 21:20 INDICATION: Vomiting, diarrhea and lower abdominal pain. TECHNIQUE: Computed tomography (CT) of the abdomen and pelvis was performed without intravenous contr ast. Automated exposure control and iterative reconstruction technique were employed. The dose-length product was 464.02 mGy-cm. COMPARISON: None FINDINGS: Mild bibasilar atelectasis. Heart size normal. Atherosclerotic coronary artery calcification, aortic valve and dense mitral annular calcific lesion. Postoperative change of prior median sternotomy and c oronary artery bypass grafting. No pericardial or pleural effusion. Calcified right hilar lymph nodes consistent with old granulomatous disease. Moderate-sized sliding-type hiatal hernia. Mild dilation of the common bile duct which is within normal limits post cholecystectomy with surgical clips the ga llbladder fossa. Liver, spleen, pancreas and bilateral adrenal glands are normal. There are small francisco ateral renal cysts the largest measuring 1.5 cm upper and lower poles of the left kidney. No urolithi asis or hydronephrosis. Dorsally the pelvis are obscured by metallic streak artifact resulting from a right hip hemiarthroplasty and antegrade intramedullary candelaria and interlocking femoral neck screw fixa tion at the proximal left femur. Partially decompressed bladder is normal. The uterus is not identifi ed and has likely been surgically resected. Small bowel anastomotic suture line in the right lower qu adrant. No abnormal bowel wall thickening or obstruction. The appendix is not visualized. No periceca l inflammatory change to suggest acute appendicitis. No free intraperitoneal gas or fluid. No patholo gically enlarged abdominal or pelvic lymphadenopathy. Bilateral small fat-containing inguinal hernias moderate lumbar spondylosis. IMPRESSION: 1. No acute intra-abdominal/pelvic process. 2. Moderate-sized sliding-type hiatal hernia. 3. Small bilateral fat-containing inguinal hernias. Reviewed, dictated and finalized at location A. ER UPPERS OR LININGS
[2022-05-08 18:36] VITALS: BP 104/56; PULSE 88; RESP 16; TEMP 36.6; O2SAT 100
--- NOTE | 2022-05-08 18:44 | ECG_ITS ---
Measurements Intervals White Rate: 77 P: 20 KS: 148 QRS: 7 QRSD: 89 T: 30 QT: 378 QTc: 429 Interpretive Statements SINUS RHYTHM CONSIDER INFERIOR INFARCT, AGE INDETERMINATE BORDERLINE ST ABNORMALITY- HIGH LATERAL LEAD BASELINE ARTIFACT- I, V6 ABNORMAL ECG COMPARED TO ECG 11/06/2021 20:39:32 ST DEVIATION NOW PRESENT Electronically Signed On 05-09-2022 6:46:33 DANCE PROFESSOR by Sathya Cohen D.O.
[2022-05-08 19:05] LABS: Basophils Absolute Auto 0.1 K/mm3 (0.0-0.1); Basophils Percent Auto 0.5 % (0.2-1.2); Eosinophils Absolute Auto 0.1 K/mm3 (0-0.3); Eosinophils Percent Auto 0.6 % (0-4.4); Hematocrit 44.5 % (37.0-47.0); Hemoglobin 14.1 g/dL (12.0-15.0); Immature Granulocyte Absolute 0.11 K/mm3 (0.00-0.031); Immature Granulocyte Percent A 0.9 % (0-0.5); Lymphocytes Absolute Auto 2.05 K/mm3 (0.9-3.2); Lymphocytes Percent Auto 16.6 % (18.3-44.2); Mean Corpuscular HGB Conc 31.7 g/dl (32-36); Mean Corpuscular Hemoglobin 31.6 pg (26-34); Mean Corpuscular Volume 99.8 fl (80-100); Mean Platelet Volume 9.3 fl (7.4-10.4); Monocytes Absolute Auto 0.8 K/mm3 (0.1-0.6); Monocytes Percent Auto 6.4 % (2.6-8.5); Neutrophils Absolute Auto 9.3 K/mm3 (1.3-6.7); Platelet Count Result 397 k/mm3 (150-375); Red Blood Count 4.46 M/mm3 (4.2-5.4); Red Cell Distribution Width 16.3 % (11.5-14.5); White Blood Count 12.4 K/mm3 (4.5-10.0)
[2022-05-08 19:15] LABS: Alanine Aminotransferase 13 U/L (6-35); Albumin Level 3.3 g/dL (3.5-5.1); Alkaline Phosphatase 101 U/L (38-126); Anion Gap 8 mmol/L (8-16); Aspartate Amino Transferase 15 U/L (14-36); Bilirubin,Total 0.7 mg/dL (0.2-1.3); Blood Urea Nitrogen 31 mg/dL (7-17); Carbon Dioxide 30 mmol/L (22-30); Chloride 97 mmol/L (98-107); Estimated CRCL calculation 21 ml/min; Estimated Glomerular Filt Rate 29; Glucose 251 mg/dL (65-110); Potassium 3.7 mmol/L (3.4-5.0); Sodium 135 mmol/L (137-145)
[2022-05-08 21:05] LABS: Appearance Urine Cloudy (Clear); Bilirubin Urine Negative (Negative); Blood Urine Negative (Negative); Color Urine Yellow (Yellow); Glucose Urine UA Negative (Negative); Ketones Urine Negative (Negative); Leukocyte Esterase Ur 3+ LEU/UL (Negative); Nitrate Urine Negative (Negative); Protein Urine Trace mg/dL (Negative); Specific Grav Ur 1.015 (1.001-1.035); Urobilinogen Urine 0.2 mg/dL (<2.0); pH Urine 5.5 (5.0-9.0)
--- NOTE | 2022-05-08 21:11 | ED.WEAKNESS ---
HPI - Weakness General Chief complaint: Weakness Stated complaint: everything Time Seen by Provider: 05/08/22 20:22 History of Present Illness HPI Narrative: Patient is an 86-year-old female presenting with generalized weakness and suprapubic pain. States that she started to feel generally weak yesterday but it has progressed today. States all of her limbs feel heavy. States that she also feels nauseated and has had intermittent suprapubic pain. No fevers or chills, headache, numbness or focal weakness, chest pain, shortness of breath, cough, diarrhea, dysuria, leg swelling. Related Data Home Medications Medication Instructions Recorded Confirmed rosuvastatin 10 mg tablet (Crestor) 20 mg PO QHS 11/07/21 11/15/21 albuterol sulfate 5 mg/mL(0.5 %) 5 mg inhalation Q6H PRN Shortness 11/15/21 11/15/21 solution for nebulization Of Breath insulin aspart U-100 100 unit/mL 1 sliding scale dose subcut 11/15/21 11/15/21 (3 mL) subcutaneous pen (Novolog USEASDIRECTD FlexPen U-100 Insulin aspart) levothyroxine 50 mcg tablet 50 mcg PO DAILY 11/15/21 11/15/21 Allergies Allergy/AdvReac Type Severity Reaction Status Date / Time No Known Allergies Allergy Verified 09/23/21 15:56 Review of Systems Review of Systems: All systems reviewed & are unremarkable except as noted in HPI and below PMFSH Past Medical History Medical History Anemia due to stage 4 chronic kidney disease Aortic stenosis Echo April 2020: Moderate aortic stenosis with peak velocity of 305 mean gradient of 23 valve area 1.3 with severe aortic valve calcification Arthritis CAD (coronary artery disease) Non STEMI April 2020 Cataracts, bilateral Chronic back pain Chronic kidney disease, stage 4 (severe) Claustrophobia COPD (chronic obstructive pulmonary disease) Diastolic CHF Echocardiogram 05/11/2020: EF 65-70%, mildly increased left ventricular wall thickness, diastolic dysfunction grade 1, moderate left atrial enlargement, mitral valve with thickened leaflets calcification of leaflets and annulus, mild mitral valve regurgitation, mild tricuspid regurgitation, mild pulmonary hypertension with RVSP of 41 DVT (deep venous thrombosis) Left popliteal and peroneal DVT 2021 Femur fracture, right GERD (gastroesophageal reflux disease) GI bleed Heart attack Hiatal hernia High cholesterol History of angina History of blood transfusion HTN (hypertension) Hyperlipidemia Hypothyroid Light headedness Meniere disease Osteopenia Peripheral neuropathy Peripheral vascular disease of lower extremity RLE stent placement Rectal polyp Seizures During [place] Type II diabetes mellitus Wears glasses Surgical History Surgical History H/O exploratory laparotomy Ileal resection with [id number] 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 With subsequent release of small-bowel obstruction History of appendectomy during hysterectomy History of cardiac catheterization History of cataract removal with insertion of prosthetic lens History of cholecystectomy during hysterectomy History of hysterectomy Open JALYN-BSO with cholecystectomy and appendectomy History of total right hip arthroplasty Right hip bipolar by Dr. Good in 2015 Hx of blepharoplasty Hx of CABG Family History Family History Father Hypertension Pneumonia Smoking Acute myocardial infarction at 57 Mother Diabetes mellitus Family history of glaucoma Cancer Hypotension Cerebrovascular accident Sibling Diabetes mellitus Heart disease Sibling Diabetes mellitus Heart disease Sibling Diabetes mellitus Heart disease Sibling Diabetes mellitus Heart disease Sibling Suicide and self-inflicted injury Sibling Accidental , public place Daughter Breast cancer Social Hi
[2022-05-08 21:16] LABS: Add Urine Microscopic? YES
[2022-05-08 21:17] LABS: Bacteria Urine 1+ /hpf; RBC Urine 0-2 /hpf (0-2); Squamous Epithelial Cell Urine Moderate /hpf (Few); WBC Urine 31-50 /hpf (0-3)
[2022-05-08 22:23] LABS: Influenza A QL RT-PCR Negative (Negative); Influenza B QL RT-PCR Negative (Negative); SARS-CoV-2 RNA PCR Negative
[2022-05-08] MEDS: LACTATED RINGERS 1,000 ML 999 ML IV CONT (22:24)
[2022-05-08] MEDS: ONDANSETRON INJ 4 MG/2 ML VIAL IV PUSH (22:24)
[2022-05-08 23:55] VITALS: BP 136/66; PULSE 86; RESP 20; O2SAT 97
== END 2022-05-08 23:56 | disposition home or self-care (01) ==
PROVIDERS: Emergency Medicine; Emergency Provider Emergency Medicine
DX: N39.0 Urinary tract infection, site not specified (principal); R11.2 Nausea with vomiting, unspecified; Z20.822 Contact with and (suspected) exposure to COVID-19; E11.22 Type 2 diabetes mellitus with diabetic chronic kidney disease; I13.0 Hypertensive heart and chronic kidney disease with heart failure and stage 1 through stage 4 chronic kidney disease, or unspecified chronic kidney disease; N18.4 Chronic kidney disease, stage 4 (severe); I50.30 Unspecified diastolic (congestive) heart failure; D63.1 Anemia in chronic kidney disease; I25.10 Atherosclerotic heart disease of native coronary artery without angina pectoris; I25.2 Old myocardial infarction; J44.9 Chronic obstructive pulmonary disease, unspecified; E78.00 Pure hypercholesterolemia, unspecified; E03.9 Hypothyroidism, unspecified; E11.42 Type 2 diabetes mellitus with diabetic polyneuropathy; E11.51 Type 2 diabetes mellitus with diabetic peripheral angiopathy without gangrene; I73.9 Peripheral vascular disease, unspecified; H81.09 Meniere's disease, unspecified ear; M85.80 Other specified disorders of bone density and structure, unspecified site; K21.9 Gastro-esophageal reflux disease without esophagitis; Z98.49 Cataract extraction status, unspecified eye; Z96.1 Presence of intraocular lens; Z96.641 Presence of right artificial hip joint; Z95.1 Presence of aortocoronary bypass graft; Z90.710 Acquired absence of both cervix and uterus; Z86.718 Personal history of other venous thrombosis and embolism; Z87.19 Personal history of other diseases of the digestive system; Z79.4 Long term (current) use of insulin; Z77.22 Contact with and (suspected) exposure to environmental tobacco smoke (acute) (chronic)
CPT/HCPCS: 36415; 71046; 74176; 80053; 81001; 85025; 87086; 87088; 87636; 93005; 96361; 96365; 96375; 99284; J0696; J2405; J7120